=== PATIENT | female | born 1965 | race Caucasian/White ===

== ENCOUNTER 2016-02-09 15:39 | Inpatient (IN) | payer OTHER ==
[2016-02-09 16:48] VITALS: BMI 27.2
--- NOTE | 2016-02-09 17:36 | HP ---
CIWA Score - CIWA Score Nausea/Vomitin-Mild Nausea/No Vomiting Muscle Tremors: 5 Anxiety: 4-Mod. Anxious/Guarded Agitation: 4-Moderately Restless Paroxysmal Sweats: 2 Orientation: 0-Oriented Tacttile Disturbances: 0-None Auditory Disturbances: 0-None Visual Disturbances: 0-None Headache: 0-None Present CIWA-Ar Total Score: 16 Admission ROS BHS - HPI Chief Complaint: withdrawal sx Allergies/Adverse Reactions: Allergies Allergy/AdvReac Type Severity Reaction Status Date / Time cephalexin monohydrate Allergy Hives Verified 02/09/16 17:12 [From [facility]] History of Present Illness: 50 years old female with long history of alcohol nicotine dependence has hiv and hepatitis c treated, bipolar longest sobriety 7 years is admitted to detox Exam Limitations: No Limitations - Ebola screening Have you traveled outside of the country in the last 21 days: No Have you had contact with anyone from an Ebola affected area: No Have you been sick,other than usual withdrawal symptoms: No Do you have a fever: No - Review of Systems Constitutional: Chills, Loss of Appetite, Changes in sleep, Unexplained wgt Loss EENT: reports: Other (needed eye glasses) Respiratory: reports: No Symptoms reported Cardiac: reports: No Symptoms Reported GI: reports: Nausea, Poor Appetite, Poor Fluid Intake, Vomiting, Abdominal cramping : reports: No Symptoms Reported Musculoskeletal: reports: No Symptoms Reported Integumentary: reports: No Symptoms Reported Neuro: reports: Seizure (last episode 09/20), Tremors Endocrine: reports: No Symptoms Reported Hematology: reports: No Symptoms Reported Psychiatric: reports: Judgement Intact, Orientated x3 Other Systems: Reviewed and Negative Patient History - Patient Medical History Hx Anemia: No Hx Asthma: No Hx Chronic Obstructive Pulmonary Disease (COPD): No Hx Cancer: No Hx Cardiac Disorders: No Hx Congestive Heart Failure: No Hx Hypertension: No Hx Hypercholesterolemia: No Hx Pacemaker: No HX Cerebrovascular Accident: No Hx Seizures: Yes (2015) Hx Dementia: No Hx Diabetes: No Hx Gastrointestinal Disorders: No Hx Liver Disease: No Hx Genitourinary Disorders: No Hx Sexually Transmitted Disorders: No Hx Renal Disease (ESRD): No Hx Thyroid Disease: No Hx Human Immunodeficiency Virus (HIV): Yes (HIV 1992) Hx Hepatitis C: Yes (TREATED) Hx Depression: Yes Hx Suicide Attempt: Yes (Tried to overdose in 2013) Hx Bipolar Disorder: Yes Hx Schizophrenia: No - Patient Surgical History Past Surgical History: Yes Hx Neurologic Surgery: No Hx Cataract Extraction: No Hx Cardiac Surgery: No Hx Lung Surgery: No Hx Breast Surgery: No Hx Breast Biopsy: No Hx Abdominal Surgery: No Hx Appendectomy: No Hx Cholecystectomy: No Hx Genitourinary Surgery: No Hx Section: Yes (2004) Hx Orthopedic Surgery: No Hx Hysterectomy: No Anesthesia Reaction: No - PPD History Previous Implant?: Yes Documented Results: Negative w/proof Implanted On Prior [facility] Admission?: Yes Date: 11/10/15 Results: 0 MM PPD to be Administered?: No - Reproductive History Patient is a Female of Child Bearing Age (11 -55 yrs old): Yes Last Menstrual Period: 01/29/16 Patient : No - Smoking Cessation Smoking history: Current every day smoker Have you smoked in the past 12 months: Yes Aproximately how many cigarettes per day: 20 Cigars Per Day: 0 Hx Chewing Tobacco Use: No Initiated information on smoking cessation: Yes 'Breaking Loose' booklet given: 02/09/16 - Substance & Tx. History Hx Alcohol Use: Yes Hx Substance Use: Yes Substance Use Type: Alcohol, Cocaine, Marijuana, Opiates, Tranquilizers Hx Substance Use Treatment: Yes - Substances Abused Alcohol Route: Oral Frequency: Daily Amount used: 4 [place]TS [place]ODKA Age of first use: 13 Date of Last Use: 02/09/16 Crack Route: Smoking Frequency: Daily Amount used: 7 BAGS Age of first use: 17 Date of Last Use: 02/08/16 Family Disease History - Family Disease History Family Disease History: Diabetes: Mother (ALCOHOL), Other: Grandparent, Father ( , ALCOHOL), Mother Admission Physical Exam BHS - Vital Signs Vital Signs: Vital Signs - 24 hr 02/09/16 16:44 Temperature 98.1 F Pulse Rate 80 Respiratory 16 Rate Blood Pressure 105/74 - Physical General Appearance: Yes: Appropriately Dressed, Mild Distress, Thin, Tremorous, Irritable, Sweating, Anxious HEENTM: Yes: Hearing grossly Normal, Normal ENT Inspection, Normocephalic, Normal Voice Respiratory: Yes: Chest Non-Tender, Lungs Clear, Normal Breath Sounds, No Respiratory Distress, No Accessory Muscle Use Neck: Yes: Supple, Trachea in good position Breast: Yes: Breasts Symetrical Cardiology: Yes: Regular Rhythm, Regular Rate, S1, S2 Abdominal: Yes: Non Tender, Soft Genitourinary: Yes: Within Normal Limits Back: Yes: Normal Inspection Musculoskeletal: Yes: full range of Motion, Gait Steady Extremities: Yes: Normal Inspection, Normal Range of Motion, Non-Tender, Tremors 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: Yes: Fully Oriented, Alert, Motor Strength 5/5, Normal Response Integumentary: Yes: Warm Lymphatic: Yes: Within Normal Limits - Diagnostic (1) Alcohol dependence with uncomplicated withdrawal Current Visit: Yes Status: Acute (2) GERD (gastroesophageal reflux disease) Current Visit: Yes Status: Acute Qualifiers: Esophagitis presence: without esophagitis Qualified Code(s): K21.9 - Gastro-esophageal reflux disease without esophagitis Comment: ZANTAC 150 MG PO BID (3) HIV disease Current Visit: Yes Status: Chronic (4) Hep C w/o coma, chronic Current Visit: Yes Status: Resolved (5) Nicotine dependence Current Visit: Yes Status: Acute Qualifiers: Nicotine product type: cigarettes Substance use status: uncomplicated Qualified Code(s): F17.210 - Nicotine dependence, cigarettes, uncomplicated (6) Bipolar II disorder, mild, depressed, with anxious distress, in partial remission Current Visit: Yes Status: Suspected (7) Seizure disorder, secondary Current Visit: Yes Status: Chronic Comment: no treatment Cleared for Admission [facility] - Detox or Rehab [facility] Level of Care: Medically Managed Detox Regimen/Protocol: Librium [facility] Breath Alcohol Content Breath Alcohol Content: 0 Urine Pregancy Test - Result Urine Test Results: Negative- NO Line Present Urine Drug Screen - Results Drug Screen Negative: No Urine Drug Screen Results: THC-Marijuana, BARBARA-Cocaine, BZO-Benzodiazepines, MTD- Methadone, TCA-Tricyclic Antidepress, OXY-Oxycodone
[2016-02-09] MEDS ORDERED: MAGNESIUM HYDROX 2400MG/30ML ORAL SUSPENSION 30 ML CUP PO PRN (17:45)
[2016-02-09] MEDS ORDERED: P-EPHED 60MG/TRIPROLIDI 2.5MG TABLET PO PRN (17:45)
[2016-02-09] MEDS ORDERED: MENTHOL/PHENOL 1 EACH UD MM PRN (17:45)
[2016-02-09] MEDS ORDERED: IBUPROFEN 400 MG TABLET (FP) PO PRN (17:45)
[2016-02-09] MEDS ORDERED: ACETAMINOPHEN 325 MG TABLET (FP) PO PRN (17:45)
[2016-02-09] MEDS ORDERED: MAG HYDROX/AL HYDROX/SIMETH 30 ML UNIT-DOSE CUP PO PRN (17:45)
[2016-02-09] MEDS ORDERED: diphenhydrAMINE HCL 50 MG CAPSULE PO PRN (17:45)
[2016-02-09] MEDS ORDERED: NICOTINE POLACRILEX 2 MG GUM BC PRN (17:45)
[2016-02-09] MEDS ORDERED: LOPERAMIDE HCL 2 MG CAPSULE PO PRN (17:45)
[2016-02-09] MEDS ORDERED: chlordiazePOXIDE HCL 25 MG CAPSULE PO PRN (17:45)
[2016-02-09] MEDS ORDERED: MAGNESIUM CITRATE 300 ML BOTTLE PO PRN (17:45)
[2016-02-09] MEDS ORDERED: guaiFENesin/D-METHORPHAN HB 10 ML UNIT-DOSE CUPS PO PRN (17:45)
[2016-02-09] MEDS ORDERED: chlordiazePOXIDE HCL 25 MG CAPSULE PO ONE (18:45)
[2016-02-09] MEDS: EMTRICITABINE 200MG/TENOFOVIR 300MG PO SCH (19:26)
[2016-02-09] MEDS: RITONAVIR 100 MG TABLET PO SCH (19:26)
[2016-02-09] MEDS: ATAZANAVIR SO4 300 MG CAPSULE PO SCH (19:26)
[2016-02-09] MEDS: chlordiazePOXIDE HCL 25 MG CAPSULE PO SCH (22:26)
[2016-02-09] MEDS: THIAMINE HCL 100 MG TABLET (FP) PO SCH (22:26)
[2016-02-09] MEDS: RANITIDINE HCL 150 MG TABLET (FP) PO SCH (22:26)
[2016-02-09 23:11] LABS: URINE APPEARANCE CLEAR; URINE BILIRUBIN NEGATIVE (NEGATIVE); URINE BLOOD NEGATIVE (NEGATIVE); URINE COLOR YELLOW; URINE GLUCOSE (UA) NEGATIVE (NEGATIVE); URINE KETONE NEGATIVE (NEGATIVE); URINE LEUK ESTERASE NEGATIVE (NEGATIVE); URINE NITRITE NEGATIVE (NEGATIVE); URINE PROTEIN NEGATIVE (NEGATIVE); URINE UROBILINOGEN 2.0 E.U/dl E.U./dl (0.2-1.0)
[2016-02-10] MEDS: chlordiazePOXIDE HCL 25 MG CAPSULE PO SCH ×4 (06:04→22:24)
[2016-02-10] MEDS ORDERED: METHADONE HCL 10 MG TABLET PO ONE (08:43)
[2016-02-10] MEDS: EMTRICITABINE 200MG/TENOFOVIR 300MG PO SCH (08:45)
[2016-02-10] MEDS: ATAZANAVIR SO4 300 MG CAPSULE PO SCH (08:46)
[2016-02-10] MEDS: RITONAVIR 100 MG TABLET PO SCH (08:46)
[2016-02-10] MEDS ORDERED: METHADONE 80 MG, METHADONE 30 MG PO ONE (09:13)
[2016-02-10] MEDS ORDERED: METHADONE HCL 10 MG TABLET ONE (09:46)
[2016-02-10] MEDS ORDERED: METHADONE HCL 40 MG DISPERSABLE TABLET ONE (09:47)
[2016-02-10 10:20] LABS: MCH 29.7 pg (25.7-33.7); MCHC 33.3 g/dl (32.0-36.0); MEAN CELL VOLUME 89.2 fl (80-96); MEAN PLT VOLUME 8.5 fl (7.5-11.1); PLATELET COUNT 247 K/MM3 (134-434); RDW 13.8 % (11.6-15.6); WHITE BLOOD COUNT 3.5 K/mm3 (4.0-10.0)
[2016-02-10] MEDS: PRENATAL VITAMINS W/ FOLIC ACID TABLET (FP) PO SCH (10:38)
[2016-02-10] MEDS: RANITIDINE HCL 150 MG TABLET (FP) PO SCH ×2 (10:38→22:25)
[2016-02-10] MEDS: NICOTINE 21 MG/24 HOURS TOPICAL PATCH TD SCH (10:43)
[2016-02-10 10:58] LABS: ALBUMIN 3.3 g/dl (3.4-5.0); ALK PHOS 104 U/L (45-117); ANION GAP 11 (8-16); BILIRUBIN,TOTAL 1.1 mg/dL (0.2-1.0); CALCIUM 8.8 mg/dL (8.5-10.1); CO2 22 mmol/L (21-32); CREATININE 0.7 mg/dL (0.55-1.02); GLUCOSE,RANDOM 82 mg/dL (74-106); SGOT/AST 77 U/L (15-37); SGPT/ALT 82 U/L (12-78); TOT PROT 7.8 g/dl (6.4-8.2)
--- NOTE | 2016-02-10 11:25 | PN ---
S CIWA - CIWA Score Nausea/Vomitin-No Nausea/No Vomiting Muscle Tremors: 4-Moderate,w/Arms Extend Anxiety: 3 Agitation: 4-Moderately Restless Paroxysmal Sweats: 3 Orientation: 0-Oriented Tacttile Disturbances: 0-None Auditory Disturbances: 0-None Visual Disturbances: 0-None Headache: 0-None Present CIWA-Ar Total Score: 14 BHS Progress Note (SOAP) Subjective: sweats shakes interrupted sleep body aches Objective: 02/10/16 11:24 Vital Signs Temperature 97.9 F 02/10/16 10:13 Pulse Rate 82 02/10/16 10:13 Respiratory Rate 18 02/10/16 10:13 Blood Pressure 107/65 02/10/16 10:13 O2 Sat by Pulse Oximetry (%) Laboratory Tests 02/09/16 02/10/16 02/10/16 22:16 07:00 07:00 WBC 3.5 L RBC 4.09 Hgb 12.2 Hct 36.5 MCV 89.2 MCHC 33.3 RDW 13.8 Plt Count 247 MPV 8.5 Sodium 135 L Potassium 3.6 Chloride 102 Carbon Dioxide 22 D Anion Gap 11 BUN 16 D Creatinine 0.7 Creat Clearance w eGFR > 60 Random Glucose 82 Calcium 8.8 Total Bilirubin 1.1 H D AST 77 H D ALT 82 H Alkaline Phosphatase 104 D Total Protein 7.8 Albumin 3.3 L Urine Color Yellow Urine Appearance Clear Urine pH 5.0 Ur Specific [place] 1.023 Urine Protein Negative Urine Glucose (UA) Negative Urine Ketones Negative Urine Blood Negative Urine Nitrite Negative Urine Bilirubin Negative Urine Urobilinogen 2.0 e.u/dl H Ur Leukocyte Esterase Negative awake/alert ambulating no acute distress Assessment: 02/10/16 11:24 withdrawal sx Plan: continue detox increase fluids labs pending
--- NOTE | 2016-02-10 13:50 | CONSULT ---
[facility] Psychiatric Consult - Data Date of interview: 02/10/16 Admission source: [facility] Identifying data: This is 50 years old female with no psychiatric hospitalization history intodicated with Alcohol, Opioids, Copcaine and Nicotine Substance Abuse History: Trazodone 100mg po qhs Medical History: GERD, HIV, Seizure history, Chest pain history, Head injury history, MMTP Psychiatric History: Patient reports history of Bipolar disorder, PTSD, reports taking prior to admission: Seroquel 100mg po qhs. Trazodone 100mg po qhs Physical/Sexual Abuse/Trauma History: Denies Additional Comment: Seroquel 100mg po qhs. Trazodone 100mg po qhs Mental Status Exam - Mental Status Exam Alert and Oriented to: Person Cognitive Function: Fair Patient Appearance: Unkempt Mood: Sad Affect: Flat Patient Behavior: Sedated Speech Pattern: Delayed Voice Loudness: Mildly Soft/Quiet Thought Process: Circumstantial Thought Disorder: Being Controlled Hallucinations: Denies Suicidal Ideation: Denies Homicidal Ideation: Denies Insight/Judgement: Fair Sleep: Difficulty falling asleep Appetite: Weight gain Muscle strength/Tone: Mild Hypotonicity Gait/Station: Shuffling Additional Comments: Seroquel 100mg po qhs. Trazodone 100mg po qhs Psychiatric Findings - Problem List ([place] 1, 2,3) (1) Alcohol dependence with uncomplicated withdrawal Current Visit: Yes Status: Acute (2) Nicotine dependence Current Visit: Yes Status: Acute Qualifiers: Nicotine product type: cigarettes Substance use status: uncomplicated Qualified Code(s): F17.210 - Nicotine dependence, cigarettes, uncomplicated (3) Seizure disorder, secondary Current Visit: Yes Status: Chronic Comment: no treatment (4) Bipolar II disorder, mild, depressed, with anxious distress, in partial remission Current Visit: Yes Status: Suspected (5) Opioid dependence Current Visit: No Status: Acute (6) Alcohol dependence, continuous Current Visit: No Status: Chronic (7) Bipolar 1 disorder Current Visit: No Status: Chronic (8) Closed head injury Current Visit: No Status: Chronic (9) Cocaine dependence Current Visit: No Status: Chronic Qualifiers: Substance use status: uncomplicated Qualified Code(s): F14.20 - Cocaine dependence, uncomplicated (10) Methadone maintenance therapy patient Current Visit: No Status: Chronic Comment: last dose today with 100mg LAST DOSE 08/17/15 WAITING FOR VERIFICATION (11) Opioid dependence on agonist therapy Current Visit: No Status: Chronic (12) Opoid Depedence On Agonist Therapy Current Visit: No Status: Chronic (13) Post traumatic stress disorder (PTSD) Current Visit: No Status: Chronic (14) Alcohol dependence Current Visit: No Status: Suspected Qualifiers: Substance use status: alcohol-induced persisting dementia Qualified Code(s): F10.27 - Alcohol dependence with alcohol-induced persisting dementia (15) Bipolar disorder Current Visit: No Status: Suspected Qualifiers: Active/Remission status: currently active Current bipolar episode type : depressed Current episode severity: unspecified Qualified Code(s): F31.30 - Bipolar disorder, current episode depressed, mild or moderate severity , unspecified - Initial Treatment Plan Initial Treatment Plan: Seroquel 100mg po qhs. Trazodone 100mg po qhs
--- NOTE | 2016-02-10 16:41 | EKG ---
Test Reason : Blood Pressure : / mmHG Vent. Rate : 075 BPM Atrial Rate : 075 BPM P-R Int : 116 ms QRS Dur : 110 ms QT Int : 398 ms P-R-T Axes : 063 012 018 degrees QTc Int : 444 ms NORMAL SINUS RHYTHM NONSPECIFIC T WAVE ABNORMALITY ABNORMAL ECG WHEN COMPARED WITH ECG OF 20-MAR-2014 17:13, NO SIGNIFICANT CHANGE WAS FOUND Confirmed by MAGDY MAGANA MD (2013) on 02/10/2016 4:41:20 PM Referred By: Anthony Reed Confirmed By:MAGDY MAGANA MD
[2016-02-10] MEDS: traZODone HCL 100 MG TABLET (FP) PO SCH (22:24)
[2016-02-10] MEDS: QUEtiapine FUMARATE 100 MG TABLET (FP) PO SCH (22:25)
[2016-02-10] MEDS: THIAMINE HCL 100 MG TABLET (FP) PO SCH (22:25)
[2016-02-11] MEDS ORDERED: METHADONE HCL 40 MG DISPERSABLE TABLET ONE (05:03)
[2016-02-11] MEDS ORDERED: METHADONE HCL 10 MG TABLET ONE (05:03)
[2016-02-11] MEDS: chlordiazePOXIDE HCL 25 MG CAPSULE PO SCH ×3 (05:52→17:16)
[2016-02-11] MEDS: METHADONE 80 MG, METHADONE 30 MG PO SCH (05:52)
[2016-02-11] MEDS ORDERED: METHADONE HCL 40 MG DISPERSABLE TABLET PO SCH (06:00)
[2016-02-11] MEDS: RITONAVIR 100 MG TABLET PO SCH (10:06)
[2016-02-11] MEDS: EMTRICITABINE 200MG/TENOFOVIR 300MG PO SCH (10:06)
[2016-02-11] MEDS: ATAZANAVIR SO4 300 MG CAPSULE PO SCH (10:06)
[2016-02-11] MEDS: PRENATAL VITAMINS W/ FOLIC ACID TABLET (FP) PO SCH (10:06)
[2016-02-11] MEDS: RANITIDINE HCL 150 MG TABLET (FP) PO SCH ×2 (10:07→22:31)
[2016-02-11] MEDS: NICOTINE 21 MG/24 HOURS TOPICAL PATCH TD SCH (10:09)
--- NOTE | 2016-02-11 11:04 | PN ---
S CIWA - CIWA Score Nausea/Vomitin Muscle Tremors: 2 Anxiety: 3 Agitation: 2 Paroxysmal Sweats: 2 Orientation: 0-Oriented Tacttile Disturbances: 0-None Auditory Disturbances: 1-Very Mild Visual Disturbances: 0-None Headache: 2-Mild CIWA-Ar Total Score: 14 S Progress Note (SOAP) Objective: 02/11/16 11:03 Vital Signs - 24 hr 02/10/16 02/10/16 02/10/16 14:55 18:12 22:37 Temperature 98.2 F 97.0 F L 98.2 F Pulse Rate 81 76 84 Respiratory 18 18 18 Rate Blood Pressure 113/67 93/61 105/64 02/11/16 02/11/16 02/11/16 00:30 03:30 06:00 Temperature 98.1 F Pulse Rate 84 Respiratory 18 18 16 Rate Blood Pressure 103/60 02/11/16 10:27 Temperature 96.8 F L Pulse Rate 87 Respiratory 18 Rate Blood Pressure 91/57 Laboratory Tests 02/09/16 02/10/16 02/10/16 22:16 07:00 07:00 WBC 3.5 L RBC 4.09 Hgb 12.2 Hct 36.5 MCV 89.2 MCHC 33.3 RDW 13.8 Plt Count 247 MPV 8.5 Sodium 135 L Potassium 3.6 Chloride 102 Carbon Dioxide 22 D Anion Gap 11 BUN 16 D Creatinine 0.7 Creat Clearance w eGFR > 60 Random Glucose 82 Calcium 8.8 Total Bilirubin 1.1 H D AST 77 H D ALT 82 H Alkaline Phosphatase 104 D Total Protein 7.8 Albumin 3.3 L Urine Color Yellow Urine Appearance Clear Urine pH 5.0 Ur Specific [place] 1.023 Urine Protein Negative Urine Glucose (UA) Negative Urine Ketones Negative Urine Blood Negative Urine Nitrite Negative Urine Bilirubin Negative Urine Urobilinogen 2.0 e.u/dl H Ur Leukocyte Esterase Negative RPR Titer T.pallidum Ab ([facility]) 02/10/16 07:00 WBC RBC Hgb Hct MCV MCHC RDW Plt Count MPV Sodium Potassium Chloride Carbon Dioxide Anion Gap BUN Creatinine Creat Clearance w eGFR Random Glucose Calcium Total Bilirubin AST ALT Alkaline Phosphatase Total Protein Albumin Urine Color Urine Appearance Urine pH Ur Specific [place] Urine Protein Urine Glucose (UA) Urine Ketones Urine Blood Urine Nitrite Urine Bilirubin Urine Urobilinogen Ur Leukocyte Esterase RPR Titer Reactive 1:2 H T.pallidum Ab ([facility]) Previously reactive Assessment: 02/11/16 11:03 ongoing withdrawal Plan: continue detox protocol
[2016-02-11] MEDS: THIAMINE HCL 100 MG TABLET (FP) PO SCH (22:31)
[2016-02-11] MEDS: chlordiazePOXIDE 5 MG CAPSULE PO SCH (22:31)
[2016-02-11] MEDS: QUEtiapine FUMARATE 100 MG TABLET (FP) PO SCH (22:31)
[2016-02-11] MEDS: traZODone HCL 100 MG TABLET (FP) PO SCH (22:31)
[2016-02-12] MEDS ORDERED: METHADONE HCL 40 MG DISPERSABLE TABLET ONE (05:17)
[2016-02-12] MEDS ORDERED: METHADONE HCL 10 MG TABLET ONE (05:17)
[2016-02-12] MEDS: METHADONE 80 MG, METHADONE 30 MG PO SCH (05:55)
[2016-02-12] MEDS: chlordiazePOXIDE 5 MG CAPSULE PO SCH ×3 (06:12→17:38)
[2016-02-12] MEDS: EMTRICITABINE 200MG/TENOFOVIR 300MG PO SCH (07:48)
[2016-02-12] MEDS: RITONAVIR 100 MG TABLET PO SCH (07:48)
[2016-02-12] MEDS: ATAZANAVIR SO4 300 MG CAPSULE PO SCH (07:48)
[2016-02-12] MEDS: RANITIDINE HCL 150 MG TABLET (FP) PO SCH ×2 (10:57→22:40)
[2016-02-12] MEDS: NICOTINE 21 MG/24 HOURS TOPICAL PATCH TD SCH (10:57)
[2016-02-12] MEDS: PRENATAL VITAMINS W/ FOLIC ACID TABLET (FP) PO SCH (10:57)
[2016-02-12] MEDS: LIDOCAINE 5% TOPICAL PATCH TP SCH (12:38)
--- NOTE | 2016-02-12 13:08 | PN ---
S Progress Note (SOAP) Subjective: ALERT,IRRITABLE,ANXIOUS,INTERRUPTED SLEEP Objective: 02/12/16 13:07 Vital Signs Temperature 98.2 F 02/12/16 09:45 Pulse Rate 102 H 02/12/16 09:45 Respiratory Rate 16 02/12/16 09:45 Blood Pressure 103/50 02/12/16 09:45 O2 Sat by Pulse Oximetry (%) Assessment: 02/12/16 13:07 WITHDRAWAL SYMPTOM Plan: CONTINUE DETOX,DISCHARGE IN AM
[2016-02-12] MEDS: QUEtiapine FUMARATE 100 MG TABLET (FP) PO SCH (22:40)
[2016-02-12] MEDS: traZODone HCL 100 MG TABLET (FP) PO SCH (22:40)
[2016-02-12] MEDS: chlordiazePOXIDE HCL 10 MG CAPSULE PO SCH (22:40)
[2016-02-12] MEDS: THIAMINE HCL 100 MG TABLET (FP) PO SCH (22:40)
[2016-02-13] MEDS ORDERED: METHADONE HCL 10 MG TABLET ONE (03:34)
[2016-02-13] MEDS ORDERED: METHADONE HCL 40 MG DISPERSABLE TABLET ONE (03:35)
[2016-02-13] MEDS: chlordiazePOXIDE HCL 10 MG CAPSULE PO SCH ×2 (05:47→10:57)
[2016-02-13] MEDS: METHADONE 80 MG, METHADONE 30 MG PO SCH (05:47)
[2016-02-13] MEDS: ATAZANAVIR SO4 300 MG CAPSULE PO SCH (07:50)
[2016-02-13] MEDS: RITONAVIR 100 MG TABLET PO SCH (07:50)
[2016-02-13] MEDS: EMTRICITABINE 200MG/TENOFOVIR 300MG PO SCH (07:50)
--- NOTE | 2016-02-13 09:06 | PN ---
S Progress Note (SOAP) Subjective: ALERT,NO COMPLAINT Objective: 02/13/16 09:04 Vital Signs Temperature 97.4 F L 02/13/16 07:16 Pulse Rate 63 02/13/16 07:16 Respiratory Rate 18 02/13/16 07:16 Blood Pressure 99/60 02/13/16 07:16 O2 Sat by Pulse Oximetry (%) Assessment: 02/13/16 09:04 DETOX COMPLETED,NO WITHDRAWAL SYMPTOM Plan: DISCHARGE TODAY,FOLLOW UP WITH AFTER CARE PROGRAM ARRANGEMENT
--- NOTE | 2016-02-13 09:12 | DS ---
[facility] Discharge Summary Admission Date: 02/09/16 Discharge Date: 02/13/16 - History Present History: Alcohol Dependence Additional Comments: FOLLOW UP WITH AFTER [facility] PROGRAM ARRANGEMENT AND PMD FOR MEDICAL PROBLEM Pertinent Past History: GERD HIV HEPATITIS C NICOTINE DEPENDENCE BIPOLAR DISORDER SEIZURE - Physical Exam Results Vital Signs: Vital Signs Temperature 97.4 F L 02/13/16 07:16 Pulse Rate 63 02/13/16 07:16 Respiratory Rate 18 02/13/16 07:16 Blood Pressure 99/60 02/13/16 07:16 O2 Sat by Pulse Oximetry (%) - Treatment Hospital Course: Detox Protocol Followed, Detoxed Safely, Responded well, Discharged Condition Good Patient has Accepted a Rehab Referral to: [facility] - Medication Discharge Medications: Ambulatory Orders Quetiapine Fumarate [Seroquel -] 100 mg PO HS #30 tablet 08/18/15 Trazodone HCl [Desyrel -] 100 mg PO HS #30 tablet 08/18/15 Ritonavir [Norvir] 100 mg PO DAILY #30 capsule 08/21/15 Atazanavir [Reyataz -] 300 mg PO DAILY@0800 #30 capsule 12/27/15 Emtricitabine/Tenofovir [Truvada -] 1 tab PO DAILY #30 tablet 12/27/15 Ranitidine [Zantac -] 150 mg PO BID #60 tablet 12/27/15 Quetiapine Fumarate [Seroquel] 100 mg PO HS #30 tablet 02/10/16 Trazodone HCl 100 mg PO HS #30 tablet 02/10/16 - AMA Did Patient Leave Against Medical Advice: No
[2016-02-13 10:32] VITALS: BP 95/57; PULSE 92; TEMP 96.3
[2016-02-13] MEDS: PRENATAL VITAMINS W/ FOLIC ACID TABLET (FP) PO SCH (10:57)
[2016-02-13] MEDS: NICOTINE 21 MG/24 HOURS TOPICAL PATCH TD SCH (10:57)
[2016-02-13] MEDS: RANITIDINE HCL 150 MG TABLET (FP) PO SCH (10:57)
[2016-02-13] MEDS: LIDOCAINE 5% TOPICAL PATCH TP SCH (10:58)
== END 2016-02-13 11:25 | disposition home or self-care (01) | DRG 773 ==
LOC: YASAS 15:39 → Y6N 18:37
PROVIDERS: ADMIT Internal Medicine Addiction Medicine; ATTEND Internal Medicine Addiction Medicine
PROC: HZ2ZZZZ Detoxification Services for Substance Abuse Treatment (ICD-10-PCS; principal; 2016-02-09)
DX: F10.230 Alcohol dependence with withdrawal, uncomplicated (principal); F11.20 Opioid dependence, uncomplicated; F14.20 Cocaine dependence, uncomplicated; F17.210 Nicotine dependence, cigarettes, uncomplicated; F31.31 Bipolar disorder, current episode depressed, mild; Z21 Asymptomatic human immunodeficiency virus [HIV] infection status; K21.9 Gastro-esophageal reflux disease without esophagitis; B18.2 Chronic viral hepatitis C; Z86.69 Personal history of other diseases of the nervous system and sense organs; Z91.5 Personal history of self-harm
CPT/HCPCS: 36415; 80053; 81003; 85027; 86593; 86780; 93005; 93010

== ENCOUNTER 2016-04-04 11:04 | Inpatient (IN) | payer OTHER ==
[2016-04-04 11:57] VITALS: BMI 22.9
--- NOTE | 2016-04-04 14:52 | HP ---
Admission ROS [facility] Chief Complaint: I am looking to go to rehab for further tx. Allergies/Adverse Reactions: Allergies Allergy/AdvReac Type Severity Reaction Status Date / Time cephalexin monohydrate Allergy Hives Verified 04/04/16 14:39 [From [facility]] History of Present Illness: pt is a 50yr old female with a history of alcohol dependence seeking rehab for treatment. last time she drank alcohol was a few days ago. Exam Limitations: No Limitations - Ebola screening Have you traveled outside of the country in the last 21 days: No Have you had contact with anyone from an Ebola affected area: No Have you been sick,other than usual withdrawal symptoms: No Do you have a fever: No - Review of Systems Constitutional: Loss of Appetite EENT: reports: Nose Congestion Respiratory: reports: No Symptoms reported Cardiac: reports: No Symptoms Reported GI: reports: Poor Appetite, Poor Fluid Intake : reports: No Symptoms Reported Musculoskeletal: reports: No Symptoms Reported Integumentary: reports: Bruising ( seizure a week ago d/t drinking now pt has a bruise to left side of face.), Flushing Neuro: reports: Headache Endocrine: reports: Intolerance to Cold Hematology: reports: No Symptoms Reported Psychiatric: reports: Judgement Intact, Mood/Affect Appropiate, Orientated x3, Agitated, Anxious Other Systems: Reviewed and Negative Patient History - Patient Medical History Hx Anemia: No Hx Asthma: No Hx Chronic Obstructive Pulmonary Disease (COPD): No Hx Cancer: No Hx Cardiac Disorders: No Hx Congestive Heart Failure: No Hx Hypertension: No Hx Hypercholesterolemia: No Hx Pacemaker: No HX Cerebrovascular Accident: No Hx Seizures: Yes (03/2016) Hx Dementia: No Hx Diabetes: No Hx Gastrointestinal Disorders: No Hx Liver Disease: No Hx Genitourinary Disorders: No Hx Sexually Transmitted Disorders: No Hx Renal Disease (ESRD): No Hx Thyroid Disease: No Hx Human Immunodeficiency Virus (HIV): Yes (HIV 1992 compliant) Hx Hepatitis C: Yes (TREATED) Hx Depression: Yes Hx Suicide Attempt: Yes (Tried to overdose in 2013) Hx Bipolar Disorder: Yes Hx Schizophrenia: No - Patient Surgical History Past Surgical History: Yes Hx Neurologic Surgery: No Hx Cataract Extraction: No Hx Cardiac Surgery: No Hx Lung Surgery: No Hx Breast Surgery: No Hx Breast Biopsy: No Hx Abdominal Surgery: No Hx Appendectomy: No Hx Cholecystectomy: No Hx Genitourinary Surgery: No Hx Section: Yes (2004) Hx Orthopedic Surgery: No Hx Hysterectomy: No Anesthesia Reaction: No - PPD History Previous Implant?: Yes Documented Results: Negative w/proof Date: 11/10/15 Results: 0 MM PPD to be Administered?: No - Reproductive History Patient is a Female of Child Bearing Age (11 -55 yrs old): Yes Last Menstrual Period: 02/21/16 Patient : No - Smoking Cessation Smoking history: Current every day smoker Have you smoked in the past 12 months: Yes Aproximately how many cigarettes per day: 20 Cigars Per Day: 0 Hx Chewing Tobacco Use: No Initiated information on smoking cessation: Yes 'Breaking Loose' booklet given: 04/04/16 - Substance & Tx. History Hx Alcohol Use: Yes Hx Substance Use: Yes Substance Use Type: Alcohol Hx Substance Use Treatment: Yes Family Disease History - Family Disease History Family Disease History: Diabetes: Mother (ALCOHOL), Other: Grandparent, Father ( , ALCOHOL), Mother Admission Physical Exam S - Vital Signs Vital Signs: Vital Signs - 24 hr 04/04/16 11:35 Temperature 96.1 F L Pulse Rate 82 Respiratory 18 Rate Blood Pressure 118/63 - Physical General Appearance: Yes: Appropriately Dressed, Mild Distress, Thin, Irritable, Anxious HEENTM: Yes: Hearing grossly Normal Respiratory: Yes: Lungs Clear, Normal Breath Sounds, No Respiratory Distress Neck: Yes: No masses,lesions,Nodules Breast: Yes: Within Normal Limits Cardiology: Yes: Regular Rhythm, Regular Rate, S1, S2 Abdominal: Yes: Normal Bowel Sounds Genitourinary: Yes: Within Normal Limits Back: Yes: Normal Inspection Musculoskeletal: Yes: full range of Motion Extremities: Yes: Normal Capillary Refill 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: Yes: Fully Oriented, Alert, Normal Response Integumentary: Yes: Normal Color Lymphatic: Yes: Within Normal Limits - Diagnostic (1) GERD (gastroesophageal reflux disease) Current Visit: Yes Status: Chronic Qualifiers: Esophagitis presence: without esophagitis Qualified Code(s): K21.9 - Gastro-esophageal reflux disease without esophagitis Comment: ZANTAC 150 MG PO BID (2) HIV (human immunodeficiency virus infection) Current Visit: Yes Status: Chronic (3) Cocaine dependence Current Visit: No Status: Chronic Qualifiers: Substance use status: uncomplicated Qualified Code(s): F14.20 - Cocaine dependence, uncomplicated (4) HIV disease Current Visit: Yes Status: Chronic (5) Methadone maintenance therapy patient Current Visit: Yes Status: Chronic Comment: last dose received today 04/04/16; pending verification (6) Nicotine dependence Current Visit: Yes Status: Chronic Qualifiers: Nicotine product type: cigarettes Substance use status: uncomplicated Qualified Code(s): F17.210 - Nicotine dependence, cigarettes, uncomplicated (7) Seizure disorder, secondary Current Visit: No Status: Suspected Comment: no treatment (8) Bruise of face Current Visit: Yes Status: Acute Qualifiers: Encounter type: initial encounter Qualified Code(s): S00.83XA - Contusion of other part of head, initial encounter Comment: d/t seizure a week ago. Cleared for Admission [facility] - Detox or Rehab [facility] Level of Care: Medically Managed Claeared for Rehab Admission: Yes [facility] Breath Alcohol Content Breath Alcohol Content: 0 Urine Pregancy Test - Result Urine Test Results: Negative- NO Line Present Urine Drug Screen - Results Drug Screen Negative: No Urine Drug Screen Results: THC-Marijuana, BARBARA-Cocaine, OPI-Opiates, BZO- Benzodiazepines, MTD-Methadone
[2016-04-04] MEDS ORDERED: diphenhydrAMINE HCL 50 MG CAPSULE PO PRN (14:58)
[2016-04-04] MEDS ORDERED: MAGNESIUM CITRATE 300 ML BOTTLE PO PRN (14:58)
[2016-04-04] MEDS ORDERED: MENTHOL/PHENOL 1 EACH UD MM PRN (14:58)
[2016-04-04] MEDS ORDERED: ACETAMINOPHEN 325 MG TABLET (FP) PO PRN (14:58)
[2016-04-04] MEDS ORDERED: guaiFENesin/D-METHORPHAN HB 10 ML UNIT-DOSE CUPS PO PRN (14:58)
[2016-04-04] MEDS ORDERED: LOPERAMIDE HCL 2 MG CAPSULE PO PRN (14:58)
[2016-04-04] MEDS ORDERED: hydrOXYzine PAMOATE 50 MG CAPSULE (FP) PO PRN (14:58)
[2016-04-04] MEDS ORDERED: P-EPHED 60MG/TRIPROLIDI 2.5MG TABLET PO PRN (14:58)
[2016-04-04] MEDS ORDERED: MAGNESIUM HYDROX 2400MG/30ML ORAL SUSPENSION 30 ML CUP PO PRN (14:58)
[2016-04-04] MEDS ORDERED: MAG HYDROX/AL HYDROX/SIMETH 30 ML UNIT-DOSE CUP PO PRN (14:58)
[2016-04-04] MEDS ORDERED: COLLOIDAL OATMEAL 1 BAR EACH TP PRN (15:00)
[2016-04-04 20:00] LABS: MCH 29.9 pg (25.7-33.7); MEAN CELL VOLUME 90.7 fl (80-96); MEAN PLT VOLUME 8.9 fl (7.5-11.1); PLATELET COUNT 247 K/MM3 (134-434); RDW 14.2 % (11.6-15.6); WHITE BLOOD COUNT 6.4 K/mm3 (4.0-10.0)
[2016-04-04 20:26] LABS: ALBUMIN 3.2 g/dl (3.4-5.0); ALK PHOS 79 U/L (45-117); ANION GAP 8 (8-16); BILIRUBIN,TOTAL 0.8 mg/dL (0.2-1.0); CALCIUM 9.1 mg/dL (8.5-10.1); CO2 27 mmol/L (21-32); CREATININE 0.6 mg/dL (0.55-1.02); GLUCOSE,RANDOM 83 mg/dL (74-106); SGOT/AST 36 U/L (15-37); SGPT/ALT 33 U/L (12-78); TOT PROT 7.6 g/dl (6.4-8.2)
[2016-04-04] MEDS: QUEtiapine FUMARATE 100 MG TABLET (FP) PO SCH (21:34)
[2016-04-04] MEDS: THIAMINE HCL 100 MG TABLET (FP) PO SCH (21:34)
[2016-04-04] MEDS: RANITIDINE HCL 150 MG TABLET (FP) PO SCH (21:34)
[2016-04-04] MEDS: traZODone HCL 50 MG TABLET (FP) PO SCH (21:34)
[2016-04-05] MEDS ORDERED: METHADONE HCL 10 MG TABLET PO ONE (07:14)
[2016-04-05] MEDS ORDERED: METHADONE 80 MG, METHADONE 30 MG PO ONE (07:30)
[2016-04-05] MEDS ORDERED: METHADONE HCL 10 MG TABLET ONE (07:34)
[2016-04-05] MEDS ORDERED: METHADONE HCL 40 MG DISPERSABLE TABLET ONE (07:34)
[2016-04-05] MEDS ORDERED: PT OWN MED DRAWER 7, Y5N ONE (07:35)
[2016-04-05] MEDS: RITONAVIR 100 MG TABLET PO SCH (07:38)
[2016-04-05] MEDS: ATAZANAVIR SO4 300 MG CAPSULE PO SCH (07:38)
[2016-04-05] MEDS: EMTRICITABINE 200MG/TENOFOVIR 300MG PO SCH (07:38)
[2016-04-05] MEDS: RANITIDINE HCL 150 MG TABLET (FP) PO SCH ×2 (10:29→21:30)
[2016-04-05] MEDS: PRENATAL VITAMINS W/ FOLIC ACID TABLET (FP) PO SCH (10:29)
[2016-04-05] MEDS: NICOTINE 21 MG/24 HOURS TOPICAL PATCH TD SCH (10:30)
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
--- NOTE | 2016-04-05 13:53 | EKG ---
Test Reason : Blood Pressure : / mmHG Vent. Rate : 075 BPM Atrial Rate : 075 BPM P-R Int : 114 ms QRS Dur : 114 ms QT Int : 386 ms P-R-T Axes : 051 046 030 degrees QTc Int : 431 ms NORMAL SINUS RHYTHM NONSPECIFIC T WAVE ABNORMALITY ABNORMAL ECG WHEN COMPARED WITH ECG OF 09-FEB-2016 19:35, NO SIGNIFICANT CHANGE WAS FOUND Confirmed by JIMBO NICE MD ([id number]) on 04/05/2016 1:52:59 PM Referred By: Amie Menjivar Confirmed By:JIMBO NICE MD
[2016-04-05] MEDS: IBUPROFEN 400 MG TABLET (FP) PO PRN (16:39)
[2016-04-05] MEDS: QUEtiapine FUMARATE 100 MG TABLET (FP) PO SCH (21:30)
[2016-04-05] MEDS: THIAMINE HCL 100 MG TABLET (FP) PO SCH (21:30)
[2016-04-05] MEDS: traZODone HCL 50 MG TABLET (FP) PO SCH (21:30)
[2016-04-06] MEDS ORDERED: METHADONE HCL 10 MG TABLET PO SCH (06:00)
[2016-04-06] MEDS ORDERED: METHADONE HCL 40 MG DISPERSABLE TABLET ONE (06:01)
[2016-04-06] MEDS ORDERED: PT OWN MED DRAWER 7, Y5N ONE ×2 (06:01→10:32)
[2016-04-06] MEDS ORDERED: METHADONE HCL 10 MG TABLET ONE (06:01)
[2016-04-06] MEDS: METHADONE 80 MG, METHADONE 30 MG PO SCH (06:31)
[2016-04-06] MEDS: EMTRICITABINE 200MG/TENOFOVIR 300MG PO SCH (07:30)
[2016-04-06] MEDS: ATAZANAVIR SO4 300 MG CAPSULE PO SCH (07:30)
[2016-04-06] MEDS: RITONAVIR 100 MG TABLET PO SCH (07:30)
[2016-04-06] MEDS: PRENATAL VITAMINS W/ FOLIC ACID TABLET (FP) PO SCH (10:30)
[2016-04-06] MEDS: RANITIDINE HCL 150 MG TABLET (FP) PO SCH ×2 (10:30→21:20)
[2016-04-06] MEDS: NICOTINE 21 MG/24 HOURS TOPICAL PATCH TD SCH (10:30)
[2016-04-06] MEDS: IBUPROFEN 400 MG TABLET (FP) PO PRN (18:02)
[2016-04-06] MEDS: traZODone HCL 50 MG TABLET (FP) PO SCH (21:20)
[2016-04-06] MEDS: QUEtiapine FUMARATE 100 MG TABLET (FP) PO SCH (21:20)
[2016-04-06] MEDS: THIAMINE HCL 100 MG TABLET (FP) PO SCH (21:20)
[2016-04-07] MEDS ORDERED: METHADONE HCL 40 MG DISPERSABLE TABLET ONE (03:20)
[2016-04-07] MEDS ORDERED: METHADONE HCL 10 MG TABLET ONE (03:20)
[2016-04-07] MEDS: METHADONE 80 MG, METHADONE 30 MG PO SCH (06:21)
[2016-04-07] MEDS: RITONAVIR 100 MG TABLET PO SCH (07:37)
[2016-04-07] MEDS: EMTRICITABINE 200MG/TENOFOVIR 300MG PO SCH (07:37)
[2016-04-07] MEDS: ATAZANAVIR SO4 300 MG CAPSULE PO SCH (07:38)
[2016-04-07 10:08] LABS: URINE APPEARANCE CLEAR; URINE BILIRUBIN NEGATIVE (NEGATIVE); URINE BLOOD NEGATIVE (NEGATIVE); URINE COLOR YELLOW; URINE GLUCOSE (UA) NEGATIVE (NEGATIVE); URINE KETONE NEGATIVE (NEGATIVE); URINE LEUK ESTERASE NEGATIVE (NEGATIVE); URINE NITRITE NEGATIVE (NEGATIVE); URINE PROTEIN NEGATIVE (NEGATIVE); URINE UROBILINOGEN 4.0 E.U/dl E.U./dl (0.2-1.0)
[2016-04-07] MEDS: NICOTINE 21 MG/24 HOURS TOPICAL PATCH TD SCH (10:13)
[2016-04-07] MEDS: PRENATAL VITAMINS W/ FOLIC ACID TABLET (FP) PO SCH (10:14)
[2016-04-07] MEDS: RANITIDINE HCL 150 MG TABLET (FP) PO SCH ×2 (10:14→21:24)
[2016-04-07] MEDS: IBUPROFEN 400 MG TABLET (FP) PO PRN (10:15)
[2016-04-07] MEDS: THIAMINE HCL 100 MG TABLET (FP) PO SCH (21:24)
[2016-04-07] MEDS: traZODone HCL 50 MG TABLET (FP) PO SCH (21:24)
[2016-04-07] MEDS: QUEtiapine FUMARATE 100 MG TABLET (FP) PO SCH (21:24)
[2016-04-08] MEDS ORDERED: METHADONE HCL 10 MG TABLET ONE (05:49)
[2016-04-08] MEDS ORDERED: METHADONE HCL 40 MG DISPERSABLE TABLET ONE (05:50)
[2016-04-08] MEDS ORDERED: PT OWN MED DRAWER 7, Y5N ONE (05:50)
[2016-04-08] MEDS: METHADONE 80 MG, METHADONE 30 MG PO SCH (06:46)
[2016-04-08] MEDS: EMTRICITABINE 200MG/TENOFOVIR 300MG PO SCH (07:46)
[2016-04-08] MEDS: ATAZANAVIR SO4 300 MG CAPSULE PO SCH (07:46)
[2016-04-08] MEDS: IBUPROFEN 400 MG TABLET (FP) PO PRN (07:47)
[2016-04-08] MEDS: RITONAVIR 100 MG TABLET PO SCH (07:47)
[2016-04-08] MEDS: RANITIDINE HCL 150 MG TABLET (FP) PO SCH ×2 (10:13→21:39)
[2016-04-08] MEDS: PRENATAL VITAMINS W/ FOLIC ACID TABLET (FP) PO SCH (10:13)
[2016-04-08] MEDS: NICOTINE 21 MG/24 HOURS TOPICAL PATCH TD SCH (10:14)
[2016-04-08] MEDS: traZODone HCL 50 MG TABLET (FP) PO SCH (21:37)
[2016-04-08] MEDS: THIAMINE HCL 100 MG TABLET (FP) PO SCH (21:37)
[2016-04-08] MEDS: QUEtiapine FUMARATE 100 MG TABLET (FP) PO SCH (21:39)
[2016-04-09] MEDS ORDERED: METHADONE HCL 40 MG DISPERSABLE TABLET ONE (05:57)
[2016-04-09] MEDS ORDERED: METHADONE HCL 10 MG TABLET ONE (05:57)
[2016-04-09] MEDS ORDERED: PT OWN MED DRAWER 7, Y5N ONE (05:58)
[2016-04-09] MEDS: METHADONE 80 MG, METHADONE 30 MG PO SCH (06:31)
[2016-04-09] MEDS: ATAZANAVIR SO4 300 MG CAPSULE PO SCH (07:52)
[2016-04-09] MEDS: RITONAVIR 100 MG TABLET PO SCH (07:52)
[2016-04-09] MEDS: EMTRICITABINE 200MG/TENOFOVIR 300MG PO SCH (07:52)
[2016-04-09] MEDS: PRENATAL VITAMINS W/ FOLIC ACID TABLET (FP) PO SCH (10:15)
[2016-04-09] MEDS: NICOTINE 21 MG/24 HOURS TOPICAL PATCH TD SCH (10:15)
[2016-04-09] MEDS: RANITIDINE HCL 150 MG TABLET (FP) PO SCH ×2 (10:15→21:22)
[2016-04-09] MEDS: THIAMINE HCL 100 MG TABLET (FP) PO SCH (21:22)
[2016-04-09] MEDS: traZODone HCL 50 MG TABLET (FP) PO SCH (21:22)
[2016-04-09] MEDS: QUEtiapine FUMARATE 100 MG TABLET (FP) PO SCH (21:22)
[2016-04-10] MEDS ORDERED: METHADONE HCL 10 MG TABLET ONE (05:58)
[2016-04-10] MEDS ORDERED: PT OWN MED DRAWER 7, Y5N ONE (05:59)
[2016-04-10] MEDS ORDERED: METHADONE HCL 40 MG DISPERSABLE TABLET ONE (05:59)
[2016-04-10] MEDS: METHADONE 80 MG, METHADONE 30 MG PO SCH (06:33)
[2016-04-10] MEDS: EMTRICITABINE 200MG/TENOFOVIR 300MG PO SCH (07:56)
[2016-04-10] MEDS: ATAZANAVIR SO4 300 MG CAPSULE PO SCH (07:56)
[2016-04-10] MEDS: RITONAVIR 100 MG TABLET PO SCH (07:56)
[2016-04-10] MEDS: NICOTINE 21 MG/24 HOURS TOPICAL PATCH TD SCH (10:27)
[2016-04-10] MEDS: RANITIDINE HCL 150 MG TABLET (FP) PO SCH ×2 (10:28→21:16)
[2016-04-10] MEDS: PRENATAL VITAMINS W/ FOLIC ACID TABLET (FP) PO SCH (10:28)
[2016-04-10] MEDS: THIAMINE HCL 100 MG TABLET (FP) PO SCH (21:16)
[2016-04-10] MEDS: QUEtiapine FUMARATE 100 MG TABLET (FP) PO SCH (21:16)
[2016-04-10] MEDS: traZODone HCL 50 MG TABLET (FP) PO SCH (21:16)
[2016-04-11] MEDS ORDERED: METHADONE HCL 10 MG TABLET ONE (05:45)
[2016-04-11] MEDS ORDERED: METHADONE HCL 40 MG DISPERSABLE TABLET ONE (05:45)
[2016-04-11] MEDS ORDERED: PT OWN MED DRAWER 7, Y5N ONE (05:46)
[2016-04-11] MEDS: METHADONE 80 MG, METHADONE 30 MG PO SCH (06:19)
[2016-04-11] MEDS: ATAZANAVIR SO4 300 MG CAPSULE PO SCH (07:06)
[2016-04-11] MEDS: RITONAVIR 100 MG TABLET PO SCH (07:06)
[2016-04-11] MEDS: EMTRICITABINE 200MG/TENOFOVIR 300MG PO SCH (07:06)
[2016-04-11] MEDS: NICOTINE 21 MG/24 HOURS TOPICAL PATCH TD SCH (10:19)
[2016-04-11] MEDS: PRENATAL VITAMINS W/ FOLIC ACID TABLET (FP) PO SCH (10:19)
[2016-04-11] MEDS: RANITIDINE HCL 150 MG TABLET (FP) PO SCH ×2 (10:19→21:27)
[2016-04-11] MEDS: traZODone HCL 50 MG TABLET (FP) PO SCH (21:27)
[2016-04-11] MEDS: QUEtiapine FUMARATE 100 MG TABLET (FP) PO SCH (21:27)
[2016-04-11] MEDS: THIAMINE HCL 100 MG TABLET (FP) PO SCH (21:27)
[2016-04-12] MEDS ORDERED: METHADONE HCL 10 MG TABLET ONE (03:11)
[2016-04-12] MEDS ORDERED: PT OWN MED DRAWER 7, Y5N ONE (03:12)
[2016-04-12] MEDS ORDERED: METHADONE HCL 40 MG DISPERSABLE TABLET ONE (03:12)
[2016-04-12] MEDS: METHADONE 80 MG, METHADONE 30 MG PO SCH (06:17)
[2016-04-12] MEDS: RITONAVIR 100 MG TABLET PO SCH (07:26)
[2016-04-12] MEDS: EMTRICITABINE 200MG/TENOFOVIR 300MG PO SCH (07:26)
[2016-04-12] MEDS: ATAZANAVIR SO4 300 MG CAPSULE PO SCH (07:26)
[2016-04-12] MEDS: PRENATAL VITAMINS W/ FOLIC ACID TABLET (FP) PO SCH (10:58)
[2016-04-12] MEDS: NICOTINE 21 MG/24 HOURS TOPICAL PATCH TD SCH (10:58)
[2016-04-12] MEDS: RANITIDINE HCL 150 MG TABLET (FP) PO SCH ×2 (10:58→21:28)
[2016-04-12] MEDS: THIAMINE HCL 100 MG TABLET (FP) PO SCH (21:28)
[2016-04-12] MEDS: QUEtiapine FUMARATE 100 MG TABLET (FP) PO SCH (21:28)
[2016-04-12] MEDS: traZODone HCL 50 MG TABLET (FP) PO SCH (21:28)
[2016-04-13] MEDS ORDERED: METHADONE HCL 40 MG DISPERSABLE TABLET ONE (03:15)
[2016-04-13] MEDS ORDERED: METHADONE HCL 10 MG TABLET ONE (03:15)
[2016-04-13] MEDS ORDERED: PT OWN MED DRAWER 7, Y5N ONE (03:16)
[2016-04-13] MEDS: METHADONE 80 MG, METHADONE 30 MG PO SCH (06:26)
[2016-04-13] MEDS: RITONAVIR 100 MG TABLET PO SCH (07:47)
[2016-04-13] MEDS: ATAZANAVIR SO4 300 MG CAPSULE PO SCH (07:47)
[2016-04-13] MEDS: EMTRICITABINE 200MG/TENOFOVIR 300MG PO SCH (07:48)
[2016-04-13] MEDS: NICOTINE 21 MG/24 HOURS TOPICAL PATCH TD SCH (10:26)
[2016-04-13] MEDS: PRENATAL VITAMINS W/ FOLIC ACID TABLET (FP) PO SCH (10:26)
[2016-04-13] MEDS: RANITIDINE HCL 150 MG TABLET (FP) PO SCH ×2 (10:26→21:28)
[2016-04-13] MEDS: traZODone HCL 50 MG TABLET (FP) PO SCH (21:28)
[2016-04-13] MEDS: QUEtiapine FUMARATE 100 MG TABLET (FP) PO SCH (21:28)
[2016-04-13] MEDS: THIAMINE HCL 100 MG TABLET (FP) PO SCH (21:28)
[2016-04-14] MEDS ORDERED: METHADONE HCL 40 MG DISPERSABLE TABLET ONE (05:59)
[2016-04-14] MEDS ORDERED: METHADONE HCL 10 MG TABLET ONE (05:59)
[2016-04-14] MEDS ORDERED: PT OWN MED DRAWER 7, Y5N ONE (05:59)
[2016-04-14] MEDS ORDERED: METHADONE HCL 40 MG DISPERSABLE TABLET PO SCH (06:00)
[2016-04-14] MEDS: METHADONE 80 MG, METHADONE 30 MG PO SCH (06:47)
[2016-04-14] MEDS: EMTRICITABINE 200MG/TENOFOVIR 300MG PO SCH (08:17)
[2016-04-14] MEDS: ATAZANAVIR SO4 300 MG CAPSULE PO SCH (08:17)
[2016-04-14] MEDS: RITONAVIR 100 MG TABLET PO SCH (08:18)
[2016-04-14] MEDS: NICOTINE 21 MG/24 HOURS TOPICAL PATCH TD SCH (10:36)
[2016-04-14] MEDS: PRENATAL VITAMINS W/ FOLIC ACID TABLET (FP) PO SCH (10:36)
[2016-04-14] MEDS: RANITIDINE HCL 150 MG TABLET (FP) PO SCH ×2 (10:36→21:33)
[2016-04-14] MEDS: QUEtiapine FUMARATE 100 MG TABLET (FP) PO SCH (21:33)
[2016-04-14] MEDS: traZODone HCL 50 MG TABLET (FP) PO SCH (21:33)
[2016-04-14] MEDS: THIAMINE HCL 100 MG TABLET (FP) PO SCH (21:34)
[2016-04-15] MEDS ORDERED: METHADONE HCL 40 MG DISPERSABLE TABLET ONE (03:22)
[2016-04-15] MEDS ORDERED: METHADONE HCL 10 MG TABLET ONE (03:22)
[2016-04-15] MEDS ORDERED: PT OWN MED DRAWER 7, Y5N ONE (03:22)
[2016-04-15] MEDS: METHADONE 80 MG, METHADONE 30 MG PO SCH (06:21)
[2016-04-15] MEDS: ATAZANAVIR SO4 300 MG CAPSULE PO SCH (07:34)
[2016-04-15] MEDS: EMTRICITABINE 200MG/TENOFOVIR 300MG PO SCH (07:34)
[2016-04-15] MEDS: RITONAVIR 100 MG TABLET PO SCH (07:35)
[2016-04-15] MEDS: NICOTINE 21 MG/24 HOURS TOPICAL PATCH TD SCH (09:58)
[2016-04-15] MEDS: RANITIDINE HCL 150 MG TABLET (FP) PO SCH ×2 (09:58→21:17)
[2016-04-15] MEDS: PRENATAL VITAMINS W/ FOLIC ACID TABLET (FP) PO SCH (09:58)
[2016-04-15] MEDS: QUEtiapine FUMARATE 100 MG TABLET (FP) PO SCH (21:17)
[2016-04-15] MEDS: traZODone HCL 50 MG TABLET (FP) PO SCH (21:17)
[2016-04-15] MEDS: THIAMINE HCL 100 MG TABLET (FP) PO SCH (21:17)
[2016-04-16] MEDS ORDERED: METHADONE HCL 10 MG TABLET ONE (03:48)
[2016-04-16] MEDS ORDERED: METHADONE HCL 40 MG DISPERSABLE TABLET ONE (03:48)
[2016-04-16] MEDS: METHADONE 80 MG, METHADONE 30 MG PO SCH (06:36)
[2016-04-16] MEDS ORDERED: PT OWN MED DRAWER 7, Y5N ONE (07:50)
[2016-04-16] MEDS: ATAZANAVIR SO4 300 MG CAPSULE PO SCH (07:51)
[2016-04-16] MEDS: EMTRICITABINE 200MG/TENOFOVIR 300MG PO SCH (07:52)
[2016-04-16] MEDS: RITONAVIR 100 MG TABLET PO SCH (07:53)
[2016-04-16] MEDS: PRENATAL VITAMINS W/ FOLIC ACID TABLET (FP) PO SCH (10:04)
[2016-04-16] MEDS: NICOTINE 21 MG/24 HOURS TOPICAL PATCH TD SCH (10:04)
[2016-04-16] MEDS: RANITIDINE HCL 150 MG TABLET (FP) PO SCH ×2 (10:04→21:19)
[2016-04-16] MEDS: THIAMINE HCL 100 MG TABLET (FP) PO SCH (21:19)
[2016-04-16] MEDS: QUEtiapine FUMARATE 100 MG TABLET (FP) PO SCH (21:19)
[2016-04-16] MEDS: traZODone HCL 50 MG TABLET (FP) PO SCH (21:19)
[2016-04-17] MEDS ORDERED: METHADONE HCL 10 MG TABLET ONE (03:13)
[2016-04-17] MEDS ORDERED: METHADONE HCL 40 MG DISPERSABLE TABLET ONE (03:13)
[2016-04-17] MEDS: METHADONE 80 MG, METHADONE 30 MG PO SCH (06:30)
[2016-04-17] MEDS ORDERED: PT OWN MED DRAWER 7, Y5N ONE (07:31)
[2016-04-17] MEDS: RITONAVIR 100 MG TABLET PO SCH (07:31)
[2016-04-17] MEDS: ATAZANAVIR SO4 300 MG CAPSULE PO SCH (07:31)
[2016-04-17] MEDS: EMTRICITABINE 200MG/TENOFOVIR 300MG PO SCH (07:31)
[2016-04-17] MEDS: RANITIDINE HCL 150 MG TABLET (FP) PO SCH ×2 (10:00→21:26)
[2016-04-17] MEDS: PRENATAL VITAMINS W/ FOLIC ACID TABLET (FP) PO SCH (10:00)
[2016-04-17] MEDS: NICOTINE 21 MG/24 HOURS TOPICAL PATCH TD SCH (10:00)
[2016-04-17] MEDS: traZODone HCL 50 MG TABLET (FP) PO SCH (21:25)
[2016-04-17] MEDS: QUEtiapine FUMARATE 100 MG TABLET (FP) PO SCH (21:25)
[2016-04-17] MEDS: THIAMINE HCL 100 MG TABLET (FP) PO SCH (21:26)
[2016-04-18] MEDS ORDERED: METHADONE HCL 10 MG TABLET ONE (06:05)
[2016-04-18] MEDS ORDERED: METHADONE HCL 40 MG DISPERSABLE TABLET ONE (06:05)
[2016-04-18] MEDS ORDERED: PT OWN MED DRAWER 7, Y5N ONE (06:06)
[2016-04-18] MEDS: METHADONE 80 MG, METHADONE 30 MG PO SCH (06:53)
[2016-04-18] MEDS: ATAZANAVIR SO4 300 MG CAPSULE PO SCH (07:59)
[2016-04-18] MEDS: EMTRICITABINE 200MG/TENOFOVIR 300MG PO SCH (08:00)
[2016-04-18] MEDS: RITONAVIR 100 MG TABLET PO SCH (08:00)
[2016-04-18] MEDS: PRENATAL VITAMINS W/ FOLIC ACID TABLET (FP) PO SCH (10:16)
[2016-04-18] MEDS: RANITIDINE HCL 150 MG TABLET (FP) PO SCH ×2 (10:16→21:15)
[2016-04-18] MEDS: NICOTINE 21 MG/24 HOURS TOPICAL PATCH TD SCH (10:16)
[2016-04-18] MEDS: traZODone HCL 50 MG TABLET (FP) PO SCH (21:15)
[2016-04-18] MEDS: THIAMINE HCL 100 MG TABLET (FP) PO SCH (21:16)
[2016-04-18] MEDS: QUEtiapine FUMARATE 100 MG TABLET (FP) PO SCH (21:16)
[2016-04-19] MEDS ORDERED: METHADONE HCL 40 MG DISPERSABLE TABLET ONE (03:43)
[2016-04-19] MEDS ORDERED: METHADONE HCL 10 MG TABLET ONE (03:43)
[2016-04-19] MEDS: METHADONE 80 MG, METHADONE 30 MG PO SCH (06:33)
[2016-04-19] MEDS: EMTRICITABINE 200MG/TENOFOVIR 300MG PO SCH (07:45)
[2016-04-19] MEDS: RITONAVIR 100 MG TABLET PO SCH (07:45)
[2016-04-19] MEDS: ATAZANAVIR SO4 300 MG CAPSULE PO SCH (07:45)
[2016-04-19] MEDS: RANITIDINE HCL 150 MG TABLET (FP) PO SCH ×2 (10:20→21:59)
[2016-04-19] MEDS: NICOTINE 21 MG/24 HOURS TOPICAL PATCH TD SCH (10:20)
[2016-04-19] MEDS: PRENATAL VITAMINS W/ FOLIC ACID TABLET (FP) PO SCH (10:20)
[2016-04-19] MEDS: traZODone HCL 50 MG TABLET (FP) PO SCH (21:59)
[2016-04-19] MEDS: THIAMINE HCL 100 MG TABLET (FP) PO SCH (21:59)
[2016-04-19] MEDS: QUEtiapine FUMARATE 100 MG TABLET (FP) PO SCH (21:59)
[2016-04-20] MEDS ORDERED: METHADONE HCL 40 MG DISPERSABLE TABLET ONE (05:58)
[2016-04-20] MEDS ORDERED: METHADONE HCL 10 MG TABLET ONE (05:58)
[2016-04-20] MEDS: METHADONE 80 MG, METHADONE 30 MG PO SCH (06:28)
[2016-04-20] MEDS: ATAZANAVIR SO4 300 MG CAPSULE PO SCH (07:20)
[2016-04-20] MEDS: RITONAVIR 100 MG TABLET PO SCH (07:20)
[2016-04-20] MEDS: EMTRICITABINE 200MG/TENOFOVIR 300MG PO SCH (07:21)
[2016-04-20] MEDS: NICOTINE 21 MG/24 HOURS TOPICAL PATCH TD SCH (10:15)
[2016-04-20] MEDS: RANITIDINE HCL 150 MG TABLET (FP) PO SCH ×2 (10:15→21:24)
[2016-04-20] MEDS: PRENATAL VITAMINS W/ FOLIC ACID TABLET (FP) PO SCH (10:15)
[2016-04-20] MEDS: QUEtiapine FUMARATE 100 MG TABLET (FP) PO SCH (21:24)
[2016-04-20] MEDS: traZODone HCL 50 MG TABLET (FP) PO SCH (21:25)
[2016-04-20] MEDS: THIAMINE HCL 100 MG TABLET (FP) PO SCH (21:25)
[2016-04-21] MEDS ORDERED: METHADONE HCL 10 MG TABLET ONE (03:11)
[2016-04-21] MEDS ORDERED: PT OWN MED DRAWER 7, Y5N ONE (03:12)
[2016-04-21] MEDS ORDERED: METHADONE HCL 40 MG DISPERSABLE TABLET ONE (03:12)
[2016-04-21] MEDS: METHADONE 80 MG, METHADONE 30 MG PO SCH (06:13)
[2016-04-21] MEDS: EMTRICITABINE 200MG/TENOFOVIR 300MG PO SCH (07:36)
[2016-04-21] MEDS: RITONAVIR 100 MG TABLET PO SCH (07:36)
[2016-04-21] MEDS: ATAZANAVIR SO4 300 MG CAPSULE PO SCH (07:36)
[2016-04-21] MEDS: RANITIDINE HCL 150 MG TABLET (FP) PO SCH ×2 (10:34→21:26)
[2016-04-21] MEDS: PRENATAL VITAMINS W/ FOLIC ACID TABLET (FP) PO SCH (10:34)
[2016-04-21] MEDS: NICOTINE 21 MG/24 HOURS TOPICAL PATCH TD SCH (10:34)
[2016-04-21] MEDS: THIAMINE HCL 100 MG TABLET (FP) PO SCH (21:26)
[2016-04-21] MEDS: QUEtiapine FUMARATE 100 MG TABLET (FP) PO SCH (21:26)
[2016-04-21] MEDS: traZODone HCL 50 MG TABLET (FP) PO SCH (21:26)
[2016-04-22] MEDS ORDERED: METHADONE HCL 40 MG DISPERSABLE TABLET ONE (06:15)
[2016-04-22] MEDS ORDERED: METHADONE HCL 10 MG TABLET ONE (06:15)
[2016-04-22] MEDS ORDERED: PT OWN MED DRAWER 7, Y5N ONE ×2 (06:16→08:02)
[2016-04-22] MEDS: METHADONE 80 MG, METHADONE 30 MG PO SCH (06:18)
[2016-04-22] MEDS: RITONAVIR 100 MG TABLET PO SCH (08:01)
[2016-04-22] MEDS: ATAZANAVIR SO4 300 MG CAPSULE PO SCH (08:01)
[2016-04-22] MEDS: EMTRICITABINE 200MG/TENOFOVIR 300MG PO SCH (08:01)
[2016-04-22] MEDS: NICOTINE 21 MG/24 HOURS TOPICAL PATCH TD SCH (10:11)
[2016-04-22] MEDS: RANITIDINE HCL 150 MG TABLET (FP) PO SCH ×2 (10:11→21:18)
[2016-04-22] MEDS: PRENATAL VITAMINS W/ FOLIC ACID TABLET (FP) PO SCH (10:11)
[2016-04-22] MEDS: QUEtiapine FUMARATE 100 MG TABLET (FP) PO SCH (21:18)
[2016-04-22] MEDS: traZODone HCL 50 MG TABLET (FP) PO SCH (21:18)
[2016-04-22] MEDS: THIAMINE HCL 100 MG TABLET (FP) PO SCH (21:18)
[2016-04-23] MEDS ORDERED: METHADONE HCL 40 MG DISPERSABLE TABLET ONE (05:47)
[2016-04-23] MEDS ORDERED: METHADONE HCL 10 MG TABLET ONE (05:47)
[2016-04-23] MEDS ORDERED: PT OWN MED DRAWER 7, Y5N ONE (05:48)
[2016-04-23] MEDS: METHADONE 80 MG, METHADONE 30 MG PO SCH (06:35)
[2016-04-23] MEDS: EMTRICITABINE 200MG/TENOFOVIR 300MG PO SCH (07:48)
[2016-04-23] MEDS: ATAZANAVIR SO4 300 MG CAPSULE PO SCH (07:48)
[2016-04-23] MEDS: RITONAVIR 100 MG TABLET PO SCH (07:49)
[2016-04-23] MEDS: RANITIDINE HCL 150 MG TABLET (FP) PO SCH ×2 (09:55→21:15)
[2016-04-23] MEDS: NICOTINE 21 MG/24 HOURS TOPICAL PATCH TD SCH (09:55)
[2016-04-23] MEDS: PRENATAL VITAMINS W/ FOLIC ACID TABLET (FP) PO SCH (09:55)
[2016-04-23] MEDS: traZODone HCL 50 MG TABLET (FP) PO SCH (21:15)
[2016-04-23] MEDS: QUEtiapine FUMARATE 100 MG TABLET (FP) PO SCH (21:16)
[2016-04-23] MEDS: THIAMINE HCL 100 MG TABLET (FP) PO SCH (21:16)
[2016-04-24] MEDS ORDERED: PT OWN MED DRAWER 7, Y5N ONE ×2 (03:57→08:05)
[2016-04-24] MEDS ORDERED: METHADONE HCL 40 MG DISPERSABLE TABLET ONE (06:22)
[2016-04-24] MEDS: METHADONE 80 MG, METHADONE 30 MG PO SCH (06:22)
[2016-04-24] MEDS ORDERED: METHADONE HCL 10 MG TABLET ONE (06:22)
[2016-04-24] MEDS: RITONAVIR 100 MG TABLET PO SCH (08:04)
[2016-04-24] MEDS: EMTRICITABINE 200MG/TENOFOVIR 300MG PO SCH (08:04)
[2016-04-24] MEDS: ATAZANAVIR SO4 300 MG CAPSULE PO SCH (08:04)
[2016-04-24] MEDS: NICOTINE 21 MG/24 HOURS TOPICAL PATCH TD SCH (09:59)
[2016-04-24] MEDS: PRENATAL VITAMINS W/ FOLIC ACID TABLET (FP) PO SCH (09:59)
[2016-04-24] MEDS: RANITIDINE HCL 150 MG TABLET (FP) PO SCH ×2 (09:59→21:22)
[2016-04-24] MEDS: traZODone HCL 50 MG TABLET (FP) PO SCH (21:22)
[2016-04-24] MEDS: QUEtiapine FUMARATE 100 MG TABLET (FP) PO SCH (21:22)
[2016-04-24] MEDS: THIAMINE HCL 100 MG TABLET (FP) PO SCH (21:22)
[2016-04-25] MEDS ORDERED: METHADONE HCL 10 MG TABLET ONE (03:10)
[2016-04-25] MEDS ORDERED: METHADONE HCL 40 MG DISPERSABLE TABLET ONE (03:10)
[2016-04-25] MEDS: METHADONE 80 MG, METHADONE 30 MG PO SCH (06:30)
[2016-04-25] MEDS: ATAZANAVIR SO4 300 MG CAPSULE PO SCH (07:22)
[2016-04-25] MEDS: RITONAVIR 100 MG TABLET PO SCH (07:23)
[2016-04-25] MEDS: EMTRICITABINE 200MG/TENOFOVIR 300MG PO SCH (07:23)
[2016-04-25] MEDS: PRENATAL VITAMINS W/ FOLIC ACID TABLET (FP) PO SCH (09:48)
[2016-04-25] MEDS: RANITIDINE HCL 150 MG TABLET (FP) PO SCH ×2 (09:48→21:32)
[2016-04-25] MEDS: NICOTINE 21 MG/24 HOURS TOPICAL PATCH TD SCH (09:49)
[2016-04-25] MEDS: THIAMINE HCL 100 MG TABLET (FP) PO SCH (21:32)
[2016-04-25] MEDS: traZODone HCL 50 MG TABLET (FP) PO SCH (21:32)
[2016-04-25] MEDS: QUEtiapine FUMARATE 100 MG TABLET (FP) PO SCH (21:32)
[2016-04-26] MEDS ORDERED: METHADONE HCL 40 MG DISPERSABLE TABLET ONE (03:08)
[2016-04-26] MEDS ORDERED: METHADONE HCL 10 MG TABLET ONE (03:08)
[2016-04-26] MEDS: METHADONE 80 MG, METHADONE 30 MG PO SCH (06:32)
[2016-04-26] MEDS: ATAZANAVIR SO4 300 MG CAPSULE PO SCH (07:46)
[2016-04-26] MEDS: EMTRICITABINE 200MG/TENOFOVIR 300MG PO SCH (07:46)
[2016-04-26] MEDS: RITONAVIR 100 MG TABLET PO SCH (07:46)
[2016-04-26] MEDS: NICOTINE 21 MG/24 HOURS TOPICAL PATCH TD SCH (09:56)
[2016-04-26] MEDS: RANITIDINE HCL 150 MG TABLET (FP) PO SCH ×2 (09:56→21:29)
[2016-04-26] MEDS: PRENATAL VITAMINS W/ FOLIC ACID TABLET (FP) PO SCH (09:56)
[2016-04-26] MEDS: QUEtiapine FUMARATE 100 MG TABLET (FP) PO SCH (21:29)
[2016-04-26] MEDS: traZODone HCL 50 MG TABLET (FP) PO SCH (21:29)
[2016-04-26] MEDS: THIAMINE HCL 100 MG TABLET (FP) PO SCH (21:29)
[2016-04-26] MEDS ORDERED: PT OWN MED DRAWER 7, Y5N ONE (21:35)
[2016-04-27] MEDS ORDERED: METHADONE HCL 10 MG TABLET ONE (06:13)
[2016-04-27] MEDS ORDERED: METHADONE HCL 40 MG DISPERSABLE TABLET ONE (06:13)
[2016-04-27] MEDS: METHADONE 80 MG, METHADONE 30 MG PO SCH (06:26)
[2016-04-27] MEDS: ATAZANAVIR SO4 300 MG CAPSULE PO SCH (07:53)
[2016-04-27] MEDS: EMTRICITABINE 200MG/TENOFOVIR 300MG PO SCH (07:53)
[2016-04-27] MEDS: RITONAVIR 100 MG TABLET PO SCH (07:53)
[2016-04-27] MEDS: NICOTINE 21 MG/24 HOURS TOPICAL PATCH TD SCH (10:10)
[2016-04-27] MEDS: PRENATAL VITAMINS W/ FOLIC ACID TABLET (FP) PO SCH (10:10)
[2016-04-27] MEDS: RANITIDINE HCL 150 MG TABLET (FP) PO SCH ×2 (10:10→21:32)
[2016-04-27] MEDS: THIAMINE HCL 100 MG TABLET (FP) PO SCH (21:32)
[2016-04-27] MEDS: traZODone HCL 50 MG TABLET (FP) PO SCH (21:32)
[2016-04-27] MEDS: QUEtiapine FUMARATE 100 MG TABLET (FP) PO SCH (21:32)
[2016-04-28] MEDS ORDERED: METHADONE HCL 40 MG DISPERSABLE TABLET ONE (05:57)
[2016-04-28] MEDS ORDERED: METHADONE HCL 10 MG TABLET ONE (05:57)
[2016-04-28] MEDS ORDERED: PT OWN MED DRAWER 7, Y5N ONE (05:58)
[2016-04-28] MEDS: METHADONE 80 MG, METHADONE 30 MG PO SCH (06:41)
[2016-04-28] MEDS: ATAZANAVIR SO4 300 MG CAPSULE PO SCH (08:07)
[2016-04-28] MEDS: RITONAVIR 100 MG TABLET PO SCH (08:08)
[2016-04-28] MEDS: EMTRICITABINE 200MG/TENOFOVIR 300MG PO SCH (08:08)
[2016-04-28] MEDS: RANITIDINE HCL 150 MG TABLET (FP) PO SCH ×2 (10:07→21:29)
[2016-04-28] MEDS: PRENATAL VITAMINS W/ FOLIC ACID TABLET (FP) PO SCH (10:07)
[2016-04-28] MEDS: NICOTINE 21 MG/24 HOURS TOPICAL PATCH TD SCH (10:08)
[2016-04-28] MEDS: QUEtiapine FUMARATE 100 MG TABLET (FP) PO SCH (21:29)
[2016-04-28] MEDS: THIAMINE HCL 100 MG TABLET (FP) PO SCH (21:29)
[2016-04-28] MEDS: traZODone HCL 50 MG TABLET (FP) PO SCH (21:30)
[2016-04-29] MEDS ORDERED: METHADONE HCL 10 MG TABLET ONE (03:14)
[2016-04-29] MEDS ORDERED: METHADONE HCL 40 MG DISPERSABLE TABLET ONE (03:14)
[2016-04-29] MEDS ORDERED: PT OWN MED DRAWER 7, Y5N ONE (03:15)
[2016-04-29] MEDS: METHADONE 80 MG, METHADONE 30 MG PO SCH (06:38)
[2016-04-29] MEDS: RITONAVIR 100 MG TABLET PO SCH (07:55)
[2016-04-29] MEDS: EMTRICITABINE 200MG/TENOFOVIR 300MG PO SCH (07:55)
[2016-04-29] MEDS: ATAZANAVIR SO4 300 MG CAPSULE PO SCH (07:55)
[2016-04-29] MEDS: PRENATAL VITAMINS W/ FOLIC ACID TABLET (FP) PO SCH (10:04)
[2016-04-29] MEDS: RANITIDINE HCL 150 MG TABLET (FP) PO SCH ×2 (10:04→21:26)
[2016-04-29] MEDS: NICOTINE 21 MG/24 HOURS TOPICAL PATCH TD SCH (10:05)
[2016-04-29] MEDS: THIAMINE HCL 100 MG TABLET (FP) PO SCH (21:26)
[2016-04-29] MEDS: QUEtiapine FUMARATE 100 MG TABLET (FP) PO SCH (21:26)
[2016-04-29] MEDS: traZODone HCL 50 MG TABLET (FP) PO SCH (21:26)
[2016-04-30] MEDS ORDERED: METHADONE HCL 40 MG DISPERSABLE TABLET ONE (03:08)
[2016-04-30] MEDS ORDERED: METHADONE HCL 10 MG TABLET ONE (03:08)
[2016-04-30] MEDS: METHADONE 80 MG, METHADONE 30 MG PO SCH (06:25)
[2016-04-30] MEDS: RITONAVIR 100 MG TABLET PO SCH (07:24)
[2016-04-30] MEDS: ATAZANAVIR SO4 300 MG CAPSULE PO SCH (07:24)
[2016-04-30] MEDS: EMTRICITABINE 200MG/TENOFOVIR 300MG PO SCH (07:24)
[2016-04-30] MEDS: RANITIDINE HCL 150 MG TABLET (FP) PO SCH ×2 (10:12→21:20)
[2016-04-30] MEDS: PRENATAL VITAMINS W/ FOLIC ACID TABLET (FP) PO SCH (10:12)
[2016-04-30] MEDS: NICOTINE 21 MG/24 HOURS TOPICAL PATCH TD SCH (10:12)
[2016-04-30] MEDS: QUEtiapine FUMARATE 100 MG TABLET (FP) PO SCH (21:20)
[2016-04-30] MEDS: THIAMINE HCL 100 MG TABLET (FP) PO SCH (21:20)
[2016-04-30] MEDS: traZODone HCL 50 MG TABLET (FP) PO SCH (21:20)
[2016-05-01] MEDS ORDERED: METHADONE HCL 10 MG TABLET ONE (03:38)
[2016-05-01] MEDS ORDERED: METHADONE HCL 40 MG DISPERSABLE TABLET ONE (03:38)
[2016-05-01] MEDS: METHADONE 80 MG, METHADONE 30 MG PO SCH (06:28)
[2016-05-01 07:07] VITALS: BP 94/65; PULSE 73; TEMP 97.1
[2016-05-01] MEDS: RITONAVIR 100 MG TABLET PO SCH (07:44)
[2016-05-01] MEDS: ATAZANAVIR SO4 300 MG CAPSULE PO SCH (07:44)
[2016-05-01] MEDS: EMTRICITABINE 200MG/TENOFOVIR 300MG PO SCH (07:44)
[2016-05-01] MEDS: RANITIDINE HCL 150 MG TABLET (FP) PO SCH (09:13)
[2016-05-01] MEDS: PRENATAL VITAMINS W/ FOLIC ACID TABLET (FP) PO SCH (09:13)
[2016-05-01] MEDS: NICOTINE 21 MG/24 HOURS TOPICAL PATCH TD SCH (09:13)
--- NOTE | 2016-05-01 09:53 | PN ---
[id number] 73 16- 94/65 Date of Session: 05/01/16 Chief Complaint:: Discharge visit HPI: Patient addressed Cocaine and opioid dependence comorbid with Bipolar II Disorder. ROS: Significant for HIV+,GERD. Current Medications: Active Medications Generic Name Dose Route Start Last Admin Trade Name Freq PRN Reason Stop Dose Admin Acetaminophen 650 mg 04/04/16 14:58 Tylenol - PO Q4H PRN PAIN Al Hydroxide/Mg Hydroxide 30 ml 04/04/16 14:58 Mylanta Oral Suspension - PO Q6H PRN DYSPEPSIA Atazanavir 300 mg 04/05/16 08:00 05/01/16 07:44 Reyataz - PO 300 mg DAILY@0800 MAGGIE Administration Colloidal Oatmeal 1 applic 04/04/16 15:00 04/27/16 10:11 Aveeno Soap - TP 1 applic DAILY PRN Administration HYGEINE Diphenhydramine HCl 50 mg 04/04/16 14:58 Benadryl - PO HSMR1 PRN INSOMNIA Emtricitabine/Tenofovir 1 tab 04/05/16 08:00 05/01/16 07:44 Truvada PO 1 tab DAILY@0800 MAGGIE Administration Eucalyptus/Menthol/Phenol/Sorbitol 1 each 04/04/16 14:58 Cepastat Lozenge - MM Q4H PRN SORE THROAT Guaifenesin 10 ml 04/04/16 14:58 Robitussin Dm - PO Q6H PRN COUGH Hydroxyzine Pamoate 50 mg 04/04/16 14:58 Vistaril - PO Q4H PRN AGITATION Ibuprofen 400 mg 04/04/16 14:58 04/08/16 07:47 Motrin - PO 400 mg Q6H PRN Administration SEVERE PAIN Loperamide HCl 4 mg 04/04/16 14:58 Imodium - PO Q6H PRN DIARRHEA Magnesium Citrate 300 ml 04/04/16 14:58 Citroma - PO Q48H PRN CONSTIPATION Magnesium Hydroxide 30 ml 04/04/16 14:58 Milk Of Magnesia - PO DAILY PRN CONSTIPATION Methadone HCl 80 mg/ Methadone 110 mg 04/27/16 06:00 05/01/16 06:28 HCl 30 mg PO 110 mg DAILY@0600 MAGGIE Administration Nicotine 21 mg 04/05/16 10:00 05/01/16 09:13 Nicoderm Patch - TD Not Given DAILY MAGGIE Multivit/Folic Acid/Iron 1 tab 04/05/16 10:00 05/01/16 09:13 Vitamins (Sjr) - PO 1 tab DAILY MAGGIE Administration Pseudoephedrine/Triprolidine 1 combo 04/04/16 14:58 Actifed - PO TID PRN NASAL CONGESTION Quetiapine Fumarate 100 mg 04/04/16 22:00 04/30/16 21:20 Seroquel - PO 100 mg HS MAGGIE Administration Ranitidine HCl 150 mg 04/04/16 22:00 05/01/16 09:13 Zantac - PO 150 mg BID MAGGIE Administration Ritonavir 100 mg 04/05/16 08:00 05/01/16 07:44 Norvir - PO 100 mg DAILY@0800 MAGGIE Administration Thiamine HCl 100 mg 04/04/16 22:00 04/30/16 21:20 Vitamin B1 - PO 100 mg HS MAGGIE Administration Trazodone HCl 50 mg 04/04/16 22:00 04/30/16 21:20 Desyrel - PO 50 mg HS MAGGIE Administration Current Side Effect: No Lab tests ordered: No Lab tests reviewed: Yes Provider note:: PAtient completed this program today.She has met her treatment goals and will continue to address her issues on outpatient basis at [facility] in the [place]. Patient conienues to find that Seroquel 100 mg po hgs and Trazodone 50 mg po hgs help to reduce mood instability,anxiety,sleeping difficulties.Scripts for 30 days supply provided. Therapy provided focusing on relapse prevention.Coping skills,support utilization has been discussed with the patient as another resourses to maintain recovery. Patient is stable for discharge today. Total face to face time:: 35 Mental Status Exam - Mental Status Exam Alert and Oriented to: Time, Place, Person Cognitive Function: Grossly Intact Patient Appearance: Well Groomed Mood: Hopeful, Euthymic Affect: Appropriate, Mood Congruent Patient Behavior: Cooperative Speech Pattern: Clear Voice Loudness: Normal Thought Process: Goal Oriented Thought Disorder: Not Present Hallucinations: Denies Suicidal Ideation: Denies Homicidal Ideation: Denies Insight/Judgement: Fair Sleep: Fair Appetite: Fair Muscle strength/Tone: Normal Gait/Station: Normal Psychiatric Treatment Plan - Problem List (1) GERD (gastroesophageal reflux disease) Qualifiers: Esophagitis presence: without esophagitis Qualified Code(s): K21.9 - Gastro-esophageal reflux disease without esophagitis Comment: ZANTAC 150 MG PO BID (3) Methadone maintenance therapy patient Comment: last dose received today 04/04/16; pending verification (4) Nicotine dependence Qualifiers: Nicotine product type: cigarettes Substance use status: uncomplicated Qualified Code(s): F17.210 - Nicotine dependence, cigarettes, uncomplicated (5) Cocaine dependence Qualifiers: Substance use status: uncomplicated Qualified Code(s): F14.20 - Cocaine dependence, uncomplicated
== END 2016-05-01 09:25 | disposition home or self-care (01) | DRG 772 ==
LOC: YASAS 11:04 → Y3E 16:19
PROVIDERS: ADMIT Psychiatry & Neurology Psychiatry; ATTEND Psychiatry & Neurology Psychiatry
PROC: HZ42ZZZ Group Counseling for Substance Abuse Treatment, Cognitive-Behavioral (ICD-10-PCS; principal; 2016-04-04)
DX: F11.20 Opioid dependence, uncomplicated (principal); F14.20 Cocaine dependence, uncomplicated; F17.210 Nicotine dependence, cigarettes, uncomplicated; F31.81 Bipolar II disorder; Z21 Asymptomatic human immunodeficiency virus [HIV] infection status; K21.9 Gastro-esophageal reflux disease without esophagitis; B18.2 Chronic viral hepatitis C; Z86.69 Personal history of other diseases of the nervous system and sense organs; Z91.5 Personal history of self-harm; Z59.0 Homelessness
CPT/HCPCS: 36415; 80053; 81003; 85027; 86593; 86780; 93005; 93010

== ENCOUNTER 2016-06-05 20:53 | Inpatient (IN) | payer OTHER ==
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
[2016-06-05 21:03] VITALS: BMI 25.5
[2016-06-05] MEDS ORDERED: MAG HYDROX/AL HYDROX/SIMETH 30 ML UNIT-DOSE CUP PO PRN (21:03)
[2016-06-05] MEDS ORDERED: MAGNESIUM CITRATE 300 ML BOTTLE PO PRN (21:03)
[2016-06-05] MEDS ORDERED: diphenhydrAMINE HCL 50 MG CAPSULE PO PRN (21:03)
[2016-06-05] MEDS ORDERED: NICOTINE POLACRILEX 4 MG GUM BC PRN (21:03)
[2016-06-05] MEDS ORDERED: P-EPHED 60MG/TRIPROLIDI 2.5MG TABLET PO PRN (21:03)
[2016-06-05] MEDS ORDERED: guaiFENesin/D-METHORPHAN HB 10 ML UNIT-DOSE CUPS PO PRN (21:03)
[2016-06-05] MEDS ORDERED: MENTHOL/PHENOL 1 EACH UD MM PRN (21:03)
[2016-06-05] MEDS ORDERED: MAGNESIUM HYDROX 2400MG/30ML ORAL SUSPENSION 30 ML CUP PO PRN (21:03)
[2016-06-05] MEDS ORDERED: chlordiazePOXIDE HCL 25 MG CAPSULE PO PRN (21:03)
[2016-06-05] MEDS ORDERED: LOPERAMIDE HCL 2 MG CAPSULE PO PRN (21:03)
[2016-06-05] MEDS: THIAMINE HCL 100 MG TABLET (FP) PO SCH (22:54)
[2016-06-05] MEDS: chlordiazePOXIDE HCL 25 MG CAPSULE PO SCH (22:54)
[2016-06-05] MEDS: RANITIDINE HCL 150 MG TABLET (FP) PO SCH (22:54)
[2016-06-06] MEDS: chlordiazePOXIDE HCL 25 MG CAPSULE PO SCH ×4 (06:00→22:33)
[2016-06-06] MEDS ORDERED: METHADONE HCL 10 MG TABLET PO ONE (09:10)
[2016-06-06] MEDS ORDERED: METHADONE 80 MG, METHADONE 30 MG PO ONE (09:30)
[2016-06-06 10:01] LABS: URINE APPEARANCE CLEAR; URINE BILIRUBIN NEGATIVE (NEGATIVE); URINE BLOOD NEGATIVE (NEGATIVE); URINE COLOR YELLOW; URINE GLUCOSE (UA) NEGATIVE (NEGATIVE); URINE KETONE NEGATIVE (NEGATIVE); URINE NITRITE NEGATIVE (NEGATIVE); URINE PROTEIN NEGATIVE (NEGATIVE); URINE UROBILINOGEN NEGATIVE E.U./dl (0.2-1.0)
[2016-06-06 10:02] LABS: MCH 29.3 pg (25.7-33.7); MCHC 32.5 g/dl (32.0-36.0); MEAN CELL VOLUME 90.1 fl (80-96); MEAN PLT VOLUME 8.7 fl (7.5-11.1); PLATELET COUNT 205 K/MM3 (134-434); RDW 14.3 % (11.6-15.6); WHITE BLOOD COUNT 2.6 K/mm3 (4.0-10.0)
[2016-06-06 10:09] LABS: URINE LEUK ESTERASE 1+ (NEGATIVE)
[2016-06-06 10:16] LABS: ALBUMIN 2.9 g/dl (3.4-5.0); ALK PHOS 94 U/L (45-117); ANION GAP 9 (8-16); BILIRUBIN,TOTAL 0.4 mg/dL (0.2-1.0); CALCIUM 8.6 mg/dL (8.5-10.1); CO2 30 mmol/L (21-32); COCKROFT - GAULT 114.9965; CREATININE 0.5 mg/dL (0.55-1.02); GLUCOSE,RANDOM 81 mg/dL (74-106); SGOT/AST 97 U/L (15-37); SGPT/ALT 65 U/L (12-78); TOT PROT 7.1 g/dl (6.4-8.2)
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
[2016-06-06] MEDS ORDERED: METHADONE HCL 40 MG DISPERSABLE TABLET ONE (10:42)
[2016-06-06] MEDS ORDERED: METHADONE HCL 10 MG TABLET ONE (10:43)
[2016-06-06] MEDS: RANITIDINE HCL 150 MG TABLET (FP) PO SCH ×2 (10:45→22:32)
[2016-06-06] MEDS: PRENATAL VITAMINS W/ FOLIC ACID TABLET (FP) PO SCH (10:45)
[2016-06-06] MEDS: NICOTINE 21 MG/24 HOURS TOPICAL PATCH TD SCH (10:45)
[2016-06-06 11:11] LABS: URINE RBC 1 /hpf (0-3); URINE WBC 7 /hpf (3-5)
--- NOTE | 2016-06-06 11:56 | PN ---
S CIWA - CIWA Score Nausea/Vomitin Muscle Tremors: 2 Anxiety: 2 Agitation: 2 Paroxysmal Sweats: 3 Orientation: 0-Oriented Tacttile Disturbances: 2-Mild Itch/Numbness/Burn Auditory Disturbances: 0-None Visual Disturbances: 0-None Headache: 0-None Present CIWA-Ar Total Score: 13 BHS Progress Note (SOAP) Subjective: interrupted sleep, sweats, shakes, bodyaches Objective: 06/06/16 11:54 Vital Signs Temperature 99.7 F H 06/06/16 09:56 Pulse Rate 72 06/06/16 09:56 Respiratory Rate 20 06/06/16 09:56 Blood Pressure 123/62 06/06/16 09:56 O2 Sat by Pulse Oximetry (%) Vital Signs Temperature 99.7 F H 06/06/16 09:56 Pulse Rate 72 06/06/16 09:56 Respiratory Rate 20 06/06/16 09:56 Blood Pressure 123/62 06/06/16 09:56 O2 Sat by Pulse Oximetry (%) Laboratory Tests 06/06/16 06/06/16 06/06/16 07:00 07:00 07:00 WBC 2.6 L D RBC 4.45 Hgb 13.0 Hct 40.1 MCV 90.1 MCHC 32.5 RDW 14.3 Plt Count 205 MPV 8.7 Sodium 139 Potassium 3.8 Chloride 100 Carbon Dioxide 30 Anion Gap 9 BUN 11 Creatinine 0.5 L Creat Clearance w eGFR > 60 Random Glucose 81 Calcium 8.6 Total Bilirubin 0.4 D AST 97 H D ALT 65 D Alkaline Phosphatase 94 Total Protein 7.1 Albumin 2.9 L Urine Color Yellow Urine Appearance Clear Urine pH 6.0 Ur Specific [place] 1.017 Urine Protein Negative Urine Glucose (UA) Negative Urine Ketones Negative Urine Blood Negative Urine Nitrite Negative Urine Bilirubin Negative Urine Urobilinogen Negative Ur Leukocyte Esterase 1+ H Urine RBC 1 Urine WBC 7 Ur Epithelial Cells Rare interrupted sleep, sweats, shakes, bodyaches pt aox3 in nad lying in bed 06/06/16 11:56 06/06/16 12:56 Assessment: 06/06/16 11:54 withdrawal sx's hiv + 06/06/16 12:57 Plan: cont. detox increase fluids flexeril 10mg tid/prn
[2016-06-06] MEDS ORDERED: CYCLOBENZAPRINE HCL 10 MG TABLET (FP) PO PRN (11:57)
[2016-06-06] MEDS ORDERED: LIDOCAINE 5% TOPICAL PATCH TP ONE (12:58)
[2016-06-06] MEDS: QUEtiapine FUMARATE 50 MG TABLET PO SCH (22:32)
[2016-06-06] MEDS: THIAMINE HCL 100 MG TABLET (FP) PO SCH (22:33)
--- NOTE | 2016-06-06 23:07 | EKG ---
Test Reason : Blood Pressure : / mmHG Vent. Rate : 075 BPM Atrial Rate : 075 BPM P-R Int : 116 ms QRS Dur : 116 ms QT Int : 398 ms P-R-T Axes : 065 009 011 degrees QTc Int : 444 ms NORMAL SINUS RHYTHM NORMAL ECG WHEN COMPARED WITH ECG OF 04-APR-2016 17:56, T WAVE VARIATION Confirmed by ZURI POND MD ([id number]) on 06/06/2016 11:07:00 PM Referred By: Anthony Reed Confirmed By:ZURI POND MD
[2016-06-07] MEDS ORDERED: METHADONE HCL 40 MG DISPERSABLE TABLET ONE (04:41)
[2016-06-07] MEDS ORDERED: METHADONE HCL 10 MG TABLET ONE (04:42)
[2016-06-07] MEDS: chlordiazePOXIDE HCL 25 MG CAPSULE PO SCH ×3 (05:48→17:59)
[2016-06-07] MEDS: METHADONE 80 MG, METHADONE 30 MG PO SCH (05:50)
[2016-06-07] MEDS ORDERED: METHADONE 80 MG, METHADONE 30 MG PO SCH (06:00)
[2016-06-07] MEDS ORDERED: METHADONE HCL 40 MG DISPERSABLE TABLET PO SCH (06:00)
[2016-06-07] MEDS: ACETAMINOPHEN 325 MG TABLET (FP) PO PRN (07:11)
[2016-06-07 10:34] LABS: SGOT/AST 134 U/L (15-37); SGPT/ALT 82 U/L (12-78)
[2016-06-07 10:42] LABS: BASOPHIL 0.9 % (0-2.0); EOSINOPHIL 2.7 % (0-4.5); MCH 29.3 pg (25.7-33.7); MCHC 32.4 g/dl (32.0-36.0); MEAN CELL VOLUME 90.4 fl (80-96); NEUTROPHILS 37.8 % (42.8-82.8); PLATELET COUNT 201 K/MM3 (134-434); RDW 14.1 % (11.6-15.6)
[2016-06-07] MEDS: PRENATAL VITAMINS W/ FOLIC ACID TABLET (FP) PO SCH (11:03)
[2016-06-07] MEDS: RANITIDINE HCL 150 MG TABLET (FP) PO SCH ×2 (11:03→22:44)
[2016-06-07] MEDS: NICOTINE 21 MG/24 HOURS TOPICAL PATCH TD SCH (11:04)
--- NOTE | 2016-06-07 11:58 | PN ---
S CIWA - CIWA Score Nausea/Vomitin-No Nausea/No Vomiting Muscle Tremors: 4-Moderate,w/Arms Extend Anxiety: 3 Agitation: 2 Paroxysmal Sweats: 3 Orientation: 0-Oriented Tacttile Disturbances: 0-None Auditory Disturbances: 0-None Visual Disturbances: 0-None Headache: 0-None Present CIWA-Ar Total Score: 12 S Progress Note (SOAP) Subjective: agitation anxiety leg cramp interrupted sleep Objective: 06/07/16 11:57 Vital Signs Temperature 98.4 F 06/07/16 09:57 Pulse Rate 77 06/07/16 09:57 Respiratory Rate 18 06/07/16 09:57 Blood Pressure 102/69 06/07/16 09:57 O2 Sat by Pulse Oximetry (%) Laboratory Tests 06/06/16 06/06/16 06/06/16 07:00 07:00 07:00 WBC 2.6 L D RBC 4.45 Hgb 13.0 Hct 40.1 MCV 90.1 MCHC 32.5 RDW 14.3 Plt Count 205 MPV 8.7 Neutrophils % Lymphocytes % Monocytes % Eosinophils % Basophils % Sodium 139 Potassium 3.8 Chloride 100 Carbon Dioxide 30 Anion Gap 9 BUN 11 Creatinine 0.5 L Creat Clearance w eGFR > 60 Random Glucose 81 Calcium 8.6 Total Bilirubin 0.4 D AST 97 H D ALT 65 D Alkaline Phosphatase 94 Total Protein 7.1 Albumin 2.9 L Urine Color Urine Appearance Urine pH Ur Specific [place] Urine Protein Urine Glucose (UA) Urine Ketones Urine Blood Urine Nitrite Urine Bilirubin Urine Urobilinogen Ur Leukocyte Esterase Urine RBC Urine WBC Ur Epithelial Cells RPR Titer Reactive 1:2 H D T.pallidum Ab ([facility]) Previously reactive 06/06/16 06/07/16 06/07/16 07:00 07:00 07:00 WBC 3.0 L RBC 4.40 Hgb 12.9 Hct 39.8 MCV 90.4 MCHC 32.4 RDW 14.1 Plt Count 201 MPV 9.0 Neutrophils % 37.8 L Lymphocytes % 46.7 H Monocytes % 11.9 H Eosinophils % 2.7 Basophils % 0.9 Sodium Potassium Chloride Carbon Dioxide Anion Gap BUN Creatinine Creat Clearance w eGFR Random Glucose Calcium Total Bilirubin AST 134 H D ALT 82 H D Alkaline Phosphatase Total Protein Albumin Urine Color Yellow Urine Appearance Clear Urine pH 6.0 Ur Specific [place] 1.017 Urine Protein Negative Urine Glucose (UA) Negative Urine Ketones Negative Urine Blood Negative Urine Nitrite Negative Urine Bilirubin Negative Urine Urobilinogen Negative Ur Leukocyte Esterase 1+ H Urine RBC 1 Urine WBC 7 Ur Epithelial Cells Rare RPR Titer T.pallidum Ab ([facility]) awake/alert ambulating no acute distress Assessment: 06/07/16 11:58 withdrawal sx Plan: continue detox increase fluids lidocaine patch ordered
[2016-06-07] MEDS: THIAMINE HCL 100 MG TABLET (FP) PO SCH (22:44)
[2016-06-07] MEDS: chlordiazePOXIDE 5 MG CAPSULE PO SCH (22:44)
[2016-06-07] MEDS: QUEtiapine FUMARATE 50 MG TABLET PO SCH (22:44)
[2016-06-08] MEDS ORDERED: METHADONE HCL 40 MG DISPERSABLE TABLET ONE (05:07)
[2016-06-08] MEDS ORDERED: METHADONE HCL 10 MG TABLET ONE (05:08)
[2016-06-08] MEDS: METHADONE 80 MG, METHADONE 30 MG PO SCH (05:41)
[2016-06-08] MEDS: chlordiazePOXIDE 5 MG CAPSULE PO SCH ×3 (05:41→17:32)
[2016-06-08] MEDS: ACETAMINOPHEN 325 MG TABLET (FP) PO PRN (07:30)
[2016-06-08] MEDS: RANITIDINE HCL 150 MG TABLET (FP) PO SCH ×2 (10:52→22:26)
[2016-06-08] MEDS: PRENATAL VITAMINS W/ FOLIC ACID TABLET (FP) PO SCH (10:52)
[2016-06-08] MEDS: NICOTINE 21 MG/24 HOURS TOPICAL PATCH TD SCH (10:53)
[2016-06-08] MEDS: LIDOCAINE 5% TOPICAL PATCH TP SCH (10:53)
--- NOTE | 2016-06-08 11:47 | PN ---
[facility] Progress Note (SOAP) Subjective: sweats , rt knee pain Objective: 06/08/16 11:45 Vital Signs Temperature 97.3 F L 06/08/16 09:44 Pulse Rate 95 H 06/08/16 09:44 Respiratory Rate 20 06/08/16 09:44 Blood Pressure 131/85 06/08/16 09:44 O2 Sat by Pulse Oximetry (%) Laboratory Tests 06/06/16 06/06/16 06/06/16 07:00 07:00 07:00 WBC 2.6 L D RBC 4.45 Hgb 13.0 Hct 40.1 MCV 90.1 MCHC 32.5 RDW 14.3 Plt Count 205 MPV 8.7 Neutrophils % Lymphocytes % Monocytes % Eosinophils % Basophils % Sodium 139 Potassium 3.8 Chloride 100 Carbon Dioxide 30 Anion Gap 9 BUN 11 Creatinine 0.5 L Creat Clearance w eGFR > 60 Random Glucose 81 Calcium 8.6 Total Bilirubin 0.4 D AST 97 H D ALT 65 D Alkaline Phosphatase 94 Total Protein 7.1 Albumin 2.9 L Urine Color Urine Appearance Urine pH Ur Specific [place] Urine Protein Urine Glucose (UA) Urine Ketones Urine Blood Urine Nitrite Urine Bilirubin Urine Urobilinogen Ur Leukocyte Esterase Urine RBC Urine WBC Ur Epithelial Cells RPR Titer Reactive 1:2 H D T.pallidum Ab (MHA) Previously reactive 06/06/16 06/07/16 06/07/16 07:00 07:00 07:00 WBC 3.0 L RBC 4.40 Hgb 12.9 Hct 39.8 MCV 90.4 MCHC 32.4 RDW 14.1 Plt Count 201 MPV 9.0 Neutrophils % 37.8 L Lymphocytes % 46.7 H Monocytes % 11.9 H Eosinophils % 2.7 Basophils % 0.9 Sodium Potassium Chloride Carbon Dioxide Anion Gap BUN Creatinine Creat Clearance w eGFR Random Glucose Calcium Total Bilirubin AST 134 H D ALT 82 H D Alkaline Phosphatase Total Protein Albumin Urine Color Yellow Urine Appearance Clear Urine pH 6.0 Ur Specific [place] 1.017 Urine Protein Negative Urine Glucose (UA) Negative Urine Ketones Negative Urine Blood Negative Urine Nitrite Negative Urine Bilirubin Negative Urine Urobilinogen Negative Ur Leukocyte Esterase 1+ H Urine RBC 1 Urine WBC 7 Ur Epithelial Cells Rare RPR Titer T.pallidum Ab (MHA) pt aox3 , in nad rt knee decreased rom Assessment: 05/04/17 11:46 withdrawal sx;s rt knee pains Plan: cont. detox increase fluids analgesic balm d/c in am
[2016-06-08] MEDS: QUEtiapine FUMARATE 50 MG TABLET PO SCH (22:26)
[2016-06-08] MEDS: chlordiazePOXIDE HCL 10 MG CAPSULE PO SCH (22:26)
[2016-06-08] MEDS: THIAMINE HCL 100 MG TABLET (FP) PO SCH (22:26)
[2016-06-09] MEDS ORDERED: METHADONE HCL 10 MG TABLET ONE (05:36)
[2016-06-09] MEDS ORDERED: METHADONE HCL 40 MG DISPERSABLE TABLET ONE (05:36)
[2016-06-09] MEDS: chlordiazePOXIDE HCL 10 MG CAPSULE PO SCH ×2 (05:41→11:08)
[2016-06-09] MEDS: METHADONE 80 MG, METHADONE 30 MG PO SCH (05:41)
--- NOTE | 2016-06-09 08:49 | DS ---
[facility] Detox Discharge Summary Admission Date: 06/05/16 Discharge Date: 06/09/16 - History Present History: Alcohol Dependence, Cocaine Dependence, MMTP - Physical Exam Results Vital Signs: Vital Signs Temperature 97.9 F 06/09/16 06:49 Pulse Rate 97 H 06/09/16 06:49 Respiratory Rate 16 06/09/16 06:49 Blood Pressure 114/71 06/09/16 06:49 O2 Sat by Pulse Oximetry (%) - Treatment Hospital Course: Detox Protocol Followed, Detoxed Safely, Responded well, Discharged Condition Good, Rehab Referral Accepted - Medication Discharge Medications: Ambulatory Orders Ritonavir [Norvir] 100 mg PO DAILY #30 capsule 08/21/15 Ranitidine [Zantac -] 150 mg PO BID #60 tablet 02/13/16 Trazodone HCl [Desyrel -] 50 mg PO HS 04/04/16 Atazanavir [Reyataz -] 300 mg PO DAILY #30 mg 05/01/16 Emtricitabine/Tenofovir [Truvada -] 1 tab PO DAILY #30 tab 05/01/16 Quetiapine Fumarate [Seroquel] 100 mg PO HS #30 tablet 05/01/16 Ritonavir [Norvir -] 100 mg PO DAILY@0800 #30 mg 05/01/16 Trazodone HCl [Desyrel -] 50 mg PO HS #30 tablet 05/01/16 - Diagnosis (1) Alcohol dependence Current Visit: Yes Status: Chronic Qualifiers: Substance use status: uncomplicated Qualified Code(s): F10.20 - Alcohol dependence, uncomplicated (2) Cocaine dependence Current Visit: Yes Status: Chronic Qualifiers: Substance use status: uncomplicated Qualified Code(s): F14.20 - Cocaine dependence, uncomplicated (3) GERD (gastroesophageal reflux disease) Current Visit: Yes Status: Chronic Qualifiers: Esophagitis presence: without esophagitis Qualified Code(s): K21.9 - Gastro-esophageal reflux disease without esophagitis (4) HIV (human immunodeficiency virus infection) Current Visit: Yes Status: Chronic (5) Methadone maintenance therapy patient Current Visit: Yes Status: Chronic (6) Nicotine dependence Current Visit: Yes Status: Chronic Qualifiers: Nicotine product type: cigarettes Substance use status: in withdrawal Qualified Code(s): F17.213 - Nicotine dependence, cigarettes, with withdrawal (7) Bipolar II disorder Current Visit: Yes Status: Suspected (8) Seizure disorder, secondary Current Visit: Yes Status: Suspected (9) Hepatitis C antibody test positive Current Visit: Yes Status: Resolved (10) Bruise of face Current Visit: No Status: Acute Qualifiers: Encounter type: initial encounter Qualified Code(s): S00.83XA - Contusion of other part of head, initial encounter - AMA Did Patient Leave Against Medical Advice: No
[2016-06-09] MEDS: RANITIDINE HCL 150 MG TABLET (FP) PO SCH (11:08)
[2016-06-09] MEDS: PRENATAL VITAMINS W/ FOLIC ACID TABLET (FP) PO SCH (11:08)
[2016-06-09] MEDS: LIDOCAINE 5% TOPICAL PATCH TP SCH (11:09)
[2016-06-09] MEDS: NICOTINE 21 MG/24 HOURS TOPICAL PATCH TD SCH (11:09)
[2016-06-09 11:32] VITALS: BP 107/63; PULSE 91; TEMP 97.3
== END 2016-06-09 11:13 | disposition home or self-care (01) | DRG 773 ==
LOC: YASAS 20:53 → Y6N 20:55
PROVIDERS: ADMIT Internal Medicine Addiction Medicine; ATTEND Internal Medicine Addiction Medicine
PROC: HZ2ZZZZ Detoxification Services for Substance Abuse Treatment (ICD-10-PCS; principal; 2016-06-09)
DX: F11.20 Opioid dependence, uncomplicated (principal); F10.230 Alcohol dependence with withdrawal, uncomplicated; F14.20 Cocaine dependence, uncomplicated; F17.213 Nicotine dependence, cigarettes, with withdrawal; F31.81 Bipolar II disorder; G40.909 Epilepsy, unspecified, not intractable, without status epilepticus; B18.2 Chronic viral hepatitis C; Z21 Asymptomatic human immunodeficiency virus [HIV] infection status; S00.83XA Contusion of other part of head, initial encounter; X58.XXXA Exposure to other specified factors, initial encounter; Y93.9 Activity, unspecified; Z59.0 Homelessness
CPT/HCPCS: 36415; 80053; 81003; 81015; 84450; 84460; 85025; 85027; 86593; 86780; 93005; 93010

== ENCOUNTER 2016-09-04 12:05 | Inpatient (IN) | payer OTHER ==
[2016-09-04 12:45] VITALS: BMI 24.2
--- NOTE | 2016-09-04 15:48 | HP ---
CIWA Score - CIWA Score Nausea/Vomitin-No Nausea/No Vomiting Muscle Tremors: 4-Moderate,w/Arms Extend Anxiety: 4-Mod. Anxious/Guarded Agitation: 4-Moderately Restless Paroxysmal Sweats: 1-Minimal Palms Moist Orientation: 0-Oriented Tacttile Disturbances: 3-Moderate Itch/Numb/Burn Auditory Disturbances: 0-None Visual Disturbances: 0-None Headache: 0-None Present CIWA-Ar Total Score: 16 Admission [facility] Chief Complaint: DETOX TX FOR ALCOHOL DEPENDENCE Allergies/Adverse Reactions: Allergies Allergy/AdvReac Type Severity Reaction Status Date / Time cephalexin monohydrate Allergy Hives Verified 09/04/16 14:34 [From Keflex] History of Present Illness: 50 Y/O H/F WITH A HX OF ALCOHOL,COCAINE AND HEROIN DEPENDENCE AND ON [facility] SEEKING DETOX TX. ADDENDUM: PT IS NONCOMPLIANT WITH HER ANTIRETROVIRAL DRUGS STATING SHE IS NOT CURRENTLY TAKING ANY MED. PT GAVE HER PCP DR LUGO AT [facility] ON [address] [place] [address]. Exam Limitations: No Limitations - Ebola screening Have you traveled outside of the country in the last 21 days: No Have you had contact with anyone from an Ebola affected area: No Have you been sick,other than usual withdrawal symptoms: No Do you have a fever: No - Review of Systems Constitutional: Chills, Loss of Appetite, Night Sweats, Changes in sleep, Unintentional Wgt. Loss EENT: reports: Blurred Vision, Tearing, Nose Congestion, Dental Problems (NO TEEHT) Respiratory: reports: No Symptoms reported Cardiac: reports: Lightheadedness GI: reports: Diarrhea, Nausea, Poor Appetite, Poor Fluid Intake, Vomiting : reports: No Symptoms Reported Musculoskeletal: reports: Back Pain, Joint Pain, Muscle Pain Integumentary: reports: Bruising (IVD INJ SITES ON BOTH ELBOWS,LEFT HAND AND NECK) Neuro: reports: Headache, Seizure, Dizziness Endocrine: reports: No Symptoms Reported Hematology: reports: No Symptoms Reported Psychiatric: reports: Orientated x3, Anxious, Depressed Other Systems: Reviewed and Negative Patient History - Patient Medical History Hx Anemia: No Hx Asthma: No Hx Chronic Obstructive Pulmonary Disease (COPD): No Hx Cancer: No Hx Cardiac Disorders: No Hx Congestive Heart Failure: No Hx Hypertension: No Hx Hypercholesterolemia: No Hx Pacemaker: No HX Cerebrovascular Accident: No Hx Seizures: Yes (6 mos ago) Hx Dementia: No Hx Diabetes: No Hx Gastrointestinal Disorders: No Hx Liver Disease: No Hx Genitourinary Disorders: No Hx Sexually Transmitted Disorders: Yes (Syphyllis 1995 tx) Hx Renal Disease (ESRD): No Hx Thyroid Disease: No Hx Human Immunodeficiency Virus (HIV): Yes (HIV 1992. NO CURRENT MED) Hx Hepatitis C: Yes (TREATED) Hx Depression: Yes Hx Suicide Attempt: No (DENIES) Hx Bipolar Disorder: Yes Hx Schizophrenia: No - Patient Surgical History Past Surgical History: Yes Hx Neurologic Surgery: No Hx Cataract Extraction: No Hx Cardiac Surgery: No Hx Lung Surgery: No Hx Breast Surgery: No Hx Breast Biopsy: No Hx Abdominal Surgery: No Hx Appendectomy: No Hx Cholecystectomy: No Hx Genitourinary Surgery: No Hx Section: Yes (2004) Hx Orthopedic Surgery: No Hx Hysterectomy: No Anesthesia Reaction: No - PPD History Previous Implant?: Yes Documented Results: Negative w/proof Implanted On Prior [facility] Admission?: Yes Date: 11/10/15 Results: 0 MM PPD to be Administered?: No - Reproductive History Patient is a Female of Child Bearing Age (11 -55 yrs old): Yes Last Menstrual Period: 08/26/16 Patient : No - Smoking Cessation Smoking history: Current every day smoker Have you smoked in the past 12 months: Yes Aproximately how many cigarettes per day: 20 Cigars Per Day: 0 Hx Chewing Tobacco Use: No Initiated information on smoking cessation: Yes 'Breaking Loose' booklet given: 09/04/16 - Substance & Tx. History Hx Alcohol Use: Yes (VODKA/BEER) Hx Substance Use: Yes (CRACK/COCAINE/HEROIN) Substance Use Type: Alcohol, Cocaine, Heroin Hx Substance Use Treatment: Yes (LAST TX AT [facility]) - Substances Abused Alcohol Route: Oral Frequency: Daily Amount used: VODKA (3 Pints) Age of first use: 13 Date of Last Use: 09/04/16 Heroin Route: Injection Frequency: 3-6 times per week Amount used: 3 bags Age of first use: 13 Date of Last Use: 09/03/16 Crack Route: Smoking Frequency: Daily Amount used: 5 bags Age of first use: 17 Date of Last Use: 09/03/16 Cocaine Route: Injection Frequency: 3-6 times per week Amount used: 2 bags Age of first use: 17 Date of Last Use: 09/03/16 Family Disease History - Family Disease History Family Disease History: Diabetes: Mother (ALCOHOL), Other: Grandparent, Father ( , ALCOHOL), Mother Admission Physical Exam S - Vital Signs Vital Signs: Vital Signs - 24 hr 09/04/16 12:42 Temperature 97.3 F L Pulse Rate 90 Respiratory 16 Rate Blood Pressure 92/56 - Physical General Appearance: Yes: Moderate Distress, Cachetic, Thin, Anxious, Other ( FATIGUE AND DROWSY BUT EASILY AROUSABLE.) HEENTM: Yes: EOMI, Normocephalic, RENETTA, Pharynx Normal Respiratory: Yes: Chest Non-Tender, Lungs Clear, Normal Breath Sounds, No Respiratory Distress Neck: Yes: No masses,lesions,Nodules, Supple, Trachea in good position, Other ( IVD INJ TRACK LEFT NECK-NO REDNESS OR SWELLING.) Breast: Yes: Breast Exam Deferred Cardiology: Yes: Regular Rhythm, Regular Rate, S1, S2 Abdominal: Yes: Normal Bowel Sounds, Non Tender, Soft Genitourinary: Yes: Other (N/C) Back: Yes: Within Normal Limits Musculoskeletal: Yes: full range of Motion, Gait Steady Extremities: Yes: Normal Range of Motion, Non-Tender 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: Yes: belt builder helper II-XII NML intact, Fully Oriented, Alert Integumentary: Yes: Dry, Warm, Track [place] (BOTH ELBOWS AND LEFT HAND/NECK) - Diagnostic (1) GERD (gastroesophageal reflux disease) Current Visit: Yes Status: Chronic Qualifiers: Esophagitis presence: without esophagitis Qualified Code(s): K21.9 - Gastro-esophageal reflux disease without esophagitis Comment: ZANTAC 150 MG PO BID (2) HIV (human immunodeficiency virus infection) Current Visit: Yes Status: Chronic Comment: NO CURRENT MED PER PATIENT. (3) Methadone maintenance therapy patient Current Visit: Yes Status: Chronic Comment: LAST DOSE RECIEVED TODAY 09/04/16, VERIFICATION PENDING (4) Nicotine dependence Current Visit: Yes Status: Acute Qualifiers: Nicotine product type: cigarettes Substance use status: in withdrawal Qualified Code(s): F17.213 - Nicotine dependence, cigarettes, with withdrawal (5) Seizure disorder, secondary Current Visit: Yes Status: Suspected Comment: no treatment (6) Alcohol dependence with uncomplicated withdrawal Current Visit: Yes Status: Acute (7) Cocaine dependence, uncomplicated Current Visit: Yes Status: Acute Cleared for Admission [facility] - Detox or Rehab [facility] Level of Care: Medically Managed Detox Regimen/Protocol: Librium [facility] Breath Alcohol Content Breath Alcohol Content: 0.105 Urine Pregancy Test - Result Urine Test Results: Negative- NO Line Present Urine Drug Screen - Results Drug Screen Negative: No Urine Drug Screen Results: BARBARA-Cocaine, OPI-Opiates, MTD-Methadone
[2016-09-04] MEDS ORDERED: MENTHOL/PHENOL 1 EACH UD MM PRN (16:01)
[2016-09-04] MEDS ORDERED: LOPERAMIDE HCL 2 MG CAPSULE PO PRN (16:01)
[2016-09-04] MEDS ORDERED: ACETAMINOPHEN 325 MG TABLET (FP) PO PRN (16:01)
[2016-09-04] MEDS ORDERED: guaiFENesin/D-METHORPHAN HB 10 ML UNIT-DOSE CUPS PO PRN (16:01)
[2016-09-04] MEDS ORDERED: MAGNESIUM HYDROX 2400MG/30ML ORAL SUSPENSION 30 ML CUP PO PRN (16:01)
[2016-09-04] MEDS ORDERED: NICOTINE POLACRILEX 2 MG GUM BC PRN (16:01)
[2016-09-04] MEDS ORDERED: IBUPROFEN 400 MG TABLET (FP) PO PRN (16:01)
[2016-09-04] MEDS ORDERED: P-EPHED 60MG/TRIPROLIDI 2.5MG TABLET PO PRN (16:01)
[2016-09-04] MEDS ORDERED: diphenhydrAMINE HCL 50 MG CAPSULE PO PRN (16:01)
[2016-09-04] MEDS ORDERED: chlordiazePOXIDE HCL 25 MG CAPSULE PO PRN (16:01)
[2016-09-04] MEDS ORDERED: MAGNESIUM CITRATE 300 ML BOTTLE PO PRN (16:01)
[2016-09-04] MEDS: NICOTINE 14 MG/24 HOURS TOPICAL PATCH TD SCH (17:49)
[2016-09-04] MEDS: chlordiazePOXIDE HCL 25 MG CAPSULE PO SCH ×2 (17:50→22:35)
[2016-09-04] MEDS: THIAMINE HCL 100 MG TABLET (FP) PO SCH (22:34)
[2016-09-05] MEDS: chlordiazePOXIDE HCL 25 MG CAPSULE PO SCH ×4 (05:35→22:09)
[2016-09-05] MEDS ORDERED: METHADONE HCL 10 MG TABLET PO ONE (08:52)
[2016-09-05] MEDS ORDERED: METHADONE 80 MG, METHADONE 30 MG PO ONE (09:05)
[2016-09-05] MEDS ORDERED: METHADONE HCL 40 MG DISPERSABLE TABLET ONE (09:51)
[2016-09-05] MEDS ORDERED: METHADONE HCL 10 MG TABLET ONE (09:51)
--- NOTE | 2016-09-05 11:09 | PN ---
S CIWA - CIWA Score Nausea/Vomitin-No Nausea/No Vomiting Muscle Tremors: 4-Moderate,w/Arms Extend Anxiety: 3 Agitation: 4-Moderately Restless Paroxysmal Sweats: 3 Orientation: 0-Oriented Tacttile Disturbances: 0-None Auditory Disturbances: 0-None Visual Disturbances: 0-None Headache: 1-Very Mild CIWA-Ar Total Score: 15 [facility] Progress Note (SOAP) Subjective: irritable agitation anxiety sweats body aches Objective: 09/05/16 11:08 Vital Signs Temperature 98.1 F 09/05/16 10:00 Pulse Rate 77 09/05/16 10:00 Respiratory Rate 16 09/05/16 10:00 Blood Pressure 131/76 09/05/16 10:00 O2 Sat by Pulse Oximetry (%) labs pending awake/alert ambulating no acute distress Assessment: 09/05/16 11:09 withdrawal sx Plan: continue detox increase fluids labs pending
[2016-09-05] MEDS: PRENATAL VITAMINS W/ FOLIC ACID TABLET (FP) PO SCH (11:30)
[2016-09-05] MEDS: NICOTINE 14 MG/24 HOURS TOPICAL PATCH TD SCH (11:31)
[2016-09-05 12:20] LABS: ALBUMIN 2.9 g/dl (3.4-5.0); ALK PHOS 86 U/L (45-117); ANION GAP 9 (8-16); BILIRUBIN,TOTAL 0.4 mg/dL (0.2-1.0); CALCIUM 8.6 mg/dL (8.5-10.1); CO2 27 mmol/L (21-32); CREATININE 0.6 mg/dL (0.55-1.02); GLUCOSE,RANDOM 75 mg/dL (74-106); SGOT/AST 80 U/L (15-37); SGPT/ALT 55 U/L (12-78); TOT PROT 7.2 g/dl (6.4-8.2)
--- NOTE | 2016-09-05 14:20 | EKG ---
Test Reason : Blood Pressure : / mmHG Vent. Rate : 067 BPM Atrial Rate : 067 BPM P-R Int : 118 ms QRS Dur : 110 ms QT Int : 406 ms P-R-T Axes : 077 058 018 degrees QTc Int : 429 ms NORMAL SINUS RHYTHM INCOMPLETE RIGHT BUNDLE BRANCH BLOCK BORDERLINE ECG WHEN COMPARED WITH ECG OF 05-JUN-2016 22:04, NO SIGNIFICANT CHANGE WAS FOUND Confirmed by JULIANN BOATENG MD ([id number]) on 09/05/2016 2:20:34 PM Referred By: Confirmed By:JULIANN BOATENG MD
[2016-09-05 14:53] LABS: MCH 29.4 pg (25.7-33.7); MCHC 32.6 g/dl (32.0-36.0); MEAN CELL VOLUME 90.2 fl (80-96); MEAN PLT VOLUME 8.9 fl (7.5-11.1); PLATELET COUNT 178 K/MM3 (134-434); RDW 13.2 % (11.6-15.6); WHITE BLOOD COUNT 2.5 K/mm3 (4.0-10.0)
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
[2016-09-05] MEDS: THIAMINE HCL 100 MG TABLET (FP) PO SCH (22:08)
[2016-09-05] MEDS: ZOLPIDEM TARTRATE 5 MG TABLET PO PRN (22:09)
[2016-09-06] MEDS ORDERED: METHADONE HCL 40 MG DISPERSABLE TABLET ONE (04:39)
[2016-09-06] MEDS ORDERED: METHADONE HCL 10 MG TABLET ONE (04:39)
[2016-09-06] MEDS ORDERED: METHADONE HCL 40 MG DISPERSABLE TABLET PO SCH (06:00)
[2016-09-06] MEDS: chlordiazePOXIDE HCL 25 MG CAPSULE PO SCH ×2 (06:08→10:40)
[2016-09-06] MEDS: METHADONE 80 MG, METHADONE 30 MG PO SCH (06:09)
[2016-09-06] MEDS: PRENATAL VITAMINS W/ FOLIC ACID TABLET (FP) PO SCH (10:39)
[2016-09-06] MEDS: NICOTINE 14 MG/24 HOURS TOPICAL PATCH TD SCH (10:40)
[2016-09-06] MEDS ORDERED: TRIMETHOBENZAMIDE HCL 300 MG CAPSULE PO PRN (10:53)
--- NOTE | 2016-09-06 10:53 | PN ---
S CIWA - CIWA Score Nausea/Vomitin-Mild Nausea/No Vomiting Muscle Tremors: 3 Anxiety: 3 Agitation: 3 Paroxysmal Sweats: 3 Orientation: 0-Oriented Tacttile Disturbances: 0-None Auditory Disturbances: 0-None Visual Disturbances: 0-None Headache: 0-None Present CIWA-Ar Total Score: 13 S Progress Note (SOAP) Subjective: nausea sweats irritable agitation Objective: 09/06/16 10:51 Vital Signs Temperature 97.7 F 09/06/16 10:00 Pulse Rate 66 09/06/16 10:00 Respiratory Rate 16 09/06/16 10:00 Blood Pressure 103/60 09/06/16 10:00 O2 Sat by Pulse Oximetry (%) Laboratory Tests 09/05/16 09/05/16 09/05/16 06:30 06:30 06:30 WBC 2.5 L RBC 4.60 Hgb 13.5 Hct 41.5 MCV 90.2 MCH 29.4 MCHC 32.6 RDW 13.2 Plt Count 178 MPV 8.9 Sodium 138 Potassium 3.9 Chloride 102 Carbon Dioxide 27 Anion Gap 9 BUN 15 D Creatinine 0.6 Creat Clearance w eGFR > 60 Random Glucose 75 Calcium 8.6 Total Bilirubin 0.4 AST 80 H D ALT 55 D Alkaline Phosphatase 86 Total Protein 7.2 Albumin 2.9 L RPR Titer Reactive 1:1 H D T.pallidum Ab (A) Previously reactive awake/alert ambulating no acute distress Assessment: 09/06/16 10:52 withdrawal sx Plan: continue detox increase fluids tigan po prn
[2016-09-06] MEDS: chlordiazePOXIDE 5 MG CAPSULE PO SCH ×2 (17:15→22:10)
[2016-09-06 22:04] LABS: URINE APPEARANCE SLCLOUDY; URINE BILIRUBIN NEGATIVE (NEGATIVE); URINE BLOOD 3+ (NEGATIVE); URINE COLOR YELLOW; URINE GLUCOSE (UA) NEGATIVE (NEGATIVE); URINE KETONE NEGATIVE (NEGATIVE); URINE LEUK ESTERASE NEGATIVE (NEGATIVE); URINE NITRITE NEGATIVE (NEGATIVE); URINE PROTEIN NEGATIVE (NEGATIVE); URINE UROBILINOGEN NEGATIVE mg/dL (0.2-1.0)
[2016-09-06] MEDS: ZOLPIDEM TARTRATE 5 MG TABLET PO PRN (22:10)
[2016-09-06] MEDS: THIAMINE HCL 100 MG TABLET (FP) PO SCH (22:11)
[2016-09-06 22:34] LABS: URINE MUCUS RARE; URINE RBC 170 /hpf (0-3); URINE WBC 102 /hpf (3-5)
[2016-09-07] MEDS ORDERED: METHADONE HCL 10 MG TABLET ONE (04:37)
[2016-09-07] MEDS ORDERED: METHADONE HCL 40 MG DISPERSABLE TABLET ONE (04:37)
[2016-09-07] MEDS: METHADONE 80 MG, METHADONE 30 MG PO SCH (05:18)
[2016-09-07] MEDS: chlordiazePOXIDE 5 MG CAPSULE PO SCH ×2 (08:05→12:17)
--- NOTE | 2016-09-07 11:39 | PN ---
[facility] Progress Note (SOAP) Subjective: sweats irritable uti Objective: 09/07/16 11:38 Vital Signs Temperature 97.5 F L 09/07/16 09:35 Pulse Rate 68 09/07/16 09:35 Respiratory Rate 18 09/07/16 09:35 Blood Pressure 92/62 09/07/16 09:35 O2 Sat by Pulse Oximetry (%) Laboratory Tests 09/05/16 09/05/16 09/05/16 06:30 06:30 06:30 WBC 2.5 L RBC 4.60 Hgb 13.5 Hct 41.5 MCV 90.2 MCH 29.4 MCHC 32.6 RDW 13.2 Plt Count 178 MPV 8.9 Sodium 138 Potassium 3.9 Chloride 102 Carbon Dioxide 27 Anion Gap 9 BUN 15 D Creatinine 0.6 Creat Clearance w eGFR > 60 Random Glucose 75 Calcium 8.6 Total Bilirubin 0.4 AST 80 H D ALT 55 D Alkaline Phosphatase 86 Total Protein 7.2 Albumin 2.9 L Urine Color Urine Appearance Urine pH Urine Protein Urine Glucose (UA) Urine Ketones Urine Blood Urine Nitrite Urine Bilirubin Urine Urobilinogen Ur Leukocyte Esterase Urine RBC Urine WBC Ur Epithelial Cells Urine Mucus RPR Titer Reactive 1:1 H D T.pallidum Ab (MHA) Previously reactive 09/06/16 21:30 WBC RBC Hgb Hct MCV MCH MCHC RDW Plt Count MPV Sodium Potassium Chloride Carbon Dioxide Anion Gap BUN Creatinine Creat Clearance w eGFR Random Glucose Calcium Total Bilirubin AST ALT Alkaline Phosphatase Total Protein Albumin Urine Color Yellow Urine Appearance Slcloudy Urine pH 5.0 Urine Protein Negative Urine Glucose (UA) Negative Urine Ketones Negative Urine Blood 3+ H Urine Nitrite Negative Urine Bilirubin Negative Urine Urobilinogen Negative Ur Leukocyte Esterase Negative Urine RBC 170 Urine WBC 102 Ur Epithelial Cells Rare Urine Mucus Rare RPR Titer T.pallidum Ab (MHA) awake/alert ambulating no acute distress u/a wbc 102; bactrim ds ordered Assessment: 09/07/16 11:39 withdrawal sx Plan: continue detox increase fluids d/c in am
[2016-09-07] MEDS ORDERED: SULFAMETHOXAZOLE/TRIMETHOPRIM 800MG/160MG D.S. TABLET PO SCH (11:45)
[2016-09-07] MEDS: NICOTINE 14 MG/24 HOURS TOPICAL PATCH TD SCH (12:16)
[2016-09-07] MEDS: PRENATAL VITAMINS W/ FOLIC ACID TABLET (FP) PO SCH (12:16)
[2016-09-07] MEDS: chlordiazePOXIDE HCL 10 MG CAPSULE PO SCH ×2 (17:29→22:17)
[2016-09-07] MEDS: MAG HYDROX/AL HYDROX/SIMETH 30 ML UNIT-DOSE CUP PO PRN (20:57)
[2016-09-07] MEDS: THIAMINE HCL 100 MG TABLET (FP) PO SCH (22:17)
[2016-09-07] MEDS: ZOLPIDEM TARTRATE 5 MG TABLET PO PRN (22:17)
[2016-09-08] MEDS: MAG HYDROX/AL HYDROX/SIMETH 30 ML UNIT-DOSE CUP PO PRN (00:47)
[2016-09-08] MEDS ORDERED: METHADONE HCL 40 MG DISPERSABLE TABLET ONE (04:40)
[2016-09-08] MEDS ORDERED: METHADONE HCL 10 MG TABLET ONE (04:41)
[2016-09-08] MEDS: METHADONE 80 MG, METHADONE 30 MG PO SCH (05:50)
[2016-09-08] MEDS: chlordiazePOXIDE HCL 10 MG CAPSULE PO SCH ×2 (05:50→11:12)
--- NOTE | 2016-09-08 09:33 | DS ---
[facility] Detox Discharge Summary Admission Date: 09/04/16 Discharge Date: 09/08/16 - History Present History: Alcohol Dependence, Cocaine Dependence, MMTP Additional Comments: follow up with [facility] Pertinent Past History: gerd nicotine dependence - Physical Exam Results Vital Signs: Vital Signs Temperature 98.1 F 09/08/16 06:36 Pulse Rate 78 09/08/16 06:36 Respiratory Rate 18 09/08/16 06:36 Blood Pressure 126/61 09/08/16 06:36 O2 Sat by Pulse Oximetry (%) Pertinent Admission Physical Exam Findings: withdrawal symptom - Treatment Hospital Course: Detox Protocol Followed, Detoxed Safely, Responded well, Discharged Condition Good, Rehab Referral Accepted Patient has Accepted a Rehab Referral to: [facility] - Medication Discharge Medications: Ambulatory Orders Ritonavir [Norvir] 100 mg PO DAILY #30 capsule 08/21/15 Ranitidine [Zantac -] 150 mg PO BID #60 tablet 02/13/16 Emtricitabine/Tenofovir [Truvada -] 1 tab PO DAILY #30 tab 05/01/16 Quetiapine Fumarate [Seroquel] 100 mg PO HS #30 tablet 05/01/16 Trazodone HCl [Desyrel -] 50 mg PO HS #30 tablet 05/01/16 Methadone [Dolophine -] 110 mg PO DAILY 09/04/16 - Diagnosis (1) Alcohol dependence with uncomplicated withdrawal Current Visit: Yes Status: Acute (2) Cocaine dependence, uncomplicated Current Visit: Yes Status: Acute (3) Nicotine dependence Current Visit: Yes Status: Acute Qualifiers: Nicotine product type: cigarettes Substance use status: in withdrawal Qualified Code(s): F17.213 - Nicotine dependence, cigarettes, with withdrawal (4) Opioid dependence on agonist therapy Current Visit: Yes Status: Acute (5) GERD (gastroesophageal reflux disease) Current Visit: Yes Status: Chronic Qualifiers: Esophagitis presence: without esophagitis Qualified Code(s): K21.9 - Gastro-esophageal reflux disease without esophagitis (6) HIV (human immunodeficiency virus infection) Current Visit: Yes Status: Chronic (7) Seizure disorder, secondary Current Visit: Yes Status: Suspected (8) Bipolar II disorder Current Visit: No Status: Suspected - AMA Did Patient Leave Against Medical Advice: No
[2016-09-08] MEDS: PRENATAL VITAMINS W/ FOLIC ACID TABLET (FP) PO SCH (11:11)
[2016-09-08] MEDS: NICOTINE 14 MG/24 HOURS TOPICAL PATCH TD SCH (11:12)
[2016-09-08 11:58] VITALS: BP 95/67; PULSE 88; TEMP 97.7
== END 2016-09-08 11:14 | disposition other institution (70) | DRG 773 ==
LOC: YASAS 12:05 → Y6N 15:24
PROVIDERS: ADMIT Internal Medicine; ATTEND Internal Medicine
PROC: HZ2ZZZZ Detoxification Services for Substance Abuse Treatment (ICD-10-PCS; principal; 2016-09-04)
DX: F11.20 Opioid dependence, uncomplicated (principal); F14.20 Cocaine dependence, uncomplicated; F17.210 Nicotine dependence, cigarettes, uncomplicated; F31.81 Bipolar II disorder; F19.24 Other psychoactive substance dependence with psychoactive substance-induced mood disorder; K21.9 Gastro-esophageal reflux disease without esophagitis; Z21 Asymptomatic human immunodeficiency virus [HIV] infection status; F43.10 Post-traumatic stress disorder, unspecified; Z87.42 Personal history of other diseases of the female genital tract; Z91.14 Patient's other noncompliance with medication regimen; Z86.69 Personal history of other diseases of the nervous system and sense organs; Z59.0 Homelessness
CPT/HCPCS: 36415; 80053; 81003; 81015; 85027; 86593; 86780; 93005; 93010

== ENCOUNTER 2016-09-08 11:43 | Inpatient (IN) | payer OTHER ==
[2016-09-08 12:18] VITALS: BMI 24.8
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
[2016-09-08] MEDS ORDERED: P-EPHED 60MG/TRIPROLIDI 2.5MG TABLET PO PRN (15:06)
[2016-09-08] MEDS ORDERED: guaiFENesin/D-METHORPHAN HB 10 ML UNIT-DOSE CUPS PO PRN (15:06)
[2016-09-08] MEDS ORDERED: MAGNESIUM CITRATE 300 ML BOTTLE PO PRN (15:06)
[2016-09-08] MEDS ORDERED: IBUPROFEN 400 MG TABLET (FP) PO PRN (15:06)
[2016-09-08] MEDS ORDERED: ACETAMINOPHEN 325 MG TABLET (FP) PO PRN (15:06)
[2016-09-08] MEDS ORDERED: MAGNESIUM HYDROX 2400MG/30ML ORAL SUSPENSION 30 ML CUP PO PRN (15:06)
[2016-09-08] MEDS ORDERED: MENTHOL/PHENOL 1 EACH UD MM PRN (15:06)
[2016-09-08] MEDS ORDERED: NICOTINE POLACRILEX 2 MG GUM BUC PRN (15:06)
--- NOTE | 2016-09-08 15:10 | HP ---
[facility] Rehab Assess/Revision - Admission History Admitted to Rehab from: [facility] [address] [place] Date of Admission to Rehab: 09/08/16 - Vital signs Vital Signs: Vital Signs Period Temp Pulse Resp BP Sys/[place] Pulse Ox Last 24 Hr 97.1 F-97.1 F 73-73 16-16 94-94/57-57 - Findings Detox History & Physical reviewed: Yes Concur with findings: Yes
[2016-09-08] MEDS ORDERED: RANITIDINE HCL 150 MG TABLET (FP) PO ONE (15:28)
[2016-09-08] MEDS: LOPERAMIDE HCL 2 MG CAPSULE PO PRN (16:59)
[2016-09-08] MEDS: MAG HYDROX/AL HYDROX/SIMETH 30 ML UNIT-DOSE CUP PO PRN (16:59)
[2016-09-08] MEDS ORDERED: TRIMETHOBENZAMIDE HCL 200MG/2ML INJ IM PRN (18:28)
[2016-09-08] MEDS: THIAMINE HCL 100 MG TABLET (FP) PO SCH (21:43)
[2016-09-08] MEDS: RANITIDINE HCL 150 MG TABLET (FP) PO SCH (21:43)
[2016-09-09] MEDS: LOPERAMIDE HCL 2 MG CAPSULE PO PRN (04:54)
[2016-09-09] MEDS ORDERED: METHADONE HCL 10 MG TABLET PO SCH (06:00)
[2016-09-09] MEDS ORDERED: METHADONE HCL 10 MG TABLET ONE (06:17)
[2016-09-09] MEDS ORDERED: METHADONE HCL 40 MG DISPERSABLE TABLET ONE (06:18)
[2016-09-09] MEDS: METHADONE 80 MG, METHADONE 30 MG PO SCH (06:51)
[2016-09-09] MEDS: MAG HYDROX/AL HYDROX/SIMETH 30 ML UNIT-DOSE CUP PO PRN (08:51)
[2016-09-09] MEDS: PRENATAL VITAMINS W/ FOLIC ACID TABLET (FP) PO SCH (10:21)
[2016-09-09] MEDS: RANITIDINE HCL 150 MG TABLET (FP) PO SCH ×2 (10:21→21:35)
[2016-09-09] MEDS: THIAMINE HCL 100 MG TABLET (FP) PO SCH (21:34)
[2016-09-10] MEDS ORDERED: METHADONE HCL 40 MG DISPERSABLE TABLET ONE (06:03)
[2016-09-10] MEDS ORDERED: METHADONE HCL 10 MG TABLET ONE (06:03)
[2016-09-10] MEDS: METHADONE 80 MG, METHADONE 30 MG PO SCH (06:43)
[2016-09-10] MEDS: LOPERAMIDE HCL 2 MG CAPSULE PO PRN (06:44)
[2016-09-10] MEDS: PRENATAL VITAMINS W/ FOLIC ACID TABLET (FP) PO SCH (09:41)
[2016-09-10] MEDS: RANITIDINE HCL 150 MG TABLET (FP) PO SCH ×2 (09:41→21:32)
[2016-09-10] MEDS: THIAMINE HCL 100 MG TABLET (FP) PO SCH (21:32)
[2016-09-11] MEDS ORDERED: METHADONE HCL 40 MG DISPERSABLE TABLET ONE (05:44)
[2016-09-11] MEDS ORDERED: METHADONE HCL 10 MG TABLET ONE (05:44)
[2016-09-11] MEDS: METHADONE 80 MG, METHADONE 30 MG PO SCH (06:16)
[2016-09-11] MEDS: RANITIDINE HCL 150 MG TABLET (FP) PO SCH (09:04)
[2016-09-11] MEDS: PRENATAL VITAMINS W/ FOLIC ACID TABLET (FP) PO SCH (09:04)
[2016-09-11] MEDS ORDERED: PT OWN MED DRAWER 7, Y5N ONE (10:04)
[2016-09-11] MEDS: MAG HYDROX/AL HYDROX/SIMETH 30 ML UNIT-DOSE CUP PO PRN ×2 (10:04→19:52)
[2016-09-11] MEDS ORDERED: DIPHENOXYLATE 2.5/ATROPINE.025 1 COMBO TABLET PO PRN (15:12)
[2016-09-11] MEDS: PANTOPRAZOLE 40 MG TABLET (FP) PO SCH (15:32)
[2016-09-11] MEDS: THIAMINE HCL 100 MG TABLET (FP) PO SCH (21:26)
[2016-09-12] MEDS: MAG HYDROX/AL HYDROX/SIMETH 30 ML UNIT-DOSE CUP PO PRN (02:33)
[2016-09-12] MEDS: LOPERAMIDE HCL 2 MG CAPSULE PO PRN (02:35)
[2016-09-12] MEDS ORDERED: METHADONE HCL 10 MG TABLET ONE (03:06)
[2016-09-12] MEDS ORDERED: METHADONE HCL 40 MG DISPERSABLE TABLET ONE (03:06)
[2016-09-12] MEDS: METHADONE 80 MG, METHADONE 30 MG PO SCH (06:03)
[2016-09-12] MEDS: PANTOPRAZOLE 40 MG TABLET (FP) PO SCH (09:52)
[2016-09-12] MEDS: PRENATAL VITAMINS W/ FOLIC ACID TABLET (FP) PO SCH (09:52)
[2016-09-12] MEDS: diphenhydrAMINE HCL 50 MG CAPSULE PO PRN (21:37)
[2016-09-12] MEDS: THIAMINE HCL 100 MG TABLET (FP) PO SCH (21:38)
[2016-09-13] MEDS ORDERED: METHADONE HCL 40 MG DISPERSABLE TABLET ONE (03:27)
[2016-09-13] MEDS ORDERED: METHADONE HCL 10 MG TABLET ONE (03:27)
[2016-09-13] MEDS: METHADONE 80 MG, METHADONE 30 MG PO SCH (06:15)
[2016-09-13] MEDS: PRENATAL VITAMINS W/ FOLIC ACID TABLET (FP) PO SCH (10:22)
[2016-09-13] MEDS: PANTOPRAZOLE 40 MG TABLET (FP) PO SCH (10:22)
[2016-09-13] MEDS: THIAMINE HCL 100 MG TABLET (FP) PO SCH (21:36)
[2016-09-14] MEDS ORDERED: METHADONE HCL 10 MG TABLET ONE (03:28)
[2016-09-14] MEDS ORDERED: METHADONE HCL 40 MG DISPERSABLE TABLET ONE (03:28)
[2016-09-14] MEDS: METHADONE 80 MG, METHADONE 30 MG PO SCH (06:04)
[2016-09-14] MEDS: PRENATAL VITAMINS W/ FOLIC ACID TABLET (FP) PO SCH (10:28)
[2016-09-14] MEDS: PANTOPRAZOLE 40 MG TABLET (FP) PO SCH (10:28)
[2016-09-14] MEDS: THIAMINE HCL 100 MG TABLET (FP) PO SCH (21:31)
[2016-09-15] MEDS ORDERED: METHADONE HCL 10 MG TABLET ONE (05:53)
[2016-09-15] MEDS ORDERED: METHADONE HCL 40 MG DISPERSABLE TABLET ONE (05:53)
[2016-09-15] MEDS ORDERED: METHADONE HCL 10 MG TABLET PO SCH (06:00)
[2016-09-15] MEDS: METHADONE 80 MG, METHADONE 30 MG PO SCH (06:10)
[2016-09-15] MEDS: PANTOPRAZOLE 40 MG TABLET (FP) PO SCH (10:29)
[2016-09-15] MEDS: PRENATAL VITAMINS W/ FOLIC ACID TABLET (FP) PO SCH (10:29)
[2016-09-15] MEDS: THIAMINE HCL 100 MG TABLET (FP) PO SCH (21:42)
[2016-09-16] MEDS ORDERED: METHADONE HCL 40 MG DISPERSABLE TABLET ONE (03:17)
[2016-09-16] MEDS ORDERED: METHADONE HCL 10 MG TABLET ONE (03:17)
[2016-09-16] MEDS: METHADONE 80 MG, METHADONE 30 MG PO SCH (06:06)
[2016-09-16] MEDS: PRENATAL VITAMINS W/ FOLIC ACID TABLET (FP) PO SCH (10:07)
[2016-09-16] MEDS: PANTOPRAZOLE 40 MG TABLET (FP) PO SCH (10:07)
[2016-09-16] MEDS: THIAMINE HCL 100 MG TABLET (FP) PO SCH (21:30)
[2016-09-16] MEDS: diphenhydrAMINE HCL 50 MG CAPSULE PO PRN (21:30)
[2016-09-17] MEDS ORDERED: METHADONE HCL 10 MG TABLET ONE (03:13)
[2016-09-17] MEDS ORDERED: METHADONE HCL 40 MG DISPERSABLE TABLET ONE (03:13)
[2016-09-17] MEDS: METHADONE 80 MG, METHADONE 30 MG PO SCH (06:22)
[2016-09-17] MEDS: PRENATAL VITAMINS W/ FOLIC ACID TABLET (FP) PO SCH (09:45)
[2016-09-17] MEDS: PANTOPRAZOLE 40 MG TABLET (FP) PO SCH (09:45)
[2016-09-17] MEDS: THIAMINE HCL 100 MG TABLET (FP) PO SCH (21:43)
[2016-09-18] MEDS ORDERED: METHADONE HCL 40 MG DISPERSABLE TABLET ONE (03:19)
[2016-09-18] MEDS ORDERED: METHADONE HCL 10 MG TABLET ONE (03:19)
[2016-09-18] MEDS: METHADONE 80 MG, METHADONE 30 MG PO SCH (06:22)
[2016-09-18] MEDS: PRENATAL VITAMINS W/ FOLIC ACID TABLET (FP) PO SCH (10:27)
[2016-09-18] MEDS: PANTOPRAZOLE 40 MG TABLET (FP) PO SCH (10:27)
[2016-09-18] MEDS: THIAMINE HCL 100 MG TABLET (FP) PO SCH (21:43)
[2016-09-19] MEDS ORDERED: METHADONE HCL 40 MG DISPERSABLE TABLET ONE (05:57)
[2016-09-19] MEDS ORDERED: METHADONE HCL 10 MG TABLET ONE (05:57)
[2016-09-19] MEDS: METHADONE 80 MG, METHADONE 30 MG PO SCH (06:21)
[2016-09-19] MEDS: PRENATAL VITAMINS W/ FOLIC ACID TABLET (FP) PO SCH (10:18)
[2016-09-19] MEDS: PANTOPRAZOLE 40 MG TABLET (FP) PO SCH (10:18)
[2016-09-19] MEDS: THIAMINE HCL 100 MG TABLET (FP) PO SCH (21:46)
[2016-09-20] MEDS ORDERED: METHADONE HCL 10 MG TABLET ONE (03:18)
[2016-09-20] MEDS ORDERED: METHADONE HCL 40 MG DISPERSABLE TABLET ONE (03:18)
[2016-09-20] MEDS: METHADONE 80 MG, METHADONE 30 MG PO SCH (06:05)
[2016-09-20] MEDS: PRENATAL VITAMINS W/ FOLIC ACID TABLET (FP) PO SCH (10:05)
[2016-09-20] MEDS: PANTOPRAZOLE 40 MG TABLET (FP) PO SCH (10:05)
[2016-09-20] MEDS: THIAMINE HCL 100 MG TABLET (FP) PO SCH (21:45)
[2016-09-21] MEDS ORDERED: METHADONE HCL 10 MG TABLET ONE (03:18)
[2016-09-21] MEDS ORDERED: METHADONE HCL 40 MG DISPERSABLE TABLET ONE (03:19)
[2016-09-21] MEDS ORDERED: METHADONE HCL 10 MG TABLET PO SCH (06:45)
[2016-09-21] MEDS: METHADONE 80 MG, METHADONE 30 MG PO SCH (07:08)
[2016-09-21] MEDS: PRENATAL VITAMINS W/ FOLIC ACID TABLET (FP) PO SCH (09:53)
[2016-09-21] MEDS: PANTOPRAZOLE 40 MG TABLET (FP) PO SCH (09:53)
[2016-09-21] MEDS: THIAMINE HCL 100 MG TABLET (FP) PO SCH (21:41)
[2016-09-22] MEDS ORDERED: METHADONE HCL 40 MG DISPERSABLE TABLET ONE (03:33)
[2016-09-22] MEDS ORDERED: METHADONE HCL 10 MG TABLET ONE (03:33)
[2016-09-22] MEDS: METHADONE 80 MG, METHADONE 30 MG PO SCH (06:09)
[2016-09-22] MEDS: PANTOPRAZOLE 40 MG TABLET (FP) PO SCH (10:10)
[2016-09-22] MEDS: PRENATAL VITAMINS W/ FOLIC ACID TABLET (FP) PO SCH (10:10)
[2016-09-22] MEDS: THIAMINE HCL 100 MG TABLET (FP) PO SCH (21:57)
[2016-09-23] MEDS ORDERED: METHADONE HCL 10 MG TABLET ONE (05:48)
[2016-09-23] MEDS ORDERED: METHADONE HCL 40 MG DISPERSABLE TABLET ONE (05:48)
[2016-09-23] MEDS: METHADONE 80 MG, METHADONE 30 MG PO SCH (06:12)
[2016-09-23] MEDS: PANTOPRAZOLE 40 MG TABLET (FP) PO SCH (10:05)
[2016-09-23] MEDS: PRENATAL VITAMINS W/ FOLIC ACID TABLET (FP) PO SCH (10:06)
[2016-09-23] MEDS: THIAMINE HCL 100 MG TABLET (FP) PO SCH (21:47)
[2016-09-24] MEDS ORDERED: METHADONE HCL 10 MG TABLET ONE (05:49)
[2016-09-24] MEDS ORDERED: METHADONE HCL 40 MG DISPERSABLE TABLET ONE (05:50)
[2016-09-24] MEDS: METHADONE 80 MG, METHADONE 30 MG PO SCH (06:29)
[2016-09-24] MEDS: PANTOPRAZOLE 40 MG TABLET (FP) PO SCH (10:06)
[2016-09-24] MEDS: PRENATAL VITAMINS W/ FOLIC ACID TABLET (FP) PO SCH (10:06)
[2016-09-24] MEDS: THIAMINE HCL 100 MG TABLET (FP) PO SCH (22:04)
[2016-09-25] MEDS ORDERED: METHADONE HCL 40 MG DISPERSABLE TABLET ONE (03:30)
[2016-09-25] MEDS ORDERED: METHADONE HCL 10 MG TABLET ONE (03:30)
[2016-09-25] MEDS: METHADONE 80 MG, METHADONE 30 MG PO SCH (06:15)
[2016-09-25] MEDS: PRENATAL VITAMINS W/ FOLIC ACID TABLET (FP) PO SCH (10:22)
[2016-09-25] MEDS: PANTOPRAZOLE 40 MG TABLET (FP) PO SCH (10:22)
[2016-09-25] MEDS: THIAMINE HCL 100 MG TABLET (FP) PO SCH (21:41)
[2016-09-26] MEDS ORDERED: METHADONE HCL 10 MG TABLET ONE (03:17)
[2016-09-26] MEDS ORDERED: METHADONE HCL 40 MG DISPERSABLE TABLET ONE (03:17)
[2016-09-26] MEDS: METHADONE 80 MG, METHADONE 30 MG PO SCH (06:11)
[2016-09-26] MEDS: PANTOPRAZOLE 40 MG TABLET (FP) PO SCH (10:13)
[2016-09-26] MEDS: PRENATAL VITAMINS W/ FOLIC ACID TABLET (FP) PO SCH (10:13)
[2016-09-26] MEDS: THIAMINE HCL 100 MG TABLET (FP) PO SCH (21:39)
[2016-09-27] MEDS ORDERED: METHADONE HCL 10 MG TABLET ONE (03:32)
[2016-09-27] MEDS ORDERED: METHADONE HCL 40 MG DISPERSABLE TABLET ONE (03:32)
[2016-09-27] MEDS: METHADONE 80 MG, METHADONE 30 MG PO SCH (06:26)
[2016-09-27] MEDS: PANTOPRAZOLE 40 MG TABLET (FP) PO SCH (09:59)
[2016-09-27] MEDS: PRENATAL VITAMINS W/ FOLIC ACID TABLET (FP) PO SCH (09:59)
[2016-09-27] MEDS: THIAMINE HCL 100 MG TABLET (FP) PO SCH (21:45)
[2016-09-28] MEDS ORDERED: METHADONE HCL 40 MG DISPERSABLE TABLET ONE (06:22)
[2016-09-28] MEDS ORDERED: METHADONE HCL 10 MG TABLET ONE (06:22)
[2016-09-28] MEDS: METHADONE 80 MG, METHADONE 30 MG PO SCH (06:28)
[2016-09-28 07:04] VITALS: BP 119/82; PULSE 71; TEMP 98
[2016-09-28] MEDS: PRENATAL VITAMINS W/ FOLIC ACID TABLET (FP) PO SCH (10:13)
[2016-09-28] MEDS: PANTOPRAZOLE 40 MG TABLET (FP) PO SCH (10:14)
[2016-09-29] MEDS ORDERED: METHADONE HCL 40 MG DISPERSABLE TABLET PO SCH (06:00)
[2016-09-29] MEDS ORDERED: METHADONE 80 MG, METHADONE 30 MG PO SCH (06:00)
== END 2016-09-28 17:10 | disposition home or self-care (01) | DRG 772 ==
LOC: YASAS 11:43 → Y3E 11:44
PROVIDERS: ADMIT Psychiatry & Neurology Psychiatry; ATTEND Psychiatry & Neurology Psychiatry
PROC: HZ42ZZZ Group Counseling for Substance Abuse Treatment, Cognitive-Behavioral (ICD-10-PCS; principal; 2016-09-28)
DX: F11.20 Opioid dependence, uncomplicated (principal); F10.230 Alcohol dependence with withdrawal, uncomplicated; F14.20 Cocaine dependence, uncomplicated; F17.210 Nicotine dependence, cigarettes, uncomplicated; F19.24 Other psychoactive substance dependence with psychoactive substance-induced mood disorder; K21.9 Gastro-esophageal reflux disease without esophagitis; Z21 Asymptomatic human immunodeficiency virus [HIV] infection status
CPT/HCPCS: 87324; 87449

== ENCOUNTER 2017-02-20 13:06 | Inpatient (IN) | payer OTHER ==
[2017-02-20 14:49] VITALS: BMI 25.1
--- NOTE | 2017-02-20 14:53 | HP ---
CIWA Score - CIWA Score Nausea/Vomitin-Mild Nausea/No Vomiting Muscle Tremors: 4-Moderate,w/Arms Extend Anxiety: 4-Mod. Anxious/Guarded Agitation: 4-Moderately Restless Paroxysmal Sweats: 3 Orientation: 0-Oriented Tacttile Disturbances: 0-None Auditory Disturbances: 0-None Visual Disturbances: 0-None Headache: 1-Very Mild CIWA-Ar Total Score: 17 Admission ROS [facility] - HPI Chief Complaint: I need help. Allergies/Adverse Reactions: Allergies Allergy/AdvReac Type Severity Reaction Status Date / Time cephalexin monohydrate Allergy Hives Verified 02/20/17 14:50 [From [employer]] History of Present Illness: pt is a 51yr old female with a long history of alcohol dependence seeking detox for treatment. Pt is on a mmtp program receives 110mg last dose today. pending verification. Exam Limitations: Intoxication - Ebola screening Have you traveled outside of the country in the last 21 days: No Have you had contact with anyone from an Ebola affected area: No Have you been sick,other than usual withdrawal symptoms: No Do you have a fever: No - Review of Systems Constitutional: No Symptoms Reported EENT: reports: Tearing, Nose Congestion, Dental Problems (missing teeth) Respiratory: reports: No Symptoms reported Cardiac: reports: Lightheadedness GI: reports: Poor Appetite, Poor Fluid Intake, Indigestion : reports: No Symptoms Reported Musculoskeletal: reports: No Symptoms Reported Integumentary: reports: Erythema, Flushing, Sweating Neuro: reports: Tingling, Tremors Endocrine: reports: Excessive Sweating, Flushing, Intolerance to Cold, Intolerance to Heat Hematology: reports: No Symptoms Reported Psychiatric: reports: Agitated, Anxious, other (intoxicated) Other Systems: Reviewed and Negative Patient History - Patient Medical History Hx Anemia: No Hx Asthma: No Hx Chronic Obstructive Pulmonary Disease (COPD): No Hx Cancer: No Hx Cardiac Disorders: No Hx Congestive Heart Failure: No Hx Hypertension: No Hx Hypercholesterolemia: No Hx Pacemaker: No HX Cerebrovascular Accident: No Hx Seizures: Yes (Alcohol related) Hx Dementia: No Hx Diabetes: No Hx Gastrointestinal Disorders: No Hx Liver Disease: No Hx Genitourinary Disorders: No Hx Sexually Transmitted Disorders: Yes (HIV since 1992 and Syphlis) Hx Renal Disease (ESRD): No Hx Thyroid Disease: No Hx Human Immunodeficiency Virus (HIV): Yes (HIV 1992. NO CURRENT MED) Hx Hepatitis C: Yes (TREATED) Hx Depression: Yes Hx Suicide Attempt: Yes (cutting throat 3yrs ago) Hx Bipolar Disorder: Yes Hx Schizophrenia: No - Patient Surgical History Past Surgical History: Yes Hx Neurologic Surgery: No Hx Cataract Extraction: No Hx Cardiac Surgery: No Hx Lung Surgery: No Hx Breast Surgery: No Hx Breast Biopsy: No Hx Abdominal Surgery: No Hx Appendectomy: No Hx Cholecystectomy: No Hx Genitourinary Surgery: No Hx Section: Yes (2004) Hx Orthopedic Surgery: No Hx Hysterectomy: No Anesthesia Reaction: No - PPD History Previous Implant?: Yes Documented Results: Negative w/o proof PPD to be Administered?: Yes - Reproductive History Patient is a Female of Child Bearing Age (11 -55 yrs old): Yes Last Menstrual Period: 09/07/16 - Smoking Cessation Smoking history: Current every day smoker Have you smoked in the past 12 months: Yes Aproximately how many cigarettes per day: 20 Cigars Per Day: 0 Hx Chewing Tobacco Use: No Initiated information on smoking cessation: Yes 'Breaking Loose' booklet given: 02/20/17 - Substance & Tx. History Hx Alcohol Use: Yes Substance Use Type: Alcohol Hx Substance Use Treatment: Yes - Substances Abused Alcohol Route: Oral Frequency: Daily Amount used: a fifth vodka Age of first use: 13 Date of Last Use: 02/20/17 Family Disease History - Family Disease History Family Disease History: Diabetes: Mother (ALCOHOL), Other: Grandparent, Father ( , ALCOHOL), Mother Admission Physical Exam [facility] - Physical General Appearance: Yes: Within Normal Limits, Disheveled, Tremorous, Irritable , Sweating, Anxious HEENTM: Yes: Normal Voice, Hearing Decreased, Nasal Congestion, Rhinorrhea Respiratory: Yes: Lungs Clear, Normal Breath Sounds, No Respiratory Distress Neck: Yes: No masses,lesions,Nodules Breast: Yes: Within Normal Limits Cardiology: Yes: Regular Rhythm, Regular Rate, S1, S2 Abdominal: Yes: Normal Bowel Sounds, Non Tender, Soft Genitourinary: Yes: Within Normal Limits Back: Yes: Normal Inspection Musculoskeletal: Yes: full range of Motion Extremities: Yes: Normal Capillary Refill, Non-Tender, Tremors 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: Yes: Fully Oriented, Alert, Normal Response Integumentary: Yes: Normal Color, Diaphoresis Lymphatic: Yes: Within Normal Limits - Diagnostic (1) Alcohol dependence with uncomplicated withdrawal Current Visit: Yes Status: Chronic (2) HIV (human immunodeficiency virus infection) Current Visit: Yes Status: Chronic Comment: NO CURRENT MED PER PATIENT. (3) Methadone maintenance therapy patient Current Visit: Yes Status: Chronic Comment: LAST DOSE RECIEVED TODAY 2017, pending verification (4) Nicotine dependence Current Visit: No Status: Chronic Qualifiers: Nicotine product type: cigarettes Substance use status: uncomplicated Qualified Code(s): F17.210 - Nicotine dependence, cigarettes, uncomplicated Cleared for Admission S - Detox or Rehab [facility] Level of Care: Medically Managed Detox Regimen/Protocol: Librium S Breath Alcohol Content Breath Alcohol Content: 0.105
[2017-02-20] MEDS ORDERED: P-EPHED 60MG/TRIPROLIDI 2.5MG TABLET PO PRN (14:55)
[2017-02-20] MEDS ORDERED: guaiFENesin/D-METHORPHAN HB 10 ML UNIT-DOSE CUPS PO PRN (14:55)
[2017-02-20] MEDS ORDERED: hydrOXYzine PAMOATE 50 MG CAPSULE (FP) PO PRN (14:55)
[2017-02-20] MEDS ORDERED: chlordiazePOXIDE HCL 25 MG CAPSULE PO PRN (14:55)
[2017-02-20] MEDS ORDERED: LOPERAMIDE HCL 2 MG CAPSULE PO PRN (14:55)
[2017-02-20] MEDS ORDERED: MAGNESIUM CITRATE 300 ML BOTTLE PO PRN (14:55)
[2017-02-20] MEDS ORDERED: MAG HYDROX/AL HYDROX/SIMETH 30 ML UNIT-DOSE CUP PO PRN (14:55)
[2017-02-20] MEDS ORDERED: MENTHOL/PHENOL 1 EACH UD MM PRN (14:55)
[2017-02-20] MEDS ORDERED: chlordiazePOXIDE HCL 25 MG CAPSULE PO ONE (14:55)
[2017-02-20] MEDS ORDERED: MAGNESIUM HYDROX 2400MG/30ML ORAL SUSPENSION 30 ML CUP PO PRN (14:55)
[2017-02-20] MEDS: chlordiazePOXIDE HCL 25 MG CAPSULE PO SCH ×2 (19:37→22:30)
[2017-02-20] MEDS: THIAMINE HCL 100 MG TABLET (FP) PO SCH (22:30)
[2017-02-20 23:36] LABS: URINE APPEARANCE CLEAR; URINE BILIRUBIN NEGATIVE (NEGATIVE); URINE BLOOD NEGATIVE (NEGATIVE); URINE COLOR STRAW; URINE GLUCOSE (UA) NEGATIVE (NEGATIVE); URINE KETONE NEGATIVE (NEGATIVE); URINE NITRITE NEGATIVE (NEGATIVE); URINE PROTEIN NEGATIVE (NEGATIVE); URINE UROBILINOGEN NEGATIVE mg/dL (0.2-1.0)
[2017-02-20 23:38] LABS: URINE LEUK ESTERASE 3+ (NEGATIVE)
[2017-02-20 23:45] LABS: EPI CELLS RARE /HPF (FEW)
[2017-02-21] MEDS: chlordiazePOXIDE HCL 25 MG CAPSULE PO SCH ×4 (05:36→22:40)
[2017-02-21] MEDS ORDERED: METHADONE HCL 10 MG TABLET PO ONE (10:01)
[2017-02-21 10:14] LABS: HEMATOCRIT 43.3 % (32.4-45.2); HEMOGLOBIN 13.9 GM/dL (10.7-15.3); MCH 28.8 pg (25.7-33.7); PLATELET COUNT 234 K/MM3 (134-434); RDW 14.1 % (11.6-15.6); WHITE BLOOD COUNT 6.3 K/mm3 (4.0-10.0)
--- NOTE | 2017-02-21 10:25 | PN ---
S CIWA - CIWA Score Nausea/Vomitin Muscle Tremors: 2 Anxiety: 2 Agitation: 2 Paroxysmal Sweats: 2 Orientation: 0-Oriented Tacttile Disturbances: 1-Very Mild Itch/Numbness Auditory Disturbances: 0-None Visual Disturbances: 0-None Headache: 0-None Present CIWA-Ar Total Score: 11 S Progress Note (SOAP) Subjective: feeling better , interrupted sleep Objective: 02/21/17 10:22 Vital Signs Temperature 98.1 F 02/20/17 22:46 Pulse Rate 67 02/21/17 07:17 Respiratory Rate 20 02/21/17 07:17 Blood Pressure 99/63 02/21/17 07:17 O2 Sat by Pulse Oximetry (%) Laboratory Tests 02/20/17 02/21/17 19:41 05:45 WBC 6.3 D RBC 4.80 Hgb 13.9 Hct 43.3 MCV 90.0 MCH 28.8 MCHC 32.0 RDW 14.1 Plt Count 234 D MPV 9.0 Urine Color Straw Urine Appearance Clear Urine pH 6.0 Ur Specific [place] 1.003 Urine Protein Negative Urine Glucose (UA) Negative Urine Ketones Negative Urine Blood Negative Urine Nitrite Negative Urine Bilirubin Negative Urine Urobilinogen Negative Ur Leukocyte Esterase 3+ H Urine WBC (Auto) 16 Urine RBC (Auto) <1 Ur Epithelial Cells Rare pt aox3 in nad lying in bed Assessment: 02/21/17 10:23 withdrawal sx's 02/21/17 10:24 abn u/a - no urinary complaints Plan: cont. detox increase fluids f/up pending labs repeat u/a -c/s
[2017-02-21 10:37] LABS: CHLORIDE 104 mmol/L (98-107); POTASSIUM 4.1 mmol/L (3.5-5.1); SODIUM 139 mmol/L (136-145)
--- NOTE | 2017-02-21 10:41 | EKG ---
Test Reason : Blood Pressure : / mmHG Vent. Rate : 081 BPM Atrial Rate : 081 BPM P-R Int : 122 ms QRS Dur : 104 ms QT Int : 364 ms P-R-T Axes : 059 016 026 degrees QTc Int : 422 ms NORMAL SINUS RHYTHM NONSPECIFIC T WAVE ABNORMALITY ABNORMAL ECG WHEN COMPARED WITH ECG OF 04-SEP-2016 16:58, NO SIGNIFICANT CHANGE WAS FOUND Confirmed by JIMBO NICE MD ([id number]) on 02/21/2017 10:40:27 AM Referred By: Confirmed By:JIMBO NICE MD
[2017-02-21] MEDS ORDERED: METHADONE 40 MG, METHADONE 30 MG PO ONE (10:45)
[2017-02-21 10:46] LABS: ALBUMIN 4.1 g/dl (3.4-5.0); ALK PHOS 99 U/L (45-117); ANION GAP 13 (8-16); BILIRUBIN,TOTAL 0.4 mg/dL (0.2-1.0); BLOOD UREA NITROGEN 7 mg/dL (7-18); CALCIUM 9.1 mg/dL (8.5-10.1); CO2 22 mmol/L (21-32); CREATININE 0.6 mg/dL (0.55-1.02); GLUCOSE,RANDOM 95 mg/dL (74-106); SGOT/AST 73 U/L (15-37); SGPT/ALT 45 U/L (12-78); TOT PROT 9.9 g/dl (6.4-8.2)
[2017-02-21] MEDS ORDERED: METHADONE 80 MG, METHADONE 30 MG PO ONE (10:49)
[2017-02-21] MEDS: PRENATAL VITAMINS W/ FOLIC ACID TABLET (FP) PO SCH (11:04)
[2017-02-21] MEDS: PANTOPRAZOLE 40 MG TABLET (FP) PO SCH (11:04)
[2017-02-21] MEDS: NICOTINE 21 MG/24 HOURS TOPICAL PATCH TD SCH (11:05)
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
[2017-02-21] MEDS ORDERED: METHADONE HCL 10 MG TABLET ONE (11:09)
[2017-02-21] MEDS ORDERED: METHADONE HCL 40 MG DISPERSABLE TABLET ONE (11:09)
[2017-02-21 14:32] LABS: RPR REACTIVE 1:1 (NONREACTIVE)
[2017-02-21 14:33] LABS: TREPONEMA ANTIBODY PREVIOUSLY REACTIVE (NONREACTIVE)
[2017-02-21 16:06] LABS: URINE APPEARANCE CLEAR; URINE BILIRUBIN NEGATIVE (NEGATIVE); URINE BLOOD NEGATIVE (NEGATIVE); URINE COLOR YELLOW; URINE GLUCOSE (UA) NEGATIVE (NEGATIVE); URINE KETONE NEGATIVE (NEGATIVE); URINE LEUK ESTERASE TRACE (NEGATIVE); URINE NITRITE NEGATIVE (NEGATIVE); URINE PROTEIN NEGATIVE (NEGATIVE); URINE UROBILINOGEN NEGATIVE mg/dL (0.2-1.0)
[2017-02-21 16:40] LABS: EPI CELLS RARE /HPF (FEW); URINE MUCUS RARE
[2017-02-21] MEDS: QUEtiapine FUMARATE 25 MG TABLET (FP) PO SCH (22:40)
[2017-02-21] MEDS: THIAMINE HCL 100 MG TABLET (FP) PO SCH (22:50)
[2017-02-22] MEDS ORDERED: METHADONE HCL 10 MG TABLET ONE (05:29)
[2017-02-22] MEDS: chlordiazePOXIDE HCL 25 MG CAPSULE PO SCH ×2 (05:29→10:35)
[2017-02-22] MEDS ORDERED: METHADONE HCL 40 MG DISPERSABLE TABLET ONE (05:29)
[2017-02-22] MEDS: METHADONE 80 MG, METHADONE 30 MG PO SCH (05:29)
[2017-02-22] MEDS ORDERED: METHADONE HCL 40 MG DISPERSABLE TABLET PO SCH (06:00)
[2017-02-22] MEDS: PANTOPRAZOLE 40 MG TABLET (FP) PO SCH (10:35)
[2017-02-22] MEDS: PRENATAL VITAMINS W/ FOLIC ACID TABLET (FP) PO SCH (10:35)
[2017-02-22] MEDS: NICOTINE 21 MG/24 HOURS TOPICAL PATCH TD SCH (10:35)
--- NOTE | 2017-02-22 11:05 | PN ---
[facility] CIWA - CIWA Score Nausea/Vomitin-No Nausea/No Vomiting Muscle Tremors: 3 Anxiety: 3 Agitation: 3 Paroxysmal Sweats: 2 Orientation: 0-Oriented Tacttile Disturbances: 0-None Auditory Disturbances: 0-None Visual Disturbances: 0-None Headache: 0-None Present CIWA-Ar Total Score: 11 S Progress Note (SOAP) Subjective: knee pain sweats shakes interrupted sleep Objective: 02/22/17 11:04 Vital Signs Temperature 98.1 F 02/22/17 09:18 Pulse Rate 78 02/22/17 09:18 Respiratory Rate 18 02/22/17 09:18 Blood Pressure 110/64 02/22/17 09:18 O2 Sat by Pulse Oximetry (%) Laboratory Tests 02/20/17 02/21/17 02/21/17 19:41 05:45 05:45 WBC 6.3 D RBC 4.80 Hgb 13.9 Hct 43.3 MCV 90.0 MCH 28.8 MCHC 32.0 RDW 14.1 Plt Count 234 D MPV 9.0 Sodium 139 Potassium 4.1 Chloride 104 Carbon Dioxide 22 Anion Gap 13 BUN 7 Creatinine 0.6 Creat Clearance w eGFR > 60 Random Glucose 95 Calcium 9.1 Total Bilirubin 0.4 AST 73 H ALT 45 Alkaline Phosphatase 99 Total Protein 9.9 H D Albumin 4.1 Urine Color Straw Urine Appearance Clear Urine pH 6.0 Ur Specific [place] 1.003 Urine Protein Negative Urine Glucose (UA) Negative Urine Ketones Negative Urine Blood Negative Urine Nitrite Negative Urine Bilirubin Negative Urine Urobilinogen Negative Ur Leukocyte Esterase 3+ H Urine WBC (Auto) 16 Urine RBC (Auto) <1 Ur Epithelial Cells Rare Urine Mucus RPR Titer T.pallidum Ab (A) 02/21/17 02/21/17 05:45 13:40 WBC RBC Hgb Hct MCV MCH MCHC RDW Plt Count MPV Sodium Potassium Chloride Carbon Dioxide Anion Gap BUN Creatinine Creat Clearance w eGFR Random Glucose Calcium Total Bilirubin AST ALT Alkaline Phosphatase Total Protein Albumin Urine Color Yellow Urine Appearance Clear Urine pH 5.0 Ur Specific [facility] 1.018 Urine Protein Negative Urine Glucose (UA) Negative Urine Ketones Negative Urine Blood Negative Urine Nitrite Negative Urine Bilirubin Negative Urine Urobilinogen Negative Ur Leukocyte Esterase Trace Urine WBC (Auto) 6 Urine RBC (Auto) 1 Ur Epithelial Cells Rare Urine Mucus Rare RPR Titer Reactive 1:1 H T.pallidum Ab (A) Previously reactive aaox3 ambulating no acute distress Assessment: 02/22/17 11:05 withdrawal sx Plan: continue detox increase fluids lorna bandage motrin prn
[2017-02-22] MEDS: IBUPROFEN 400 MG TABLET (FP) PO PRN ×2 (14:49→22:29)
[2017-02-22] MEDS: chlordiazePOXIDE 5 MG CAPSULE PO SCH ×2 (17:55→22:33)
[2017-02-22] MEDS: THIAMINE HCL 100 MG TABLET (FP) PO SCH (22:28)
[2017-02-22] MEDS: QUEtiapine FUMARATE 25 MG TABLET (FP) PO SCH (22:55)
[2017-02-23] MEDS ORDERED: METHADONE HCL 10 MG TABLET ONE (04:23)
[2017-02-23] MEDS ORDERED: METHADONE HCL 40 MG DISPERSABLE TABLET ONE (04:23)
[2017-02-23] MEDS: chlordiazePOXIDE 5 MG CAPSULE PO SCH ×2 (05:17→10:26)
[2017-02-23] MEDS: METHADONE 80 MG, METHADONE 30 MG PO SCH (05:18)
[2017-02-23] MEDS: IBUPROFEN 400 MG TABLET (FP) PO PRN (07:34)
[2017-02-23] MEDS ORDERED: LIDOCAINE 5% TOPICAL PATCH TP ONE (10:02)
[2017-02-23] MEDS: PRENATAL VITAMINS W/ FOLIC ACID TABLET (FP) PO SCH (10:26)
[2017-02-23] MEDS: PANTOPRAZOLE 40 MG TABLET (FP) PO SCH (10:27)
[2017-02-23] MEDS: NICOTINE 21 MG/24 HOURS TOPICAL PATCH TD SCH (10:28)
--- NOTE | 2017-02-23 10:59 | PN ---
[facility] Progress Note (SOAP) Subjective: interrupted sleep, sweats, left knee pain Objective: 02/23/17 10:56 Vital Signs Temperature 99.1 F 02/23/17 10:47 Pulse Rate 90 02/23/17 10:47 Respiratory Rate 18 02/23/17 10:47 Blood Pressure 117/74 02/23/17 10:47 O2 Sat by Pulse Oximetry (%) Laboratory Tests 02/20/17 02/21/17 02/21/17 19:41 05:45 05:45 WBC 6.3 D RBC 4.80 Hgb 13.9 Hct 43.3 MCV 90.0 MCH 28.8 MCHC 32.0 RDW 14.1 Plt Count 234 D MPV 9.0 Sodium 139 Potassium 4.1 Chloride 104 Carbon Dioxide 22 Anion Gap 13 BUN 7 Creatinine 0.6 Creat Clearance w eGFR > 60 Random Glucose 95 Calcium 9.1 Total Bilirubin 0.4 AST 73 H ALT 45 Alkaline Phosphatase 99 Total Protein 9.9 H D Albumin 4.1 Urine Color Straw Urine Appearance Clear Urine pH 6.0 Ur Specific [place] 1.003 Urine Protein Negative Urine Glucose (UA) Negative Urine Ketones Negative Urine Blood Negative Urine Nitrite Negative Urine Bilirubin Negative Urine Urobilinogen Negative Ur Leukocyte Esterase 3+ H Urine WBC (Auto) 16 Urine RBC (Auto) <1 Ur Epithelial Cells Rare Urine Mucus RPR Titer T.pallidum Ab (A) 02/21/17 02/21/17 05:45 13:40 WBC RBC Hgb Hct MCV MCH MCHC RDW Plt Count MPV Sodium Potassium Chloride Carbon Dioxide Anion Gap BUN Creatinine Creat Clearance w eGFR Random Glucose Calcium Total Bilirubin AST ALT Alkaline Phosphatase Total Protein Albumin Urine Color Yellow Urine Appearance Clear Urine pH 5.0 Ur Specific [place] 1.018 Urine Protein Negative Urine Glucose (UA) Negative Urine Ketones Negative Urine Blood Negative Urine Nitrite Negative Urine Bilirubin Negative Urine Urobilinogen Negative Ur Leukocyte Esterase Trace Urine WBC (Auto) 6 Urine RBC (Auto) 1 Ur Epithelial Cells Rare Urine Mucus Rare RPR Titer Reactive 1:1 H T.pallidum Ab ([facility]) Previously reactive pt aox3 , ambulating with a limp on left Assessment: 02/23/17 10:57 withdrawal sx;s left knee pain s/p fall Plan: cont. detox ' increase fluids lidocaine patch /d xray left knee d/c am motrin prn
[2017-02-23] MEDS: chlordiazePOXIDE HCL 10 MG CAPSULE PO SCH ×2 (18:10→22:35)
[2017-02-23] MEDS ORDERED: LIDOCAINE PATCH REMOVAL MC SCH (22:00)
[2017-02-23] MEDS: LIDOCAINE PATCH REMOVAL MC SCH (22:30)
[2017-02-23] MEDS: THIAMINE HCL 100 MG TABLET (FP) PO SCH (22:31)
[2017-02-23] MEDS: QUEtiapine FUMARATE 25 MG TABLET (FP) PO SCH (22:35)
[2017-02-24] MEDS: ACETAMINOPHEN 325 MG TABLET (FP) PO PRN (00:03)
[2017-02-24] MEDS ORDERED: METHADONE HCL 40 MG DISPERSABLE TABLET ONE (04:48)
[2017-02-24] MEDS ORDERED: METHADONE HCL 10 MG TABLET ONE (04:48)
[2017-02-24] MEDS: chlordiazePOXIDE HCL 10 MG CAPSULE PO SCH ×2 (05:26→10:18)
[2017-02-24] MEDS: METHADONE 80 MG, METHADONE 30 MG PO SCH (05:26)
[2017-02-24] MEDS: IBUPROFEN 400 MG TABLET (FP) PO PRN ×3 (05:30→20:31)
[2017-02-24] MEDS ORDERED: LIDOCAINE 5% TOPICAL PATCH TP SCH (10:00)
[2017-02-24] MEDS: NICOTINE 21 MG/24 HOURS TOPICAL PATCH TD SCH (10:18)
[2017-02-24] MEDS: PRENATAL VITAMINS W/ FOLIC ACID TABLET (FP) PO SCH (10:18)
[2017-02-24] MEDS: PANTOPRAZOLE 40 MG TABLET (FP) PO SCH (10:18)
--- NOTE | 2017-02-24 11:59 | PN ---
BHS Progress Note (SOAP) Subjective: Sweating,interrupted sleep,restless Objective: 02/24/17 11:57 Vital Signs - 8 hr 02/24/17 02/24/17 06:11 10:18 Temperature 98.1 F 98.2 F Pulse Rate 89 75 Respiratory 18 20 Rate Blood Pressure 118/69 103/64 Laboratory Tests 02/20/17 02/21/17 02/21/17 19:41 05:45 05:45 WBC 6.3 D RBC 4.80 Hgb 13.9 Hct 43.3 MCV 90.0 MCH 28.8 MCHC 32.0 RDW 14.1 Plt Count 234 D MPV 9.0 Sodium 139 Potassium 4.1 Chloride 104 Carbon Dioxide 22 Anion Gap 13 BUN 7 Creatinine 0.6 Creat Clearance w eGFR > 60 Random Glucose 95 Calcium 9.1 Total Bilirubin 0.4 AST 73 H ALT 45 Alkaline Phosphatase 99 Total Protein 9.9 H D Albumin 4.1 Urine Color Straw Urine Appearance Clear Urine pH 6.0 Ur Specific [place] 1.003 Urine Protein Negative Urine Glucose (UA) Negative Urine Ketones Negative Urine Blood Negative Urine Nitrite Negative Urine Bilirubin Negative Urine Urobilinogen Negative Ur Leukocyte Esterase 3+ H Urine WBC (Auto) 16 Urine RBC (Auto) <1 Ur Epithelial Cells Rare Urine Mucus RPR Titer T.pallidum Ab ([facility]) 02/21/17 02/21/17 05:45 13:40 WBC RBC Hgb Hct MCV MCH MCHC RDW Plt Count MPV Sodium Potassium Chloride Carbon Dioxide Anion Gap BUN Creatinine Creat Clearance w eGFR Random Glucose Calcium Total Bilirubin AST ALT Alkaline Phosphatase Total Protein Albumin Urine Color Yellow Urine Appearance Clear Urine pH 5.0 Ur Specific [place] 1.018 Urine Protein Negative Urine Glucose (UA) Negative Urine Ketones Negative Urine Blood Negative Urine Nitrite Negative Urine Bilirubin Negative Urine Urobilinogen Negative Ur Leukocyte Esterase Trace Urine WBC (Auto) 6 Urine RBC (Auto) 1 Ur Epithelial Cells Rare Urine Mucus Rare RPR Titer Reactive 1:1 H T.pallidum Ab ([facility]) Previously reactive labs noted Assessment: 02/24/17 11:58 Withdrawal sx. Plan: Withdrawal sx.
[2017-02-24] MEDS: QUEtiapine FUMARATE 25 MG TABLET (FP) PO SCH (22:20)
[2017-02-24] MEDS: THIAMINE HCL 100 MG TABLET (FP) PO SCH (22:20)
[2017-02-24] MEDS: LIDOCAINE PATCH REMOVAL MC SCH (22:48)
[2017-02-25] MEDS: IBUPROFEN 400 MG TABLET (FP) PO PRN (02:52)
[2017-02-25] MEDS ORDERED: METHADONE HCL 40 MG DISPERSABLE TABLET ONE (04:33)
[2017-02-25] MEDS ORDERED: METHADONE HCL 10 MG TABLET ONE (04:33)
[2017-02-25] MEDS: ACETAMINOPHEN 325 MG TABLET (FP) PO PRN (05:28)
[2017-02-25] MEDS: METHADONE 80 MG, METHADONE 30 MG PO SCH (08:58)
[2017-02-25] MEDS: PRENATAL VITAMINS W/ FOLIC ACID TABLET (FP) PO SCH (09:03)
--- NOTE | 2017-02-25 10:14 | DS ---
[facility] Detox Discharge Summary Admission Date: 02/20/17 Discharge Date: 02/25/17 - History Present History: Alcohol Dependence, Cocaine Dependence - Physical Exam Results Vital Signs: Vital Signs Temperature 97.3 F L 02/25/17 07:08 Pulse Rate 81 02/25/17 07:08 Respiratory Rate 18 02/25/17 07:08 Blood Pressure 120/68 02/25/17 07:08 O2 Sat by Pulse Oximetry (%) Pertinent Admission Physical Exam Findings: withdrawal sx Vital Signs Temperature 97.3 F L 02/25/17 07:08 Pulse Rate 81 02/25/17 07:08 Respiratory Rate 18 02/25/17 07:08 Blood Pressure 120/68 02/25/17 07:08 O2 Sat by Pulse Oximetry (%) Laboratory Last Values WBC 6.3 K/mm3 (4.0-10.0) D 02/21/17 05:45 RBC 4.80 M/mm3 (3.60-5.2) 02/21/17 05:45 Hgb 13.9 GM/dL (10.7-15.3) 02/21/17 05:45 Hct 43.3 % (32.4-45.2) 02/21/17 05:45 MCV 90.0 fl (80-96) 02/21/17 05:45 MCH 28.8 pg (25.7-33.7) 02/21/17 05:45 MCHC 32.0 g/dl (32.0-36.0) 02/21/17 05:45 RDW 14.1 % (11.6-15.6) 02/21/17 05:45 Plt Count 234 K/MM3 (134-434) D 02/21/17 05:45 MPV 9.0 fl (7.5-11.1) 02/21/17 05:45 Sodium 139 mmol/L (136-145) 02/21/17 05:45 Potassium 4.1 mmol/L (3.5-5.1) 02/21/17 05:45 Chloride 104 mmol/L (98-107) 02/21/17 05:45 Carbon Dioxide 22 mmol/L (21-32) 02/21/17 05:45 Anion Gap 13 (8-16) 02/21/17 05:45 BUN 7 mg/dL (7-18) 02/21/17 05:45 Creatinine 0.6 mg/dL (0.55-1.02) 02/21/17 05:45 Creat Clearance w eGFR > 60 (>60) 02/21/17 05:45 Random Glucose 95 mg/dL (74-106) 02/21/17 05:45 Calcium 9.1 mg/dL (8.5-10.1) 02/21/17 05:45 Total Bilirubin 0.4 mg/dL (0.2-1.0) 02/21/17 05:45 AST 73 U/L (15-37) H 02/21/17 05:45 ALT 45 U/L (12-78) 02/21/17 05:45 Alkaline Phosphatase 99 U/L (45-117) 02/21/17 05:45 Total Protein 9.9 g/dl (6.4-8.2) H D 02/21/17 05:45 Albumin 4.1 g/dl (3.4-5.0) 02/21/17 05:45 Urine Color Yellow 02/21/17 13:40 Urine Appearance Clear 02/21/17 13:40 Urine pH 5.0 (5.0-8.0) 02/21/17 13:40 Ur Specific [place] 1.018 (1.001-1.035) 02/21/17 13:40 Urine Protein Negative (NEGATIVE) 02/21/17 13:40 Urine Glucose (UA) Negative (NEGATIVE) 02/21/17 13:40 Urine Ketones Negative (NEGATIVE) 02/21/17 13:40 Urine Blood Negative (NEGATIVE) 02/21/17 13:40 Urine Nitrite Negative (NEGATIVE) 02/21/17 13:40 Urine Bilirubin Negative (NEGATIVE) 02/21/17 13:40 Urine Urobilinogen Negative mg/dL (0.2-1.0) 02/21/17 13:40 Ur Leukocyte Esterase Trace (NEGATIVE) 02/21/17 13:40 Urine WBC (Auto) 6 /hpf (3-5) 02/21/17 13:40 Urine RBC (Auto) 1 /hpf (0-3) 02/21/17 13:40 Ur Epithelial Cells Rare /HPF ([facility]) 02/21/17 13:40 Urine Mucus Rare 02/21/17 13:40 RPR Titer Reactive 1:1 (NONREACTIVE) H 02/21/17 05:45 T.pallidum Ab ([facility]) Previously reactive (NONREACTIVE) 02/21/17 05:45 lab noted - Treatment Hospital Course: Detox Protocol Followed, Detoxed Safely, Responded well, Discharged Condition Good, Rehab Referral Accepted - Medication Discharge Medications: Ambulatory Orders Quetiapine Fumarate [Seroquel] 100 mg PO HS #30 tablet 05/01/16 Trazodone HCl [Desyrel -] 50 mg PO HS #30 tablet 05/01/16 - AMA Did Patient Leave Against Medical Advice: No
[2017-02-25 10:20] VITALS: BP 110/72; PULSE 82; TEMP 97.7
== END 2017-02-25 09:29 | disposition home or self-care (01) | DRG 773 ==
LOC: YASAS 13:06 → Y6N 14:55
PROVIDERS: ADMIT Internal Medicine; ATTEND Internal Medicine
PROC: HZ2ZZZZ Detoxification Services for Substance Abuse Treatment (ICD-10-PCS; principal; 2017-02-20)
DX: F10.230 Alcohol dependence with withdrawal, uncomplicated (principal); F11.20 Opioid dependence, uncomplicated; F14.20 Cocaine dependence, uncomplicated; F17.210 Nicotine dependence, cigarettes, uncomplicated; F31.9 Bipolar disorder, unspecified; F33.9 Major depressive disorder, recurrent, unspecified; F43.10 Post-traumatic stress disorder, unspecified; Z21 Asymptomatic human immunodeficiency virus [HIV] infection status; M25.562 Pain in left knee; R82.90 Unspecified abnormal findings in urine; Z87.42 Personal history of other diseases of the female genital tract; Z88.1 Allergy status to other antibiotic agents; Z86.69 Personal history of other diseases of the nervous system and sense organs; Z91.5 Personal history of self-harm; Z59.0 Homelessness
CPT/HCPCS: 36415; 73560-TC-LT; 80053; 81003; 81015; 85027; 86593; 86780; 87086; 93005; 93010

== ENCOUNTER 2017-07-11 12:31 | Inpatient (IN) | payer OTHER ==
[2017-07-11 14:24] VITALS: BMI 29.6
--- NOTE | 2017-07-11 18:12 | HP ---
CIWA Score - CIWA Score Nausea/Vomitin-No Nausea/No Vomiting Muscle Tremors: 2 Anxiety: 3 Agitation: 3 Paroxysmal Sweats: 2 Orientation: 1-Uncertain about Date Tacttile Disturbances: 1-Very Mild Itch/Numbness Auditory Disturbances: 0-None Visual Disturbances: 0-None Headache: 0-None Present CIWA-Ar Total Score: 12 Admission ROS BHS - HPI Chief Complaint: alcohol withdrawal sx Allergies/Adverse Reactions: Allergies Allergy/AdvReac Type Severity Reaction Status Date / Time cephalexin monohydrate Allergy Hives Verified 07/11/17 17:47 [From Keflex] History of Present Illness: 51 yo female with hx of alcohol, crack / cocaine and nicotine dependence is here seeking detox. MMTP at [facility] on methadone 120 mg, last medicated today. Patient reports she admitted reported was at [facility] end of March until 06/20/17 for abscess on the right foot. PMHX: HIV+, Hep C , bipolar. Denies suicidal / homicidal ideation. Reports suicide attempt 2 years ago by taking pills. Longest period of time 5 years. Reports hx of alcohol related seizures last episode 6 months ago. Exam Limitations: No Limitations - Ebola screening Have you traveled outside of the country in the last 21 days: No Have you had contact with anyone from an Ebola affected area: No Have you been sick,other than usual withdrawal symptoms: No Do you have a fever: No - Review of Systems Constitutional: Diaphoresis, Loss of Appetite, Changes in sleep, Unintentional Wgt. Loss (15 lbs past month) EENT: reports: Dental Problems (missing teeth) Respiratory: reports: SOB with Exertion Cardiac: reports: No Symptoms Reported GI: reports: No Symptoms Reported : reports: No Symptoms Reported Musculoskeletal: reports: Back Pain Integumentary: reports: See HPI (hands), Pruritus Neuro: reports: See HPI Endocrine: reports: Increased Thirst Hematology: reports: See HPI Psychiatric: reports: Orientated x3, Anxious Other Systems: Reviewed and Negative Patient History - Patient Medical History Hx Anemia: No Hx Asthma: No Hx Chronic Obstructive Pulmonary Disease (COPD): No Hx Cancer: No Hx Cardiac Disorders: No Hx Congestive Heart Failure: No Hx Hypertension: No Hx Hypercholesterolemia: No Hx Pacemaker: No HX Cerebrovascular Accident: No Hx Seizures: Yes (last seizure was 6 months.) Hx Dementia: No Hx Diabetes: No Hx Gastrointestinal Disorders: No Hx Liver Disease: No Hx Genitourinary Disorders: No Hx Sexually Transmitted Disorders: No Hx Renal Disease (ESRD): No Hx Thyroid Disease: No Hx Human Immunodeficiency Virus (HIV): Yes (HIV 1993. Trimeq) Hx Hepatitis C: Yes (TREATED) Hx Depression: Yes Hx Suicide Attempt: Yes (Pt tried to overodse in 2016) Hx Bipolar Disorder: Yes Hx Schizophrenia: No - Patient Surgical History Past Surgical History: Yes Hx Neurologic Surgery: No Hx Cataract Extraction: No Hx Cardiac Surgery: No Hx Lung Surgery: No Hx Breast Surgery: No Hx Breast Biopsy: No Hx Abdominal Surgery: No Hx Appendectomy: No Hx Cholecystectomy: No Hx Genitourinary Surgery: No Hx Section: Yes (2004) Hx Orthopedic Surgery: No Hx Hysterectomy: No Anesthesia Reaction: No - PPD History Previous Implant?: Yes Documented Results: Negative w/proof Implanted On Prior [facility] Admission?: Yes Date: 02/22/17 Results: 0 mm PPD to be Administered?: No - Reproductive History Patient is a Female of Child Bearing Age (11 -55 yrs old): Yes Last Menstrual Period: 07/03/17 Patient : No - Smoking Cessation Smoking history: Current every day smoker Have you smoked in the past 12 months: Yes Aproximately how many cigarettes per day: 5 Cigars Per Day: 0 Hx Chewing Tobacco Use: No Initiated information on smoking cessation: Yes 'Breaking Loose' booklet given: 07/11/17 - Substance & Tx. History Hx Alcohol Use: Yes Hx Substance Use: Yes Substance Use Type: Alcohol, Cocaine Hx Substance Use Treatment: Yes ([facility] 02/20/17 -02/25/17) - Substances Abused Alcohol Route: Oral Frequency: Daily Amount used: 3 pints vodka Age of first use: 13 Date of Last Use: 07/11/17 Crack Route: Smoking Frequency: Daily Amount used: 4-5 bags Age of first use: 17 Date of Last Use: 07/10/17 Family Disease History - Family Disease History Family Disease History: Diabetes: Mother (ALCOHOL), Other: Grandparent, Father ( , ALCOHOL), Mother Admission Physical Exam BHS - Vital Signs Vital Signs: Vital Signs - 24 hr 07/11/17 14:21 Temperature 97.5 F L Pulse Rate 90 Respiratory 18 Rate Blood Pressure 131/75 - Physical General Appearance: Yes: Disheveled, Anxious HEENTM: Yes: EOMI, Hearing grossly Normal, Normal ENT Inspection, Normocephalic , Normal Voice, RENETTA, Pharynx Normal, Tm's normal, Other (missing teeth) Respiratory: Yes: Within Normal Limits Neck: Yes: Within Normal Limits Breast: Yes: Breast Exam Deferred Cardiology: Yes: Regular Rhythm, Regular Rate Abdominal: Yes: Normal Bowel Sounds, Non Tender, Flat, Soft Genitourinary: Yes: Within Normal Limits Back: Yes: Normal Inspection Musculoskeletal: Yes: full range of Motion, Pelvis Stable, Back pain, Other ( ambulates with limp) Extremities: Yes: Normal Capillary Refill, Normal Inspection, Normal Range of Motion, Non-Tender 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: 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 NML intact, Fully Oriented, Alert, Motor Strength 5/5, Depressed Affect Integumentary: Yes: Normal Color, Warm, Diaphoresis Lymphatic: Yes: Within Normal Limits - Diagnostic (1) Alcohol dependence with uncomplicated withdrawal Current Visit: Yes Status: Chronic (2) Cocaine dependence, uncomplicated Current Visit: Yes Status: Chronic (3) GERD (gastroesophageal reflux disease) Current Visit: Yes Status: Chronic Qualifiers: Esophagitis presence: without esophagitis Qualified Code(s): K21.9 - Gastro -esophageal reflux disease without esophagitis (4) HIV (human immunodeficiency virus infection) Current Visit: Yes Status: Chronic (5) Nicotine dependence Current Visit: Yes Status: Chronic Qualifiers: Nicotine product type: cigarettes Substance use status: uncomplicated Qualified Code(s): F17.210 - Nicotine dependence, cigarettes, uncomplicated (6) Opioid dependence on agonist therapy Current Visit: Yes Status: Chronic Comment: MTP at [facility] on methadone 120 mg, last medicated today, dose pending verification. Cleared for Admission [facility] - Detox or Rehab [facility] Level of Care: Medically Managed Detox Regimen/Protocol: Librium [facility] Breath Alcohol Content Breath Alcohol Content: 0.089 Urine Pregancy Test - Result Urine Test Results: Negative- NO Line Present Urine Drug Screen - Results Drug Screen Negative: No Urine Drug Screen Results: BARBARA-Cocaine, OPI-Opiates, MTD-Methadone
[2017-07-11] MEDS ORDERED: guaiFENesin/D-METHORPHAN HB 10 ML UNIT-DOSE CUPS PO PRN (18:29)
[2017-07-11] MEDS ORDERED: chlordiazePOXIDE HCL 25 MG CAPSULE PO PRN (18:29)
[2017-07-11] MEDS ORDERED: MAGNESIUM CITRATE 300 ML BOTTLE PO PRN (18:29)
[2017-07-11] MEDS ORDERED: P-EPHED 60MG/TRIPROLIDI 2.5MG TABLET PO PRN (18:29)
[2017-07-11] MEDS ORDERED: MENTHOL/PHENOL 1 EACH UD MM PRN (18:29)
[2017-07-11] MEDS ORDERED: MAG HYDROX/AL HYDROX/SIMETH 30 ML UNIT-DOSE CUP PO PRN (18:29)
[2017-07-11] MEDS ORDERED: LOPERAMIDE HCL 2 MG CAPSULE PO PRN (18:29)
[2017-07-11] MEDS ORDERED: MAGNESIUM HYDROX 2400MG/30ML ORAL SUSPENSION 30 ML CUP PO PRN (18:29)
[2017-07-11] MEDS ORDERED: ACETAMINOPHEN 325 MG TABLET (FP) PO PRN (18:29)
[2017-07-11] MEDS ORDERED: MELATONIN 5 MG TABLETS PO PRN (22:00)
[2017-07-11] MEDS: chlordiazePOXIDE HCL 25 MG CAPSULE PO SCH (22:48)
[2017-07-11] MEDS: THIAMINE HCL 100 MG TABLET (FP) PO SCH (22:48)
[2017-07-12] MEDS: chlordiazePOXIDE HCL 25 MG CAPSULE PO SCH ×4 (05:43→22:25)
[2017-07-12 06:28] LABS: URINE APPEARANCE CLEAR; URINE BILIRUBIN NEGATIVE (<2.0 mg/dL); URINE BLOOD 1+ (NEGATIVE); URINE COLOR STRAW; URINE GLUCOSE (UA) NEGATIVE (NEGATIVE); URINE KETONE NEGATIVE (NEGATIVE); URINE LEUK ESTERASE TRACE (NEGATIVE); URINE NITRITE NEGATIVE (NEGATIVE); URINE PROTEIN NEGATIVE (NEGATIVE); URINE UROBILINOGEN NEGATIVE mg/dL (0.2-1.0)
[2017-07-12 07:49] LABS: EPI CELLS RARE /HPF (FEW); URINE BACTERIA RARE /hpf (NONE SEEN); URINE MUCUS RARE
--- NOTE | 2017-07-12 09:25 | CONSULT ---
[facility] Psychiatric Consult - Data Date of interview: 07/12/17 Admission source: [facility] Identifying data: This is 51 years old female, single mother of four, homeless, on [employer] support, with psychiatric hospitalizations history, history of Bipolar disorder, intoxicated with Alcohol, Crack, Nicotine, reports withdrawal symptoms and seeking for detox. MMTP at [facility] on methadone 120 mg, confirmed. last medicated today. Patient reports she admitted reported was at [facility] end of March until 06/20/17 for abscess on the right foot. PMHX: HIV+, Hep C, bipolar. Denies suicidal / homicidal ideation. Reports suicide attempt 2 years ago by taking pills. Longest period of time 5 years. Reports hx of alcohol related seizures last episode 6 months ago. Substance Abuse History: Smoking history: Current every day smoker. Have you smoked in the past 12 months: Yes. Aproximately how many cigarettes per day: 5. Cigars Per Day: 0. Hx Chewing Tobacco Use: No. Initiated information on smoking cessation: Yes. 'Breaking Loose' booklet given: 07/11/17. - Substance & Tx. History. Hx Alcohol Use: Yes. Hx Substance Use: Yes. Substance Use Type : Alcohol, Cocaine. Hx Substance Use Treatment: Yes ([facility] 02/20/17 -02/25/17). - Substances Abused. Alcohol. Route: Oral. Frequency: Daily. Amount used : 3 pints vodka. Age of first use: 13. Date of Last Use: 07/11/17. Crack. Route: Smoking. Frequency: Daily. Amount used: 4-5 bags. Age of first use: 17. Date of Last Use: 07/10/17 Medical History: GERD, HIV+, MMTP 120MG POQD Psychiatric History: Patient reports history of Bipolar disorder, PTSD, history of OD with suicidal ideation on 2016, no suicidal history sinth then, reportsa most recent posychiatric admission on 6 months ago(unclear) , reports taking prior to admission: Trazodone 50mg po qhs. Seroquel 100mg po qhs Physical/Sexual Abuse/Trauma History: Denies Additional Comment: Trazodone 50mg po qhs. Seroquel 100mg po qhs Mental Status Exam - Mental Status Exam Alert and Oriented to: Person Cognitive Function: Fair Patient Appearance: Unkempt Mood: Sad Affect: Flat Patient Behavior: Sedated Speech Pattern: Delayed Voice Loudness: Mildly Soft/Quiet Thought Process: Circumstantial Thought Disorder: Being Controlled Hallucinations: Denies Suicidal Ideation: Denies Homicidal Ideation: Denies Sleep: Difficulty falling asleep Appetite: Fair Muscle strength/Tone: Mild Hypotonicity Gait/Station: Shuffling Additional Comments: Trazodone 50mg po qhs. Seroquel 100mg po qhs Psychiatric Findings - Problem List ([place] 1, 2,3) (1) Alcohol dependence with uncomplicated withdrawal Current Visit: Yes Status: Chronic (2) Cocaine dependence, uncomplicated Current Visit: Yes Status: Chronic (3) Nicotine dependence Current Visit: Yes Status: Chronic Qualifiers: Nicotine product type: cigarettes Substance use status: uncomplicated Qualified Code(s): F17.210 - Nicotine dependence, cigarettes, uncomplicated (4) Opioid dependence on agonist therapy Current Visit: Yes Status: Chronic Comment: MTP at [facility] on methadone 120 mg, last medicated today, dose pending verification. (5) Bipolar disorder Current Visit: No Status: Chronic Qualifiers: Active/Remission status: currently active Comment: Self reports. (6) MDD (major depressive disorder) Current Visit: No Status: Chronic Comment: Self reports. (7) Methadone maintenance therapy patient Current Visit: No Status: Chronic Comment: LAST DOSE RECIEVED TODAY 2017, pending verification (8) Post traumatic stress disorder (PTSD) Current Visit: No Status: Chronic Comment: Self reports. (9) Substance induced mood disorder Current Visit: No Status: Chronic - Initial Treatment Plan Initial Treatment Plan: Trazodone 50mg po qhs. Seroquel 100mg po qhs
--- NOTE | 2017-07-12 09:52 | PN ---
[facility] CIWA - CIWA Score Nausea/Vomitin-Mild Nausea/No Vomiting Muscle Tremors: 3 Anxiety: 2 Agitation: 2 Paroxysmal Sweats: 1-Minimal Palms Moist Orientation: 0-Oriented Tacttile Disturbances: 1-Very Mild Itch/Numbness Auditory Disturbances: 0-None Visual Disturbances: 0-None Headache: 1-Very Mild CIWA-Ar Total Score: 11 S Progress Note (SOAP) Subjective: sweat tremor anxiety restlessness right dorsal foot abscess 03/2017 I&D 04/2017 Objective: 07/12/17 09:39 Vital Signs Temperature 97.7 F 07/12/17 09:16 Pulse Rate 81 07/12/17 09:16 Respiratory Rate 16 07/12/17 09:16 Blood Pressure 131/98 07/12/17 09:16 O2 Sat by Pulse Oximetry (%) Laboratory Last Values Urine Color Straw 07/11/17 22:00 Urine Appearance Clear 07/11/17 22:00 Urine pH 5.0 (5.0-8.0) 07/11/17 22:00 Ur Specific [place] 1.004 (1.001-1.035) 07/11/17 22:00 Urine Protein Negative (NEGATIVE) 07/11/17 22:00 Urine Glucose (UA) Negative (NEGATIVE) 07/11/17 22:00 Urine Ketones Negative (NEGATIVE) 07/11/17 22:00 Urine Blood 1+ (NEGATIVE) H 07/11/17 22:00 Urine Nitrite Negative (NEGATIVE) 07/11/17 22:00 Urine Bilirubin Negative (<2.0 mg/dL) 07/11/17 22:00 Urine Urobilinogen Negative mg/dL (0.2-1.0) 07/11/17 22:00 Ur Leukocyte Esterase Trace (NEGATIVE) 07/11/17 22:00 Urine WBC (Auto) 4 /hpf (3-5) 07/11/17 22:00 Urine RBC (Auto) 1 /hpf (0-3) 07/11/17 22:00 Ur Epithelial Cells Rare /HPF (FEW) 07/11/17 22:00 Urine Bacteria Rare /hpf (NONE SEEN) 07/11/17 22:00 Urine Mucus Rare 07/11/17 22:00 lab noted Assessment: 07/12/17 09:52 withdrawal sx chronic abscess right foot Plan: continue detox dressing change daily levaquen elevation of the right foot cane
[2017-07-12] MEDS ORDERED: METHADONE HCL 40 MG DISPERSABLE TABLET PO ONE (10:00)
[2017-07-12 10:18] LABS: HEMATOCRIT 39.2 % (32.4-45.2); HEMOGLOBIN 13.1 GM/dL (10.7-15.3); MCH 30.4 pg (25.7-33.7); MCHC 33.3 g/dl (32.0-36.0); MEAN CELL VOLUME 91.5 fl (80-96); MEAN PLT VOLUME 8.9 fl (7.5-11.1); PLATELET COUNT 131 K/MM3 (134-434); RBC 4.29 M/mm3 (3.60-5.2); RDW 15.3 % (11.6-15.6); WHITE BLOOD COUNT 2.5 K/mm3 (4.0-10.0)
[2017-07-12 10:41] LABS: CHLORIDE 101 mmol/L (98-107); POTASSIUM 3.5 mmol/L (3.5-5.1); SODIUM 136 mmol/L (136-145)
[2017-07-12] MEDS: PRENATAL VITAMINS W/ FOLIC ACID TABLET (FP) PO SCH (10:57)
[2017-07-12 11:42] LABS: ALBUMIN 3.1 g/dl (3.4-5.0); ALK PHOS 100 U/L (45-117); ANION GAP 11 (8-16); BILIRUBIN,TOTAL 0.4 mg/dL (0.2-1.0); BLOOD UREA NITROGEN 7 mg/dL (7-18); CALCIUM 8.9 mg/dL (8.5-10.1); CO2 24 mmol/L (21-32); CREATININE 0.5 mg/dL (0.55-1.02); GLUCOSE,RANDOM 82 mg/dL (74-106); SGOT/AST 122 U/L (15-37); SGPT/ALT 76 U/L (12-78); TOT PROT 7.7 g/dl (6.4-8.2)
--- NOTE | 2017-07-12 11:43 | EKG ---
Test Reason : Blood Pressure : / mmHG Vent. Rate : 082 BPM Atrial Rate : 082 BPM P-R Int : 110 ms QRS Dur : 106 ms QT Int : 364 ms P-R-T Axes : 069 034 008 degrees QTc Int : 425 ms SINUS RHYTHM WITH SHORT CT POSSIBLE LEFT ATRIAL ENLARGEMENT INCOMPLETE RIGHT BUNDLE BRANCH BLOCK BORDERLINE ECG WHEN COMPARED WITH ECG OF 20-FEB-2017 15:50, INCOMPLETE RIGHT BUNDLE BRANCH BLOCK IS NOW PRESENT Confirmed by CHINO CONKLIN, MAGDY ([id number]) on 07/12/2017 11:42:40 AM Referred By: Confirmed By:MAGDY MAGANA MD
[2017-07-12] MEDS: traZODone HCL 50 MG TABLET (FP) PO SCH (22:25)
[2017-07-12] MEDS: QUEtiapine FUMARATE 100 MG TABLET (FP) PO SCH (22:25)
[2017-07-12] MEDS: IBUPROFEN 400 MG TABLET (FP) PO PRN (22:25)
[2017-07-12] MEDS: THIAMINE HCL 100 MG TABLET (FP) PO SCH (22:26)
[2017-07-13] MEDS: chlordiazePOXIDE HCL 25 MG CAPSULE PO SCH ×3 (08:13→17:23)
[2017-07-13] MEDS: METHADONE HCL 40 MG DISPERSABLE TABLET PO SCH (10:26)
[2017-07-13] MEDS: PRENATAL VITAMINS W/ FOLIC ACID TABLET (FP) PO SCH (10:26)
[2017-07-13 11:03] LABS: RPR REACTIVE 1:1 (NONREACTIVE)
[2017-07-13 11:04] LABS: TREPONEMA ANTIBODY PREVIOUSLY REACTIVE (NONREACTIVE)
--- NOTE | 2017-07-13 14:26 | PN ---
S CIWA - CIWA Score Nausea/Vomitin Muscle Tremors: 3 Anxiety: 3 Agitation: 2 Paroxysmal Sweats: 1-Minimal Palms Moist Orientation: 0-Oriented Tacttile Disturbances: 1-Very Mild Itch/Numbness Auditory Disturbances: 1-Very Mild Visual Disturbances: 0-None Headache: 2-Mild CIWA-Ar Total Score: 16 S Progress Note (SOAP) Subjective: alert,irritable,anxious,interrupted sleep,tremor Objective: 07/13/17 14:24 Vital Signs Temperature 97.7 F 07/13/17 14:13 Pulse Rate 89 07/13/17 14:13 Respiratory Rate 16 07/13/17 14:13 Blood Pressure 114/55 07/13/17 14:13 O2 Sat by Pulse Oximetry (%) Laboratory Last Values WBC 2.5 K/mm3 (4.0-10.0) L D 07/12/17 08:00 RBC 4.29 M/mm3 (3.60-5.2) 07/12/17 08:00 Hgb 13.1 GM/dL (10.7-15.3) 07/12/17 08:00 Hct 39.2 % (32.4-45.2) 07/12/17 08:00 MCV 91.5 fl (80-96) 07/12/17 08:00 MCH 30.4 pg (25.7-33.7) 07/12/17 08:00 MCHC 33.3 g/dl (32.0-36.0) 07/12/17 08:00 RDW 15.3 % (11.6-15.6) 07/12/17 08:00 Plt Count 131 K/MM3 (134-434) L D 07/12/17 08:00 MPV 8.9 fl (7.5-11.1) 07/12/17 08:00 Sodium 136 mmol/L (136-145) 07/12/17 08:00 Potassium 3.5 mmol/L (3.5-5.1) 07/12/17 08:00 Chloride 101 mmol/L (98-107) 07/12/17 08:00 Carbon Dioxide 24 mmol/L (21-32) 07/12/17 08:00 Anion Gap 11 (8-16) 07/12/17 08:00 BUN 7 mg/dL (7-18) 07/12/17 08:00 Creatinine 0.5 mg/dL (0.55-1.02) L 07/12/17 08:00 Creat Clearance w eGFR > 60 (>60) 07/12/17 08:00 Random Glucose 82 mg/dL (74-106) 07/12/17 08:00 Calcium 8.9 mg/dL (8.5-10.1) 07/12/17 08:00 Total Bilirubin 0.4 mg/dL (0.2-1.0) 07/12/17 08:00 AST 122 U/L (15-37) H 07/12/17 08:00 ALT 76 U/L (12-78) 07/12/17 08:00 Alkaline Phosphatase 100 U/L (45-117) 07/12/17 08:00 Total Protein 7.7 g/dl (6.4-8.2) 07/12/17 08:00 Albumin 3.1 g/dl (3.4-5.0) L 07/12/17 08:00 Urine Color Straw 07/11/17 22:00 Urine Appearance Clear 07/11/17 22:00 Urine pH 5.0 (5.0-8.0) 07/11/17 22:00 Ur Specific [place] 1.004 (1.001-1.035) 07/11/17 22:00 Urine Protein Negative (NEGATIVE) 07/11/17 22:00 Urine Glucose (UA) Negative (NEGATIVE) 07/11/17 22:00 Urine Ketones Negative (NEGATIVE) 07/11/17 22:00 Urine Blood 1+ (NEGATIVE) H 07/11/17 22:00 Urine Nitrite Negative (NEGATIVE) 07/11/17 22:00 Urine Bilirubin Negative (<2.0 mg/dL) 07/11/17 22:00 Urine Urobilinogen Negative mg/dL (0.2-1.0) 07/11/17 22:00 Ur Leukocyte Esterase Trace (NEGATIVE) 07/11/17 22:00 Urine WBC (Auto) 4 /hpf (3-5) 07/11/17 22:00 Urine RBC (Auto) 1 /hpf (0-3) 07/11/17 22:00 Ur Epithelial Cells Rare /HPF (FEW) 07/11/17 22:00 Urine Bacteria Rare /hpf (NONE SEEN) 07/11/17 22:00 Urine Mucus Rare 07/11/17 22:00 RPR Titer Reactive 1:1 (NONREACTIVE) H 07/12/17 08:00 T.pallidum Ab (MHA) Previously reactive (NONREACTIVE) 07/12/17 08:00 previously treated for syphillis Assessment: 07/13/17 14:25 withdrawal symptom Plan: continue detox
[2017-07-13] MEDS: IBUPROFEN 400 MG TABLET (FP) PO PRN (17:21)
[2017-07-13] MEDS: THIAMINE HCL 100 MG TABLET (FP) PO SCH (22:16)
[2017-07-13] MEDS: chlordiazePOXIDE 5 MG CAPSULE PO SCH (22:16)
[2017-07-13] MEDS: QUEtiapine FUMARATE 100 MG TABLET (FP) PO SCH (22:17)
[2017-07-13] MEDS: traZODone HCL 50 MG TABLET (FP) PO SCH (22:17)
[2017-07-14] MEDS: METHADONE HCL 40 MG DISPERSABLE TABLET PO SCH (05:53)
[2017-07-14] MEDS: chlordiazePOXIDE 5 MG CAPSULE PO SCH ×2 (05:53→10:26)
[2017-07-14] MEDS: PRENATAL VITAMINS W/ FOLIC ACID TABLET (FP) PO SCH (10:26)
--- NOTE | 2017-07-14 10:38 | PN ---
BHS Progress Note (SOAP) Subjective: alert,irritable,anxious,pain in the body and back,interrupted sleep Objective: 07/14/17 10:37 Vital Signs Temperature 97.7 F 07/14/17 07:12 Pulse Rate 72 07/14/17 07:12 Respiratory Rate 18 07/14/17 07:12 Blood Pressure 117/66 07/14/17 07:12 O2 Sat by Pulse Oximetry (%) Assessment: 07/14/17 10:38 withdrawal symptom Plan: continue detox
--- NOTE | 2017-07-14 10:45 | PN ---
S Progress Note Note: patient did not want to complete treatment,all attempts to convince patient to stay with no avail, seen by counselor,signed release amrebecca
--- NOTE | 2017-07-14 10:49 | DS ---
[facility] Detox Discharge Summary Admission Date: 07/11/17 Discharge Date: 07/14/17 - History Present History: Alcohol Dependence, MMTP Additional Comments: patient did not want to complete treatment,seen by counselor,all attempt to convince patient to stay with no avail, signed release ama Pertinent Past History: hiv gerd - Physical Exam Results Vital Signs: Vital Signs Temperature 97.7 F 07/14/17 07:12 Pulse Rate 72 07/14/17 07:12 Respiratory Rate 18 07/14/17 07:12 Blood Pressure 117/66 07/14/17 07:12 O2 Sat by Pulse Oximetry (%) Pertinent Admission Physical Exam Findings: withdrawal signs and symptom Laboratory Last Values WBC 2.5 K/mm3 (4.0-10.0) L D 07/12/17 08:00 RBC 4.29 M/mm3 (3.60-5.2) 07/12/17 08:00 Hgb 13.1 GM/dL (10.7-15.3) 07/12/17 08:00 Hct 39.2 % (32.4-45.2) 07/12/17 08:00 MCV 91.5 fl (80-96) 07/12/17 08:00 MCH 30.4 pg (25.7-33.7) 07/12/17 08:00 MCHC 33.3 g/dl (32.0-36.0) 07/12/17 08:00 RDW 15.3 % (11.6-15.6) 07/12/17 08:00 Plt Count 131 K/MM3 (134-434) L D 07/12/17 08:00 MPV 8.9 fl (7.5-11.1) 07/12/17 08:00 Sodium 136 mmol/L (136-145) 07/12/17 08:00 Potassium 3.5 mmol/L (3.5-5.1) 07/12/17 08:00 Chloride 101 mmol/L (98-107) 07/12/17 08:00 Carbon Dioxide 24 mmol/L (21-32) 07/12/17 08:00 Anion Gap 11 (8-16) 07/12/17 08:00 BUN 7 mg/dL (7-18) 07/12/17 08:00 Creatinine 0.5 mg/dL (0.55-1.02) L 07/12/17 08:00 Creat Clearance w eGFR > 60 (>60) 07/12/17 08:00 Random Glucose 82 mg/dL (74-106) 07/12/17 08:00 Calcium 8.9 mg/dL (8.5-10.1) 07/12/17 08:00 Total Bilirubin 0.4 mg/dL (0.2-1.0) 07/12/17 08:00 AST 122 U/L (15-37) H 07/12/17 08:00 ALT 76 U/L (12-78) 07/12/17 08:00 Alkaline Phosphatase 100 U/L (45-117) 07/12/17 08:00 Total Protein 7.7 g/dl (6.4-8.2) 07/12/17 08:00 Albumin 3.1 g/dl (3.4-5.0) L 07/12/17 08:00 Urine Color Straw 07/11/17 22:00 Urine Appearance Clear 07/11/17 22:00 Urine pH 5.0 (5.0-8.0) 07/11/17 22:00 Ur Specific [place] 1.004 (1.001-1.035) 07/11/17 22:00 Urine Protein Negative (NEGATIVE) 07/11/17 22:00 Urine Glucose (UA) Negative (NEGATIVE) 07/11/17 22:00 Urine Ketones Negative (NEGATIVE) 07/11/17 22:00 Urine Blood 1+ (NEGATIVE) H 07/11/17 22:00 Urine Nitrite Negative (NEGATIVE) 07/11/17 22:00 Urine Bilirubin Negative (<2.0 mg/dL) 07/11/17 22:00 Urine Urobilinogen Negative mg/dL (0.2-1.0) 07/11/17 22:00 Ur Leukocyte Esterase Trace (NEGATIVE) 07/11/17 22:00 Urine WBC (Auto) 4 /hpf (3-5) 07/11/17 22:00 Urine RBC (Auto) 1 /hpf (0-3) 07/11/17 22:00 Ur Epithelial Cells Rare /HPF (FEW) 07/11/17 22:00 Urine Bacteria Rare /hpf (NONE SEEN) 07/11/17 22:00 Urine Mucus Rare 07/11/17 22:00 RPR Titer Reactive 1:1 (NONREACTIVE) H 07/12/17 08:00 T.pallidum Ab (MHA) Previously reactive (NONREACTIVE) 07/12/17 08:00 treated for syphilis in the past Vital Signs Temperature 97.7 F 07/14/17 07:12 Pulse Rate 72 07/14/17 07:12 Respiratory Rate 18 07/14/17 07:12 Blood Pressure 117/66 07/14/17 07:12 O2 Sat by Pulse Oximetry (%) - Medication Discharge Medications: Ambulatory Orders traZODone HCL [Desyrel -] 50 mg PO HS #30 tablet 05/01/16 Abacavir/Dolutegravir/Lamivudi [Triumeq Tablet] 1 each PO DAILY 07/11/17 Methadone [Dolophine -] 120 mg PO DAILY@0600 07/12/17 Quetiapine Fumarate [Seroquel] 100 mg PO HS #30 tablet 07/12/17 traZODone HCL [Desyrel -] 50 mg PO HS #30 tablet 07/12/17 - Diagnosis (1) Alcohol dependence with uncomplicated withdrawal Current Visit: Yes Status: Chronic (2) GERD (gastroesophageal reflux disease) Current Visit: Yes Status: Chronic Qualifiers: Esophagitis presence: without esophagitis Qualified Code(s): K21.9 - Gastro -esophageal reflux disease without esophagitis (3) HIV (human immunodeficiency virus infection) Current Visit: Yes Status: Chronic (4) Opioid dependence on agonist therapy Current Visit: Yes Status: Chronic - AMA Did Patient Leave Against Medical Advice: Yes
[2017-07-14 10:52] VITALS: BP 132/73; PULSE 81; TEMP 98.2
[2017-07-14] MEDS ORDERED: chlordiazePOXIDE HCL 10 MG CAPSULE PO SCH (23:00)
== END 2017-07-14 11:30 | disposition left against medical advice (07) | DRG 770 ==
LOC: YASAS 12:31 → Y6N 18:07
PROVIDERS: ADMIT Surgery; ATTEND Surgery
PROC: HZ2ZZZZ Detoxification Services for Substance Abuse Treatment (ICD-10-PCS; principal; 2017-07-11)
DX: F10.230 Alcohol dependence with withdrawal, uncomplicated (principal); F11.20 Opioid dependence, uncomplicated; F14.20 Cocaine dependence, uncomplicated; F17.210 Nicotine dependence, cigarettes, uncomplicated; F33.9 Major depressive disorder, recurrent, unspecified; F31.9 Bipolar disorder, unspecified; F43.10 Post-traumatic stress disorder, unspecified; F19.24 Other psychoactive substance dependence with psychoactive substance-induced mood disorder; Z21 Asymptomatic human immunodeficiency virus [HIV] infection status; K21.9 Gastro-esophageal reflux disease without esophagitis; L02.611 Cutaneous abscess of right foot; Z87.42 Personal history of other diseases of the female genital tract; Z88.1 Allergy status to other antibiotic agents; Z86.69 Personal history of other diseases of the nervous system and sense organs; Z91.5 Personal history of self-harm
CPT/HCPCS: 36415; 80053; 81003; 81015; 85027; 86593; 86780; 93005; 93010

== ENCOUNTER 2017-10-03 14:41 | Inpatient (IN) | payer OTHER ==
[2017-10-03 15:02] VITALS: BMI 29.0
--- NOTE | 2017-10-03 17:39 | HP ---
CIWA Score - CIWA Score Nausea/Vomitin-No Nausea/No Vomiting Muscle Tremors: 2 Anxiety: 3 Agitation: 3 Paroxysmal Sweats: 3 Orientation: 0-Oriented Tacttile Disturbances: 2-Mild Itch/Numbness/Burn Auditory Disturbances: 0-None Visual Disturbances: 1-Very Mild Sensitivity Headache: 0-None Present CIWA-Ar Total Score: 14 Admission ROS BHS - HPI Chief Complaint: " I need to get clean or I'll loose my foot." alcohol withdrawal symptoms Allergies/Adverse Reactions: Allergies Allergy/AdvReac Type Severity Reaction Status Date / Time cephalexin monohydrate Allergy Hives Verified 10/03/17 16:34 [From [facility]] History of Present Illness: 52 yo female with hx of alcohol, crack / cocaine and nicotine dependence is here seeking detox. MMTP at [facility] on methadone 120 mg, last medicated today. Patient reports she admitted reported was at [facility] two weeks ago for cellulitis on the right foot. PMHX: HIV+, Hep C, bipolar. Denies suicidal / homicidal ideation. Last [facility] 07/11/17 -07/14/17. Longest period of time 5 years. Reports hx of remotes alcohol related seizures. Exam Limitations: No Limitations - Ebola screening Have you traveled outside of the country in the last 21 days: No Have you had contact with anyone from an Ebola affected area: No Have you been sick,other than usual withdrawal symptoms: No Do you have a fever: No - Review of Systems Constitutional: Changes in sleep EENT: reports: No Symptoms Reported Respiratory: reports: No Symptoms reported Cardiac: reports: No Symptoms Reported GI: reports: Poor Appetite, Poor Fluid Intake : reports: No Symptoms Reported Musculoskeletal: reports: Joint Pain Integumentary: reports: Pruritus Neuro: reports: No Symptoms reported Endocrine: reports: Increased Thirst Hematology: reports: See HPI Psychiatric: reports: Orientated x3, Anxious Other Systems: Reviewed and Negative Patient History - Patient Medical History Hx Anemia: No Hx Asthma: No Hx Chronic Obstructive Pulmonary Disease (COPD): No Hx Cancer: No Hx Cardiac Disorders: No Hx Congestive Heart Failure: No Hx Hypertension: No Hx Hypercholesterolemia: No Hx Pacemaker: No HX Cerebrovascular Accident: No Hx Seizures: No Hx Dementia: No Hx Diabetes: No Hx Gastrointestinal Disorders: No Hx Liver Disease: No Hx Genitourinary Disorders: No Hx Sexually Transmitted Disorders: No Hx Renal Disease (ESRD): No Hx Thyroid Disease: No Hx Human Immunodeficiency Virus (HIV): Yes (HIV 1993. Trimeq) Hx Hepatitis C: Yes (TREATED) Hx Depression: Yes Hx Suicide Attempt: Yes (Tried to overdose 1 yr ago.) Hx Bipolar Disorder: Yes Hx Schizophrenia: No - Patient Surgical History Past Surgical History: Yes Hx Neurologic Surgery: No Hx Cataract Extraction: No Hx Cardiac Surgery: No Hx Lung Surgery: No Hx Breast Surgery: No Hx Breast Biopsy: No Hx Abdominal Surgery: No Hx Appendectomy: No Hx Cholecystectomy: No Hx Genitourinary Surgery: No Hx Section: Yes (2004) Hx Orthopedic Surgery: Yes (Sx for cellulitis R foot 2 weesk ago) Hx Hysterectomy: No Anesthesia Reaction: No - PPD History Previous Implant?: Yes Documented Results: Negative w/proof Implanted On Prior R Admission?: Yes Date: 02/22/17 Results: 0 mm PPD to be Administered?: No - Reproductive History Patient is a Female of Child Bearing Age (11 -55 yrs old): Yes Last Menstrual Period: 09/28/17 Patient : No - Smoking Cessation Smoking history: Current every day smoker Have you smoked in the past 12 months: Yes Aproximately how many cigarettes per day: 5 Cigars Per Day: 0 Hx Chewing Tobacco Use: No Initiated information on smoking cessation: Yes 'Breaking Loose' booklet given: 10/03/17 - Substance & Tx. History Hx Alcohol Use: Yes Hx Substance Use: Yes Substance Use Type: Alcohol Hx Substance Use Treatment: Yes - Substances Abused Alcohol Route: Oral Frequency: Daily Amount used: 2 pints vodka Age of first use: 13 Date of Last Use: 10/03/17 Crack Route: Smoking Frequency: Daily Amount used: 5-6 bags Age of first use: 17 Date of Last Use: 10/01/17 Family Disease History - Family Disease History Family Disease History: Diabetes: Mother (ALCOHOL), Other: Grandparent, Father ( , ALCOHOL), Mother Admission Physical Exam BHS - Vital Signs Vital Signs: Vital Signs - 24 hr 10/03/17 14:58 Temperature 97.4 F L Pulse Rate 71 Respiratory 16 Rate Blood Pressure 105/68 - Physical General Appearance: Yes: Disheveled, Mild Distress, Thin, Sweating, Anxious HEENTM: Yes: EOMI, Hearing grossly Normal, Normal ENT Inspection, Normocephalic , Normal Voice, RENETTA, Pharynx Normal, Tm's normal, Other (Edentulous) Respiratory: Yes: Chest Non-Tender, Lungs Clear, Normal Breath Sounds, No Respiratory Distress, No Accessory Muscle Use Neck: Yes: Within Normal Limits Breast: Yes: Breast Exam Deferred Cardiology: Yes: Regular Rhythm, Regular Rate Abdominal: Yes: Normal Bowel Sounds, Non Tender, Flat, Soft Genitourinary: Yes: Within Normal Limits Back: Yes: Normal Inspection Musculoskeletal: Yes: full range of Motion, Gait Steady, Pelvis Stable, Back pain, Other (using rolling walker to ambulate) Extremities: Yes: Normal Capillary Refill, Normal Inspection, Normal Range of Motion, Non-Tender 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: Yes: 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
[2017-10-03] MEDS ORDERED: MAGNESIUM CITRATE 300 ML BOTTLE PO PRN (18:11)
[2017-10-03] MEDS ORDERED: MAG HYDROX/AL HYDROX/SIMETH 30 ML UNIT-DOSE CUP PO PRN (18:11)
[2017-10-03] MEDS ORDERED: IBUPROFEN 400 MG TABLET (FP) PO PRN (18:11)
[2017-10-03] MEDS ORDERED: MENTHOL/PHENOL 1 EACH UD MM PRN (18:11)
[2017-10-03] MEDS ORDERED: P-EPHED 60MG/TRIPROLIDI 2.5MG TABLET PO PRN (18:11)
[2017-10-03] MEDS ORDERED: MAGNESIUM HYDROX 2400MG/30ML ORAL SUSPENSION 30 ML CUP PO PRN (18:11)
[2017-10-03] MEDS ORDERED: guaiFENesin/D-METHORPHAN HB 10 ML UNIT-DOSE CUPS PO PRN (18:11)
[2017-10-03] MEDS ORDERED: LOPERAMIDE HCL 2 MG CAPSULE PO PRN (18:11)
[2017-10-03] MEDS ORDERED: chlordiazePOXIDE HCL 25 MG CAPSULE PO PRN (18:11)
[2017-10-03] MEDS ORDERED: chlordiazePOXIDE HCL 25 MG CAPSULE PO ONE (18:30)
[2017-10-03] MEDS: THIAMINE HCL 100 MG TABLET (FP) PO SCH (22:10)
[2017-10-03] MEDS: chlordiazePOXIDE HCL 25 MG CAPSULE PO SCH (22:10)
[2017-10-04 00:10] LABS: URINE APPEARANCE CLEAR; URINE BILIRUBIN NEGATIVE (<2.0 mg/dL); URINE COLOR STRAW; URINE GLUCOSE (UA) NEGATIVE (NEGATIVE); URINE KETONE NEGATIVE (NEGATIVE); URINE NITRITE NEGATIVE (NEGATIVE); URINE PROTEIN NEGATIVE (NEGATIVE); URINE UROBILINOGEN NEGATIVE mg/dL (0.2-1.0)
[2017-10-04 00:22] LABS: URINE LEUK ESTERASE 2+ (NEGATIVE)
[2017-10-04 00:26] LABS: EPI CELLS RARE /HPF (FEW); URINE BACTERIA RARE /hpf (NONE SEEN)
[2017-10-04] MEDS: chlordiazePOXIDE HCL 25 MG CAPSULE PO SCH ×4 (05:33→22:08)
--- NOTE | 2017-10-04 09:28 | CONSULT ---
[facility] Psychiatric Consult - Data Date of interview: 10/04/17 Admission source: [facility] Identifying data: Patient is a 52 year old female, mother of four and unemployed. Housing and financial support is provided by [employer]. This is one of multiple admissions for patient. Pt. admitted to for alcohol and cocaine dependence. Substance Abuse History: Smoking Cessation. Smoking history: Current every day smoker. Have you smoked in the past 12 months: Yes. Aproximately how many cigarettes per day: 5. Cigars Per Day: 0. Hx Chewing Tobacco Use: No. Initiated information on smoking cessation: Yes. 'Breaking Loose' booklet given : 10/03/17. - Substance & Tx. History. Hx Alcohol Use: Yes. Hx Substance Use : Yes. Substance Use Type: Alcohol. Hx Substance Use Treatment: Yes. - Substances Abused. Alcohol. Route: Oral. Frequency: Daily. Amount used: 2 pints vodka. Age of first use: 13. Date of Last Use: 10/03/17. Crack. Route: Smoking. Frequency: Daily. Amount used: 5-6 bags. Age of first use: 17. Date of Last Use: 10/01/17 Medical History: Sx for cellulitis R foot 2 weesk ago, HIV Psychiatric History: Pt. unable to provide a cohesive psychiatric history as she did during her previous interaction with communications writer 02/21/17. Pt. reports multiple psychiatric hospitalization, most recently in 1999 at [facility]. Pt. denies current outpatient psychiatric services. States she last saw an outpatient psychiatrist last year and was prescribed seroquel. Pt. is nonadherent to outpatient care. Pt. currently is on methadone maintenance of 160mg at [facility]. Pt. denies h/o suicide attempt. Physical/Sexual Abuse/Trauma History: denies. Mental Status Exam - Mental Status Exam Alert and Oriented to: Time, Place, Person Cognitive Function: Good Patient Appearance: Well Groomed Mood: Withdrawn Affect: Mood Congruent Patient Behavior: Fatigued, Asleep (Pt had to be awaken several times to complete interview. ) Speech Pattern: Appropriate Voice Loudness: Moderately Soft/Quiet Thought Process: Goal Oriented Thought Disorder: Not Present Hallucinations: Denies Suicidal Ideation: Denies Homicidal Ideation: Denies Insight/Judgement: Poor Sleep: Well Appetite: Fair Muscle strength/Tone: Normal Gait/Station: Other (Unable to observe gait but did note patient had a walker on the side of her bed.) Psychiatric Findings - Problem List ([place] 1, 2,3) (1) Substance induced mood disorder Current Visit: Yes Status: Acute (2) Alcohol dependence with uncomplicated withdrawal Current Visit: Yes Status: Acute (3) Cocaine dependence, uncomplicated Current Visit: Yes Status: Chronic (4) Opioid dependence on agonist therapy Current Visit: Yes Status: Chronic Comment: MTP at [facility] on methadone 120 mg, last medicated today, dose pending verification. - Initial Treatment Plan Initial Treatment Plan: Psychoeducation provided. Detoxification in progress. Observation.
--- NOTE | 2017-10-04 09:58 | PN ---
[facility] CIWA - CIWA Score Nausea/Vomitin-Mild Nausea/No Vomiting Muscle Tremors: 4-Moderate,w/Arms Extend Anxiety: 3 Agitation: 4-Moderately Restless Paroxysmal Sweats: 1-Minimal Palms Moist Orientation: 0-Oriented Tacttile Disturbances: 0-None Auditory Disturbances: 0-None Visual Disturbances: 0-None Headache: 0-None Present CIWA-Ar Total Score: 13 BHS Progress Note (SOAP) Subjective: Gi distress, tremor sweat, mild headache ambulating with walker on [address] Objective: 10/04/17 10:00 Vital Signs Temperature 96.9 F L 10/04/17 09:32 Pulse Rate 75 10/04/17 09:32 Respiratory Rate 18 10/04/17 09:32 Blood Pressure 101/71 10/04/17 09:32 O2 Sat by Pulse Oximetry (%) Laboratory Last Values Urine Color Straw 10/03/17 Unknown Urine Appearance Clear 10/03/17 Unknown Urine pH 5.0 (5.0-8.0) 10/03/17 Unknown Ur Specific [place] 1.010 (1.001-1.035) 10/03/17 Unknown Urine Protein Negative (NEGATIVE) 10/03/17 Unknown Urine Glucose (UA) Negative (NEGATIVE) 10/03/17 Unknown Urine Ketones Negative (NEGATIVE) 10/03/17 Unknown Urine Blood Negative (NEGATIVE) 10/03/17 Unknown Urine Nitrite Negative (NEGATIVE) 10/03/17 Unknown Urine Bilirubin Negative (<2.0 mg/dL) 10/03/17 Unknown Urine Urobilinogen Negative mg/dL (0.2-1.0) 10/03/17 Unknown Ur Leukocyte Esterase 2+ (NEGATIVE) H 10/03/17 Unknown Urine WBC (Auto) 9 /hpf (3-5) 10/03/17 Unknown Urine RBC (Auto) 1 /hpf (0-3) 10/03/17 Unknown Ur Epithelial Cells Rare /HPF (FEW) 10/03/17 Unknown Urine Bacteria Rare /hpf (NONE SEEN) 10/03/17 Unknown lab noted Assessment: 10/04/17 10:00 withdrawal sx Plan: continue detox
[2017-10-04] MEDS ORDERED: METHADONE HCL 40 MG DISPERSABLE TABLET PO ONE (10:00)
[2017-10-04 10:11] LABS: HEMATOCRIT 41.3 % (32.4-45.2); HEMOGLOBIN 13.2 GM/dL (10.7-15.3); MCH 29.4 pg (25.7-33.7); MCHC 31.8 g/dl (32.0-36.0); MEAN CELL VOLUME 92.3 fl (80-96); MEAN PLT VOLUME 8.2 fl (7.5-11.1); PLATELET COUNT 316 K/MM3 (134-434); RBC 4.48 M/mm3 (3.60-5.2); RDW 13.8 % (11.6-15.6); WHITE BLOOD COUNT 2.8 K/mm3 (4.0-10.0)
[2017-10-04] MEDS: PRENATAL VITAMINS W/ FOLIC ACID TABLET (FP) PO SCH (10:40)
[2017-10-04] MEDS: LEVOFLOXACIN PO SCH (10:41)
--- NOTE | 2017-10-04 12:17 | EKG ---
Test Reason : Blood Pressure : / mmHG Vent. Rate : 063 BPM Atrial Rate : 063 BPM P-R Int : 128 ms QRS Dur : 114 ms QT Int : 412 ms P-R-T Axes : 050 027 024 degrees QTc Int : 421 ms NORMAL SINUS RHYTHM NORMAL ECG WHEN COMPARED WITH ECG OF 11-JUL-2017 20:25, NO SIGNIFICANT CHANGE WAS FOUND Confirmed by MAGDY MAGANA MD ([id number]) on 10/04/2017 12:17:30 PM Referred By: Confirmed By:MAGDY MAGANA MD
[2017-10-04 12:28] LABS: CHLORIDE 104 mmol/L (98-107); POTASSIUM 4.1 mmol/L (3.5-5.1); SODIUM 143 mmol/L (136-145)
[2017-10-04 12:51] LABS: RPR REACTIVE 1:1 (NONREACTIVE)
[2017-10-04 12:52] LABS: ALBUMIN 2.8 g/dl (3.4-5.0); ALK PHOS 84 U/L (45-117); ANION GAP 9 MMOL/L (8-16); BILIRUBIN,TOTAL 0.5 mg/dL (0.2-1.0); BLOOD UREA NITROGEN 17 mg/dL (7-18); CALCIUM 8.9 mg/dL (8.5-10.1); CO2 30 mmol/L (21-32); CREATININE 0.8 mg/dL (0.55-1.02); GLUCOSE,RANDOM 69 mg/dL (74-106); SGOT/AST 63 U/L (15-37); SGPT/ALT 38 U/L (12-78); TOT PROT 7.2 g/dl (6.4-8.2)
[2017-10-04 12:53] LABS: TREPONEMA ANTIBODY PREVIOUSLY REACTIVE (NONREACTIVE)
[2017-10-04] MEDS: THIAMINE HCL 100 MG TABLET (FP) PO SCH (22:08)
[2017-10-05] MEDS: METHADONE HCL 40 MG DISPERSABLE TABLET PO SCH (05:33)
[2017-10-05] MEDS: chlordiazePOXIDE HCL 25 MG CAPSULE PO SCH ×3 (05:34→17:12)
[2017-10-05] MEDS: PRENATAL VITAMINS W/ FOLIC ACID TABLET (FP) PO SCH (10:43)
[2017-10-05] MEDS: LEVOFLOXACIN PO SCH (10:44)
--- NOTE | 2017-10-05 11:58 | PN ---
[facility] CIWA - CIWA Score Nausea/Vomitin Muscle Tremors: 2 Anxiety: 2 Agitation: 2 Paroxysmal Sweats: 3 Orientation: 0-Oriented Tacttile Disturbances: 1-Very Mild Itch/Numbness Auditory Disturbances: 0-None Visual Disturbances: 0-None Headache: 0-None Present CIWA-Ar Total Score: 12 S Progress Note (SOAP) Subjective: interrupted sleep, sweats, Objective: 10/05/17 11:54 Vital Signs Temperature 97.2 F L 10/05/17 06:00 Pulse Rate 70 10/05/17 06:00 Respiratory Rate 18 10/05/17 06:00 Blood Pressure 113/74 10/05/17 06:00 O2 Sat by Pulse Oximetry (%) Laboratory Tests 10/03/17 10/04/17 10/04/17 Unknown 07:30 07:30 WBC 2.8 L RBC 4.48 Hgb 13.2 Hct 41.3 MCV 92.3 MCH 29.4 MCHC 31.8 L RDW 13.8 Plt Count 316 D MPV 8.2 Sodium 143 Potassium 4.1 Chloride 104 Carbon Dioxide 30 Anion Gap 9 BUN 17 Creatinine 0.8 Creat Clearance w eGFR > 60 Random Glucose 69 L Calcium 8.9 Total Bilirubin 0.5 AST 63 H ALT 38 Alkaline Phosphatase 84 Total Protein 7.2 Albumin 2.8 L Urine Color Straw Urine Appearance Clear Urine pH 5.0 Ur Specific [place] 1.010 Urine Protein Negative Urine Glucose (UA) Negative Urine Ketones Negative Urine Blood Negative Urine Nitrite Negative Urine Bilirubin Negative Urine Urobilinogen Negative Ur Leukocyte Esterase 2+ H Urine WBC (Auto) 9 Urine RBC (Auto) 1 Ur Epithelial Cells Rare Urine Bacteria Rare RPR Titer T.pallidum Ab (MHA) 10/04/17 07:30 WBC RBC Hgb Hct MCV MCH MCHC RDW Plt Count MPV Sodium Potassium Chloride Carbon Dioxide Anion Gap BUN Creatinine Creat Clearance w eGFR Random Glucose Calcium Total Bilirubin AST ALT Alkaline Phosphatase Total Protein Albumin Urine Color Urine Appearance Urine pH Ur Specific [place] Urine Protein Urine Glucose (UA) Urine Ketones Urine Blood Urine Nitrite Urine Bilirubin Urine Urobilinogen Ur Leukocyte Esterase Urine WBC (Auto) Urine RBC (Auto) Ur Epithelial Cells Urine Bacteria RPR Titer Reactive 1:1 H T.pallidum Ab (MHA) Previously reactive pt aox3 in nad ambulating Assessment: 08/31/18 11:55 withdrawal sx's Plan: cont detox increase fluids
[2017-10-05] MEDS: THIAMINE HCL 100 MG TABLET (FP) PO SCH (22:18)
[2017-10-05] MEDS: chlordiazePOXIDE 5 MG CAPSULE PO SCH (22:19)
[2017-10-05] MEDS: ACETAMINOPHEN 325 MG TABLET (FP) PO PRN (22:19)
[2017-10-05] MEDS: MELATONIN 5 MG TABLETS PO PRN (22:19)
[2017-10-06] MEDS: chlordiazePOXIDE 5 MG CAPSULE PO SCH ×3 (05:26→17:41)
[2017-10-06] MEDS: PRENATAL VITAMINS W/ FOLIC ACID TABLET (FP) PO SCH (10:30)
[2017-10-06] MEDS: METHADONE HCL 40 MG DISPERSABLE TABLET PO SCH (10:30)
[2017-10-06] MEDS: LEVOFLOXACIN PO SCH (10:30)
--- NOTE | 2017-10-06 12:25 | PN ---
BHS Progress Note (SOAP) Subjective: feeling better no tremor less sweat sleep better at night Objective: 10/06/17 12:23 Vital Signs Temperature 98.1 F 10/06/17 09:27 Pulse Rate 65 10/06/17 09:27 Respiratory Rate 18 10/06/17 09:27 Blood Pressure 105/67 10/06/17 09:27 O2 Sat by Pulse Oximetry (%) Laboratory Last Values WBC 2.8 K/mm3 (4.0-10.0) L 10/04/17 07:30 RBC 4.48 M/mm3 (3.60-5.2) 10/04/17 07:30 Hgb 13.2 GM/dL (10.7-15.3) 10/04/17 07:30 Hct 41.3 % (32.4-45.2) 10/04/17 07:30 MCV 92.3 fl (80-96) 10/04/17 07:30 MCH 29.4 pg (25.7-33.7) 10/04/17 07:30 MCHC 31.8 g/dl (32.0-36.0) L 10/04/17 07:30 RDW 13.8 % (11.6-15.6) 10/04/17 07:30 Plt Count 316 K/MM3 (134-434) D 10/04/17 07:30 MPV 8.2 fl (7.5-11.1) 10/04/17 07:30 Sodium 143 mmol/L (136-145) 10/04/17 07:30 Potassium 4.1 mmol/L (3.5-5.1) 10/04/17 07:30 Chloride 104 mmol/L (98-107) 10/04/17 07:30 Carbon Dioxide 30 mmol/L (21-32) 10/04/17 07:30 Anion Gap 9 MMOL/L (8-16) 10/04/17 07:30 BUN 17 mg/dL (7-18) 10/04/17 07:30 Creatinine 0.8 mg/dL (0.55-1.02) 10/04/17 07:30 Creat Clearance w eGFR > 60 (>60) 10/04/17 07:30 Random Glucose 69 mg/dL (74-106) L 10/04/17 07:30 Calcium 8.9 mg/dL (8.5-10.1) 10/04/17 07:30 Total Bilirubin 0.5 mg/dL (0.2-1.0) 10/04/17 07:30 AST 63 U/L (15-37) H 10/04/17 07:30 ALT 38 U/L (12-78) 10/04/17 07:30 Alkaline Phosphatase 84 U/L (45-117) 10/04/17 07:30 Total Protein 7.2 g/dl (6.4-8.2) 10/04/17 07:30 Albumin 2.8 g/dl (3.4-5.0) L 10/04/17 07:30 Urine Color Straw 10/03/17 Unknown Urine Appearance Clear 10/03/17 Unknown Urine pH 5.0 (5.0-8.0) 10/03/17 Unknown Ur Specific [place] 1.010 (1.001-1.035) 10/03/17 Unknown Urine Protein Negative (NEGATIVE) 10/03/17 Unknown Urine Glucose (UA) Negative (NEGATIVE) 10/03/17 Unknown Urine Ketones Negative (NEGATIVE) 10/03/17 Unknown Urine Blood Negative (NEGATIVE) 10/03/17 Unknown Urine Nitrite Negative (NEGATIVE) 10/03/17 Unknown Urine Bilirubin Negative (<2.0 mg/dL) 10/03/17 Unknown Urine Urobilinogen Negative mg/dL (0.2-1.0) 10/03/17 Unknown Ur Leukocyte Esterase 2+ (NEGATIVE) H 10/03/17 Unknown Urine WBC (Auto) 9 /hpf (3-5) 10/03/17 Unknown Urine RBC (Auto) 1 /hpf (0-3) 10/03/17 Unknown Ur Epithelial Cells Rare /HPF (FEW) 10/03/17 Unknown Urine Bacteria Rare /hpf (NONE SEEN) 10/03/17 Unknown RPR Titer Reactive 1:1 (NONREACTIVE) H 10/04/17 07:30 T.pallidum Ab (MHA) Previously reactive (NONREACTIVE) 10/04/17 07:30 lab noted health teaching on ART compliance Assessment: 10/06/17 12:24 mild alcohol withdrawal sx Plan: medically supervised detox
[2017-10-06] MEDS: ACETAMINOPHEN 325 MG TABLET (FP) PO PRN (17:42)
[2017-10-06] MEDS: chlordiazePOXIDE HCL 10 MG CAPSULE PO SCH (22:11)
[2017-10-06] MEDS: MELATONIN 5 MG TABLETS PO PRN (22:11)
[2017-10-06] MEDS: THIAMINE HCL 100 MG TABLET (FP) PO SCH (22:11)
[2017-10-07] MEDS: chlordiazePOXIDE HCL 10 MG CAPSULE PO SCH ×2 (05:25→10:22)
[2017-10-07] MEDS: METHADONE HCL 40 MG DISPERSABLE TABLET PO SCH (05:25)
[2017-10-07 07:10] VITALS: BP 102/67; PULSE 66; TEMP 97.7
--- NOTE | 2017-10-07 09:53 | DS ---
[facility] Detox Discharge Summary Admission Date: 10/03/17 Discharge Date: 10/07/17 - History Present History: Alcohol Dependence Additional Comments: 52 years old female admitted on 10/03/17 for alcohol withdrawal sx completed alcohol detox regimen tolerated well denies alcohol withdrawal sx alert oriented x 3 no acute distress ambulating with walker on hallway social with peers in day room aftercare [facility]'s case discussed with counselor and nurse that 3E bed available today for patient to be transferred - Physical Exam Results Vital Signs: Vital Signs Temperature 97.7 F 10/07/17 07:09 Pulse Rate 66 10/07/17 07:09 Respiratory Rate 18 10/07/17 07:09 Blood Pressure 102/67 10/07/17 07:09 O2 Sat by Pulse Oximetry (%) Pertinent Admission Physical Exam Findings: alcohol withdrawal sx Vital Signs Temperature 97.7 F 10/07/17 07:09 Pulse Rate 66 10/07/17 07:09 Respiratory Rate 18 10/07/17 07:09 Blood Pressure 102/67 10/07/17 07:09 O2 Sat by Pulse Oximetry (%) Laboratory Last Values WBC 2.8 K/mm3 (4.0-10.0) L 10/04/17 07:30 RBC 4.48 M/mm3 (3.60-5.2) 10/04/17 07:30 Hgb 13.2 GM/dL (10.7-15.3) 10/04/17 07:30 Hct 41.3 % (32.4-45.2) 10/04/17 07:30 MCV 92.3 fl (80-96) 10/04/17 07:30 MCH 29.4 pg (25.7-33.7) 10/04/17 07:30 MCHC 31.8 g/dl (32.0-36.0) L 10/04/17 07:30 RDW 13.8 % (11.6-15.6) 10/04/17 07:30 Plt Count 316 K/MM3 (134-434) D 10/04/17 07:30 MPV 8.2 fl (7.5-11.1) 10/04/17 07:30 Sodium 143 mmol/L (136-145) 10/04/17 07:30 Potassium 4.1 mmol/L (3.5-5.1) 10/04/17 07:30 Chloride 104 mmol/L (98-107) 10/04/17 07:30 Carbon Dioxide 30 mmol/L (21-32) 10/04/17 07:30 Anion Gap 9 MMOL/L (8-16) 10/04/17 07:30 BUN 17 mg/dL (7-18) 10/04/17 07:30 Creatinine 0.8 mg/dL (0.55-1.02) 10/04/17 07:30 Creat Clearance w eGFR > 60 (>60) 10/04/17 07:30 Random Glucose 69 mg/dL (74-106) L 10/04/17 07:30 Calcium 8.9 mg/dL (8.5-10.1) 10/04/17 07:30 Total Bilirubin 0.5 mg/dL (0.2-1.0) 10/04/17 07:30 AST 63 U/L (15-37) H 10/04/17 07:30 ALT 38 U/L (12-78) 10/04/17 07:30 Alkaline Phosphatase 84 U/L (45-117) 10/04/17 07:30 Total Protein 7.2 g/dl (6.4-8.2) 10/04/17 07:30 Albumin 2.8 g/dl (3.4-5.0) L 10/04/17 07:30 Urine Color Straw 10/03/17 Unknown Urine Appearance Clear 10/03/17 Unknown Urine pH 5.0 (5.0-8.0) 10/03/17 Unknown Ur Specific [place] 1.010 (1.001-1.035) 10/03/17 Unknown Urine Protein Negative (NEGATIVE) 10/03/17 Unknown Urine Glucose (UA) Negative (NEGATIVE) 10/03/17 Unknown Urine Ketones Negative (NEGATIVE) 10/03/17 Unknown Urine Blood Negative (NEGATIVE) 10/03/17 Unknown Urine Nitrite Negative (NEGATIVE) 10/03/17 Unknown Urine Bilirubin Negative (<2.0 mg/dL) 10/03/17 Unknown Urine Urobilinogen Negative mg/dL (0.2-1.0) 10/03/17 Unknown Ur Leukocyte Esterase 2+ (NEGATIVE) H 10/03/17 Unknown Urine WBC (Auto) 9 /hpf (3-5) 10/03/17 Unknown Urine RBC (Auto) 1 /hpf (0-3) 10/03/17 Unknown Ur Epithelial Cells Rare /HPF (FEW) 10/03/17 Unknown Urine Bacteria Rare /hpf (NONE SEEN) 10/03/17 Unknown RPR Titer Reactive 1:1 (NONREACTIVE) H 10/04/17 07:30 T.pallidum Ab (MHA) Previously reactive (NONREACTIVE) 10/04/17 07:30 lab noted patient acknowledged the important of ART and adherence to ART - Treatment Hospital Course: Detox Protocol Followed, Detoxed Safely, Responded well, Discharged Condition Good, Rehab Referral Accepted Patient has Accepted a Rehab Referral to: [facility] - Medication Discharge Medications: Ambulatory Orders Abacavir/Dolutegravir/Lamivudi [Triumeq Tablet] 1 each PO DAILY 07/11/17 Quetiapine Fumarate [Seroquel] 100 mg PO HS #30 tablet 07/12/17 traZODone HCL [Desyrel -] 50 mg PO HS #30 tablet 07/12/17 levoFLOXacin [Levaquin -] 750 mg PO DAILY 10/03/17 - Diagnosis (1) Walker as ambulation aid Current Visit: Yes Status: Chronic (2) Alcohol dependence with uncomplicated withdrawal Current Visit: Yes Status: Acute (3) HIV (human immunodeficiency virus infection) Current Visit: Yes Status: Chronic (4) Methadone maintenance therapy patient Current Visit: Yes Status: Chronic (5) Nicotine dependence Current Visit: Yes Status: Acute Qualifiers: Nicotine product type: cigarettes Substance use status: in withdrawal Qualified Code(s): F17.213 - Nicotine dependence, cigarettes, with withdrawal (6) Bipolar II disorder Current Visit: Yes Status: Suspected - AMA Did Patient Leave Against Medical Advice: No
[2017-10-07] MEDS: PRENATAL VITAMINS W/ FOLIC ACID TABLET (FP) PO SCH (10:22)
[2017-10-07] MEDS: LEVOFLOXACIN PO SCH (10:22)
== END 2017-10-07 11:10 | disposition other institution (70) | DRG 773 ==
LOC: YASAS 14:41 → Y6N 17:16
PROC: HZ2ZZZZ Detoxification Services for Substance Abuse Treatment (ICD-10-PCS; principal; 2017-10-03)
DX: F10.230 Alcohol dependence with withdrawal, uncomplicated (principal); F11.20 Opioid dependence, uncomplicated; F14.10 Cocaine abuse, uncomplicated; F17.213 Nicotine dependence, cigarettes, with withdrawal; F31.81 Bipolar II disorder; F19.24 Other psychoactive substance dependence with psychoactive substance-induced mood disorder; Z21 Asymptomatic human immunodeficiency virus [HIV] infection status; K21.9 Gastro-esophageal reflux disease without esophagitis; B18.2 Chronic viral hepatitis C; R63.4 Abnormal weight loss; Z68.22 Body mass index [BMI] 22.0-22.9, adult; Z86.69 Personal history of other diseases of the nervous system and sense organs; Z91.5 Personal history of self-harm; Z98.890 Other specified postprocedural states
CPT/HCPCS: 36415; 80053; 81003; 81015; 85027; 86593; 86780; 93005; 93010

== ENCOUNTER 2017-10-07 11:51 | Inpatient (IN) | payer OTHER ==
[2017-10-07] MEDS ORDERED: ACETAMINOPHEN 325 MG TABLET (FP) PO PRN (13:49)
[2017-10-07] MEDS ORDERED: NICOTINE POLACRILEX 2 MG GUM BUC PRN (13:49)
[2017-10-07] MEDS ORDERED: LOPERAMIDE HCL 2 MG CAPSULE PO PRN (13:49)
[2017-10-07] MEDS ORDERED: MENTHOL/PHENOL 1 EACH UD MM PRN (13:49)
[2017-10-07] MEDS ORDERED: MAG HYDROX/AL HYDROX/SIMETH 30 ML UNIT-DOSE CUP PO PRN (13:49)
[2017-10-07] MEDS ORDERED: MAGNESIUM CITRATE 300 ML BOTTLE PO PRN (13:49)
[2017-10-07] MEDS ORDERED: NICOTINE 14 MG/24 HOURS TOPICAL PATCH TD PRN (13:49)
[2017-10-07] MEDS ORDERED: P-EPHED 60MG/TRIPROLIDI 2.5MG TABLET PO PRN (13:49)
[2017-10-07] MEDS ORDERED: guaiFENesin/D-METHORPHAN HB 10 ML UNIT-DOSE CUPS PO PRN (13:49)
[2017-10-07] MEDS ORDERED: MAGNESIUM HYDROX 2400MG/30ML ORAL SUSPENSION 30 ML CUP PO PRN (13:49)
--- NOTE | 2017-10-07 13:49 | HP ---
[facility] Rehab Assess/Revision - Admission History Admitted to Rehab from: [facility] Date of Admission to Rehab: 10/07/17 - Vital signs Vital Signs: Vital Signs Period Temp Pulse Resp BP Sys/Harden Pulse Ox Last 24 Hr 97.1 F 65 16 107/71 - Findings Detox History & Physical reviewed: Yes Concur with findings: Yes Comments/Additional Findings: transferred from detox to rehab admission as per [facility] Inpatient Rehab Admission - Initial Determination Are CD services needed?: Yes Free of communicable disease: Yes Not in need of hospitalization: Yes - Rehab Admission Criteria Previous failed treatment: Yes Poor recovery environment: Yes Comorbidities: Yes Lacks judgement: No Patient is meeting Inpatient Rehab admission criteria:: Yes
--- NOTE | 2017-10-07 14:23 | PN ---
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
--- NOTE | 2017-10-07 19:54 | PN ---
S Progress Note Note: Pt states she stubbed L 4th toe on chair. Pt denies pain. On PE no bruises, swelling or redness noted. Pt given ice. Incident report done and signed
[2017-10-07] MEDS: THIAMINE HCL 100 MG TABLET (FP) PO SCH (21:29)
[2017-10-07] MEDS: QUEtiapine FUMARATE 100 MG TABLET (FP) PO SCH (21:29)
[2017-10-07] MEDS: traZODone HCL 50 MG TABLET (FP) PO SCH (21:29)
[2017-10-07] MEDS ORDERED: MELATONIN 5 MG TABLETS PO PRN (22:00)
[2017-10-08] MEDS: METHADONE HCL 40 MG DISPERSABLE TABLET PO SCH (06:21)
[2017-10-08] MEDS: IBUPROFEN 400 MG TABLET (FP) PO PRN (09:37)
[2017-10-08] MEDS: PRENATAL VITAMINS W/ FOLIC ACID TABLET (FP) PO SCH (09:38)
[2017-10-08] MEDS: traZODone HCL 50 MG TABLET (FP) PO SCH (21:39)
[2017-10-08] MEDS: QUEtiapine FUMARATE 100 MG TABLET (FP) PO SCH (21:39)
[2017-10-08] MEDS: THIAMINE HCL 100 MG TABLET (FP) PO SCH (21:39)
[2017-10-09] MEDS: METHADONE HCL 40 MG DISPERSABLE TABLET PO SCH (06:31)
[2017-10-09] MEDS: IBUPROFEN 400 MG TABLET (FP) PO PRN (09:57)
[2017-10-09] MEDS: PRENATAL VITAMINS W/ FOLIC ACID TABLET (FP) PO SCH (09:57)
--- NOTE | 2017-10-09 13:43 | PN ---
BHS Progress Note Note: Vital Signs Temperature 98.4 F 10/09/17 06:50 Pulse Rate 82 10/09/17 06:50 Respiratory Rate 18 10/09/17 06:50 Blood Pressure 94/64 10/09/17 06:50 O2 Sat by Pulse Oximetry (%) C/O OF BACK PAIN PATIENT AOX3 AMBULATING IN THE UNIT TP LIDOCAINE PATCH CONTINUE TO MONITOR
[2017-10-09] MEDS: LIDOCAINE 5% TOPICAL PATCH TP SCH (14:34)
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
[2017-10-09] MEDS: THIAMINE HCL 100 MG TABLET (FP) PO SCH (21:12)
[2017-10-09] MEDS: LIDOCAINE PATCH REMOVAL MC SCH (21:12)
[2017-10-09] MEDS: QUEtiapine FUMARATE 100 MG TABLET (FP) PO SCH (21:12)
[2017-10-09] MEDS: traZODone HCL 50 MG TABLET (FP) PO SCH (21:12)
[2017-10-10] MEDS ORDERED: PT OWN MED DRAWER 7, Y5N ONE (03:15)
[2017-10-10] MEDS: METHADONE HCL 40 MG DISPERSABLE TABLET PO SCH (06:38)
[2017-10-10] MEDS: LEVOFLOXACIN 750 MG PO SCH (06:39)
[2017-10-10] MEDS: LIDOCAINE 5% TOPICAL PATCH TP SCH (09:00)
[2017-10-10] MEDS: PRENATAL VITAMINS W/ FOLIC ACID TABLET (FP) PO SCH (09:00)
[2017-10-10] MEDS: THIAMINE HCL 100 MG TABLET (FP) PO SCH (21:44)
[2017-10-10] MEDS: LIDOCAINE PATCH REMOVAL MC SCH (21:45)
[2017-10-10] MEDS: traZODone HCL 50 MG TABLET (FP) PO SCH (21:46)
[2017-10-10] MEDS: QUEtiapine FUMARATE 100 MG TABLET (FP) PO SCH (21:46)
[2017-10-11] MEDS ORDERED: PT OWN MED DRAWER 7, Y5N ONE (03:17)
[2017-10-11] MEDS: METHADONE HCL 40 MG DISPERSABLE TABLET PO SCH (06:35)
[2017-10-11] MEDS: LEVOFLOXACIN 750 MG PO SCH (06:36)
[2017-10-11] MEDS: PRENATAL VITAMINS W/ FOLIC ACID TABLET (FP) PO SCH (09:59)
[2017-10-11] MEDS: LIDOCAINE 5% TOPICAL PATCH TP SCH (09:59)
[2017-10-11] MEDS: LIDOCAINE PATCH REMOVAL MC SCH (21:31)
[2017-10-11] MEDS: QUEtiapine FUMARATE 100 MG TABLET (FP) PO SCH (21:31)
[2017-10-11] MEDS: THIAMINE HCL 100 MG TABLET (FP) PO SCH (21:31)
[2017-10-11] MEDS: traZODone HCL 50 MG TABLET (FP) PO SCH (21:31)
[2017-10-12] MEDS ORDERED: PT OWN MED DRAWER 7, Y5N ONE ×2 (06:00→07:28)
[2017-10-12] MEDS: METHADONE HCL 40 MG DISPERSABLE TABLET PO SCH (06:41)
[2017-10-12] MEDS: LEVOFLOXACIN 750 MG PO SCH (06:42)
[2017-10-12] MEDS: PRENATAL VITAMINS W/ FOLIC ACID TABLET (FP) PO SCH (10:14)
[2017-10-12] MEDS: LIDOCAINE 5% TOPICAL PATCH TP SCH (10:14)
[2017-10-12] MEDS: QUEtiapine FUMARATE 100 MG TABLET (FP) PO SCH (21:39)
[2017-10-12] MEDS: traZODone HCL 50 MG TABLET (FP) PO SCH (21:39)
[2017-10-12] MEDS: THIAMINE HCL 100 MG TABLET (FP) PO SCH (21:39)
[2017-10-12] MEDS: LIDOCAINE PATCH REMOVAL MC SCH (21:40)
[2017-10-13] MEDS: METHADONE HCL 40 MG DISPERSABLE TABLET PO SCH (06:46)
[2017-10-13] MEDS: LEVOFLOXACIN 750 MG PO SCH (06:47)
[2017-10-13] MEDS ORDERED: PT OWN MED DRAWER 7, Y5N ONE (07:13)
[2017-10-13] MEDS: PRENATAL VITAMINS W/ FOLIC ACID TABLET (FP) PO SCH (10:05)
[2017-10-13] MEDS: LIDOCAINE 5% TOPICAL PATCH TP SCH (10:05)
[2017-10-13] MEDS: LIDOCAINE PATCH REMOVAL MC SCH (21:34)
[2017-10-13] MEDS: traZODone HCL 50 MG TABLET (FP) PO SCH (21:34)
[2017-10-13] MEDS: THIAMINE HCL 100 MG TABLET (FP) PO SCH (21:34)
[2017-10-13] MEDS: QUEtiapine FUMARATE 100 MG TABLET (FP) PO SCH (21:34)
[2017-10-14] MEDS ORDERED: PT OWN MED DRAWER 7, Y5N ONE (03:17)
[2017-10-14] MEDS: METHADONE HCL 40 MG DISPERSABLE TABLET PO SCH (06:56)
[2017-10-14] MEDS: LEVOFLOXACIN 750 MG PO SCH (06:56)
[2017-10-14] MEDS: LIDOCAINE 5% TOPICAL PATCH TP SCH (09:29)
[2017-10-14] MEDS: PRENATAL VITAMINS W/ FOLIC ACID TABLET (FP) PO SCH (09:29)
[2017-10-14] MEDS: THIAMINE HCL 100 MG TABLET (FP) PO SCH (21:21)
[2017-10-14] MEDS: traZODone HCL 50 MG TABLET (FP) PO SCH (21:21)
[2017-10-14] MEDS: QUEtiapine FUMARATE 100 MG TABLET (FP) PO SCH (21:21)
[2017-10-14] MEDS: LIDOCAINE PATCH REMOVAL MC SCH (21:44)
[2017-10-15] MEDS ORDERED: PT OWN MED DRAWER 7, Y5N ONE (02:58)
[2017-10-15] MEDS: LEVOFLOXACIN 750 MG PO SCH (06:40)
[2017-10-15] MEDS: METHADONE HCL 40 MG DISPERSABLE TABLET PO SCH (06:40)
[2017-10-15] MEDS: PRENATAL VITAMINS W/ FOLIC ACID TABLET (FP) PO SCH (09:43)
[2017-10-15] MEDS: LIDOCAINE 5% TOPICAL PATCH TP SCH (09:43)
[2017-10-15] MEDS: traZODone HCL 50 MG TABLET (FP) PO SCH (21:26)
[2017-10-15] MEDS: THIAMINE HCL 100 MG TABLET (FP) PO SCH (21:26)
[2017-10-15] MEDS: QUEtiapine FUMARATE 100 MG TABLET (FP) PO SCH (21:26)
[2017-10-15] MEDS: LIDOCAINE PATCH REMOVAL MC SCH (21:27)
[2017-10-16] MEDS: LEVOFLOXACIN 750 MG PO SCH (06:29)
[2017-10-16] MEDS: METHADONE HCL 40 MG DISPERSABLE TABLET PO SCH (06:29)
[2017-10-16] MEDS ORDERED: PT OWN MED DRAWER 7, Y5N ONE (07:00)
[2017-10-16] MEDS: PRENATAL VITAMINS W/ FOLIC ACID TABLET (FP) PO SCH (10:25)
[2017-10-16] MEDS: LIDOCAINE 5% TOPICAL PATCH TP SCH (10:25)
[2017-10-16] MEDS: QUEtiapine FUMARATE 100 MG TABLET (FP) PO SCH (21:27)
[2017-10-16] MEDS: THIAMINE HCL 100 MG TABLET (FP) PO SCH (21:27)
[2017-10-16] MEDS: traZODone HCL 50 MG TABLET (FP) PO SCH (21:27)
[2017-10-16] MEDS: LIDOCAINE PATCH REMOVAL MC SCH (21:28)
[2017-10-17] MEDS ORDERED: PT OWN MED DRAWER 7, Y5N ONE ×2 (03:22→08:37)
[2017-10-17] MEDS: METHADONE HCL 40 MG DISPERSABLE TABLET PO SCH (06:25)
[2017-10-17] MEDS: LEVOFLOXACIN 750 MG PO SCH (06:26)
[2017-10-17] MEDS: PRENATAL VITAMINS W/ FOLIC ACID TABLET (FP) PO SCH (10:03)
[2017-10-17] MEDS: LIDOCAINE 5% TOPICAL PATCH TP SCH (10:03)
[2017-10-17] MEDS: THIAMINE HCL 100 MG TABLET (FP) PO SCH (21:31)
[2017-10-17] MEDS: traZODone HCL 50 MG TABLET (FP) PO SCH (21:31)
[2017-10-17] MEDS: QUEtiapine FUMARATE 100 MG TABLET (FP) PO SCH (21:31)
[2017-10-17] MEDS: LIDOCAINE PATCH REMOVAL MC SCH (21:32)
[2017-10-18] MEDS ORDERED: PT OWN MED DRAWER 7, Y5N ONE ×2 (03:20→06:48)
[2017-10-18] MEDS: LEVOFLOXACIN 750 MG PO SCH (06:46)
[2017-10-18] MEDS: METHADONE HCL 40 MG DISPERSABLE TABLET PO SCH (06:46)
[2017-10-18] MEDS: PRENATAL VITAMINS W/ FOLIC ACID TABLET (FP) PO SCH (10:10)
[2017-10-18] MEDS: LIDOCAINE 5% TOPICAL PATCH TP SCH (10:10)
[2017-10-18] MEDS: LIDOCAINE PATCH REMOVAL MC SCH (21:36)
[2017-10-18] MEDS: QUEtiapine FUMARATE 100 MG TABLET (FP) PO SCH (21:36)
[2017-10-18] MEDS: THIAMINE HCL 100 MG TABLET (FP) PO SCH (21:36)
[2017-10-18] MEDS: traZODone HCL 50 MG TABLET (FP) PO SCH (21:36)
[2017-10-19] MEDS ORDERED: PT OWN MED DRAWER 7, Y5N ONE (05:58)
[2017-10-19] MEDS: METHADONE HCL 40 MG DISPERSABLE TABLET PO SCH (06:17)
[2017-10-19] MEDS: LEVOFLOXACIN 750 MG PO SCH (06:18)
[2017-10-19] MEDS: PRENATAL VITAMINS W/ FOLIC ACID TABLET (FP) PO SCH (10:17)
[2017-10-19] MEDS: LIDOCAINE 5% TOPICAL PATCH TP SCH (10:17)
[2017-10-19] MEDS: THIAMINE HCL 100 MG TABLET (FP) PO SCH (21:42)
[2017-10-19] MEDS: QUEtiapine FUMARATE 100 MG TABLET (FP) PO SCH (21:42)
[2017-10-19] MEDS: LIDOCAINE PATCH REMOVAL MC SCH (21:42)
[2017-10-19] MEDS: traZODone HCL 50 MG TABLET (FP) PO SCH (21:42)
[2017-10-20] MEDS ORDERED: PT OWN MED DRAWER 7, Y5N ONE (03:36)
[2017-10-20] MEDS: LEVOFLOXACIN 750 MG PO SCH (06:31)
[2017-10-20] MEDS: METHADONE HCL 40 MG DISPERSABLE TABLET PO SCH (06:31)
[2017-10-20] MEDS: PRENATAL VITAMINS W/ FOLIC ACID TABLET (FP) PO SCH (09:47)
[2017-10-20] MEDS: LIDOCAINE 5% TOPICAL PATCH TP SCH (09:47)
[2017-10-20] MEDS: QUEtiapine FUMARATE 100 MG TABLET (FP) PO SCH (21:47)
[2017-10-20] MEDS: traZODone HCL 50 MG TABLET (FP) PO SCH (21:47)
[2017-10-20] MEDS: THIAMINE HCL 100 MG TABLET (FP) PO SCH (21:47)
[2017-10-20] MEDS: LIDOCAINE PATCH REMOVAL MC SCH (21:48)
[2017-10-21] MEDS: METHADONE HCL 40 MG DISPERSABLE TABLET PO SCH (06:45)
[2017-10-21] MEDS: LEVOFLOXACIN 750 MG PO SCH (06:45)
[2017-10-21] MEDS: IBUPROFEN 400 MG TABLET (FP) PO PRN (08:56)
[2017-10-21] MEDS: PRENATAL VITAMINS W/ FOLIC ACID TABLET (FP) PO SCH (10:21)
[2017-10-21] MEDS: LIDOCAINE 5% TOPICAL PATCH TP SCH (10:21)
--- NOTE | 2017-10-21 13:32 | PN ---
[facility] Progress Note (SOAP) Subjective: Pain in (L) knee. Sharp, constant x 5 days. Pain is a "9" at this time. Denies falling or injury. Has chronic (L) knee pain, but pain is getting worse. pain increases w/ walking. [place]quis has not helped. Walks w/ own walker. Objective: A&O x3. Decreased flexion and extension of (L) knee. No increased warmth or edema. Pedal pulses (+). Vital Signs - 24 hr 10/21/17 10/21/17 10/21/17 00:30 03:30 07:06 Temperature 97.8 F Pulse Rate 89 Respiratory 18 16 18 Rate Blood Pressure 92/64 Assessment: (L) knee pain. Plan: Motrin for pain Lidocaine patch to (L) knee. Continue rehab.
[2017-10-21] MEDS ORDERED: IBUPROFEN 600 MG TABLET (FP) PO PRN (13:34)
[2017-10-21] MEDS: THIAMINE HCL 100 MG TABLET (FP) PO SCH (21:59)
[2017-10-21] MEDS: QUEtiapine FUMARATE 100 MG TABLET (FP) PO SCH (22:00)
[2017-10-21] MEDS: traZODone HCL 50 MG TABLET (FP) PO SCH (22:00)
[2017-10-21] MEDS ORDERED: LIDOCAINE PATCH REMOVAL MC SCH (22:00)
[2017-10-21] MEDS: LIDOCAINE PATCH REMOVAL MC SCH (22:01)
[2017-10-22] MEDS ORDERED: METHADONE HCL 40 MG DISPERSABLE TABLET PO SCH (06:00)
[2017-10-22] MEDS ORDERED: PT OWN MED DRAWER 7, Y5N ONE (06:19)
[2017-10-22] MEDS: LEVOFLOXACIN 750 MG PO SCH (06:19)
[2017-10-22 06:51] VITALS: BP 96/66; PULSE 84; TEMP 98.1
[2017-10-22] MEDS: PRENATAL VITAMINS W/ FOLIC ACID TABLET (FP) PO SCH (09:53)
[2017-10-22] MEDS: LIDOCAINE 5% TOPICAL PATCH TP SCH (09:53)
[2017-10-22] MEDS ORDERED: LIDOCAINE 5% TOPICAL PATCH TP SCH (10:00)
--- NOTE | 2017-10-22 10:21 | PN ---
Psychiatric Progress Note Vital Signs: Vital Signs Period Temp Pulse Resp BP Sys/Harden Pulse Ox Last 24 Hr 98.1 F 84 18-18 96/66 Date of Session: 10/22/17 Chief Complaint:: Discharge visit HPI: Alcohol,Cocaine,Opioid dependence comorbid with PTSD. Current Medications: Active Medications Generic Name Dose Route Start Last Admin Trade Name Freq PRN Reason Stop Dose Admin Acetaminophen 650 mg 10/07/17 13:49 Tylenol - PO Q4H PRN FEVER Al Hydroxide/Mg Hydroxide 30 ml 10/07/17 13:49 Mylanta Oral Suspension - PO Q6H PRN DYSPEPSIA Eucalyptus/Menthol/Phenol/Sorbitol 1 each 10/07/17 13:49 Cepastat Lozenge - MM Q4H PRN SORE THROAT Guaifenesin 10 ml 10/07/17 13:49 Robitussin Dm - PO Q6H PRN COUGH Ibuprofen 600 mg 10/21/17 13:34 Motrin - PO Q6H PRN PAIN LEVEL 7 - 10 Lidocaine 1 patch 10/09/17 13:45 10/22/17 09:53 Lidoderm Patch - TP 1 patch DAILY MAGGIE Administration Lidocaine 1 patch 10/22/17 10:00 10/22/17 09:53 Lidoderm Patch - TP 1 patch DAILY MAGGIE Administration Loperamide HCl 4 mg 10/07/17 13:49 Imodium - PO Q6H PRN DIARRHEA Magnesium Citrate 300 ml 10/07/17 13:49 Citroma - PO Q48H PRN CONSTIPATION Magnesium Hydroxide 30 ml 10/07/17 13:49 Milk Of Magnesia - PO DAILY PRN CONSTIPATION Melatonin 5 mg 10/07/17 22:00 10/10/17 21:44 Melatonin PO 5 mg HS PRN Administration INSOMNIA Methadone HCl 120 mg 10/22/17 06:00 10/22/17 06:19 Dolophine - PO 10/29/17 05:59 120 mg DAILY@0600 MAGGIE Administration Miscellaneous 1 each 10/09/17 22:00 10/21/17 22:01 Lidoderm Patch Removal MC 1 each DAILY@2200 MAGGIE Administration Miscellaneous 1 each 10/21/17 22:00 10/21/17 22:01 Lidoderm Patch Removal MC 1 each DAILY@2200 MAGGIE Administration Nicotine 14 mg 10/07/17 13:49 Nicoderm Patch - TD DAILY PRN WITHDRAWAL(CONT SUBST) Nicotine Polacrilex 2 mg 10/07/17 13:49 Nicorette Gum - BUC Q2H PRN NICOTINE REPLACEMENT RX Pom:Levofloxacin 750 750 each 10/10/17 06:00 10/22/17 06:19 Mg Tablet (Fp) PO 750 each DAILY@0600 MAGGIE Administration Multivit/Folic Acid/Iron 1 tab 10/08/17 10:00 10/22/17 09:53 Vitamins (Sjr) - PO 1 tab DAILY MAGGIE Administration Pseudoephedrine/Triprolidine 1 combo 10/07/17 13:49 Actifed - PO TID PRN NASAL CONGESTION Quetiapine Fumarate 100 mg 10/07/17 22:00 10/21/17 22:00 Seroquel - PO 100 mg HS MAGGIE Administration Thiamine HCl 100 mg 10/07/17 22:00 10/21/17 21:59 Vitamin B1 - PO 100 mg HS MAGGIE Administration Trazodone HCl 50 mg 10/07/17 22:00 10/21/17 22:00 Desyrel - PO 50 mg HS MAGGIE Administration Current Side Effect: No Lab tests ordered: No Lab tests reviewed: Yes Provider note:: Patient completed this program today.She has met her treatment goals and will continue to address her issues on outpatient basis.Patient continue to find that current mediccations help to cope with mood instability, anxiety,depression and insomnia.Scripts for 3 days provided. Supportive therapy provided focusing on relapse prevention. Patient is stable for discharge today.Scripts for Seroquel 50 mg po hs and Trazodone 100 mg po hs provided. Mental Status Exam - Mental Status Exam Alert and Oriented to: Time, Place, Person Cognitive Function: Grossly Intact Patient Appearance: Well Groomed Mood: Hopeful, Euthymic Affect: Appropriate, Mood Congruent Patient Behavior: Cooperative Speech Pattern: Clear Voice Loudness: Normal Thought Process: Goal Oriented Thought Disorder: Not Present Hallucinations: Denies Suicidal Ideation: Denies Homicidal Ideation: Denies Insight/Judgement: Fair Sleep: Fair Appetite: Fair Muscle strength/Tone: Normal Gait/Station: Normal Psychiatric Treatment Plan - Problem List (1) Alcohol dependence Current Visit: Yes (2) Cocaine dependence, uncomplicated Current Visit: Yes (3) Nicotine dependence Current Visit: Yes Qualifiers: Nicotine product type: cigarettes Substance use status: in withdrawal Qualified Code(s): F17.213 - Nicotine dependence, cigarettes, with withdrawal (4) Opioid dependence on agonist therapy Current Visit: Yes (5) Substance induced mood disorder Current Visit: Yes (6) Post traumatic stress disorder (PTSD) Current Visit: Yes
== END 2017-10-22 10:15 | disposition home or self-care (01) | DRG 772 ==
LOC: YASAS 11:51 → Y3E 11:58
PROVIDERS: ADMIT Psychiatry & Neurology Psychiatry
PROC: HZ41ZZZ Group Counseling for Substance Abuse Treatment, Behavioral (ICD-10-PCS; principal; 2017-10-07)
DX: F10.20 Alcohol dependence, uncomplicated (principal); F11.20 Opioid dependence, uncomplicated; F14.20 Cocaine dependence, uncomplicated; F17.213 Nicotine dependence, cigarettes, with withdrawal; F19.24 Other psychoactive substance dependence with psychoactive substance-induced mood disorder; F43.10 Post-traumatic stress disorder, unspecified; Z21 Asymptomatic human immunodeficiency virus [HIV] infection status; G47.00 Insomnia, unspecified; B18.2 Chronic viral hepatitis C; M25.562 Pain in left knee; G89.29 Other chronic pain; K21.9 Gastro-esophageal reflux disease without esophagitis; S99.822A Other specified injuries of left foot, initial encounter; W22.03XA Walked into furniture, initial encounter; Y93.89 Activity, other specified; Y92.238 Other place in hospital as the place of occurrence of the external cause; Y99.8 Other external cause status; Z86.19 Personal history of other infectious and parasitic diseases; Z59.0 Homelessness

== ENCOUNTER 2018-06-11 13:17 | Inpatient (IN) | payer OTHER ==
[2018-06-11 17:03] VITALS: BMI 28.5
--- NOTE | 2018-06-11 17:35 | HP ---
CIWA Score Nausea/Vomitin-No Nausea/No Vomiting Muscle Tremors: None Anxiety: 0-No Anxiety, at Ease Agitation: 2 Paroxysmal Sweats: No Perspiration Orientation: 0-Oriented Tacttile Disturbances: 0-None Auditory Disturbances: 0-None Visual Disturbances: 0-None Headache: 0-None Present CIWA-Ar Total Score: 2 - Admission Criteria OASAS Guidelines: Admission for Medically Managed Detox: Requires at least one of the followin. CIWA greater than 12 2. Seizures within the past 24 hours 3. Delirium tremens within the past 24 hours 4. Hallucinations within the past 24 hours 5. Acute intervention needed for co occurring medical disorder 6. Acute intervention needed for co occurring psychiatric disorder 7. Severe withdrawal that cannot be handled at a lower level of care (continued vomiting, continued diarrhea, abnormal vital signs) requiring intravenous medication and/or fluids 8. Patient presents the following: Acute intervention needed for co-occurring med or psych disorder Admission Criteria Met: Admission criteria met Admission ROS [facility] Allergies/Adverse Reactions: Allergies Allergy/AdvReac Type Severity Reaction Status Date / Time cephalexin monohydrate Allergy Hives Verified 10/03/17 16:34 [From [email or web address]] History of Present Illness: pt here requesting detox from etoh use , claims 4 pints vodka/ day and 5-6 beers/day since 2 years ago , first age of use 13 , prior detox " i lost count " , most recently @ [facility] 8-9 months ago . Latest use noon today , current ROCK 0.000 , current symptoms as above, reports tremors if not drinking , + w/d seizures, most recently 6 months ago did not seek medical care. heroin : since age 17, IVDU , [facility] from [facility] , denies sharing , denies re- using , denies abscess , denies OD , latest use yesterday , in [facility] x 18 mo [facility] 120 mg . cocaine : not daily , 3 bags crack cocaine via inhalation tobacco : 02/08 ppd denies other illicits PMHX : hiv dx 1995 , dx 1998 Hep C no tx , in clinic @ [facility] , claims compliance w. meds , latest taken yesterday PSHX : c-sx x 1 Psych : bipolar d/o , suicide attempt 2 years ago took all her psych meds , taken to [facility], denies current SI / HI Exam Limitations: No Limitations - Ebola screening Have you traveled outside of the country in the last 21 days: No Have you had contact with anyone from an Ebola affected area: No - Review of Systems Constitutional: See HPI EENT: reports: Other (edentulous) Respiratory: reports: No Symptoms reported Cardiac: reports: No Symptoms Reported GI: reports: No Symptoms Reported : reports: No Symptoms Reported Musculoskeletal: reports: Joint Pain (left knee x 3 weeks , reports has had intermittent knee swelling in the past) Integumentary: reports: No Symptoms Reported Neuro: reports: Seizure Endocrine: reports: No Symptoms Reported Psychiatric: reports: Orientated x3, Anxious Patient History - Patient Medical History Hx Anemia: No Hx Asthma: No Hx Chronic Obstructive Pulmonary Disease (COPD): No Hx Cancer: No Hx Cardiac Disorders: No Hx Congestive Heart Failure: No Hx Hypertension: No Hx Hypercholesterolemia: No Hx Pacemaker: No HX Cerebrovascular Accident: No Hx Seizures: Yes (Alcohol related) Hx Dementia: No Hx Diabetes: No Hx Gastrointestinal Disorders: No Hx Liver Disease: No Hx Genitourinary Disorders: No Hx Sexually Transmitted Disorders: No Hx Renal Disease (ESRD): No Hx Thyroid Disease: No Hx Human Immunodeficiency Virus (HIV): Yes (HIV 1993. Trimeq) Hx Hepatitis C: Yes (TREATED) Hx Depression: Yes Hx Suicide Attempt: Yes (2016) Hx Bipolar Disorder: Yes Hx Schizophrenia: No - Patient Surgical History Past Surgical History: Yes Hx Neurologic Surgery: No Hx Cataract Extraction: No Hx Cardiac Surgery: No Hx Lung Surgery: No Hx Breast Surgery: No Hx Breast Biopsy: No Hx Abdominal Surgery: No Hx Appendectomy: No Hx Cholecystectomy: No Hx Genitourinary Surgery: No Hx Section: Yes (2004) Hx Orthopedic Surgery: Yes (Sx for cellulitis R foot 2 weesk ago) Hx Hysterectomy: No Anesthesia Reaction: No - PPD History Date: 02/22/17 Results: 0mm - Reproductive History Last Menstrual Period: 09/28/17 - Smoking Cessation Smoking history: Current every day smoker Have you smoked in the past 12 months: Yes Aproximately how many cigarettes per day: 5 Cigars Per Day: 0 Hx Chewing Tobacco Use: No Initiated information on smoking cessation: No - Substances abused Alcohol Substance route: Oral Frequency: 3-6 times per week Amount used: 4pints of vodka/day 4 160z beers Age of first use: 13 Date of last use: 06/11/18 Family Disease History - Family Disease History Family Disease History: Diabetes: Mother (ALCOHOL), Other: Grandparent, Father ( , ALCOHOL), Mother Admission Physical Exam [facility] - Vital Signs Vital Signs: Vital Signs - 24 hr 06/11/18 16:58 Temperature 97.4 F L Pulse Rate 71 Respiratory 16 Rate Blood Pressure 128/83 - Physical General Appearance: Yes: Mild Distress, Anxious HEENTM: Yes: EOMI, Hearing grossly Normal, Normocephalic, Normal Voice, Other ( edentulous) Respiratory: Yes: Chest Non-Tender, Lungs Clear, Normal Breath Sounds Neck: Yes: No masses,lesions,Nodules, Trachea in good position Cardiology: Yes: Regular Rhythm, Regular Rate, S1, S2 Abdominal: Yes: Non Tender, Soft Back: Yes: Normal Inspection Musculoskeletal: Yes: Gait Steady Extremities: Yes: Normal Range of Motion, Swelling (left knee , good ROM , no erythema / nl temp) 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: Yes: Fully Oriented, Alert, Motor Strength 5/5, Normal Mood/Affect Integumentary: Yes: Track Merritt (artie UE antecubital and dorsum of hands) - Diagnostic (1) Alcohol dependence with uncomplicated withdrawal Current Visit: Yes Status: Acute (2) Cocaine dependence, uncomplicated Current Visit: Yes Status: Chronic (3) Nicotine dependence Current Visit: Yes Status: Chronic Qualifiers: Nicotine product type: cigarettes Substance use status: in withdrawal Qualified Code(s): F17.213 - Nicotine dependence, cigarettes, with withdrawal (4) Opioid dependence on agonist therapy Current Visit: Yes Status: Chronic Inpatient Rehab Admission - Rehab Decision to Admit Inpatient rehab admission?: No
[2018-06-11] MEDS ORDERED: chlordiazePOXIDE HCL 10 MG CAPSULE PO PRN (17:42)
[2018-06-11] MEDS ORDERED: NICOTINE POLACRILEX 2 MG GUM BUC PRN (17:42)
[2018-06-11] MEDS ORDERED: hydrOXYzine PAMOATE 25 MG CAPSULE (FP) PO PRN (17:42)
[2018-06-11] MEDS ORDERED: MAGNESIUM HYDROX 2400MG/30ML ORAL SUSPENSION 30 ML CUP PO PRN (17:42)
[2018-06-11] MEDS ORDERED: MENTHOL/PHENOL 1 EACH UD MM PRN (17:42)
[2018-06-11] MEDS ORDERED: DICYCLOMINE HCL 10 MG CAPSULE PO PRN (17:42)
[2018-06-11] MEDS ORDERED: MAGNESIUM CITRATE 300 ML BOTTLE PO PRN (17:42)
[2018-06-11] MEDS ORDERED: MELATONIN 5 MG TABLETS PO PRN (17:42)
[2018-06-11] MEDS ORDERED: IBUPROFEN 400 MG TABLET (FP) PO PRN (17:42)
[2018-06-11] MEDS ORDERED: ACETAMINOPHEN 325 MG TABLET (FP) PO PRN ×2 (17:42)
[2018-06-11] MEDS ORDERED: MAG HYDROX/AL HYDROX/SIMETH 30 ML UNIT-DOSE CUP PO PRN (17:42)
[2018-06-11] MEDS: chlordiazePOXIDE HCL 25 MG CAPSULE PO SCH (22:32)
[2018-06-11] MEDS: THIAMINE HCL 100 MG TABLET (FP) PO SCH (22:33)
[2018-06-12] MEDS: chlordiazePOXIDE HCL 25 MG CAPSULE PO SCH ×2 (05:45→12:56)
[2018-06-12] MEDS: ABACAVIR/DOLUTEGRAVIR/LAMIVUDI (TRIUMEQ) TABLET -NF PO SCH (07:57)
[2018-06-12] MEDS ORDERED: METHADONE HCL 40 MG DISPERSABLE TABLET PO ONE (08:24)
[2018-06-12] MEDS: PRENATAL VITAMINS W/ FOLIC ACID TABLET (FP) PO SCH (10:37)
--- NOTE | 2018-06-12 10:41 | PN ---
S CIWA - CIWA Score Nausea/Vomitin-No Nausea/No Vomiting Muscle Tremors: 2 Anxiety: 1-Mildly Anxious Agitation: 2 Paroxysmal Sweats: 1-Minimal Palms Moist Orientation: 0-Oriented Tacttile Disturbances: 0-None Auditory Disturbances: 0-None Visual Disturbances: 0-None Headache: 0-None Present CIWA-Ar Total Score: 6 [facility] Progress Note (SOAP) Subjective: mild shakes some sweats interrupted sleep Objective: 06/12/18 10:41 Vital Signs Temperature 99 F 06/12/18 10:20 Pulse Rate 78 06/12/18 10:20 Respiratory Rate 16 06/12/18 10:20 Blood Pressure 126/86 06/12/18 10:20 O2 Sat by Pulse Oximetry (%) labs pending aaox3 ambulating no acute distress Assessment: 06/12/18 10:41 withdrawal sx Plan: continue detox increase fluids
[2018-06-12 12:34] LABS: BILIRUBIN,TOTAL 0.6 mg/dL (0.2-1); CALCIUM 8.9 mg/dL (8.5-10.1); POTASSIUM 3.5 mmol/L (3.5-5.1); TOT PROT 7.6 g/dl (6.4-8.2)
[2018-06-12 12:50] LABS: HEMATOCRIT 42.5 % (32.4-45.2); HEMOGLOBIN 13.9 GM/dL (10.7-15.3); MCH 29.9 pg (25.7-33.7); MCHC 32.8 g/dl (32.0-36.0); MEAN PLT VOLUME 9.9 fl (7.5-11.1); PLATELET COUNT 143 K/MM3 (134-434); RBC 4.67 M/mm3 (3.60-5.2); RDW 14.4 % (11.6-15.6); WHITE BLOOD COUNT 2.5 K/mm3 (4.0-10.0)
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
[2018-06-12] MEDS: chlordiazePOXIDE 5 MG CAPSULE PO SCH (22:15)
[2018-06-12] MEDS: THIAMINE HCL 100 MG TABLET (FP) PO SCH (22:15)
[2018-06-12] MEDS: QUEtiapine FUMARATE 50 MG TABLET PO SCH (22:16)
[2018-06-12] MEDS: traZODone HCL 50 MG TABLET (FP) PO SCH (22:17)
[2018-06-13] MEDS: METHADONE HCL 40 MG DISPERSABLE TABLET PO SCH (06:21)
[2018-06-13] MEDS: chlordiazePOXIDE 5 MG CAPSULE PO SCH ×2 (06:22→12:45)
[2018-06-13] MEDS: ABACAVIR/DOLUTEGRAVIR/LAMIVUDI (TRIUMEQ) TABLET -NF PO SCH (07:16)
[2018-06-13 09:39] LABS: RPR REACTIVE 1:1 (NONREACTIVE)
--- NOTE | 2018-06-13 09:40 | PN ---
S CIWA - CIWA Score Nausea/Vomitin-No Nausea/No Vomiting Muscle Tremors: 2 Anxiety: 1-Mildly Anxious Agitation: 2 Paroxysmal Sweats: No Perspiration Orientation: 0-Oriented Tacttile Disturbances: 0-None Auditory Disturbances: 0-None Visual Disturbances: 0-None Headache: 0-None Present CIWA-Ar Total Score: 5 [facility] Progress Note (SOAP) Subjective: little anxiety Objective: 06/13/18 09:40 Vital Signs Temperature 98.1 F 06/13/18 09:26 Pulse Rate 92 H 06/13/18 09:26 Respiratory Rate 18 06/13/18 09:26 Blood Pressure 113/72 06/13/18 09:26 O2 Sat by Pulse Oximetry (%) Laboratory Tests 06/11/18 06/12/18 06/12/18 17:41 07:30 07:30 WBC 2.5 L RBC 4.67 Hgb 13.9 Hct 42.5 MCV 91.0 MCH 29.9 MCHC 32.8 RDW 14.4 Plt Count 143 D MPV 9.9 D Sodium 135 L Potassium 3.5 Chloride 103 Carbon Dioxide 26 Anion Gap 6 L BUN 7 Creatinine 0.6 Creat Clearance w eGFR 105.40 Random Glucose 106 Calcium 8.9 Total Bilirubin 0.6 AST 80 H ALT 51 Alkaline Phosphatase 80 Total Protein 7.6 Albumin 3.0 L POC Urine HCG, Qual Negative RPR Titer 06/12/18 07:30 WBC RBC Hgb Hct MCV MCH MCHC RDW Plt Count MPV Sodium Potassium Chloride Carbon Dioxide Anion Gap BUN Creatinine Creat Clearance w eGFR Random Glucose Calcium Total Bilirubin AST ALT Alkaline Phosphatase Total Protein Albumin POC Urine HCG, Qual RPR Titer Reactive 1:1 H labs noted aaox3 ambulating no acute distress Assessment: 06/13/18 09:40 withdrawal sx Plan: continue detox increase fluids d/c in am
[2018-06-13 09:43] LABS: TREPONEMA ANTIBODY PREVIOUSLY REACTIVE (NONREACTIVE)
[2018-06-13] MEDS: PRENATAL VITAMINS W/ FOLIC ACID TABLET (FP) PO SCH (10:27)
[2018-06-13 11:44] LABS: CREATININE 0.6 mg/dL (0.55-1.3)
[2018-06-13] MEDS ORDERED: chlordiazePOXIDE HCL 10 MG CAPSULE PO PRN (21:00)
[2018-06-13] MEDS: QUEtiapine FUMARATE 50 MG TABLET PO SCH (21:56)
[2018-06-13] MEDS: chlordiazePOXIDE HCL 10 MG CAPSULE PO SCH (21:56)
[2018-06-13] MEDS: traZODone HCL 50 MG TABLET (FP) PO SCH (21:57)
[2018-06-13] MEDS: THIAMINE HCL 100 MG TABLET (FP) PO SCH (21:57)
[2018-06-14] MEDS: METHADONE HCL 40 MG DISPERSABLE TABLET PO SCH (05:21)
[2018-06-14] MEDS: chlordiazePOXIDE HCL 10 MG CAPSULE PO SCH (05:21)
[2018-06-14 06:26] VITALS: BP 105/60; PULSE 90; TEMP 97.2
--- NOTE | 2018-06-14 08:55 | DS ---
[facility] Detox Discharge Summary Admission Date: 06/11/18 Discharge Date: 06/14/18 - History Present History: Alcohol Dependence, Cocaine Dependence - Physical Exam Results Vital Signs: Vital Signs Temperature 97.2 F L 06/14/18 06:25 Pulse Rate 90 06/14/18 06:25 Respiratory Rate 17 06/14/18 06:25 Blood Pressure 105/60 06/14/18 06:25 O2 Sat by Pulse Oximetry (%) - Treatment Hospital Course: Detox Protocol Followed, Detoxed Safely, Responded well, Discharged Condition Good, Rehab Referral Accepted - Medication Discharge Medications: Ambulatory Orders Abacavir/Dolutegravir/Lamivudi [Triumeq 600-50-300 mg Tablet] 1 each PO DAILY Methadone [Dolophine -] 120 mg PO DAILY 10/07/17 Quetiapine Fumarate [Seroquel] 100 mg PO HS #30 tablet 10/22/17 traZODone HCL [Desyrel -] 50 mg PO HS #30 tablet 10/22/17 - Diagnosis (1) Alcohol dependence with uncomplicated withdrawal Current Visit: Yes Status: Chronic (2) Cocaine dependence, uncomplicated Current Visit: Yes Status: Chronic (3) Insomnia Current Visit: Yes Status: Chronic (4) Nicotine dependence Current Visit: Yes Status: Chronic Qualifiers: Nicotine product type: cigarettes Substance use status: uncomplicated Qualified Code(s): F17.210 - Nicotine dependence, cigarettes, uncomplicated (5) Post traumatic stress disorder (PTSD) Current Visit: Yes Status: Chronic (6) Substance induced mood disorder Current Visit: Yes Status: Chronic (7) Substance induced mood disorder Current Visit: No Status: Acute (8) Bipolar disorder Current Visit: No Status: Chronic Qualifiers: Active/Remission status: remission status unspecified Qualified Code(s): F31.9 - Bipolar disorder, unspecified (9) GERD (gastroesophageal reflux disease) Current Visit: Yes Status: Chronic Qualifiers: Esophagitis presence: without esophagitis Qualified Code(s): K21.9 - Gastro -esophageal reflux disease without esophagitis (10) HIV (human immunodeficiency virus infection) Current Visit: Yes Status: Chronic Qualifiers: HIV symptom status: unspecified Qualified Code(s): B20 - Human immunodeficiency virus [HIV] disease (11) MDD (major depressive disorder) Current Visit: No Status: Chronic (12) Methadone maintenance therapy patient Current Visit: Yes Status: Chronic (13) Bipolar II disorder Current Visit: No Status: Suspected (14) Seizure disorder, secondary Current Visit: No Status: Suspected - AMA Did Patient Leave Against Medical Advice: No (pt declined; going to her mmtp for reinstatement)
[2018-06-14] MEDS: ABACAVIR/DOLUTEGRAVIR/LAMIVUDI (TRIUMEQ) TABLET -NF PO SCH (10:43)
== END 2018-06-14 08:55 | disposition home or self-care (01) | DRG 773 ==
LOC: YASAS 13:17 → Y6N 17:55
PROVIDERS: ADMIT Surgery; ATTEND Surgery
PROC: HZ2ZZZZ Detoxification Services for Substance Abuse Treatment (ICD-10-PCS; principal; 2018-06-11)
DX: F10.230 Alcohol dependence with withdrawal, uncomplicated (principal); F11.20 Opioid dependence, uncomplicated; F14.20 Cocaine dependence, uncomplicated; F17.210 Nicotine dependence, cigarettes, uncomplicated; F43.10 Post-traumatic stress disorder, unspecified; F19.24 Other psychoactive substance dependence with psychoactive substance-induced mood disorder; F31.81 Bipolar II disorder; G47.00 Insomnia, unspecified; K21.9 Gastro-esophageal reflux disease without esophagitis; Z21 Asymptomatic human immunodeficiency virus [HIV] infection status; B18.2 Chronic viral hepatitis C; Z87.42 Personal history of other diseases of the female genital tract; Z86.69 Personal history of other diseases of the nervous system and sense organs; Z91.14 Patient's other noncompliance with medication regimen; Z88.1 Allergy status to other antibiotic agents
CPT/HCPCS: 36415; 80053; 81025; 85027; 86593; 86780

== ENCOUNTER 2019-01-16 15:11 | Inpatient (IN) | payer OTHER ==
--- NOTE | 2019-01-16 19:07 | HP ---
CIWA Score Nausea/Vomitin-No Nausea/No Vomiting Muscle Tremors: 1-None Visible, but [place] Anxiety: 3 Agitation: 0-Normal Activity Paroxysmal Sweats: 1-Minimal Palms Moist Orientation: 0-Oriented Tacttile Disturbances: 1-Very Mild Itch/Numbness Auditory Disturbances: 0-None Visual Disturbances: 0-None Headache: 0-None Present CIWA-Ar Total Score: 6 - Admission Criteria OASAS Guidelines: Admission for Medically Managed Detox: Requires at least one of the followin. CIWA greater than 12 2. Seizures within the past 24 hours 3. Delirium tremens within the past 24 hours 4. Hallucinations within the past 24 hours 5. Acute intervention needed for co occurring medical disorder 6. Acute intervention needed for co occurring psychiatric disorder 7. Severe withdrawal that cannot be handled at a lower level of care (continued vomiting, continued diarrhea, abnormal vital signs) requiring intravenous medication and/or fluids 8. Patient presents the following: Seizures, delirium tremens or hallucinations in the past 12 hours Admission Criteria Met: Admission criteria met Admitting History and Physical - Admission History Source: Patient Limitations to Obtaining History: No Limitations - Past Medical History Gastrointestinal: Yes: GERD Hepatobiliary: Yes: Hepatitis C ...LMP: 09/28/17 Infectious Disease: Yes: HIV Psych: Yes: Depression - Smoking History Smoking history: Current every day smoker Have you smoked in the past 12 months: Yes Aproximately how many cigarettes per day: 5 - Alcohol/Substance Use Hx Alcohol Use: Yes History of Substance Use: reports: Cocaine, Heroin Admission ROS [facility] - [facility] Chief Complaint: alcohol withdrawal sx Allergies/Adverse Reactions: Allergies Allergy/AdvReac Type Severity Reaction Status Date / Time cephalexin monohydrate Allergy Hives Verified 10/03/17 16:34 [From Keflex] History of Present Illness: Patient is a 53 yo female resides in [facility], with hx of alcohol, heroin and cocaine use disorder is here seeking inpatient alcohol detox d/t withdrawal sx when she does not drink. Reports six months sobriety but relapsed one month ago after she stopped attending AA meetings. Patient is linked to [facility] at [facility] on 120mg, last medicated today, dose pending verification. Reports hx of alcohol withdrawal seizures with last seizure one year ago. PMHX: HIV on meds, active HCV (pending tx), GERD. Psych hx: bipolar, PTSD. Denies SI/ HI. Reports hx of suicide attempt with last attempt two years ago. Exam Limitations: No Limitations - Ebola screening Have you traveled outside of the country in the last 21 days: No Have you had contact with anyone from an Ebola affected area: No Do you have a fever: No - Review of Systems Constitutional: Chills, Unintentional Wgt. Loss (weight loss x 15 lbs in past two months), Other (poor appetite) EENT: reports: No Symptoms Reported Respiratory: reports: No Symptoms reported Cardiac: reports: No Symptoms Reported GI: reports: Poor Appetite, Poor Fluid Intake : reports: No Symptoms Reported Musculoskeletal: reports: No Symptoms Reported Integumentary: reports: No Symptoms Reported Neuro: reports: No Symptoms reported Endocrine: reports: Increased Thirst Hematology: reports: See HPI Psychiatric: reports: Judgement Intact, Mood/Affect Appropiate, Orientated x3 Other Systems: Reviewed and Negative Patient History - Patient Medical History Hx Anemia: No Hx Asthma: No Hx Chronic Obstructive Pulmonary Disease (COPD): No Hx Cancer: No Hx Cardiac Disorders: No Hx Congestive Heart Failure: No Hx Hypertension: No Hx Hypercholesterolemia: No Hx Pacemaker: No HX Cerebrovascular Accident: No Hx Seizures: Yes (Alcohol related) Hx Dementia: No Hx Diabetes: No Hx Gastrointestinal Disorders: No Hx Liver Disease: No Hx Genitourinary Disorders: No Hx Sexually Transmitted Disorders: No Hx Renal Disease (ESRD): No Hx Thyroid Disease: No Hx Human Immunodeficiency Virus (HIV): Yes (HIV 1993. Trimeq) Hx Hepatitis C: Yes (TREATED) Hx Depression: Yes Hx Suicide Attempt: Yes (2016) Hx Bipolar Disorder: Yes Hx Schizophrenia: No - Patient Surgical History Past Surgical History: Yes Hx Neurologic Surgery: No Hx Cataract Extraction: No Hx Cardiac Surgery: No Hx Lung Surgery: No Hx Breast Surgery: No Hx Breast Biopsy: No Hx Abdominal Surgery: No Hx Appendectomy: No Hx Cholecystectomy: No Hx Genitourinary Surgery: No Hx Section: Yes (2004) Hx Orthopedic Surgery: Yes (Sx for cellulitis R foot 2 weesk ago) Hx Hysterectomy: No Anesthesia Reaction: No - PPD History Previous Implant?: Yes Documented Results: Negative w/proof Date: 02/22/17 Results: 0mm PPD to be Administered?: Yes - Reproductive History Patient is a Female of Child Bearing Age (11 -55 yrs old): Yes (Menopause) Last Menstrual Period: 09/28/17 - Smoking Cessation Smoking history: Current every day smoker Have you smoked in the past 12 months: Yes Aproximately how many cigarettes per day: 4 Cigars Per Day: 0 Hx Chewing Tobacco Use: No Initiated information on smoking cessation: Yes 'Breaking Loose' booklet given: 01/16/19 - Substance & Tx. History Hx Alcohol Use: Yes Hx Substance Use: Yes Substance Use Type: Alcohol, Cocaine, Heroin Hx Substance Use Treatment: Yes ([facility] June 2017) - Substances abused Alcohol Substance route: Oral Frequency: 3-6 times per week Amount used: 1 pint of liquor Age of first use: 13 Date of last use: 01/16/19 Admission Physical Exam S - Vital Signs Vital Signs: Vital Signs - 24 hr 01/16/19 01/16/19 16:41 18:42 Temperature 97.2 F L 97.2 F L Pulse Rate 83 83 Respiratory 18 18 Rate Blood Pressure 145/88 145/88 - Physical General Appearance: Yes: Appropriately Dressed, Anxious HEENTM: Yes: EOMI, Hearing grossly Normal, Normal ENT Inspection, Normocephalic , Normal Voice, RENET[place], Pharynx Normal, Tm's normal, Rhinorrhea, Other (edentulous ) Respiratory: Yes: Chest Non-Tender, Lungs Clear, Normal Breath Sounds, No Respiratory Distress, No Accessory Muscle Use Neck: Yes: Within Normal Limits Breast: Yes: Breast Exam Deferred Cardiology: Yes: Regular Rhythm, Regular Rate Abdominal: Yes: Within Normal Limits Genitourinary: Yes: Within Normal Limits Back: Yes: Normal Inspection Musculoskeletal: Yes: full range of Motion, Gait Steady, Pelvis Stable Extremities: Yes: Normal Capillary Refill, Normal Inspection, Normal Range of Motion, Non-Tender 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, Fully Oriented, Alert, Motor Strength 5/5, Depressed Affect Integumentary: Yes: Normal Color, Dry, Warm Lymphatic: Yes: Within Normal Limits - Diagnostic (1) Alcohol dependence with uncomplicated withdrawal Current Visit: Yes Status: Chronic (2) Cocaine dependence, uncomplicated Current Visit: Yes Status: Chronic (3) GERD (gastroesophageal reflux disease) Current Visit: Yes Status: Chronic Qualifiers: Esophagitis presence: without esophagitis Qualified Code(s): K21.9 - Gastro -esophageal reflux disease without esophagitis (4) HIV (human immunodeficiency virus infection) Current Visit: Yes Status: Chronic Qualifiers: HIV symptom status: unspecified Qualified Code(s): B20 - Human immunodeficiency virus [HIV] disease (5) Methadone maintenance therapy patient Current Visit: Yes Status: Chronic (6) Nicotine dependence Current Visit: Yes Status: Chronic Qualifiers: Nicotine product type: cigarettes Substance use status: uncomplicated Qualified Code(s): F17.210 - Nicotine dependence, cigarettes, uncomplicated (7) Chronic viral hepatitis C Current Visit: Yes Status: Chronic Qualifiers: Hepatic coma status: without hepatic coma Qualified Code(s): B18.2 - Chronic viral hepatitis C Cleared for Admission [facility] - Detox or Rehab S Level of Care: Medically Managed Detox Regimen/Protocol: Ativan Breathalyzer - Breathalyzer Breathalyzer: 0 Urine Drug Screen - Test Device Lot number: [id number] Expiration date: 09/04/20 - Control Is test valid?: Yes - Results Drug screen NEGATIVE: No Urine drug screen results: BARBARA-Cocaine, FEN-Fentanyl, MOP-Opiates, MTD-Methadone Inpatient Rehab Admission - Rehab Decision to Admit Inpatient rehab admission?: No - Initial Determination Are CD services needed?: No Free of communicable disease: No Not in need of hospitalization: No - Rehab Admission Criteria Previous failed treatment: No Poor recovery environment: No Comorbidities: No Lacks judgement: No Patient is meeting Inpatient Rehab admission criteria:: No
[2019-01-16] MEDS ORDERED: MENTHOL/PHENOL 1 EACH UD MM PRN (19:19)
[2019-01-16] MEDS ORDERED: NICOTINE POLACRILEX 2 MG GUM BUC PRN (19:19)
[2019-01-16] MEDS ORDERED: MAGNESIUM CITRATE 300 ML BOTTLE PO PRN (19:19)
[2019-01-16] MEDS ORDERED: MELATONIN 5 MG TABLETS PO PRN (19:19)
[2019-01-16] MEDS ORDERED: BISMUTH SUBSALICYLATE 524 MG/30 ML UD PO PRN (19:19)
[2019-01-16] MEDS ORDERED: MAGNESIUM HYDROX 2400MG/30ML ORAL SUSPENSION 30 ML CUP PO PRN (19:19)
[2019-01-16] MEDS ORDERED: LORazepam 1 MG TABLET PO PRN (19:19)
[2019-01-16] MEDS ORDERED: MAG HYDROX/AL HYDROX/SIMETH 30 ML UNIT-DOSE CUP PO PRN (19:19)
[2019-01-16] MEDS: THIAMINE HCL 100 MG TABLET (FP) PO SCH (22:07)
[2019-01-16] MEDS: LORazepam 2 MG TABLET PO SCH (22:07)
[2019-01-17] MEDS: LORazepam 2 MG TABLET PO SCH ×4 (05:24→22:50)
[2019-01-17] MEDS ORDERED: METHADONE HCL 40 MG DISPERSABLE TABLET PO ONE (09:30)
[2019-01-17 10:07] LABS: HEMATOCRIT 39.8 % (32.4-45.2); HEMOGLOBIN 13.2 GM/dL (10.7-15.3); MCH 29.9 pg (25.7-33.7); MCHC 33.2 g/dl (32.0-36.0); MEAN CELL VOLUME 90.1 fl (80-96); MEAN PLT VOLUME 9.3 fl (7.5-11.1); PLATELET COUNT 132 K/MM3 (134-434); RBC 4.41 M/mm3 (3.60-5.2); RDW 13.5 % (11.6-15.6)
[2019-01-17 10:19] LABS: BILIRUBIN,TOTAL 0.6 mg/dL (0.2-1); BLOOD UREA NITROGEN 10.6 mg/dL (7-18); CALCIUM 8.9 mg/dL (8.5-10.1); CREATININE 0.6 mg/dL (0.55-1.3); POTASSIUM 3.4 mmol/L (3.5-5.1); TOT PROT 7.8 g/dl (6.4-8.2)
[2019-01-17 10:23] LABS: WHITE BLOOD COUNT 1.8 K/mm3 (4.0-10.0)
[2019-01-17] MEDS: PRENATAL VITAMINS W/ FOLIC ACID TABLET (FP) PO SCH (10:27)
[2019-01-17] MEDS: NICOTINE 14 MG/24 HOURS TOPICAL PATCH TD SCH (10:29)
[2019-01-17 10:52] LABS: RPR REACTIVE 1:1 (NONREACTIVE)
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
--- NOTE | 2019-01-17 13:02 | EKG ---
Test Reason : Blood Pressure : / mmHG Vent. Rate : 075 BPM Atrial Rate : 075 BPM P-R Int : 118 ms QRS Dur : 106 ms QT Int : 378 ms P-R-T Axes : 053 041 021 degrees QTc Int : 422 ms NORMAL SINUS RHYTHM INCOMPLETE RIGHT BUNDLE BRANCH BLOCK NONSPECIFIC T WAVE ABNORMALITY ABNORMAL ECG Confirmed by RIDGE GUILLEN MD ([id number]) on 01/17/2019 1:02:20 PM Referred By: MIKE Confirmed By:RIDGE GUILLEN MD
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
[2019-01-17] MEDS: METHOCARBAMOL 500 MG TABLET PO PRN (20:23)
[2019-01-17] MEDS: THIAMINE HCL 100 MG TABLET (FP) PO SCH (22:36)
[2019-01-17] MEDS: QUEtiapine FUMARATE 50 MG TABLET PO SCH (22:36)
[2019-01-18] MEDS: LORazepam 1 MG TABLET PO SCH ×4 (05:54→22:24)
[2019-01-18] MEDS: METHADONE HCL 40 MG DISPERSABLE TABLET PO SCH (05:54)
[2019-01-18] MEDS: NICOTINE 14 MG/24 HOURS TOPICAL PATCH TD SCH (10:36)
[2019-01-18] MEDS: PRENATAL VITAMINS W/ FOLIC ACID TABLET (FP) PO SCH (10:37)
[2019-01-18 10:39] LABS: BASO % 0.9 % (0-2.0); EOS % 3.3 % (0-4.5); HEMATOCRIT 37.9 % (32.4-45.2); HEMOGLOBIN 12.6 GM/dL (10.7-15.3); LYMPH % 54.5 % (8-40); MCH 30.2 pg (25.7-33.7); MCHC 33.1 g/dl (32.0-36.0); MEAN CELL VOLUME 91.3 fl (80-96); MEAN PLT VOLUME 9.9 fl (7.5-11.1); MONO % 9.9 % (3.8-10.2); NEUT % 31.4 % (42.8-82.8); PLATELET COUNT 135 K/MM3 (134-434); RBC 4.15 M/mm3 (3.60-5.2); RDW 13.6 % (11.6-15.6); WHITE BLOOD COUNT 2.3 K/mm3 (4.0-10.0)
[2019-01-18] MEDS: IBUPROFEN 400 MG TABLET (FP) PO PRN (11:56)
[2019-01-18] MEDS: METHOCARBAMOL 500 MG TABLET PO PRN (11:56)
--- NOTE | 2019-01-18 13:12 | PN ---
S CIWA - CIWA Score Nausea/Vomitin-No Nausea/No Vomiting Muscle Tremors: None Anxiety: 2 Agitation: 0-Normal Activity Paroxysmal Sweats: 3 Orientation: 0-Oriented Tacttile Disturbances: 0-None Auditory Disturbances: 0-None Visual Disturbances: 0-None Headache: 2-Mild CIWA-Ar Total Score: 7 BHS Progress Note (SOAP) Subjective: c/o sweats, anxiety, and headache. Objective: 01/18/19 13:10 Vital Signs 01/18/19 01/18/19 06:20 09:23 Temperature 98.7 F 97.3 F L Pulse Rate 86 99 H Respiratory 16 16 Rate Blood Pressure 112/79 125/76 Laboratory Last Values WBC 2.3 K/mm3 (4.0-10.0) L 01/18/19 08:10 RBC 4.15 M/mm3 (3.60-5.2) 01/18/19 08:10 Hgb 12.6 GM/dL (10.7-15.3) 01/18/19 08:10 Hct 37.9 % (32.4-45.2) 01/18/19 08:10 MCV 91.3 fl (80-96) 01/18/19 08:10 MCH 30.2 pg (25.7-33.7) 01/18/19 08:10 MCHC 33.1 g/dl (32.0-36.0) 01/18/19 08:10 RDW 13.6 % (11.6-15.6) 01/18/19 08:10 Plt Count 135 K/MM3 (134-434) 01/18/19 08:10 MPV 9.9 fl (7.5-11.1) 01/18/19 08:10 Absolute Neuts (auto) 0.7 K/mm3 (1.5-8.0) L 01/18/19 08:10 Neutrophils % 31.4 % (42.8-82.8) L 01/18/19 08:10 Lymphocytes % 54.5 % (8-40) H 01/18/19 08:10 Monocytes % 9.9 % (3.8-10.2) 01/18/19 08:10 Eosinophils % 3.3 % (0-4.5) 01/18/19 08:10 Basophils % 0.9 % (0-2.0) 01/18/19 08:10 Nucleated RBC % 0 % (0-0) 01/18/19 08:10 Total Absolute Neuts 0.70 K/mm3 01/18/19 08:10 Sodium 138 mmol/L (136-145) 01/17/19 08:00 Potassium 3.4 mmol/L (3.5-5.1) L 01/17/19 08:00 Chloride 103 mmol/L (98-107) 01/17/19 08:00 Carbon Dioxide 28 mmol/L (21-32) 01/17/19 08:00 Anion Gap 7 MMOL/L (8-16) L 01/17/19 08:00 BUN 10.6 mg/dL (7-18) 01/17/19 08:00 Creatinine 0.6 mg/dL (0.55-1.3) 01/17/19 08:00 Est GFR (CKD-EPI)AfAm 121.46 01/17/19 08:00 Est GFR (CKD-EPI)NonAf 104.80 01/17/19 08:00 Random Glucose 86 mg/dL (74-106) 01/17/19 08:00 Calcium 8.9 mg/dL (8.5-10.1) 01/17/19 08:00 Total Bilirubin 0.6 mg/dL (0.2-1) 01/17/19 08:00 AST 138 U/L (15-37) H 01/17/19 08:00 ALT 122 U/L (13-61) H 01/17/19 08:00 Alkaline Phosphatase 112 U/L (45-117) 01/17/19 08:00 Total Protein 7.8 g/dl (6.4-8.2) 01/17/19 08:00 Albumin 3.0 g/dl (3.4-5.0) L 01/17/19 08:00 RPR Titer Reactive 1:1 (NONREACTIVE) H 01/17/19 08:00 T.pallidum Ab (MHA) (NONREACTIVE) 01/17/19 08:00 Labs noted with low wbc count. Assessment: 01/18/19 13:10 AOX3, in no acute respiratory distress. Full ROM, ambulating in the unit. Withdrawal symptoms. Leucopenia Plan: continue detox. Increase fluids. Repeat cbc in AM.
[2019-01-18] MEDS: THIAMINE HCL 100 MG TABLET (FP) PO SCH (22:24)
[2019-01-18] MEDS: QUEtiapine FUMARATE 50 MG TABLET PO SCH (22:24)
[2019-01-19] MEDS ORDERED: LORazepam 0.5 MG TABLET PO PRN
[2019-01-19] MEDS: LORazepam 0.5 MG TABLET PO SCH ×4 (06:04→22:06)
[2019-01-19] MEDS: METHADONE HCL 40 MG DISPERSABLE TABLET PO SCH (06:05)
[2019-01-19] MEDS: METHOCARBAMOL 500 MG TABLET PO PRN (09:48)
[2019-01-19] MEDS: PRENATAL VITAMINS W/ FOLIC ACID TABLET (FP) PO SCH (09:48)
[2019-01-19] MEDS: NICOTINE 14 MG/24 HOURS TOPICAL PATCH TD SCH (09:49)
[2019-01-19 11:07] LABS: BASO % 0.9 % (0-2.0); EOS % 3.5 % (0-4.5); HEMOGLOBIN 12.6 GM/dL (10.7-15.3); LYMPH % 51.3 % (8-40); MCH 30.5 pg (25.7-33.7); MCHC 33.2 g/dl (32.0-36.0); MEAN CELL VOLUME 91.9 fl (80-96); MEAN PLT VOLUME 10.5 fl (7.5-11.1); MONO % 11.3 % (3.8-10.2); PLATELET COUNT 125 K/MM3 (134-434); RBC 4.14 M/mm3 (3.60-5.2); RDW 13.7 % (11.6-15.6); WHITE BLOOD COUNT 2.4 K/mm3 (4.0-10.0)
--- NOTE | 2019-01-19 12:21 | PN ---
S CIWA - CIWA Score Nausea/Vomitin-No Nausea/No Vomiting Muscle Tremors: 1-None Visible, but [place] Anxiety: 1-Mildly Anxious Agitation: 1-Slight > Activity Paroxysmal Sweats: 1-Minimal Palms Moist Orientation: 0-Oriented Tacttile Disturbances: 0-None Auditory Disturbances: 0-None Visual Disturbances: 0-None Headache: 0-None Present CIWA-Ar Total Score: 4 BHS Progress Note (SOAP) Subjective: 53 years old female admitted on 01/16/19 for alcohol withdrawal sx management treating with ativan detox regimen ambulating with cane steady gait c/o chronic back pain lidocaine patch received methadone 120 mg po today patient tolerated well with ativan regimen slept through the night less tremor Objective: 01/19/19 12:20 Vital Signs Temperature 97.7 F 01/19/19 09:23 Pulse Rate 110 H 01/19/19 09:23 Respiratory Rate 18 01/19/19 09:23 Blood Pressure 115/78 01/19/19 09:23 O2 Sat by Pulse Oximetry (%) Laboratory Last Values WBC 2.4 K/mm3 (4.0-10.0) L 01/19/19 08:00 RBC 4.14 M/mm3 (3.60-5.2) 01/19/19 08:00 Hgb 12.6 GM/dL (10.7-15.3) 01/19/19 08:00 Hct 38.0 % (32.4-45.2) 01/19/19 08:00 MCV 91.9 fl (80-96) 01/19/19 08:00 MCH 30.5 pg (25.7-33.7) 01/19/19 08:00 MCHC 33.2 g/dl (32.0-36.0) 01/19/19 08:00 RDW 13.7 % (11.6-15.6) 01/19/19 08:00 Plt Count 125 K/MM3 (134-434) L 01/19/19 08:00 MPV 10.5 fl (7.5-11.1) 01/19/19 08:00 Absolute Neuts (auto) 0.8 K/mm3 (1.5-8.0) L 01/19/19 08:00 Neutrophils % 33.0 % (42.8-82.8) L 01/19/19 08:00 Lymphocytes % 51.3 % (8-40) H 01/19/19 08:00 Monocytes % 11.3 % (3.8-10.2) H 01/19/19 08:00 Eosinophils % 3.5 % (0-4.5) 01/19/19 08:00 Basophils % 0.9 % (0-2.0) 01/19/19 08:00 Nucleated RBC % 0 % (0-0) 01/19/19 08:00 Total Absolute Neuts 0.70 K/mm3 01/18/19 08:10 Sodium 138 mmol/L (136-145) 01/17/19 08:00 Potassium 3.4 mmol/L (3.5-5.1) L 01/17/19 08:00 Chloride 103 mmol/L (98-107) 01/17/19 08:00 Carbon Dioxide 28 mmol/L (21-32) 01/17/19 08:00 Anion Gap 7 MMOL/L (8-16) L 01/17/19 08:00 BUN 10.6 mg/dL (7-18) 01/17/19 08:00 Creatinine 0.6 mg/dL (0.55-1.3) 01/17/19 08:00 Est GFR (CKD-EPI)AfAm 121.46 01/17/19 08:00 Est GFR (CKD-EPI)NonAf 104.80 01/17/19 08:00 Random Glucose 86 mg/dL (74-106) 01/17/19 08:00 Calcium 8.9 mg/dL (8.5-10.1) 01/17/19 08:00 Total Bilirubin 0.6 mg/dL (0.2-1) 01/17/19 08:00 AST 138 U/L (15-37) H 01/17/19 08:00 ALT 122 U/L (13-61) H 01/17/19 08:00 Alkaline Phosphatase 112 U/L (45-117) 01/17/19 08:00 Total Protein 7.8 g/dl (6.4-8.2) 01/17/19 08:00 Albumin 3.0 g/dl (3.4-5.0) L 01/17/19 08:00 RPR Titer Reactive 1:1 (NONREACTIVE) H 01/17/19 08:00 T.pallidum Ab (MHA) (NONREACTIVE) 01/17/19 08:00 lab noted low K+ low wbc long history of hiv treated with ARC with low wbc 01/19/19 12:22 two doses of K+ supplment 20 meq 01/19/19 12:23 Assessment: 01/19/19 12:24 alcohol withdrawal Plan: ativan regimen
[2019-01-19] MEDS ORDERED: LIDOCAINE 5% TOPICAL PATCH TP ONE (13:30)
[2019-01-19] MEDS: POTASSIUM CHLORIDE ORAL LIQUID 20 MEQ/15 ML PO SCH ×2 (13:54→22:08)
[2019-01-19] MEDS: IBUPROFEN 400 MG TABLET (FP) PO PRN (20:10)
[2019-01-19] MEDS ORDERED: LIDOCAINE PATCH REMOVAL MC SCH (22:00)
[2019-01-19] MEDS: THIAMINE HCL 100 MG TABLET (FP) PO SCH (22:06)
[2019-01-19] MEDS: QUEtiapine FUMARATE 50 MG TABLET PO SCH (22:06)
[2019-01-20] MEDS ORDERED: LORazepam 0.5 MG TABLET PO ONE (05:00)
[2019-01-20] MEDS: METHADONE HCL 40 MG DISPERSABLE TABLET PO SCH (06:12)
[2019-01-20] MEDS: PRENATAL VITAMINS W/ FOLIC ACID TABLET (FP) PO SCH (11:06)
[2019-01-20] MEDS: NICOTINE 14 MG/24 HOURS TOPICAL PATCH TD SCH (11:06)
[2019-01-20 12:55] VITALS: BP 115/77; PULSE 102; TEMP 99.1
--- NOTE | 2019-01-20 13:47 | DS ---
[facility] Detox Discharge Summary Admission Date: 01/16/19 Discharge Date: 01/20/19 - History Present History: Alcohol Dependence Additional Comments: 53 years old female admitted on 01/16/19 for alcohol withdrawal sx management [facility] regimen patient toleratedc well alert ambulating on hallway anxious about transferred to rehab today cardiac s1s2 regular rate rhythm respiratory clear lung bilaterally on auscultation extremities full range of motion - Physical Exam Results Vital Signs: Vital Signs Temperature 99.1 F 01/20/19 12:55 Pulse Rate 102 H 01/20/19 12:55 Respiratory Rate 18 01/20/19 12:55 Blood Pressure 115/77 01/20/19 12:55 O2 Sat by Pulse Oximetry (%) Pertinent Admission Physical Exam Findings: alcohol withdrawal Laboratory Last Values WBC 2.4 K/mm3 (4.0-10.0) L 01/19/19 08:00 RBC 4.14 M/mm3 (3.60-5.2) 01/19/19 08:00 Hgb 12.6 GM/dL (10.7-15.3) 01/19/19 08:00 Hct 38.0 % (32.4-45.2) 01/19/19 08:00 MCV 91.9 fl (80-96) 01/19/19 08:00 MCH 30.5 pg (25.7-33.7) 01/19/19 08:00 MCHC 33.2 g/dl (32.0-36.0) 01/19/19 08:00 RDW 13.7 % (11.6-15.6) 01/19/19 08:00 Plt Count 125 K/MM3 (134-434) L 01/19/19 08:00 MPV 10.5 fl (7.5-11.1) 01/19/19 08:00 Absolute Neuts (auto) 0.8 K/mm3 (1.5-8.0) L 01/19/19 08:00 Neutrophils % 33.0 % (42.8-82.8) L 01/19/19 08:00 Lymphocytes % 51.3 % (8-40) H 01/19/19 08:00 Monocytes % 11.3 % (3.8-10.2) H 01/19/19 08:00 Eosinophils % 3.5 % (0-4.5) 01/19/19 08:00 Basophils % 0.9 % (0-2.0) 01/19/19 08:00 Nucleated RBC % 0 % (0-0) 01/19/19 08:00 Total Absolute Neuts 0.70 K/mm3 01/18/19 08:10 Sodium 138 mmol/L (136-145) 01/17/19 08:00 Potassium 3.4 mmol/L (3.5-5.1) L 01/17/19 08:00 Chloride 103 mmol/L (98-107) 01/17/19 08:00 Carbon Dioxide 28 mmol/L (21-32) 01/17/19 08:00 Anion Gap 7 MMOL/L (8-16) L 01/17/19 08:00 BUN 10.6 mg/dL (7-18) 01/17/19 08:00 Creatinine 0.6 mg/dL (0.55-1.3) 01/17/19 08:00 Est GFR (CKD-EPI)AfAm 121.46 01/17/19 08:00 Est GFR (CKD-EPI)NonAf 104.80 01/17/19 08:00 Random Glucose 86 mg/dL (74-106) 01/17/19 08:00 Calcium 8.9 mg/dL (8.5-10.1) 01/17/19 08:00 Total Bilirubin 0.6 mg/dL (0.2-1) 01/17/19 08:00 AST 138 U/L (15-37) H 01/17/19 08:00 ALT 122 U/L (13-61) H 01/17/19 08:00 Alkaline Phosphatase 112 U/L (45-117) 01/17/19 08:00 Total Protein 7.8 g/dl (6.4-8.2) 01/17/19 08:00 Albumin 3.0 g/dl (3.4-5.0) L 01/17/19 08:00 POC Urine HCG, Qual Negative 01/16/19 19:15 RPR Titer Reactive 1:1 (NONREACTIVE) H 01/17/19 08:00 T.pallidum Ab (MHA) (NONREACTIVE) 01/17/19 08:00 lab noted long history of hiv treated with ARV K+ low ast elevation - Treatment Hospital Course: Detox Protocol Followed, Detoxed Safely, Responded well, Discharged Condition Good, Rehab Referral Accepted Patient has Accepted a Rehab Referral to: [email or web address] - Medication Discharge Medications: Ambulatory Orders Abacavir/Dolutegravir/Lamivudi [Triumeq 600-50-300 mg Tablet] 1 each PO DAILY Methadone [Dolophine -] 120 mg PO DAILY 10/07/17 Quetiapine Fumarate [Seroquel -] 100 mg PO HS #30 tablet 10/22/17 traZODone HCL [Desyrel -] 50 mg PO HS #30 tablet 10/22/17 - Diagnosis (1) Methadone maintenance therapy patient Status: Chronic (2) Nicotine dependence Status: Acute Qualifiers: Nicotine product type: cigarettes Substance use status: in withdrawal Qualified Code(s): F17.213 - Nicotine dependence, cigarettes, with withdrawal (3) HIV (human immunodeficiency virus infection) Status: Chronic Qualifiers: HIV symptom status: asymptomatic Qualified Code(s): Z21 - Asymptomatic human immunodeficiency virus [HIV] infection status (4) GERD (gastroesophageal reflux disease) Status: Chronic Qualifiers: Esophagitis presence: without esophagitis Qualified Code(s): K21.9 - Gastro -esophageal reflux disease without esophagitis (5) Alcohol dependence with uncomplicated withdrawal Status: Acute (6) Substance induced mood disorder Status: Suspected (7) Chronic viral hepatitis C Status: Chronic Qualifiers: Hepatic coma status: without hepatic coma Qualified Code(s): B18.2 - Chronic viral hepatitis C (8) Opioid dependence on agonist therapy Status: Chronic - AMA Did Patient Leave Against Medical Advice: No CIWA Score - CIWA Score Nausea/Vomitin-No Nausea/No Vomiting Muscle Tremors: 1-None Visible, but [place] Anxiety: 0-No Anxiety, at Ease Agitation: 0-Normal Activity Paroxysmal Sweats: 1-Minimal Palms Moist Orientation: 0-Oriented Tacttile Disturbances: 0-None Auditory Disturbances: 0-None Visual Disturbances: 0-None Headache: 0-None Present CIWA-Ar Total Score: 2
== END 2019-01-20 13:06 | disposition other institution (70) | DRG 773 ==
LOC: YASAS 15:11 → Y3N 19:29
PROVIDERS: ADMIT Allergy & Immunology; ATTEND Allergy & Immunology
PROC: HZ2ZZZZ Detoxification Services for Substance Abuse Treatment (ICD-10-PCS; principal; 2019-01-16)
DX: F10.230 Alcohol dependence with withdrawal, uncomplicated (principal); F11.20 Opioid dependence, uncomplicated; F14.20 Cocaine dependence, uncomplicated; F17.213 Nicotine dependence, cigarettes, with withdrawal; F19.24 Other psychoactive substance dependence with psychoactive substance-induced mood disorder; F31.9 Bipolar disorder, unspecified; F43.10 Post-traumatic stress disorder, unspecified; Z21 Asymptomatic human immunodeficiency virus [HIV] infection status; K21.9 Gastro-esophageal reflux disease without esophagitis; B18.2 Chronic viral hepatitis C; D72.819 Decreased white blood cell count, unspecified; G47.00 Insomnia, unspecified; Z88.1 Allergy status to other antibiotic agents; Z62.810 Personal history of physical and sexual abuse in childhood; Z87.42 Personal history of other diseases of the female genital tract; Z91.14 Patient's other noncompliance with medication regimen; Z86.69 Personal history of other diseases of the nervous system and sense organs; Z91.5 Personal history of self-harm
CPT/HCPCS: 36415; 80053; 81003; 81025; 85025; 85027; 86593; 86780; 93005; 93010

== ENCOUNTER 2019-01-20 13:07 | Inpatient (IN) | payer OTHER ==
[2019-01-20] MEDS ORDERED: MAGNESIUM HYDROX 2400MG/30ML ORAL SUSPENSION 30 ML CUP PO PRN (13:54)
[2019-01-20] MEDS ORDERED: guaiFENesin 200 MG/10 ML 10 ML UNIT-DOSE CUPS PO PRN (13:54)
[2019-01-20] MEDS ORDERED: MENTHOL/PHENOL 1 EACH UD MM PRN (13:54)
[2019-01-20] MEDS ORDERED: MAG HYDROX/AL HYDROX/SIMETH 30 ML UNIT-DOSE CUP PO PRN (13:54)
[2019-01-20] MEDS ORDERED: P-EPHED 60MG/TRIPROLIDI 2.5MG TABLET PO PRN (13:54)
[2019-01-20] MEDS ORDERED: LOPERAMIDE HCL 2 MG CAPSULE PO PRN (13:54)
[2019-01-20] MEDS ORDERED: MAGNESIUM CITRATE 300 ML BOTTLE PO PRN (13:54)
[2019-01-20] MEDS ORDERED: ACETAMINOPHEN 325 MG TABLET (FP) PO PRN (13:54)
--- NOTE | 2019-01-20 13:54 | HP ---
[facility] Rehab Assess/Revision - Admission History Admitted to Rehab from: [facility] Date of Admission to Rehab: 01/20/19 - Vital signs Vital Signs: Vital Signs Period Temp Pulse Resp BP Sys/Harden Pulse Ox Last 24 Hr 98.5 F 94 16 109/73 - Findings Detox History & Physical reviewed: Yes Concur with findings: Yes Comments/Additional Findings: transferred from detox to rehab admission as per protocol Inpatient Rehab Admission - Rehab Decision to Admit Inpatient rehab admission?: Yes - Initial Determination Are CD services needed?: Yes Free of communicable disease: Yes Not in need of hospitalization: Yes - Rehab Admission Criteria Previous failed treatment: Yes Poor recovery environment: Yes Comorbidities: Yes Lacks judgement: Yes Patient is meeting Inpatient Rehab admission criteria:: Yes
--- NOTE | 2019-01-20 14:12 | PN ---
[facility] Progress Note Note: Pt is a 53 y/o female with a hx of TD-Alcohol, admitted to rehab from [address] [place] [address] detox today. Patient is on MMTP at [facility] on 120mg last medicated on [address] [place] [address] today. Reports hx of alcohol withdrawal seizures with last seizure one year ago. PMHX: HIV on meds, active HCV (pending tx), GERD. Psych hx: bipolar, PTSD. Denies SI/HI. Reports hx of suicide attempt with last attempt two years ago. Pt reports she [place] [facility] [place] [address] [place] Vital Signs - 24 hr 01/20/19 13:44 Temperature 98.5 F Pulse Rate 94 H Respiratory 16 Rate Blood Pressure 109/73 Alert/oriented to self and place. Disoriented to day/date by >1 week. nad oob ambulating with steady gait A/P s/p detox new rehab pt Fatigue Maintain safety reminded pt to increase po fluids Continue rehab tx Repeat K+ lab ordered from [address] [place] [address], results pending.
[2019-01-20] MEDS: QUEtiapine FUMARATE 50 MG TABLET PO SCH (21:49)
[2019-01-20] MEDS: THIAMINE HCL 100 MG TABLET (FP) PO SCH (21:49)
[2019-01-20] MEDS: LIDOCAINE PATCH REMOVAL MC SCH (21:50)
[2019-01-20] MEDS ORDERED: MELATONIN 5 MG TABLETS PO PRN (22:00)
[2019-01-21] MEDS: METHADONE HCL 40 MG DISPERSABLE TABLET PO SCH (06:39)
[2019-01-21] MEDS: PRENATAL VITAMINS W/ FOLIC ACID TABLET (FP) PO SCH (10:20)
[2019-01-21] MEDS: LIDOCAINE 5% TOPICAL PATCH TP SCH (10:20)
[2019-01-21 12:22] LABS: POTASSIUM 4.1 mmol/L (3.5-5.1)
[2019-01-21] MEDS: IBUPROFEN 400 MG TABLET (FP) PO PRN (19:51)
[2019-01-21] MEDS: QUEtiapine FUMARATE 50 MG TABLET PO SCH (21:19)
[2019-01-21] MEDS: THIAMINE HCL 100 MG TABLET (FP) PO SCH (21:19)
[2019-01-21] MEDS: LIDOCAINE PATCH REMOVAL MC SCH (21:20)
[2019-01-22] MEDS: IBUPROFEN 400 MG TABLET (FP) PO PRN ×2 (01:24→15:24)
[2019-01-22] MEDS: METHADONE HCL 40 MG DISPERSABLE TABLET PO SCH (06:46)
[2019-01-22] MEDS: LIDOCAINE 5% TOPICAL PATCH TP SCH (10:08)
[2019-01-22] MEDS: PRENATAL VITAMINS W/ FOLIC ACID TABLET (FP) PO SCH (10:08)
[2019-01-22] MEDS: QUEtiapine FUMARATE 50 MG TABLET PO SCH (21:21)
[2019-01-22] MEDS: THIAMINE HCL 100 MG TABLET (FP) PO SCH (21:21)
[2019-01-22] MEDS: LIDOCAINE PATCH REMOVAL MC SCH (21:22)
[2019-01-23] MEDS: METHADONE HCL 40 MG DISPERSABLE TABLET PO SCH (06:29)
[2019-01-23] MEDS: LIDOCAINE 5% TOPICAL PATCH TP SCH (09:07)
[2019-01-23] MEDS: IBUPROFEN 400 MG TABLET (FP) PO PRN (09:08)
[2019-01-23] MEDS: PRENATAL VITAMINS W/ FOLIC ACID TABLET (FP) PO SCH (09:08)
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
[2019-01-23] MEDS ORDERED: IBUPROFEN 600 MG TABLET (FP) PO PRN ×2 (12:07→12:08)
--- NOTE | 2019-01-23 12:23 | PN ---
[facility] Progress Note Note: Patient requesting Bictarvy, her HIV medication. Pharmacy called and phone number was disconnected. Discussed with patient and requested that she speak with her counselor to contact her physician and consent to have her medication list sent to this facility to confirm her medication. Patient agreed.
[2019-01-23] MEDS: QUEtiapine FUMARATE 50 MG TABLET PO SCH (21:46)
[2019-01-23] MEDS: METHYL SALICYLATE/MENTHOL OINT 30 GM TUBE TP SCH (21:46)
[2019-01-23] MEDS: LIDOCAINE PATCH REMOVAL MC SCH (21:46)
[2019-01-23] MEDS: THIAMINE HCL 100 MG TABLET (FP) PO SCH (21:46)
[2019-01-24] MEDS: METHADONE HCL 40 MG DISPERSABLE TABLET PO SCH (06:09)
[2019-01-24] MEDS ORDERED: PT OWN MED DRAWER 7, Y5N ONE (09:05)
[2019-01-24] MEDS: LIDOCAINE 5% TOPICAL PATCH TP SCH (09:45)
[2019-01-24] MEDS: PRENATAL VITAMINS W/ FOLIC ACID TABLET (FP) PO SCH (09:45)
[2019-01-24] MEDS: METHYL SALICYLATE/MENTHOL OINT 30 GM TUBE TP SCH (09:45)
[2019-01-24] MEDS: QUEtiapine FUMARATE 50 MG TABLET PO SCH (21:32)
[2019-01-24] MEDS: THIAMINE HCL 100 MG TABLET (FP) PO SCH (21:32)
[2019-01-24] MEDS: LIDOCAINE PATCH REMOVAL MC SCH (21:33)
[2019-01-25] MEDS: METHADONE HCL 40 MG DISPERSABLE TABLET PO SCH (06:34)
[2019-01-25] MEDS: LIDOCAINE 5% TOPICAL PATCH TP SCH (10:08)
[2019-01-25] MEDS: METHYL SALICYLATE/MENTHOL OINT 30 GM TUBE TP SCH (10:08)
[2019-01-25] MEDS: PRENATAL VITAMINS W/ FOLIC ACID TABLET (FP) PO SCH (10:08)
[2019-01-25] MEDS ORDERED: PT OWN MED DRAWER 7, Y5N ONE (10:27)
[2019-01-25] MEDS: QUEtiapine FUMARATE 50 MG TABLET PO SCH (22:05)
[2019-01-25] MEDS: LIDOCAINE PATCH REMOVAL MC SCH (22:06)
[2019-01-25] MEDS: THIAMINE HCL 100 MG TABLET (FP) PO SCH (22:06)
[2019-01-26] MEDS: METHADONE HCL 40 MG DISPERSABLE TABLET PO SCH (06:57)
[2019-01-26] MEDS: METHYL SALICYLATE/MENTHOL OINT 30 GM TUBE TP SCH (09:53)
[2019-01-26] MEDS: PRENATAL VITAMINS W/ FOLIC ACID TABLET (FP) PO SCH (09:53)
[2019-01-26] MEDS: LIDOCAINE 5% TOPICAL PATCH TP SCH (09:53)
[2019-01-26] MEDS: LIDOCAINE PATCH REMOVAL MC SCH (21:35)
[2019-01-26] MEDS: THIAMINE HCL 100 MG TABLET (FP) PO SCH (21:35)
[2019-01-26] MEDS: QUEtiapine FUMARATE 50 MG TABLET PO SCH (21:35)
[2019-01-27] MEDS: METHADONE HCL 40 MG DISPERSABLE TABLET PO SCH (06:34)
[2019-01-27] MEDS ORDERED: ONDANSETRON *ODT* 4 MG TABLET SL ONE (08:27)
[2019-01-27] MEDS: LIDOCAINE 5% TOPICAL PATCH TP SCH (09:06)
[2019-01-27] MEDS: PRENATAL VITAMINS W/ FOLIC ACID TABLET (FP) PO SCH (09:07)
[2019-01-27] MEDS: METHYL SALICYLATE/MENTHOL OINT 30 GM TUBE TP SCH (09:07)
[2019-01-27] MEDS: THIAMINE HCL 100 MG TABLET (FP) PO SCH (21:34)
[2019-01-27] MEDS: LIDOCAINE PATCH REMOVAL MC SCH (21:34)
[2019-01-27] MEDS: QUEtiapine FUMARATE 50 MG TABLET PO SCH (21:34)
[2019-01-28] MEDS: METHADONE HCL 40 MG DISPERSABLE TABLET PO SCH (06:09)
[2019-01-28] MEDS: METHYL SALICYLATE/MENTHOL OINT 30 GM TUBE TP SCH (10:05)
[2019-01-28] MEDS: PRENATAL VITAMINS W/ FOLIC ACID TABLET (FP) PO SCH (10:05)
[2019-01-28] MEDS: LIDOCAINE 5% TOPICAL PATCH TP SCH (10:05)
[2019-01-28 11:41] LABS: ALBUMIN 3.3 g/dl (3.4-5.0); BILIRUBIN,TOTAL 0.3 mg/dL (0.2-1); BLOOD UREA NITROGEN 13.7 mg/dL (7-18); CALCIUM 9.2 mg/dL (8.5-10.1); CREATININE 0.6 mg/dL (0.55-1.3); TOT PROT 8.6 g/dl (6.4-8.2)
[2019-01-28] MEDS: LIDOCAINE PATCH REMOVAL MC SCH (21:23)
[2019-01-28] MEDS: QUEtiapine FUMARATE 50 MG TABLET PO SCH (21:23)
[2019-01-28] MEDS: THIAMINE HCL 100 MG TABLET (FP) PO SCH (21:23)
[2019-01-29] MEDS: METHADONE HCL 40 MG DISPERSABLE TABLET PO SCH (06:31)
[2019-01-29] MEDS: PRENATAL VITAMINS W/ FOLIC ACID TABLET (FP) PO SCH (10:05)
[2019-01-29] MEDS: LIDOCAINE 5% TOPICAL PATCH TP SCH (10:05)
[2019-01-29] MEDS: METHYL SALICYLATE/MENTHOL OINT 30 GM TUBE TP SCH (10:05)
[2019-01-29] MEDS ORDERED: PT OWN MED DRAWER 7, Y5N ONE (10:13)
[2019-01-29] MEDS: THIAMINE HCL 100 MG TABLET (FP) PO SCH (21:35)
[2019-01-29] MEDS: LIDOCAINE PATCH REMOVAL MC SCH (21:35)
[2019-01-29] MEDS: QUEtiapine FUMARATE 50 MG TABLET PO SCH (21:35)
[2019-01-30] MEDS: METHADONE HCL 40 MG DISPERSABLE TABLET PO SCH (06:18)
[2019-01-30] MEDS ORDERED: PT OWN MED DRAWER 7, Y5N ONE (09:09)
[2019-01-30] MEDS: METHYL SALICYLATE/MENTHOL OINT 30 GM TUBE TP SCH (10:20)
[2019-01-30] MEDS: LIDOCAINE 5% TOPICAL PATCH TP SCH (10:20)
[2019-01-30] MEDS: PRENATAL VITAMINS W/ FOLIC ACID TABLET (FP) PO SCH (10:20)
[2019-01-30] MEDS: THIAMINE HCL 100 MG TABLET (FP) PO SCH (21:40)
[2019-01-30] MEDS: QUEtiapine FUMARATE 50 MG TABLET PO SCH (21:41)
[2019-01-30] MEDS: LIDOCAINE PATCH REMOVAL MC SCH (21:41)
[2019-01-31] MEDS: METHADONE HCL 40 MG DISPERSABLE TABLET PO SCH (06:42)
[2019-01-31] MEDS ORDERED: PT OWN MED DRAWER 7, Y5N ONE (08:43)
[2019-01-31] MEDS: PRENATAL VITAMINS W/ FOLIC ACID TABLET (FP) PO SCH (10:11)
[2019-01-31] MEDS: METHYL SALICYLATE/MENTHOL OINT 30 GM TUBE TP SCH (10:11)
[2019-01-31] MEDS: LIDOCAINE 5% TOPICAL PATCH TP SCH (10:11)
[2019-01-31] MEDS: LIDOCAINE PATCH REMOVAL MC SCH (21:19)
[2019-01-31] MEDS: THIAMINE HCL 100 MG TABLET (FP) PO SCH (21:19)
[2019-01-31] MEDS: QUEtiapine FUMARATE 50 MG TABLET PO SCH (21:19)
[2019-02-01] MEDS: METHADONE HCL 40 MG DISPERSABLE TABLET PO SCH (06:19)
[2019-02-01] MEDS: LIDOCAINE 5% TOPICAL PATCH TP SCH (09:47)
[2019-02-01] MEDS: METHYL SALICYLATE/MENTHOL OINT 30 GM TUBE TP SCH (09:47)
[2019-02-01] MEDS: PRENATAL VITAMINS W/ FOLIC ACID TABLET (FP) PO SCH (09:47)
[2019-02-01] MEDS: LIDOCAINE PATCH REMOVAL MC SCH (21:57)
[2019-02-01] MEDS: THIAMINE HCL 100 MG TABLET (FP) PO SCH (21:58)
[2019-02-01] MEDS: QUEtiapine FUMARATE 50 MG TABLET PO SCH (21:58)
[2019-02-02] MEDS: METHADONE HCL 40 MG DISPERSABLE TABLET PO SCH (06:13)
[2019-02-02] MEDS ORDERED: PT OWN MED DRAWER 7, Y5N ONE (08:42)
[2019-02-02] MEDS: METHYL SALICYLATE/MENTHOL OINT 30 GM TUBE TP SCH (10:09)
[2019-02-02] MEDS: PRENATAL VITAMINS W/ FOLIC ACID TABLET (FP) PO SCH (10:09)
[2019-02-02] MEDS: LIDOCAINE 5% TOPICAL PATCH TP SCH (10:09)
--- NOTE | 2019-02-02 12:14 | PN ---
S Progress Note Note: Psychiatric nurse practitioner note: Patient scheduled for discharge tomorrow morning (02/02/19). A 30 day prescription of Seroquel 50mg HS was electronically sent to [address] [place] [address] Pharmacy, [address] [place] [address]
[2019-02-02] MEDS: THIAMINE HCL 100 MG TABLET (FP) PO SCH (21:49)
[2019-02-02] MEDS: QUEtiapine FUMARATE 50 MG TABLET PO SCH (21:49)
[2019-02-02] MEDS: LIDOCAINE PATCH REMOVAL MC SCH (21:49)
[2019-02-03] MEDS ORDERED: METHADONE HCL 40 MG DISPERSABLE TABLET PO SCH (06:00)
[2019-02-03 07:11] VITALS: BP 108/72; PULSE 86; TEMP 98.7
[2019-02-03] MEDS ORDERED: PT OWN MED DRAWER 7, Y5N ONE (08:53)
[2019-02-03] MEDS: LIDOCAINE 5% TOPICAL PATCH TP SCH (10:02)
[2019-02-03] MEDS: PRENATAL VITAMINS W/ FOLIC ACID TABLET (FP) PO SCH (10:02)
[2019-02-03] MEDS: METHYL SALICYLATE/MENTHOL OINT 30 GM TUBE TP SCH (10:03)
--- NOTE | 2019-02-03 11:59 | DS ---
[facility] Rehab Discharge Summary - [facility] Rehab Discharge Summary Admission Date: 01/20/19 Discharge Date: 02/03/19 - History Present History: Alcohol dependence, Cocaine dependence, MMTP Additional Comments: Pt is a 53 y/o female with a hx of TD-Alcohol, admitted to rehab from [address] [place] [address] and discharged today. Patient is on MMTP at [facility] on 120mg po daily and received last dose today. Reports primary care with [facility] at [address] [place] [address] for medical/psych management. Pertinent Past History: HIV+ Alcohol withdrawal Seizure hx GERD Hep C - Discharge Physical Exam Vital Signs: Vital Signs Temperature 98.7 F 02/03/19 07:11 Pulse Rate 86 02/03/19 07:11 Respiratory Rate 18 02/03/19 07:11 Blood Pressure 108/72 02/03/19 07:11 O2 Sat by Pulse Oximetry (%) Alert o x 3 nad oob ambulating with steady gait cardiac:s1 s2,rrr lungs:cta,artie. abdomen:soft,+bs nt, +fatty Pertinent Admission Physical Exam Findings: Laboratory Tests 01/21/19 01/28/19 08:20 07:00 Sodium 138 Potassium 4.1 4.0 Chloride 106 Carbon Dioxide 25 Anion Gap 8 BUN 13.7 Creatinine 0.6 Est GFR (CKD-EPI)AfAm 121.46 Est GFR (CKD-EPI)NonAf 104.80 Random Glucose 104 Calcium 9.2 Total Bilirubin 0.3 AST 151 H 196 H ALT 158 H Alkaline Phosphatase 104 Total Protein 8.6 H Albumin 3.3 L - Treatment Discharge Condition: Discharge condition good Hospital Course: CD aftercare referral accepted to [facility] - Medication Discharge Medications: Ambulatory Orders Methadone [Dolophine -] 120 mg PO DAILY 10/07/17 Quetiapine Fumarate [Seroquel -] 100 mg PO HS #30 tablet 10/22/17 traZODone HCL [Desyrel -] 50 mg PO HS #30 tablet 10/22/17 Biktarvy 50-200-25 mg Tablet 50 - 200 bottle PO DAILY MDD 1 tab 01/22/19 Quetiapine Fumarate 50 mg PO HS 01/22/19 Quetiapine Fumarate [Seroquel -] 50 mg PO HS #30 tablet 02/02/19 - Medication-Assisted Treatment (MAT) Medication-Assisted Treatment (MAT): No - Discharge Instructions Diet, activity, other medical instructions: Diet:Regular Activity: oob ad mansi Other medical instructions:Follow up with primary care at [facility] for medical management within 1 week after discharge. follow up with CD aftercare as scheduled at [facility]. - Diagnosis (1) Alcohol dependence Current Visit: Yes Status: Chronic Qualifiers: Substance use status: uncomplicated Qualified Code(s): F10.20 - Alcohol dependence, uncomplicated (2) Cocaine dependence, uncomplicated Current Visit: Yes Status: Chronic (3) GERD (gastroesophageal reflux disease) Current Visit: Yes Status: Chronic Qualifiers: Esophagitis presence: without esophagitis Qualified Code(s): K21.9 - Gastro -esophageal reflux disease without esophagitis (4) HIV (human immunodeficiency virus infection) Current Visit: Yes Status: Chronic Qualifiers: HIV symptom status: asymptomatic Qualified Code(s): Z21 - Asymptomatic human immunodeficiency virus [HIV] infection status (5) Methadone maintenance therapy patient Current Visit: Yes Status: Chronic (6) Seizure disorder, secondary Current Visit: Yes Status: Suspected - Follow-up Referral Minutes to complete discharge: 20 - AMA Did Patient Leave Against Medical Advice: No
== END 2019-02-03 12:02 | disposition home or self-care (01) | DRG 772 ==
LOC: YASAS 13:07 → Y3E 13:08
PROVIDERS: ADMIT Neuromusculoskeletal Medicine & OMM; ATTEND Neuromusculoskeletal Medicine & OMM
PROC: HZ42ZZZ Group Counseling for Substance Abuse Treatment, Cognitive-Behavioral (ICD-10-PCS; principal; 2019-01-20)
DX: F10.20 Alcohol dependence, uncomplicated (principal); F11.20 Opioid dependence, uncomplicated; F14.20 Cocaine dependence, uncomplicated; F17.210 Nicotine dependence, cigarettes, uncomplicated; Z21 Asymptomatic human immunodeficiency virus [HIV] infection status; K21.9 Gastro-esophageal reflux disease without esophagitis; M25.562 Pain in left knee; R53.83 Other fatigue; Z86.69 Personal history of other diseases of the nervous system and sense organs; Z88.8 Allergy status to other drugs, medicaments and biological substances
CPT/HCPCS: 36415; 80053; 84132; 84450; Q0162

== ENCOUNTER 2019-07-28 10:12 | Inpatient (IN) | payer OTHER ==
[2019-07-28 11:41] VITALS: BMI 23.8
[2019-07-28] MEDS ORDERED: ONDANSETRON *ODT* 4 MG TABLET SL ONE (12:00)
[2019-07-28] MEDS ORDERED: ACETAMINOPHEN 325 MG TABLET (FP) PO PRN ×2 (12:00)
[2019-07-28] MEDS ORDERED: MAG HYDROX/AL HYDROX/SIMETH 30 ML UNIT-DOSE CUP PO PRN (12:00)
[2019-07-28] MEDS ORDERED: MENTHOL/PHENOL 1 EACH UD MM PRN (12:00)
[2019-07-28] MEDS ORDERED: METHOCARBAMOL 500 MG TABLET PO PRN (12:00)
[2019-07-28] MEDS ORDERED: BISMUTH SUBSALICYLATE 262 MG/15 ML BTL PO PRN (12:00)
[2019-07-28] MEDS ORDERED: chlordiazePOXIDE HCL 25 MG CAPSULE PO PRN (12:00)
[2019-07-28] MEDS ORDERED: MAGNESIUM HYDROX 2400MG/30ML ORAL SUSPENSION 30 ML CUP PO PRN (12:00)
[2019-07-28] MEDS ORDERED: MAGNESIUM CITRATE 300 ML BOTTLE PO PRN (12:00)
[2019-07-28] MEDS ORDERED: NICOTINE POLACRILEX 2 MG GUM BUC PRN (12:00)
[2019-07-28] MEDS ORDERED: hydrOXYzine PAMOATE 25 MG CAPSULE (FP) PO PRN (12:34)
[2019-07-28] MEDS: chlordiazePOXIDE HCL 25 MG CAPSULE PO SCH ×3 (13:03→22:26)
[2019-07-28] MEDS: NICOTINE 7 MG/24 HOURS TOPICAL PATCH TD SCH (13:03)
[2019-07-28] MEDS: PRENATAL VITAMINS W/ FOLIC ACID TABLET (FP) PO SCH (13:03)
[2019-07-28] MEDS ORDERED: hydrOXYzine PAMOATE 25 MG CAPSULE (FP) PO SCH (14:00)
[2019-07-28 14:08] LABS: HEMATOCRIT 39.5 % (32.4-45.2); HEMOGLOBIN 12.8 GM/dL (10.7-15.3); MCH 29.5 pg (25.7-33.7); MCHC 32.5 g/dl (32.0-36.0); MEAN CELL VOLUME 90.9 fl (80-96); MEAN PLT VOLUME 9.5 fl (7.5-11.1); PLATELET COUNT 139 K/MM3 (134-434); RBC 4.35 M/mm3 (3.60-5.2); RDW 15.2 % (11.6-15.6); WHITE BLOOD COUNT 2.4 K/mm3 (4.0-10.0)
[2019-07-28 14:19] LABS: ALBUMIN 3.2 g/dl (3.4-5.0); BILIRUBIN,TOTAL 0.4 mg/dL (0.2-1); BLOOD UREA NITROGEN 8.2 mg/dL (7-18); CALCIUM 8.3 mg/dL (8.5-10.1); CREATININE 0.5 mg/dL (0.55-1.3); POTASSIUM 3.7 mmol/L (3.5-5.1); TOT PROT 8.7 g/dl (6.4-8.2)
[2019-07-28] MEDS: THIAMINE HCL 100 MG TABLET (FP) PO SCH (22:26)
[2019-07-28] MEDS: QUEtiapine FUMARATE 50 MG TABLET PO SCH (22:27)
[2019-07-28] MEDS: MELATONIN 5 MG TABLETS PO SCH (22:27)
[2019-07-29] MEDS ORDERED: METHADONE HCL 40 MG DISPERSABLE TABLET ONE (04:15)
[2019-07-29] MEDS ORDERED: METHADONE HCL 10 MG TABLET ONE (04:15)
[2019-07-29] MEDS: chlordiazePOXIDE HCL 25 MG CAPSULE PO SCH ×4 (05:44→22:07)
[2019-07-29] MEDS: METHADONE 80 MG, METHADONE 30 MG PO SCH (05:46)
[2019-07-29] MEDS ORDERED: METHADONE HCL 40 MG DISPERSABLE TABLET PO SCH (10:00)
[2019-07-29] MEDS ORDERED: METHADONE 80 MG, METHADONE 30 MG PO SCH (10:00)
[2019-07-29] MEDS: PRENATAL VITAMINS W/ FOLIC ACID TABLET (FP) PO SCH (10:43)
[2019-07-29] MEDS: NICOTINE 7 MG/24 HOURS TOPICAL PATCH TD SCH (10:43)
[2019-07-29] MEDS: BICTEGRAV/EMTRICIT/TENOFOV (BIKTARVY) 50-200-25 MG TABLET PO SCH (10:45)
[2019-07-29] MEDS: BACITRACIN 0.9 GM PACKET TP SCH (14:25)
[2019-07-29] MEDS: IBUPROFEN 400 MG TABLET (FP) PO PRN (18:49)
[2019-07-29] MEDS: QUEtiapine FUMARATE 50 MG TABLET PO SCH (22:06)
[2019-07-29] MEDS: MELATONIN 5 MG TABLETS PO SCH (22:07)
[2019-07-29] MEDS: THIAMINE HCL 100 MG TABLET (FP) PO SCH (22:07)
[2019-07-30] MEDS ORDERED: METHADONE HCL 10 MG TABLET ONE (04:24)
[2019-07-30] MEDS ORDERED: METHADONE HCL 40 MG DISPERSABLE TABLET ONE (04:25)
[2019-07-30] MEDS: METHADONE 80 MG, METHADONE 30 MG PO SCH (05:22)
[2019-07-30] MEDS: chlordiazePOXIDE HCL 25 MG CAPSULE PO SCH ×2 (05:22→10:03)
[2019-07-30] MEDS: PRENATAL VITAMINS W/ FOLIC ACID TABLET (FP) PO SCH (10:03)
[2019-07-30] MEDS: BACITRACIN 0.9 GM PACKET TP SCH (10:04)
[2019-07-30] MEDS ORDERED: LORazepam 1 MG TABLET PO PRN (10:04)
[2019-07-30] MEDS: BICTEGRAV/EMTRICIT/TENOFOV (BIKTARVY) 50-200-25 MG TABLET PO SCH (10:04)
[2019-07-30] MEDS: NICOTINE 7 MG/24 HOURS TOPICAL PATCH TD SCH (10:07)
[2019-07-30] MEDS ORDERED: LORazepam 2 MG TABLET PO SCH (11:00)
[2019-07-30] MEDS: LORazepam 2 MG TABLET PO SCH ×2 (17:38→22:23)
[2019-07-30] MEDS: IBUPROFEN 400 MG TABLET (FP) PO PRN (17:38)
[2019-07-30] MEDS: MELATONIN 5 MG TABLETS PO SCH (22:23)
[2019-07-30] MEDS: QUEtiapine FUMARATE 50 MG TABLET PO SCH (22:23)
[2019-07-30] MEDS: THIAMINE HCL 100 MG TABLET (FP) PO SCH (22:23)
[2019-07-31] MEDS ORDERED: chlordiazePOXIDE HCL 10 MG CAPSULE PO PRN
[2019-07-31] MEDS ORDERED: METHADONE HCL 10 MG TABLET ONE (04:38)
[2019-07-31] MEDS ORDERED: METHADONE HCL 40 MG DISPERSABLE TABLET ONE (04:38)
[2019-07-31] MEDS ORDERED: chlordiazePOXIDE HCL 10 MG CAPSULE PO SCH (05:00)
[2019-07-31] MEDS: METHADONE 80 MG, METHADONE 30 MG PO SCH (05:15)
[2019-07-31] MEDS: LORazepam 1 MG TABLET PO SCH ×4 (05:16→22:44)
[2019-07-31] MEDS: PRENATAL VITAMINS W/ FOLIC ACID TABLET (FP) PO SCH (10:18)
[2019-07-31] MEDS: NICOTINE 7 MG/24 HOURS TOPICAL PATCH TD SCH (10:18)
[2019-07-31] MEDS: BICTEGRAV/EMTRICIT/TENOFOV (BIKTARVY) 50-200-25 MG TABLET PO SCH (10:18)
[2019-07-31] MEDS: BACITRACIN 0.9 GM PACKET TP SCH (10:18)
[2019-07-31] MEDS ORDERED: MASKS NR ONE (16:29)
[2019-07-31] MEDS: IBUPROFEN 400 MG TABLET (FP) PO PRN (17:20)
[2019-07-31] MEDS: MELATONIN 5 MG TABLETS PO SCH (22:44)
[2019-07-31] MEDS: THIAMINE HCL 100 MG TABLET (FP) PO SCH (22:44)
[2019-07-31] MEDS: QUEtiapine FUMARATE 50 MG TABLET PO SCH (22:44)
[2019-08-01] MEDS ORDERED: LORazepam 0.5 MG TABLET PO PRN
[2019-08-01] MEDS ORDERED: METHADONE HCL 10 MG TABLET ONE (03:49)
[2019-08-01] MEDS ORDERED: METHADONE HCL 40 MG DISPERSABLE TABLET ONE (03:49)
[2019-08-01] MEDS ORDERED: chlordiazePOXIDE HCL 10 MG CAPSULE PO SCH (05:00)
[2019-08-01] MEDS: LORazepam 0.5 MG TABLET PO SCH ×2 (05:21→11:11)
[2019-08-01] MEDS: METHADONE 80 MG, METHADONE 30 MG PO SCH (05:22)
[2019-08-01 08:49] VITALS: BP 102/71; PULSE 79; TEMP 96.9
[2019-08-01] MEDS: BACITRACIN 0.9 GM PACKET TP SCH (11:10)
[2019-08-01] MEDS: PRENATAL VITAMINS W/ FOLIC ACID TABLET (FP) PO SCH (11:11)
[2019-08-01] MEDS: BICTEGRAV/EMTRICIT/TENOFOV (BIKTARVY) 50-200-25 MG TABLET PO SCH (11:11)
[2019-08-01] MEDS: NICOTINE 7 MG/24 HOURS TOPICAL PATCH TD SCH (11:11)
[2019-08-02] MEDS ORDERED: chlordiazePOXIDE HCL 10 MG CAPSULE PO ONE (05:00)
[2019-08-02] MEDS ORDERED: LORazepam 0.5 MG TABLET PO ONE (05:00)
== END 2019-08-01 11:16 | disposition other institution (70) | DRG 773 ==
LOC: YASAS 10:12 → Y6N 12:14 → Y3N 07-29 10:59
PROVIDERS: ADMIT Allergy & Immunology; ATTEND Allergy & Immunology
PROC: HZ2ZZZZ Detoxification Services for Substance Abuse Treatment (ICD-10-PCS; principal; 2019-07-28)
PROC: 0HCMXZZ Extirpation of Matter from Right Foot Skin, External Approach (ICD-10-PCS; 2019-07-28)
DX: F10.230 Alcohol dependence with withdrawal, uncomplicated (principal); F11.20 Opioid dependence, uncomplicated; F14.20 Cocaine dependence, uncomplicated; F17.210 Nicotine dependence, cigarettes, uncomplicated; F31.9 Bipolar disorder, unspecified; F19.24 Other psychoactive substance dependence with psychoactive substance-induced mood disorder; G47.00 Insomnia, unspecified; Z21 Asymptomatic human immunodeficiency virus [HIV] infection status; K21.9 Gastro-esophageal reflux disease without esophagitis; M25.512 Pain in left shoulder; M25.552 Pain in left hip; R74.0 Nonspecific elevation of levels of transaminase and lactic acid dehydrogenase [LDH]; R26.9 Unspecified abnormalities of gait and mobility; Z99.89 Dependence on other enabling machines and devices; Z86.19 Personal history of other infectious and parasitic diseases; Z86.79 Personal history of other diseases of the circulatory system; Z62.810 Personal history of physical and sexual abuse in childhood; S90.859A Superficial foreign body, unspecified foot, initial encounter; X58.XXXA Exposure to other specified factors, initial encounter; Y93.9 Activity, unspecified; Y92.9 Unspecified place or not applicable; W18.39XA Other fall on same level, initial encounter; Y93.89 Activity, other specified; Y92.230 Patient room in hospital as the place of occurrence of the external cause
CPT/HCPCS: 36415; 80053; 81025; 84450; 85027; 86593; 86780; U0003

== ENCOUNTER 2019-07-31 17:57 | Emergency (ER) | payer OTHER ==
[2019-07-31 18:53] VITALS: BP 118/80; PULSE 82; TEMP 98.2; BMI 25.9
[2019-07-31] MEDS ORDERED: IBUPROFEN 600 MG TABLET (FP) PO ONE ×2 (19:40→19:53)
== END 2019-07-31 21:48 | disposition home or self-care (01) ==
LOC: JER 17:57
DX: M25.552 Pain in left hip (principal); M25.562 Pain in left knee; W19.XXXA Unspecified fall, initial encounter
CPT/HCPCS: 73523-TC-FY; 73562-TC-LT-FY; 99284-25

== ENCOUNTER 2019-08-01 11:23 | Inpatient (IN) | payer OTHER ==
--- NOTE | 2019-08-01 11:52 | HP ---
[facility] Rehab Assess/Revision - Admission History Admitted to Rehab from: [facility] Date of Admission to Rehab: 08/01/2019 - Findings Detox History & Physical reviewed: Yes Concur with findings: Yes Comments/Additional Findings: for rehab as protocol Inpatient Rehab Admission - Rehab Decision to Admit Inpatient rehab admission?: Yes - Initial Determination Are CD services needed?: Yes Free of communicable disease: Yes Not in need of hospitalization: Yes - Rehab Admission Criteria Previous failed treatment: Yes Poor recovery environment: Yes Comorbidities: Yes Lacks judgement: No Patient is meeting Inpatient Rehab admission criteria:: Yes
[2019-08-01] MEDS ORDERED: MENTHOL/PHENOL 1 EACH UD MM PRN (11:54)
[2019-08-01] MEDS ORDERED: ACETAMINOPHEN 325 MG TABLET (FP) PO PRN (11:54)
[2019-08-01] MEDS ORDERED: guaiFENesin 200 MG/10 ML 10 ML UNIT-DOSE CUPS PO PRN (11:54)
[2019-08-01] MEDS ORDERED: P-EPHED 60MG/TRIPROLIDI 2.5MG TABLET PO PRN (11:54)
[2019-08-01] MEDS ORDERED: MAGNESIUM CITRATE 300 ML BOTTLE PO PRN (11:54)
[2019-08-01] MEDS ORDERED: NICOTINE POLACRILEX 2 MG GUM BUC PRN (11:54)
[2019-08-01] MEDS ORDERED: MAGNESIUM HYDROX 2400MG/30ML ORAL SUSPENSION 30 ML CUP PO PRN (11:54)
[2019-08-01] MEDS ORDERED: LOPERAMIDE HCL 2 MG CAPSULE PO PRN (11:54)
[2019-08-01] MEDS ORDERED: MAG HYDROX/AL HYDROX/SIMETH 30 ML UNIT-DOSE CUP PO PRN (11:54)
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
[2019-08-01] MEDS: hydrOXYzine PAMOATE 25 MG CAPSULE (FP) PO SCH ×3 (14:15→21:55)
[2019-08-01] MEDS: THIAMINE HCL 100 MG TABLET (FP) PO SCH (21:55)
[2019-08-01] MEDS: MELATONIN 5 MG TABLETS PO SCH (21:55)
[2019-08-01] MEDS: QUEtiapine FUMARATE 50 MG TABLET PO SCH (21:56)
[2019-08-02] MEDS ORDERED: METHADONE HCL 10 MG TABLET ONE (05:44)
[2019-08-02] MEDS ORDERED: METHADONE HCL 40 MG DISPERSABLE TABLET ONE (05:44)
[2019-08-02] MEDS ORDERED: METHADONE HCL 40 MG DISPERSABLE TABLET PO SCH (06:00)
[2019-08-02] MEDS: hydrOXYzine PAMOATE 25 MG CAPSULE (FP) PO SCH ×5 (06:35→21:48)
[2019-08-02] MEDS: METHADONE 80 MG, METHADONE 30 MG PO SCH (06:35)
[2019-08-02] MEDS: BICTEGRAV/EMTRICIT/TENOFOV (BIKTARVY) 50-200-25 MG TABLET PO SCH (11:46)
[2019-08-02] MEDS: NICOTINE 7 MG/24 HOURS TOPICAL PATCH TD SCH (11:47)
[2019-08-02] MEDS: PRENATAL VITAMINS W/ FOLIC ACID TABLET (FP) PO SCH (11:47)
[2019-08-02] MEDS: MELATONIN 5 MG TABLETS PO SCH (21:47)
[2019-08-02] MEDS: THIAMINE HCL 100 MG TABLET (FP) PO SCH (21:47)
[2019-08-02] MEDS: QUEtiapine FUMARATE 50 MG TABLET PO SCH (21:48)
[2019-08-03] MEDS ORDERED: METHADONE HCL 10 MG TABLET ONE (03:52)
[2019-08-03] MEDS ORDERED: METHADONE HCL 40 MG DISPERSABLE TABLET ONE (03:52)
[2019-08-03] MEDS: hydrOXYzine PAMOATE 25 MG CAPSULE (FP) PO SCH ×5 (06:21→21:39)
[2019-08-03] MEDS: METHADONE 80 MG, METHADONE 30 MG PO SCH (06:21)
[2019-08-03] MEDS: BICTEGRAV/EMTRICIT/TENOFOV (BIKTARVY) 50-200-25 MG TABLET PO SCH (09:52)
[2019-08-03] MEDS: PRENATAL VITAMINS W/ FOLIC ACID TABLET (FP) PO SCH (09:52)
[2019-08-03] MEDS: NICOTINE 7 MG/24 HOURS TOPICAL PATCH TD SCH (09:52)
[2019-08-03] MEDS: IBUPROFEN 400 MG TABLET (FP) PO PRN (11:26)
[2019-08-03] MEDS: MELATONIN 5 MG TABLETS PO SCH (21:39)
[2019-08-03] MEDS: QUEtiapine FUMARATE 50 MG TABLET PO SCH (21:39)
[2019-08-03] MEDS: THIAMINE HCL 100 MG TABLET (FP) PO SCH (21:39)
[2019-08-04] MEDS ORDERED: METHADONE HCL 40 MG DISPERSABLE TABLET ONE (05:01)
[2019-08-04] MEDS ORDERED: METHADONE HCL 10 MG TABLET ONE (05:01)
[2019-08-04] MEDS: METHADONE 80 MG, METHADONE 30 MG PO SCH (05:59)
[2019-08-04] MEDS: hydrOXYzine PAMOATE 25 MG CAPSULE (FP) PO SCH ×5 (05:59→22:22)
[2019-08-04] MEDS ORDERED: PT OWN MED DRAWER 7, Y5N ONE (09:13)
[2019-08-04] MEDS: NICOTINE 7 MG/24 HOURS TOPICAL PATCH TD SCH (10:45)
[2019-08-04] MEDS: PRENATAL VITAMINS W/ FOLIC ACID TABLET (FP) PO SCH (10:45)
[2019-08-04] MEDS: BICTEGRAV/EMTRICIT/TENOFOV (BIKTARVY) 50-200-25 MG TABLET PO SCH (10:45)
[2019-08-04] MEDS: IBUPROFEN 400 MG TABLET (FP) PO PRN (10:56)
--- NOTE | 2019-08-04 12:07 | PN ---
[facility] Progress Note Note: PATIENT MEDICATED WITH IBUPROFEN NEEDED FOR LEFT KNEE DISCOMFORT. INFORMED BY SENIOR LINUX UNIX ENGINEER PATIENT REQUESTED LIDOCAINE PATCH TO AREA FOR PAIN RELIEF. LIDOCAINE PATCH 5% ORDERED DAILY. CONTINUE MONITORING. Vital Signs Temperature 97.3 F L 08/04/19 07:10 Pulse Rate 80 08/04/19 07:10 Respiratory Rate 18 08/04/19 07:10 Blood Pressure 112/72 08/04/19 07:10 O2 Sat by Pulse Oximetry (%) 99 08/04/19 07:10
[2019-08-04 14:20] LABS: BILIRUBIN,TOTAL 0.4 mg/dL (0.2-1); BLOOD UREA NITROGEN 15.5 mg/dL (7-18); CALCIUM 8.9 mg/dL (8.5-10.1); CREATININE 0.7 mg/dL (0.55-1.3); POTASSIUM 4.3 mmol/L (3.5-5.1); TOT PROT 8.4 g/dl (6.4-8.2)
[2019-08-04] MEDS: LIDOCAINE 5% TOPICAL PATCH TP SCH (14:35)
[2019-08-04] MEDS: THIAMINE HCL 100 MG TABLET (FP) PO SCH (22:22)
[2019-08-04] MEDS: LIDOCAINE PATCH REMOVAL MC SCH (22:22)
[2019-08-04] MEDS: MELATONIN 5 MG TABLETS PO SCH (22:22)
[2019-08-04] MEDS: QUEtiapine FUMARATE 50 MG TABLET PO SCH (22:22)
[2019-08-05] MEDS ORDERED: METHADONE HCL 10 MG TABLET ONE (05:03)
[2019-08-05] MEDS ORDERED: METHADONE HCL 40 MG DISPERSABLE TABLET ONE (05:03)
[2019-08-05] MEDS: METHADONE 80 MG, METHADONE 30 MG PO SCH (06:28)
[2019-08-05] MEDS: hydrOXYzine PAMOATE 25 MG CAPSULE (FP) PO SCH (06:28)
[2019-08-05] MEDS ORDERED: hydrOXYzine PAMOATE 25 MG CAPSULE (FP) PO PRN (08:49)
[2019-08-05] MEDS: PRENATAL VITAMINS W/ FOLIC ACID TABLET (FP) PO SCH (10:42)
[2019-08-05] MEDS: LIDOCAINE 5% TOPICAL PATCH TP SCH (10:42)
[2019-08-05] MEDS: BICTEGRAV/EMTRICIT/TENOFOV (BIKTARVY) 50-200-25 MG TABLET PO SCH (10:42)
[2019-08-05] MEDS: NICOTINE 7 MG/24 HOURS TOPICAL PATCH TD SCH (10:43)
[2019-08-05] MEDS: IBUPROFEN 400 MG TABLET (FP) PO PRN (10:43)
[2019-08-05] MEDS: LIDOCAINE PATCH REMOVAL MC SCH (21:28)
[2019-08-05] MEDS: QUEtiapine FUMARATE 50 MG TABLET PO SCH (21:28)
[2019-08-05] MEDS: MELATONIN 5 MG TABLETS PO SCH (21:28)
[2019-08-05] MEDS: THIAMINE HCL 100 MG TABLET (FP) PO SCH (21:28)
[2019-08-06] MEDS ORDERED: METHADONE HCL 40 MG DISPERSABLE TABLET ONE (05:34)
[2019-08-06] MEDS ORDERED: METHADONE HCL 10 MG TABLET ONE (05:34)
[2019-08-06] MEDS: METHADONE 80 MG, METHADONE 30 MG PO SCH (06:00)
[2019-08-06] MEDS ORDERED: MASKS NR ONE (08:47)
[2019-08-06] MEDS: LIDOCAINE 5% TOPICAL PATCH TP SCH (10:54)
[2019-08-06] MEDS: NICOTINE 7 MG/24 HOURS TOPICAL PATCH TD SCH (10:55)
[2019-08-06] MEDS: PRENATAL VITAMINS W/ FOLIC ACID TABLET (FP) PO SCH (10:55)
[2019-08-06] MEDS: BICTEGRAV/EMTRICIT/TENOFOV (BIKTARVY) 50-200-25 MG TABLET PO SCH (10:55)
--- NOTE | 2019-08-06 11:10 | PN ---
S Progress Note Note: Patient c/o sore tongue. PmHx of HIV. States it feels sore when she swallows Vital Signs Period Temp Pulse Resp BP Sys/Harden Pulse Ox Last 24 Hr 97.3 F-97.5 F 80 18-18 101/70 96-98 General: No apparent distress HEENTM: white patches on tongue Lymph: non-palpable. A/P Oral Candidiasis, suspect esophageal candidiaisis Diflucan started.
[2019-08-06] MEDS ORDERED: FLUCONAZOLE 100 MG TABLET (UD) PO ONE (11:30)
[2019-08-06] MEDS: IBUPROFEN 400 MG TABLET (FP) PO PRN (11:54)
[2019-08-06] MEDS: QUEtiapine FUMARATE 50 MG TABLET PO SCH (21:43)
[2019-08-06] MEDS: THIAMINE HCL 100 MG TABLET (FP) PO SCH (21:43)
[2019-08-06] MEDS: MELATONIN 5 MG TABLETS PO SCH (21:43)
[2019-08-06] MEDS: LIDOCAINE PATCH REMOVAL MC SCH (21:43)
[2019-08-07] MEDS ORDERED: METHADONE HCL 40 MG DISPERSABLE TABLET ONE (03:32)
[2019-08-07] MEDS ORDERED: METHADONE HCL 10 MG TABLET ONE (03:32)
[2019-08-07] MEDS: METHADONE 80 MG, METHADONE 30 MG PO SCH (06:17)
[2019-08-07] MEDS ORDERED: PT OWN MED DRAWER 7, Y5N ONE (08:54)
[2019-08-07] MEDS: PRENATAL VITAMINS W/ FOLIC ACID TABLET (FP) PO SCH (10:21)
[2019-08-07] MEDS: BICTEGRAV/EMTRICIT/TENOFOV (BIKTARVY) 50-200-25 MG TABLET PO SCH (10:21)
[2019-08-07] MEDS: FLUCONAZOLE 100 MG TABLET (UD) PO SCH (10:21)
[2019-08-07] MEDS: LIDOCAINE 5% TOPICAL PATCH TP SCH (10:21)
[2019-08-07] MEDS: IBUPROFEN 400 MG TABLET (FP) PO PRN (10:22)
[2019-08-07] MEDS: NICOTINE 7 MG/24 HOURS TOPICAL PATCH TD SCH (10:22)
[2019-08-07] MEDS: QUEtiapine FUMARATE 50 MG TABLET PO SCH (21:19)
[2019-08-07] MEDS: MELATONIN 5 MG TABLETS PO SCH (21:19)
[2019-08-07] MEDS: THIAMINE HCL 100 MG TABLET (FP) PO SCH (21:19)
[2019-08-07] MEDS: LIDOCAINE PATCH REMOVAL MC SCH (21:20)
[2019-08-08] MEDS ORDERED: METHADONE HCL 40 MG DISPERSABLE TABLET ONE (05:35)
[2019-08-08] MEDS ORDERED: METHADONE HCL 10 MG TABLET ONE (05:35)
[2019-08-08] MEDS: METHADONE 80 MG, METHADONE 30 MG PO SCH (08:19)
[2019-08-08] MEDS: LIDOCAINE 5% TOPICAL PATCH TP SCH (09:52)
[2019-08-08] MEDS: FLUCONAZOLE 100 MG TABLET (UD) PO SCH (09:53)
[2019-08-08] MEDS: NICOTINE 7 MG/24 HOURS TOPICAL PATCH TD SCH (09:53)
[2019-08-08] MEDS: PRENATAL VITAMINS W/ FOLIC ACID TABLET (FP) PO SCH (09:53)
[2019-08-08] MEDS ORDERED: PT OWN MED DRAWER 7, Y5N ONE (09:54)
[2019-08-08] MEDS: BICTEGRAV/EMTRICIT/TENOFOV (BIKTARVY) 50-200-25 MG TABLET PO SCH (09:54)
[2019-08-08] MEDS: LIDOCAINE PATCH REMOVAL MC SCH (21:30)
[2019-08-08] MEDS: QUEtiapine FUMARATE 50 MG TABLET PO SCH (21:30)
[2019-08-08] MEDS: THIAMINE HCL 100 MG TABLET (FP) PO SCH (21:30)
[2019-08-08] MEDS: MELATONIN 5 MG TABLETS PO SCH (21:30)
[2019-08-09] MEDS ORDERED: METHADONE HCL 40 MG DISPERSABLE TABLET ONE ×2 (05:01→13:53)
[2019-08-09] MEDS ORDERED: METHADONE HCL 10 MG TABLET ONE ×2 (05:01→13:53)
[2019-08-09] MEDS: METHADONE 80 MG, METHADONE 30 MG PO SCH (08:19)
[2019-08-09] MEDS ORDERED: ONDANSETRON *ODT* 4 MG TABLET SL PRN (08:45)
--- NOTE | 2019-08-09 08:45 | PN ---
[facility] Progress Note Note: Vital Signs Temperature 98 F 08/09/19 07:01 Pulse Rate 87 08/09/19 07:01 Respiratory Rate 18 08/09/19 07:01 Blood Pressure 92/61 08/09/19 07:01 O2 Sat by Pulse Oximetry (%) 97 08/09/19 07:01 called by MOLLY Petit to evaluated patient with nausea,vomiting alert,oriented x 3 lying in bed no constipation abdomen soft,no pain or tenderness will give zofran sl 4 mgs q 6 hrs prn for nausea and or vomiting close monitoring hold methadone maintenance 110 mgs
[2019-08-09] MEDS ORDERED: PT OWN MED DRAWER 7, Y5N ONE (08:54)
[2019-08-09] MEDS: PRENATAL VITAMINS W/ FOLIC ACID TABLET (FP) PO SCH (10:43)
[2019-08-09] MEDS: FLUCONAZOLE 100 MG TABLET (UD) PO SCH (10:43)
[2019-08-09] MEDS: LIDOCAINE 5% TOPICAL PATCH TP SCH (10:43)
[2019-08-09] MEDS: BICTEGRAV/EMTRICIT/TENOFOV (BIKTARVY) 50-200-25 MG TABLET PO SCH (10:43)
[2019-08-09] MEDS: NICOTINE 7 MG/24 HOURS TOPICAL PATCH TD SCH (10:44)
[2019-08-09] MEDS ORDERED: METHADONE HCL 10 MG TABLET PO ONE (13:46)
--- NOTE | 2019-08-09 13:46 | PN ---
[facility] Progress Note Note: Vital Signs Temperature 98 F 08/09/19 07:01 Pulse Rate 87 08/09/19 07:01 Respiratory Rate 18 08/09/19 07:01 Blood Pressure 92/61 08/09/19 07:01 O2 Sat by Pulse Oximetry (%) 97 08/09/19 07:01 bp 100/70 no vomiting will give methadone maintenance 110 mg now close monitoring
[2019-08-09] MEDS ORDERED: METHADONE 80 MG, METHADONE 30 MG PO ONE (14:00)
[2019-08-09] MEDS: MELATONIN 5 MG TABLETS PO SCH (21:58)
[2019-08-09] MEDS: THIAMINE HCL 100 MG TABLET (FP) PO SCH (21:58)
[2019-08-09] MEDS: QUEtiapine FUMARATE 50 MG TABLET PO SCH (21:59)
[2019-08-09] MEDS: LIDOCAINE PATCH REMOVAL MC SCH (23:05)
[2019-08-10] MEDS ORDERED: METHADONE HCL 40 MG DISPERSABLE TABLET ONE (06:34)
[2019-08-10] MEDS: METHADONE 80 MG, METHADONE 30 MG PO SCH (06:34)
[2019-08-10] MEDS ORDERED: METHADONE HCL 10 MG TABLET ONE (06:34)
[2019-08-10] MEDS: LIDOCAINE 5% TOPICAL PATCH TP SCH (09:47)
[2019-08-10] MEDS: BICTEGRAV/EMTRICIT/TENOFOV (BIKTARVY) 50-200-25 MG TABLET PO SCH (09:47)
[2019-08-10] MEDS: NICOTINE 7 MG/24 HOURS TOPICAL PATCH TD SCH (09:47)
[2019-08-10] MEDS: FLUCONAZOLE 100 MG TABLET (UD) PO SCH (09:47)
[2019-08-10] MEDS: PRENATAL VITAMINS W/ FOLIC ACID TABLET (FP) PO SCH (09:47)
[2019-08-10] MEDS: LIDOCAINE PATCH REMOVAL MC SCH (22:05)
[2019-08-10] MEDS: QUEtiapine FUMARATE 50 MG TABLET PO SCH (22:05)
[2019-08-10] MEDS: THIAMINE HCL 100 MG TABLET (FP) PO SCH (22:05)
[2019-08-10] MEDS: MELATONIN 5 MG TABLETS PO SCH (22:05)
[2019-08-11] MEDS ORDERED: METHADONE HCL 40 MG DISPERSABLE TABLET ONE (03:33)
[2019-08-11] MEDS ORDERED: METHADONE HCL 10 MG TABLET ONE (03:33)
[2019-08-11] MEDS: METHADONE 80 MG, METHADONE 30 MG PO SCH (05:55)
[2019-08-11] MEDS: LIDOCAINE 5% TOPICAL PATCH TP SCH (10:10)
[2019-08-11] MEDS: FLUCONAZOLE 100 MG TABLET (UD) PO SCH (10:10)
[2019-08-11] MEDS: BICTEGRAV/EMTRICIT/TENOFOV (BIKTARVY) 50-200-25 MG TABLET PO SCH (10:10)
[2019-08-11] MEDS: NICOTINE 7 MG/24 HOURS TOPICAL PATCH TD SCH (10:10)
[2019-08-11] MEDS: PRENATAL VITAMINS W/ FOLIC ACID TABLET (FP) PO SCH (10:10)
--- NOTE | 2019-08-11 13:19 | PN ---
[facility] Progress Note Note: Laboratory Tests 08/04/19 08:25 Sodium 136 Potassium 4.3 Chloride 102 Carbon Dioxide 29 Anion Gap 5 L BUN 15.5 Creatinine 0.7 Est GFR (CKD-EPI)AfAm 115.45 Est GFR (CKD-EPI)NonAf 99.62 Random Glucose 76 Calcium 8.9 Total Bilirubin 0.4 AST 186 H ALT 95 H Alkaline Phosphatase 147 H Total Protein 8.4 H Albumin 3.0 L Vital Signs Period Temp Pulse Resp BP Sys/Harden Pulse Ox Last 24 Hr 97.8 F-98.2 F 86 16 96/58 95-98 LABS APPRECIATED. ELEVATED AST/ALT. ORAL FLUIDS ENCOURAGED. WILL REPEAT CMP IN AM.
[2019-08-11] MEDS: QUEtiapine FUMARATE 50 MG TABLET PO SCH (21:20)
[2019-08-11] MEDS: LIDOCAINE PATCH REMOVAL MC SCH (21:20)
[2019-08-11] MEDS: MELATONIN 5 MG TABLETS PO SCH (21:20)
[2019-08-11] MEDS: THIAMINE HCL 100 MG TABLET (FP) PO SCH (21:20)
[2019-08-12] MEDS ORDERED: METHADONE HCL 10 MG TABLET ONE (03:50)
[2019-08-12] MEDS ORDERED: METHADONE HCL 40 MG DISPERSABLE TABLET ONE (03:50)
[2019-08-12] MEDS: METHADONE 80 MG, METHADONE 30 MG PO SCH (06:29)
[2019-08-12] MEDS: BICTEGRAV/EMTRICIT/TENOFOV (BIKTARVY) 50-200-25 MG TABLET PO SCH (10:30)
[2019-08-12] MEDS: FLUCONAZOLE 100 MG TABLET (UD) PO SCH (10:30)
[2019-08-12] MEDS: LIDOCAINE 5% TOPICAL PATCH TP SCH (10:30)
[2019-08-12] MEDS: PRENATAL VITAMINS W/ FOLIC ACID TABLET (FP) PO SCH (10:30)
[2019-08-12] MEDS: NICOTINE 7 MG/24 HOURS TOPICAL PATCH TD SCH (10:31)
[2019-08-12 10:36] LABS: ALBUMIN 2.7 g/dl (3.4-5.0); BILIRUBIN,TOTAL 0.4 mg/dL (0.2-1); BLOOD UREA NITROGEN 18.2 mg/dL (7-18); CALCIUM 8.9 mg/dL (8.5-10.1); CREATININE 0.7 mg/dL (0.55-1.3); POTASSIUM 4.1 mmol/L (3.5-5.1); TOT PROT 8.3 g/dl (6.4-8.2)
[2019-08-12] MEDS: MELATONIN 5 MG TABLETS PO SCH (21:23)
[2019-08-12] MEDS: LIDOCAINE PATCH REMOVAL MC SCH (21:23)
[2019-08-12] MEDS: THIAMINE HCL 100 MG TABLET (FP) PO SCH (21:23)
[2019-08-12] MEDS: QUEtiapine FUMARATE 50 MG TABLET PO SCH (21:23)
[2019-08-13] MEDS ORDERED: METHADONE HCL 10 MG TABLET ONE (05:08)
[2019-08-13] MEDS ORDERED: METHADONE HCL 40 MG DISPERSABLE TABLET ONE (05:08)
[2019-08-13] MEDS: METHADONE 80 MG, METHADONE 30 MG PO SCH (08:23)
[2019-08-13] MEDS ORDERED: PT OWN MED DRAWER 7, Y5N ONE (09:06)
[2019-08-13] MEDS: LIDOCAINE 5% TOPICAL PATCH TP SCH (09:54)
[2019-08-13] MEDS: PRENATAL VITAMINS W/ FOLIC ACID TABLET (FP) PO SCH (09:54)
[2019-08-13] MEDS: NICOTINE 7 MG/24 HOURS TOPICAL PATCH TD SCH (09:54)
[2019-08-13] MEDS: BICTEGRAV/EMTRICIT/TENOFOV (BIKTARVY) 50-200-25 MG TABLET PO SCH (09:55)
[2019-08-13] MEDS: FLUCONAZOLE 100 MG TABLET (UD) PO SCH (09:55)
[2019-08-13] MEDS: MELATONIN 5 MG TABLETS PO SCH (21:20)
[2019-08-13] MEDS: THIAMINE HCL 100 MG TABLET (FP) PO SCH (21:20)
[2019-08-13] MEDS: QUEtiapine FUMARATE 50 MG TABLET PO SCH (21:21)
[2019-08-13] MEDS: LIDOCAINE PATCH REMOVAL MC SCH (21:21)
[2019-08-14] MEDS ORDERED: METHADONE HCL 40 MG DISPERSABLE TABLET ONE (08:03)
[2019-08-14] MEDS ORDERED: METHADONE HCL 10 MG TABLET ONE (08:03)
[2019-08-14] MEDS: METHADONE 80 MG, METHADONE 30 MG PO SCH (08:03)
[2019-08-14] MEDS ORDERED: PT OWN MED DRAWER 7, Y5N ONE (09:10)
[2019-08-14] MEDS: PRENATAL VITAMINS W/ FOLIC ACID TABLET (FP) PO SCH (10:38)
[2019-08-14] MEDS: BICTEGRAV/EMTRICIT/TENOFOV (BIKTARVY) 50-200-25 MG TABLET PO SCH (10:38)
[2019-08-14] MEDS: LIDOCAINE 5% TOPICAL PATCH TP SCH (10:38)
[2019-08-14] MEDS: NICOTINE 7 MG/24 HOURS TOPICAL PATCH TD SCH (10:39)
[2019-08-14] MEDS: QUEtiapine FUMARATE 50 MG TABLET PO SCH (21:29)
[2019-08-14] MEDS: THIAMINE HCL 100 MG TABLET (FP) PO SCH (21:29)
[2019-08-14] MEDS: MELATONIN 5 MG TABLETS PO SCH (21:30)
[2019-08-14] MEDS: LIDOCAINE PATCH REMOVAL MC SCH (22:22)
[2019-08-15] MEDS ORDERED: METHADONE HCL 10 MG TABLET ONE (06:32)
[2019-08-15] MEDS ORDERED: METHADONE HCL 40 MG DISPERSABLE TABLET ONE (06:32)
[2019-08-15] MEDS: METHADONE 80 MG, METHADONE 30 MG PO SCH (06:32)
[2019-08-15] MEDS: PRENATAL VITAMINS W/ FOLIC ACID TABLET (FP) PO SCH (10:20)
[2019-08-15] MEDS: BICTEGRAV/EMTRICIT/TENOFOV (BIKTARVY) 50-200-25 MG TABLET PO SCH (10:20)
[2019-08-15] MEDS: NICOTINE 7 MG/24 HOURS TOPICAL PATCH TD SCH (10:21)
[2019-08-15] MEDS: LIDOCAINE 5% TOPICAL PATCH TP SCH (10:21)
[2019-08-15] MEDS: MELATONIN 5 MG TABLETS PO SCH (21:23)
[2019-08-15] MEDS: THIAMINE HCL 100 MG TABLET (FP) PO SCH (21:23)
[2019-08-15] MEDS: QUEtiapine FUMARATE 50 MG TABLET PO SCH (21:23)
[2019-08-15] MEDS: LIDOCAINE PATCH REMOVAL MC SCH (21:23)
[2019-08-16] MEDS ORDERED: METHADONE HCL 40 MG DISPERSABLE TABLET ONE (03:42)
[2019-08-16] MEDS ORDERED: METHADONE HCL 10 MG TABLET ONE (03:42)
[2019-08-16] MEDS: METHADONE 80 MG, METHADONE 30 MG PO SCH (06:36)
[2019-08-16] MEDS: LIDOCAINE 5% TOPICAL PATCH TP SCH (09:37)
[2019-08-16] MEDS: PRENATAL VITAMINS W/ FOLIC ACID TABLET (FP) PO SCH (09:37)
[2019-08-16] MEDS: NICOTINE 7 MG/24 HOURS TOPICAL PATCH TD SCH (09:37)
[2019-08-16] MEDS: BICTEGRAV/EMTRICIT/TENOFOV (BIKTARVY) 50-200-25 MG TABLET PO SCH (09:38)
[2019-08-16] MEDS: MELATONIN 5 MG TABLETS PO SCH (21:13)
[2019-08-16] MEDS: QUEtiapine FUMARATE 50 MG TABLET PO SCH (21:13)
[2019-08-16] MEDS: THIAMINE HCL 100 MG TABLET (FP) PO SCH (21:13)
[2019-08-16] MEDS: LIDOCAINE PATCH REMOVAL MC SCH (21:43)
[2019-08-17] MEDS ORDERED: METHADONE HCL 10 MG TABLET ONE (03:34)
[2019-08-17] MEDS ORDERED: METHADONE HCL 40 MG DISPERSABLE TABLET ONE (03:34)
[2019-08-17] MEDS: METHADONE 80 MG, METHADONE 30 MG PO SCH (06:14)
[2019-08-17] MEDS: PRENATAL VITAMINS W/ FOLIC ACID TABLET (FP) PO SCH (10:29)
[2019-08-17] MEDS: BICTEGRAV/EMTRICIT/TENOFOV (BIKTARVY) 50-200-25 MG TABLET PO SCH (10:29)
[2019-08-17] MEDS: LIDOCAINE 5% TOPICAL PATCH TP SCH (10:29)
[2019-08-17] MEDS: NICOTINE 7 MG/24 HOURS TOPICAL PATCH TD SCH (10:30)
[2019-08-17] MEDS: QUEtiapine FUMARATE 50 MG TABLET PO SCH (21:26)
[2019-08-17] MEDS: THIAMINE HCL 100 MG TABLET (FP) PO SCH (21:26)
[2019-08-17] MEDS: MELATONIN 5 MG TABLETS PO SCH (21:26)
[2019-08-17] MEDS: LIDOCAINE PATCH REMOVAL MC SCH (21:27)
[2019-08-18] MEDS: METHADONE 80 MG, METHADONE 30 MG PO SCH (08:57)
[2019-08-18] MEDS: NICOTINE 7 MG/24 HOURS TOPICAL PATCH TD SCH (10:02)
[2019-08-18] MEDS: BICTEGRAV/EMTRICIT/TENOFOV (BIKTARVY) 50-200-25 MG TABLET PO SCH (10:41)
[2019-08-18] MEDS: PRENATAL VITAMINS W/ FOLIC ACID TABLET (FP) PO SCH (10:41)
[2019-08-18] MEDS: LIDOCAINE 5% TOPICAL PATCH TP SCH (10:41)
[2019-08-18] MEDS ORDERED: METHADONE HCL 40 MG DISPERSABLE TABLET ONE (11:57)
[2019-08-18] MEDS ORDERED: METHADONE HCL 10 MG TABLET ONE (11:57)
[2019-08-18] MEDS: MELATONIN 5 MG TABLETS PO SCH (21:21)
[2019-08-18] MEDS: LIDOCAINE PATCH REMOVAL MC SCH (21:21)
[2019-08-18] MEDS: THIAMINE HCL 100 MG TABLET (FP) PO SCH (21:22)
[2019-08-18] MEDS: QUEtiapine FUMARATE 50 MG TABLET PO SCH (21:22)
[2019-08-19] MEDS ORDERED: METHADONE HCL 10 MG TABLET ONE (06:31)
[2019-08-19] MEDS: METHADONE 80 MG, METHADONE 30 MG PO SCH (06:32)
[2019-08-19] MEDS ORDERED: METHADONE HCL 40 MG DISPERSABLE TABLET ONE (06:32)
[2019-08-19] MEDS ORDERED: PT OWN MED DRAWER 7, Y5N ONE (09:06)
[2019-08-19] MEDS: NICOTINE 7 MG/24 HOURS TOPICAL PATCH TD SCH (10:20)
[2019-08-19] MEDS: BICTEGRAV/EMTRICIT/TENOFOV (BIKTARVY) 50-200-25 MG TABLET PO SCH (10:21)
[2019-08-19] MEDS: LIDOCAINE 5% TOPICAL PATCH TP SCH (10:21)
[2019-08-19] MEDS: PRENATAL VITAMINS W/ FOLIC ACID TABLET (FP) PO SCH (10:21)
[2019-08-19] MEDS: THIAMINE HCL 100 MG TABLET (FP) PO SCH (21:45)
[2019-08-19] MEDS: MELATONIN 5 MG TABLETS PO SCH (21:45)
[2019-08-19] MEDS: LIDOCAINE PATCH REMOVAL MC SCH (21:46)
[2019-08-19] MEDS: QUEtiapine FUMARATE 50 MG TABLET PO SCH (21:46)
[2019-08-20] MEDS ORDERED: METHADONE HCL 10 MG TABLET ONE (06:25)
[2019-08-20] MEDS: METHADONE 80 MG, METHADONE 30 MG PO SCH (06:26)
[2019-08-20] MEDS ORDERED: METHADONE HCL 40 MG DISPERSABLE TABLET ONE (06:26)
[2019-08-20] MEDS ORDERED: PT OWN MED DRAWER 7, Y5N ONE (09:07)
[2019-08-20] MEDS: LIDOCAINE 5% TOPICAL PATCH TP SCH (10:48)
[2019-08-20] MEDS: BICTEGRAV/EMTRICIT/TENOFOV (BIKTARVY) 50-200-25 MG TABLET PO SCH (10:48)
[2019-08-20] MEDS: PRENATAL VITAMINS W/ FOLIC ACID TABLET (FP) PO SCH (10:48)
[2019-08-20] MEDS: NICOTINE 7 MG/24 HOURS TOPICAL PATCH TD SCH (10:48)
[2019-08-20] MEDS: QUEtiapine FUMARATE 50 MG TABLET PO SCH (21:15)
[2019-08-20] MEDS: MELATONIN 5 MG TABLETS PO SCH (21:15)
[2019-08-20] MEDS: THIAMINE HCL 100 MG TABLET (FP) PO SCH (21:15)
[2019-08-20] MEDS: LIDOCAINE PATCH REMOVAL MC SCH (21:15)
[2019-08-21] MEDS ORDERED: METHADONE HCL 10 MG TABLET ONE (03:43)
[2019-08-21] MEDS ORDERED: METHADONE HCL 40 MG DISPERSABLE TABLET ONE (03:43)
[2019-08-21] MEDS: METHADONE 80 MG, METHADONE 30 MG PO SCH (06:16)
[2019-08-21] MEDS: BICTEGRAV/EMTRICIT/TENOFOV (BIKTARVY) 50-200-25 MG TABLET PO SCH (10:17)
[2019-08-21] MEDS: PRENATAL VITAMINS W/ FOLIC ACID TABLET (FP) PO SCH (10:17)
[2019-08-21] MEDS: LIDOCAINE 5% TOPICAL PATCH TP SCH (10:18)
[2019-08-21] MEDS: NICOTINE 7 MG/24 HOURS TOPICAL PATCH TD SCH (10:19)
[2019-08-21] MEDS: IBUPROFEN 400 MG TABLET (FP) PO PRN (15:34)
[2019-08-21] MEDS: QUEtiapine FUMARATE 50 MG TABLET PO SCH (21:39)
[2019-08-21] MEDS: THIAMINE HCL 100 MG TABLET (FP) PO SCH (21:39)
[2019-08-21] MEDS: MELATONIN 5 MG TABLETS PO SCH (21:39)
[2019-08-21] MEDS: LIDOCAINE PATCH REMOVAL MC SCH (21:40)
[2019-08-22] MEDS ORDERED: METHADONE HCL 10 MG TABLET ONE (06:26)
[2019-08-22] MEDS ORDERED: METHADONE HCL 40 MG DISPERSABLE TABLET ONE (06:26)
[2019-08-22] MEDS: METHADONE 80 MG, METHADONE 30 MG PO SCH (06:26)
[2019-08-22] MEDS ORDERED: PT OWN MED DRAWER 7, Y5N ONE (09:06)
[2019-08-22] MEDS: LIDOCAINE 5% TOPICAL PATCH TP SCH (09:52)
[2019-08-22] MEDS: BICTEGRAV/EMTRICIT/TENOFOV (BIKTARVY) 50-200-25 MG TABLET PO SCH (09:52)
[2019-08-22] MEDS: PRENATAL VITAMINS W/ FOLIC ACID TABLET (FP) PO SCH (09:53)
[2019-08-22] MEDS: NICOTINE 7 MG/24 HOURS TOPICAL PATCH TD SCH (09:53)
[2019-08-22] MEDS: QUEtiapine FUMARATE 50 MG TABLET PO SCH (21:11)
[2019-08-22] MEDS: MELATONIN 5 MG TABLETS PO SCH (21:11)
[2019-08-22] MEDS: LIDOCAINE PATCH REMOVAL MC SCH (21:11)
[2019-08-22] MEDS: THIAMINE HCL 100 MG TABLET (FP) PO SCH (21:11)
[2019-08-23] MEDS ORDERED: METHADONE HCL 40 MG DISPERSABLE TABLET ONE (06:27)
[2019-08-23] MEDS ORDERED: METHADONE HCL 10 MG TABLET ONE (06:27)
[2019-08-23] MEDS: METHADONE 80 MG, METHADONE 30 MG PO SCH (06:28)
[2019-08-23] MEDS: LIDOCAINE 5% TOPICAL PATCH TP SCH (09:53)
[2019-08-23] MEDS: PRENATAL VITAMINS W/ FOLIC ACID TABLET (FP) PO SCH (09:53)
[2019-08-23] MEDS: NICOTINE 7 MG/24 HOURS TOPICAL PATCH TD SCH (09:54)
[2019-08-23] MEDS: BICTEGRAV/EMTRICIT/TENOFOV (BIKTARVY) 50-200-25 MG TABLET PO SCH (09:54)
[2019-08-23] MEDS: THIAMINE HCL 100 MG TABLET (FP) PO SCH (21:44)
[2019-08-23] MEDS: MELATONIN 5 MG TABLETS PO SCH (21:44)
[2019-08-23] MEDS: QUEtiapine FUMARATE 50 MG TABLET PO SCH (21:44)
[2019-08-23] MEDS: LIDOCAINE PATCH REMOVAL MC SCH (21:44)
[2019-08-24] MEDS ORDERED: METHADONE HCL 10 MG TABLET ONE (06:15)
[2019-08-24] MEDS ORDERED: METHADONE HCL 40 MG DISPERSABLE TABLET ONE (06:16)
[2019-08-24] MEDS: METHADONE 80 MG, METHADONE 30 MG PO SCH (06:16)
[2019-08-24] MEDS ORDERED: PT OWN MED DRAWER 7, Y5N ONE (08:57)
[2019-08-24] MEDS: BICTEGRAV/EMTRICIT/TENOFOV (BIKTARVY) 50-200-25 MG TABLET PO SCH (09:51)
[2019-08-24] MEDS: LIDOCAINE 5% TOPICAL PATCH TP SCH (09:52)
[2019-08-24] MEDS: PRENATAL VITAMINS W/ FOLIC ACID TABLET (FP) PO SCH (09:52)
[2019-08-24] MEDS: NICOTINE 7 MG/24 HOURS TOPICAL PATCH TD SCH (09:52)
[2019-08-24] MEDS: THIAMINE HCL 100 MG TABLET (FP) PO SCH (21:25)
[2019-08-24] MEDS: QUEtiapine FUMARATE 50 MG TABLET PO SCH (21:25)
[2019-08-24] MEDS: MELATONIN 5 MG TABLETS PO SCH (21:25)
[2019-08-24] MEDS: LIDOCAINE PATCH REMOVAL MC SCH (21:26)
[2019-08-25] MEDS ORDERED: METHADONE HCL 40 MG DISPERSABLE TABLET ONE (05:16)
[2019-08-25] MEDS ORDERED: METHADONE HCL 10 MG TABLET ONE (05:16)
[2019-08-25] MEDS: METHADONE 80 MG, METHADONE 30 MG PO SCH (07:02)
[2019-08-25] MEDS: PRENATAL VITAMINS W/ FOLIC ACID TABLET (FP) PO SCH (09:53)
[2019-08-25] MEDS: NICOTINE 7 MG/24 HOURS TOPICAL PATCH TD SCH (09:53)
[2019-08-25] MEDS: BICTEGRAV/EMTRICIT/TENOFOV (BIKTARVY) 50-200-25 MG TABLET PO SCH (09:53)
[2019-08-25] MEDS: LIDOCAINE 5% TOPICAL PATCH TP SCH (09:53)
[2019-08-25] MEDS: LIDOCAINE PATCH REMOVAL MC SCH (21:06)
[2019-08-25] MEDS: THIAMINE HCL 100 MG TABLET (FP) PO SCH (21:06)
[2019-08-25] MEDS: MELATONIN 5 MG TABLETS PO SCH (21:06)
[2019-08-25] MEDS: QUEtiapine FUMARATE 50 MG TABLET PO SCH (21:06)
[2019-08-26] MEDS ORDERED: METHADONE HCL 10 MG TABLET ONE (06:24)
[2019-08-26] MEDS ORDERED: METHADONE HCL 40 MG DISPERSABLE TABLET ONE (06:24)
[2019-08-26] MEDS: METHADONE 80 MG, METHADONE 30 MG PO SCH (06:25)
[2019-08-26] MEDS ORDERED: PT OWN MED DRAWER 7, Y5N ONE (09:09)
[2019-08-26] MEDS: PRENATAL VITAMINS W/ FOLIC ACID TABLET (FP) PO SCH (10:13)
[2019-08-26] MEDS: BICTEGRAV/EMTRICIT/TENOFOV (BIKTARVY) 50-200-25 MG TABLET PO SCH (10:14)
[2019-08-26] MEDS: NICOTINE 7 MG/24 HOURS TOPICAL PATCH TD SCH (10:14)
[2019-08-26] MEDS: LIDOCAINE 5% TOPICAL PATCH TP SCH (10:14)
[2019-08-26] MEDS: QUEtiapine FUMARATE 50 MG TABLET PO SCH (21:09)
[2019-08-26] MEDS: MELATONIN 5 MG TABLETS PO SCH (21:09)
[2019-08-26] MEDS: THIAMINE HCL 100 MG TABLET (FP) PO SCH (21:09)
[2019-08-26] MEDS: LIDOCAINE PATCH REMOVAL MC SCH (21:09)
[2019-08-27] MEDS ORDERED: METHADONE HCL 10 MG TABLET ONE (05:40)
[2019-08-27] MEDS ORDERED: METHADONE HCL 40 MG DISPERSABLE TABLET ONE (05:40)
[2019-08-27] MEDS: METHADONE 80 MG, METHADONE 30 MG PO SCH (06:08)
[2019-08-27] MEDS: PRENATAL VITAMINS W/ FOLIC ACID TABLET (FP) PO SCH (09:38)
[2019-08-27] MEDS: LIDOCAINE 5% TOPICAL PATCH TP SCH (09:39)
[2019-08-27] MEDS: NICOTINE 7 MG/24 HOURS TOPICAL PATCH TD SCH (09:39)
[2019-08-27] MEDS: BICTEGRAV/EMTRICIT/TENOFOV (BIKTARVY) 50-200-25 MG TABLET PO SCH (09:39)
--- NOTE | 2019-08-27 10:28 | DS ---
[facility] Rehab Discharge Summary - [facility] Rehab Discharge Summary Admission Date: 08/01/19 Discharge Date: 08/27/19 - History Present History: Alcohol dependence, Cocaine dependence, MMTP Pertinent Past History: 53 year old female with history of alcohol dependence with withdrawal, cocaine use disorder, nicotine dependence. She was last at [facility] 07/01-07/06/19 completed detox and was referred to [facility] because there was no rehab bed available here. She did not follow up and immediately relapsed. Patient is a methadone maintenance patient in [facility]. Alcohol: 3 pints vodka daily, started at age 13 and last used 07/28/19 at 7AM. Admits to multiple blackout and last one 3 year ago, does endorse the need for an eye wafer cleaner daily to stave off withdrawals. Cocaine: $20 IV, started at 17 and last used 07/26/19; crack $10 smoking since age 17 and last used 07/26/19 Nicotine: 10 ciggs daily, started smoking at age 13 PMH: HIV HCV Psurg: C/S X1 Psych: Bipolar, Depression, PTSD - no meds - no follow up with psych for over 1 year. Lives in [facility] [place] housing. No legal issues pending. . - Discharge Physical Exam Vital Signs: Vital Signs Temperature 98.4 F 08/27/19 07:15 Pulse Rate 83 08/27/19 07:15 Respiratory Rate 18 08/27/19 07:15 Blood Pressure 107/63 08/27/19 07:15 O2 Sat by Pulse Oximetry (%) 96 08/27/19 07:15 Pertinent Admission Physical Exam Findings: Physical General Appearance: No apparent distress HEENTM: EOMI, Normocephalic,RENETTA, Respiratory: No Respiratory Distress, No Accessory Muscle Use Neck: Supple, Cardiology:S1, S2 Abdominal: +Bowel Sounds, Musculoskeletal: full range of Motion, Gait Steady, 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: Fully Oriented, Alert, Motor Strength 5/5, - Treatment Discharge Condition: Outpatient referral accepted (Patient will return to [facility] for discharge.) - Medication Discharge Medications: Ambulatory Orders Methadone [Dolophine -] 110 mg PO DAILY 10/07/17 Quetiapine Fumarate [Seroquel -] 100 mg PO HS 07/02/19 Quetiapine Fumarate [Seroquel -] 50 mg PO HS tablet 08/01/19 Bictegrav/Emtricit/Tenofov Ala [Biktarvy 50-200-25 mg Tablet] 1 each PO DAILY #30 tablet 08/27/19 - Medication-Assisted Treatment (MAT) Medication-Assisted Treatment (MAT): Yes MAT Follow-up Referral: MMTP at [facility] - Discharge Instructions Diet, activity, other medical instructions: Diet: as tolerated Activity: as tolerated Other medical instructions: Please follow up with [facility] - Diagnosis (1) Alcohol dependence Current Visit: Yes Status: Chronic (2) Cocaine dependence Current Visit: Yes Status: Chronic (3) Opioid dependence on agonist therapy Current Visit: No Status: Chronic - AMA Did Patient Leave Against Medical Advice: No
--- NOTE | 2019-08-27 15:09 | PN ---
S Progress Note Note: Patient is scheduled for discharge tomorrow. Script for 30 days supply of Seroquel 50 mg/hs will be electronically transmitted to [address] [place] [address] Pharmacy, [address], [place] [address]
[2019-08-27] MEDS: LIDOCAINE PATCH REMOVAL MC SCH (21:36)
[2019-08-27] MEDS: THIAMINE HCL 100 MG TABLET (FP) PO SCH (21:36)
[2019-08-27] MEDS: MELATONIN 5 MG TABLETS PO SCH (21:36)
[2019-08-27] MEDS: QUEtiapine FUMARATE 50 MG TABLET PO SCH (21:36)
[2019-08-28] MEDS ORDERED: METHADONE HCL 10 MG TABLET ONE (05:40)
[2019-08-28] MEDS ORDERED: METHADONE HCL 40 MG DISPERSABLE TABLET ONE (05:40)
[2019-08-28] MEDS: METHADONE 80 MG, METHADONE 30 MG PO SCH (06:31)
[2019-08-28 07:13] VITALS: BP 102/69; PULSE 79; TEMP 98.2
[2019-08-28] MEDS: LIDOCAINE 5% TOPICAL PATCH TP SCH (09:55)
[2019-08-28] MEDS: PRENATAL VITAMINS W/ FOLIC ACID TABLET (FP) PO SCH (09:55)
[2019-08-28] MEDS: BICTEGRAV/EMTRICIT/TENOFOV (BIKTARVY) 50-200-25 MG TABLET PO SCH (09:56)
[2019-08-28] MEDS: NICOTINE 7 MG/24 HOURS TOPICAL PATCH TD SCH (09:56)
== END 2019-08-28 10:05 | disposition home or self-care (01) | DRG 772 ==
LOC: YASAS 11:23 → Y3W 11:24
PROVIDERS: ADMIT Allergy & Immunology; ATTEND Allergy & Immunology
PROC: HZ42ZZZ Group Counseling for Substance Abuse Treatment, Cognitive-Behavioral (ICD-10-PCS; principal; 2019-08-01)
DX: F10.20 Alcohol dependence, uncomplicated (principal); F14.20 Cocaine dependence, uncomplicated; F11.20 Opioid dependence, uncomplicated; F17.210 Nicotine dependence, cigarettes, uncomplicated; F19.282 Other psychoactive substance dependence with psychoactive substance-induced sleep disorder; F19.24 Other psychoactive substance dependence with psychoactive substance-induced mood disorder; F31.9 Bipolar disorder, unspecified; F43.10 Post-traumatic stress disorder, unspecified; Z21 Asymptomatic human immunodeficiency virus [HIV] infection status; B37.0 Candidal stomatitis; K21.9 Gastro-esophageal reflux disease without esophagitis; M25.562 Pain in left knee; B18.2 Chronic viral hepatitis C; R74.0 Nonspecific elevation of levels of transaminase and lactic acid dehydrogenase [LDH]; Z20.2 Contact with and (suspected) exposure to infections with a predominantly sexual mode of transmission; Z86.19 Personal history of other infectious and parasitic diseases; Z86.69 Personal history of other diseases of the nervous system and sense organs; Z88.1 Allergy status to other antibiotic agents
CPT/HCPCS: 36415; 80053

== ENCOUNTER 2019-10-14 09:59 | Inpatient (IN) | payer OTHER ==
--- NOTE | 2019-10-14 10:39 | B[facility].RME ---
Substance Use & Tx History - Substance Use History Alcohol Substance amount: 3 pints vodka Frequency of use: Daily Substance route: Oral Date of Last Use: 10/14/19 Cocaine-Crack Substance amount: $20 Frequency of use: Daily Substance route: Smoking Date of Last Use: 10/14/19 Nicotine Substance amount: 7-8 ciggs Frequency of use: Daily Substance route: Smoking Date of Last Use: 10/14/19 Physical/Psych/Mental Status - Behavior General Behavior: Increased activity (restlessness, agitation) Eye Contact: Normal - Cooperativeness Cooperativeness: Cooperative - Thinking Thought Processes: Tight, Logical, Goal Directed - Physical Health Problems Is patient presently having any pain?: No Does patient presently have any injuries (include location): No Does patient currently have a fever: No Is patient : No CIWA Nausea/Vomitin-No Nausea/No Vomiting Muscle Tremors: 2 Anxiety: 4-Mod. Anxious/Guarded Agitation: 4-Moderately Restless Paroxysmal Sweats: 1-Minimal Palms Moist Orientation: 1-Uncertain about Date Tacttile Disturbances: 1-Very Mild Itch/Numbness Auditory Disturbances: 1-Very Mild Visual Disturbances: 1-Very Mild Sensitivity Headache: 1-Very Mild CIWA-Ar Total Score: 16
--- NOTE | 2019-10-14 14:17 | HP ---
CIWA Score Nausea/Vomitin-No Nausea/No Vomiting Muscle Tremors: 2 Anxiety: 4-Mod. Anxious/Guarded Agitation: 4-Moderately Restless Paroxysmal Sweats: 1-Minimal Palms Moist Orientation: 1-Uncertain about Date Tacttile Disturbances: 1-Very Mild Itch/Numbness Auditory Disturbances: 1-Very Mild Visual Disturbances: 1-Very Mild Sensitivity Headache: 1-Very Mild CIWA-Ar Total Score: 16 - Admission Criteria OASAS Guidelines: Admission for Medically Managed Detox: Requires at least one of the followin. CIWA greater than 12 2. Seizures within the past 24 hours 3. Delirium tremens within the past 24 hours 4. Hallucinations within the past 24 hours 5. Acute intervention needed for co occurring medical disorder 6. Acute intervention needed for co occurring psychiatric disorder 7. Severe withdrawal that cannot be handled at a lower level of care (continued vomiting, continued diarrhea, abnormal vital signs) requiring intravenous medication and/or fluids 8. Admitting History and Physical - Admission History of Present Illness: Patient is a 54 y.o. F PMHx epilepsy, HCV, HIV Presenting to [facility], [place] for substance abuse. Patient is somnolent upon exam but in no acute distress. Pt. 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 Crack 20$ a day, 8 cigarettes a day. 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 Cardiovascular: No: HTN, Hyperlipdemia Gastrointestinal: Yes: GERD Hepatobiliary: Yes: Hepatitis C ...LMP: 09/28/17 Infectious Disease: Yes: HIV Psych: Yes: Depression, Other (PTSD) - Past Surgical History Past Surgical History: Yes: - Smoking History Smoking history: Current every day smoker Have you smoked in the past 12 months: Yes Aproximately how many cigarettes per day: 10 - Alcohol/Substance Use Hx Alcohol Use: Yes Number of Drinks Daily: 30 History of Substance Use: reports: Cocaine - Social History Usual Living Arrangement: Yes: Other ADL: Independent Occupation: Unemployed SSI History of Recent Travel: No Admission [facility] Allergies/Adverse Reactions: Allergies Allergy/AdvReac Type Severity Reaction Status Date / Time cephalexin monohydrate Allergy Hives Verified 10/14/19 11:17 [From Keflex] History of Present Illness: Patient is a 54 y.o. F PMHx epilepsy, HCV, HIV Presenting to [facility], [place] for garcia bstance abuse. Patient is somnolent upon exam but in no acute distress. Pt. 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 Crack 20$ a day, 8 cigarettes a day. - Substance Use History Alcohol Substance amount: 3 pints vodka Frequency of use: Daily Substance route: Oral Date of Last Use: 10/14/19 Cocaine-Crack Substance amount: $20 Frequency of use: Daily Substance route: Smoking Date of Last Use: 10/14/19 Nicotine Substance amount: 7-8 ciggs Frequency of use: Daily Substance route: Smoking Date of Last Use: 10/14/19 Exam Limitations: No Limitations - Ebola screening Have you traveled outside of the country in the last 21 days: No Have you had contact with anyone from an Ebola affected area: No Have you been sick,other than usual withdrawal symptoms: No Do you have a fever: No - Review of Systems Constitutional: No Symptoms Reported EENT: denies: Blurred Vision, Double Vision Respiratory: denies: Cough, Shortness of Breath Cardiac: denies: Chest Pain, Lightheadedness GI: denies: Constipated, Diarrhea, Nausea, Vomiting : denies: Burning, Dysuria Musculoskeletal: denies: Muscle Pain, Muscle Weakness Neuro: denies: Headache, Numbness, Tingling Hematology: reports: No Symptoms Reported. denies: Easy Bleeding Psychiatric: reports: No Sypmtoms Reported, Judgement Intact, Mood/Affect Appropiate, Orientated x3 Patient History - Patient Medical History Hx Anemia: No Hx Asthma: No Hx Chronic Obstructive Pulmonary Disease (COPD): No Hx Cancer: No Hx Cardiac Disorders: No Hx Congestive Heart Failure: No Hx Hypertension: No Hx Hypercholesterolemia: No Hx Pacemaker: No HX Cerebrovascular Accident: No Hx Seizures: Yes (alcohol related) Hx Dementia: No Hx Diabetes: No Hx Gastrointestinal Disorders: No Hx Liver Disease: No Hx Genitourinary Disorders: No Hx Sexually Transmitted Disorders: Yes Hx Renal Disease (ESRD): No Hx Thyroid Disease: No Hx Human Immunodeficiency Virus (HIV): Yes (HIV 1993. Trimeq) Hx Hepatitis C: Yes (TREATED) Hx Depression: Yes Hx Suicide Attempt: No Hx Bipolar Disorder: Yes Hx Schizophrenia: No - Patient Surgical History Past Surgical History: Yes Hx Neurologic Surgery: No Hx Cataract Extraction: No Hx Cardiac Surgery: No Hx Lung Surgery: No Hx Breast Surgery: No Hx Breast Biopsy: No Hx Abdominal Surgery: No Hx Appendectomy: No Hx Cholecystectomy: No Hx Genitourinary Surgery: No Hx Section: No Hx Orthopedic Surgery: Yes (Sx for cellulitis R foot 2 weesk ago) Hx Hysterectomy: No Anesthesia Reaction: No - PPD History Date: 01/18/19 Results: 0 mm - Reproductive History Last Menstrual Period: 09/28/17 - Smoking Cessation Smoking history: Current every day smoker Have you smoked in the past 12 months: Yes Aproximately how many cigarettes per day: 10 Cigars Per Day: 0 Hx Chewing Tobacco Use: No Initiated information on smoking cessation: Yes 'Breaking Loose' booklet given: 10/14/19 Admission Physical Exam [facility] - Physical General Appearance: Yes: Within Normal Limits, No Apparent Distress, Nourished, Appropriately Dressed, Alcohol on Breath Respiratory: Yes: Within Normal Limits, Lungs Clear, Normal Breath Sounds, No Respiratory Distress, No Accessory Muscle Use Cardiology: Yes: Within Normal Limits, Regular Rhythm, Regular Rate Abdominal: Yes: Within Normal Limits, Normal Bowel Sounds, Non Tender, Flat, Soft Back: Yes: Within Normal Limits Musculoskeletal: Yes: Within Normal Limits Extremities: Yes: Normal Inspection, Normal Range of Motion, Non-Tender 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: Yes: Within Normal Limits, Fully Oriented, Normal Mood/Affect, Normal Response Integumentary: Yes: Within Normal Limits, Dry, Warm - Diagnostic (1) Alcohol dependence with uncomplicated withdrawal Current Visit: No Status: Acute (2) Cocaine dependence, uncomplicated Current Visit: No Status: Acute (3) Nicotine dependence Current Visit: No Status: Acute (4) Substance induced mood disorder Current Visit: No Status: Acute (5) Alcohol dependence Current Visit: No Status: Chronic Qualifiers: Substance use status: uncomplicated Qualified Code(s): F10.20 - Alcohol dependence, uncomplicated (6) Chronic viral hepatitis C Current Visit: No Status: Chronic Qualifiers: Hepatic coma status: without hepatic coma Qualified Code(s): B18.2 - Chronic viral hepatitis C (7) HIV (human immunodeficiency virus infection) Current Visit: No Status: Chronic Qualifiers: HIV symptom status: asymptomatic Qualified Code(s): Z21 - Asymptomatic human immunodeficiency virus [HIV] infection status (8) MDD (major depressive disorder) Current Visit: No Status: Chronic Comment: Self reports. (9) Non-compliance Current Visit: No Status: Chronic (10) Post traumatic stress disorder (PTSD) Current Visit: No Status: Chronic Comment: As per self-report. (11) Bipolar II disorder Current Visit: No Status: Suspected (12) Seizure disorder, secondary Current Visit: No Status: Suspected Comment: no treatment (13) Alcohol related seizure Current Visit: No Status: Resolved Cleared for Admission S - Detox or Rehab S Level of Care: Medically Managed Detox Regimen/Protocol: Librium Breathalyzer - Breathalyzer Breathalyzer: 0.242 Vital Signs - Vital Signs Vital signs refused: No Temperature: 97.6 F Pulse Rate: 93 Respiratory Rate: 18 Blood Pressure: 107/77 - Height Height: 1.47 m - Weight Weight: 49.895 kg - BMI Body Mass Index (BMI): 22.9 Urine Drug Screen - Test Device Lot number: [id number] Expiration date: 05/13/21 - Control Is test valid?: Yes - Results Drug screen NEGATIVE: No Urine drug screen results: MTD-Methadone Inpatient Rehab Admission - Rehab Decision to Admit Inpatient rehab admission?: No
[2019-10-14 14:20] VITALS: BMI 22.9
[2019-10-14] MEDS ORDERED: NICOTINE POLACRILEX 2 MG GUM BUC PRN (14:20)
[2019-10-14] MEDS ORDERED: MAGNESIUM HYDROX 2400MG/30ML ORAL SUSPENSION 30 ML CUP PO PRN (14:20)
[2019-10-14] MEDS ORDERED: MAG HYDROX/AL HYDROX/SIMETH 30 ML UNIT-DOSE CUP PO PRN (14:20)
[2019-10-14] MEDS ORDERED: BISMUTH SUBSALICYLATE 524 MG/30 ML UD PO PRN (14:20)
[2019-10-14] MEDS ORDERED: IBUPROFEN 400 MG TABLET (FP) PO PRN (14:20)
[2019-10-14] MEDS ORDERED: METHOCARBAMOL 500 MG TABLET PO PRN (14:20)
[2019-10-14] MEDS ORDERED: ACETAMINOPHEN 325 MG TABLET (FP) PO PRN ×2 (14:20)
[2019-10-14] MEDS ORDERED: MENTHOL/PHENOL 1 EACH UD MM PRN (14:20)
[2019-10-14] MEDS ORDERED: ONDANSETRON *ODT* 4 MG TABLET SL PRN (14:20)
[2019-10-14] MEDS ORDERED: MAGNESIUM CITRATE 300 ML BOTTLE PO PRN (14:20)
[2019-10-14] MEDS ORDERED: chlordiazePOXIDE HCL 25 MG CAPSULE PO PRN (14:20)
[2019-10-14] MEDS: hydrOXYzine PAMOATE 25 MG CAPSULE (FP) PO SCH ×2 (17:20→22:24)
[2019-10-14] MEDS: chlordiazePOXIDE HCL 25 MG CAPSULE PO SCH ×2 (17:20→22:25)
[2019-10-14 17:24] LABS: HEMATOCRIT 40.7 % (32.4-45.2); HEMOGLOBIN 13.7 GM/dL (10.7-15.3); MCH 31.6 pg (25.7-33.7); MCHC 33.6 g/dl (32.0-36.0); MEAN CELL VOLUME 93.9 fl (80-96); MEAN PLT VOLUME 9.6 fl (7.5-11.1); PLATELET COUNT 145 K/MM3 (134-434); RBC 4.34 M/mm3 (3.60-5.2); RDW 15.1 % (11.6-15.6); WHITE BLOOD COUNT 2.4 K/mm3 (4.0-10.0)
[2019-10-14 17:31] LABS: ALBUMIN 3.4 g/dl (3.4-5.0); BILIRUBIN,TOTAL 0.8 mg/dL (0.2-1); BLOOD UREA NITROGEN 10.2 mg/dL (7-18); CREATININE 0.6 mg/dL (0.55-1.3); POTASSIUM 3.4 mmol/L (3.5-5.1); TOT PROT 9.2 g/dl (6.4-8.2)
[2019-10-14] MEDS ORDERED: THIAMINE HCL 100 MG TABLET (FP) PO SCH (22:00)
[2019-10-14] MEDS ORDERED: MELATONIN 5 MG TABLETS PO SCH (22:00)
[2019-10-15] MEDS: hydrOXYzine PAMOATE 25 MG CAPSULE (FP) PO SCH (05:52)
[2019-10-15] MEDS: chlordiazePOXIDE HCL 25 MG CAPSULE PO SCH (05:52)
[2019-10-15 06:38] VITALS: BP 135/86; PULSE 65; TEMP 97.2
[2019-10-15] MEDS ORDERED: PRENATAL VITAMINS W/ FOLIC ACID TABLET (FP) PO SCH (10:00)
[2019-10-15] MEDS ORDERED: NICOTINE 7 MG/24 HOURS TOPICAL PATCH TD SCH (10:00)
[2019-10-16] MEDS ORDERED: chlordiazePOXIDE HCL 25 MG CAPSULE PO SCH (05:00)
[2019-10-17] MEDS ORDERED: chlordiazePOXIDE HCL 10 MG CAPSULE PO PRN
[2019-10-17] MEDS ORDERED: chlordiazePOXIDE HCL 10 MG CAPSULE PO SCH (05:00)
[2019-10-18] MEDS ORDERED: chlordiazePOXIDE HCL 10 MG CAPSULE PO SCH (05:00)
[2019-10-19] MEDS ORDERED: chlordiazePOXIDE HCL 10 MG CAPSULE PO ONE (05:00)
== END 2019-10-15 07:58 | disposition left against medical advice (07) | DRG 770 ==
LOC: YASAS 09:59 → Y3N 14:53
PROVIDERS: ADMIT Allergy & Immunology; ATTEND Allergy & Immunology
PROC: HZ2ZZZZ Detoxification Services for Substance Abuse Treatment (ICD-10-PCS; principal; 2019-10-14)
DX: F10.230 Alcohol dependence with withdrawal, uncomplicated (principal); F14.20 Cocaine dependence, uncomplicated; F17.210 Nicotine dependence, cigarettes, uncomplicated; F19.24 Other psychoactive substance dependence with psychoactive substance-induced mood disorder; F32.9 Major depressive disorder, single episode, unspecified; F43.10 Post-traumatic stress disorder, unspecified; Z21 Asymptomatic human immunodeficiency virus [HIV] infection status; B18.2 Chronic viral hepatitis C; Z86.19 Personal history of other infectious and parasitic diseases; Z98.890 Other specified postprocedural states; Z88.8 Allergy status to other drugs, medicaments and biological substances; Z59.0 Homelessness; Z91.19 Patient's noncompliance with other medical treatment and regimen
CPT/HCPCS: 36415; 80053; 81025; 85027; 86593; 86780; U0003

== ENCOUNTER 2020-07-26 11:00 | Inpatient (IN) | payer OTHER ==
[2020-07-26] MEDS ORDERED: PERMETHRIN 5% TOPICAL CREAM 60 GM TUBE ONE (12:09)
[2020-07-26 12:17] VITALS: BMI 22.9
[2020-07-26] MEDS ORDERED: PERMETHRIN 5% TOPICAL CREAM 60 GM TUBE TP ONE (12:45)
[2020-07-26] MEDS ORDERED: IBUPROFEN 400 MG TABLET (FP) PO PRN (13:11)
[2020-07-26] MEDS ORDERED: NICOTINE POLACRILEX 2 MG GUM BUC PRN (13:11)
[2020-07-26] MEDS ORDERED: ONDANSETRON *ODT* 4 MG TABLET SL PRN (13:11)
[2020-07-26] MEDS ORDERED: MAGNESIUM CITRATE 300 ML BOTTLE PO PRN (13:11)
[2020-07-26] MEDS ORDERED: BISMUTH SUBSALICYLATE 524 MG/30 ML PO PRN (13:11)
[2020-07-26] MEDS ORDERED: ACETAMINOPHEN 325 MG TABLET (FP) PO PRN ×2 (13:11)
[2020-07-26] MEDS ORDERED: METHOCARBAMOL 500 MG TABLET PO PRN (13:11)
[2020-07-26] MEDS ORDERED: MENTHOL/PHENOL 1 EACH UD MM PRN (13:11)
[2020-07-26] MEDS ORDERED: LORazepam 1 MG TABLET PO PRN (13:11)
[2020-07-26] MEDS ORDERED: MAG HYDROX/AL HYDROX/SIMETH 30 ML UNIT-DOSE CUP PO PRN (13:11)
[2020-07-26] MEDS ORDERED: MAGNESIUM HYDROX 2400MG/30ML ORAL SUSPENSION 30 ML CUP PO PRN (13:11)
[2020-07-26] MEDS: hydrOXYzine PAMOATE 25 MG CAPSULE (FP) PO SCH ×3 (14:23→22:40)
[2020-07-26] MEDS: LORazepam 2 MG TABLET PO SCH ×2 (18:04→22:40)
[2020-07-26] MEDS: THIAMINE HCL 100 MG TABLET (FP) PO SCH (22:40)
[2020-07-26] MEDS: MELATONIN 5 MG TABLETS PO SCH (22:40)
[2020-07-26] MEDS: QUEtiapine FUMARATE 100 MG TABLET (FP) PO SCH (22:40)
[2020-07-27] MEDS ORDERED: METHADONE HCL 10 MG TABLET ONE (04:37)
[2020-07-27] MEDS ORDERED: METHADONE HCL 40 MG DISPERSABLE TABLET ONE (04:38)
[2020-07-27] MEDS ORDERED: METHADONE HCL 10 MG TABLET PO SCH (06:00)
[2020-07-27] MEDS: METHADONE 40 MG, METHADONE 20 MG PO SCH (06:34)
[2020-07-27] MEDS: hydrOXYzine PAMOATE 25 MG CAPSULE (FP) PO SCH ×2 (06:34→10:32)
[2020-07-27] MEDS: LORazepam 2 MG TABLET PO SCH ×2 (06:35→10:32)
[2020-07-27] MEDS ORDERED: hydrOXYzine PAMOATE 25 MG CAPSULE (FP) PO PRN (10:32)
[2020-07-27] MEDS: PRENATAL VITAMINS W/ FOLIC ACID TABLET (FP) PO SCH (10:32)
[2020-07-27] MEDS ORDERED: LORazepam 2 MG TABLET PO SCH (17:00)
[2020-07-27] MEDS: LORazepam 1 MG TABLET PO SCH ×2 (18:18→22:53)
[2020-07-27] MEDS: THIAMINE HCL 100 MG TABLET (FP) PO SCH (22:51)
[2020-07-27] MEDS: QUEtiapine FUMARATE 100 MG TABLET (FP) PO SCH (22:52)
[2020-07-27] MEDS: MELATONIN 5 MG TABLETS PO SCH (22:53)
[2020-07-28] MEDS ORDERED: METHADONE HCL 10 MG TABLET ONE (05:02)
[2020-07-28] MEDS ORDERED: METHADONE HCL 40 MG DISPERSABLE TABLET ONE (05:03)
[2020-07-28] MEDS: METHADONE 40 MG, METHADONE 20 MG PO SCH (05:58)
[2020-07-28] MEDS: LORazepam 1 MG TABLET PO SCH ×2 (06:01→11:46)
[2020-07-28] MEDS: PRENATAL VITAMINS W/ FOLIC ACID TABLET (FP) PO SCH (10:45)
[2020-07-28 13:33] LABS: HEMATOCRIT 37.1 % (32.4-45.2); HEMOGLOBIN 12.3 GM/dL (10.7-15.3); MCH 30.9 pg (25.7-33.7); MCHC 33.1 g/dl (32.0-36.0); MEAN CELL VOLUME 93.3 fl (80-96); MEAN PLT VOLUME 9.6 fl (7.5-11.1); PLATELET COUNT 91 10^3/uL (134-434); RBC 3.98 M/mm3 (3.60-5.2); RDW 14.9 % (11.6-15.6); WHITE BLOOD COUNT 2.2 K/mm3 (4.0-10.0)
[2020-07-28] MEDS ORDERED: LORazepam 0.5 MG TABLET PO PRN (13:43)
[2020-07-28 14:02] LABS: ALBUMIN 2.8 g/dl (3.4-5.0); BLOOD UREA NITROGEN 12.2 mg/dL (7-18); CALCIUM 8.6 mg/dL (8.5-10.1)
[2020-07-28 14:05] LABS: CREATININE 0.5 mg/dL (0.55-1.3)
[2020-07-28 14:06] LABS: TOT PROT 9.1 g/dl (6.4-8.2)
[2020-07-28 14:08] LABS: BILIRUBIN,TOTAL 1.2 mg/dL (0.2-1)
[2020-07-28] MEDS: LORazepam 0.5 MG TABLET PO SCH ×2 (18:07→23:44)
[2020-07-28] MEDS: MELATONIN 5 MG TABLETS PO SCH (22:46)
[2020-07-28] MEDS: QUEtiapine FUMARATE 100 MG TABLET (FP) PO SCH (23:54)
[2020-07-28] MEDS: THIAMINE HCL 100 MG TABLET (FP) PO SCH (23:55)
[2020-07-29] MEDS ORDERED: LORazepam 0.5 MG TABLET PO PRN ×2
[2020-07-29] MEDS ORDERED: METHADONE HCL 40 MG DISPERSABLE TABLET ONE (04:02)
[2020-07-29] MEDS ORDERED: METHADONE HCL 10 MG TABLET ONE (04:02)
[2020-07-29] MEDS: LORazepam 0.5 MG TABLET PO SCH ×4 (06:22→22:25)
[2020-07-29] MEDS: METHADONE 40 MG, METHADONE 20 MG PO SCH (06:22)
[2020-07-29] MEDS: PRENATAL VITAMINS W/ FOLIC ACID TABLET (FP) PO SCH (10:28)
[2020-07-29] MEDS ORDERED: QUEtiapine FUMARATE 50 MG TABLET PO SCH (22:00)
[2020-07-29] MEDS: MELATONIN 5 MG TABLETS PO SCH (22:25)
[2020-07-29] MEDS: THIAMINE HCL 100 MG TABLET (FP) PO SCH (22:25)
[2020-07-30] MEDS ORDERED: METHADONE HCL 10 MG TABLET ONE (03:56)
[2020-07-30] MEDS ORDERED: METHADONE HCL 40 MG DISPERSABLE TABLET ONE (03:57)
[2020-07-30] MEDS ORDERED: LORazepam 0.5 MG TABLET PO ONE (05:00)
[2020-07-30] MEDS: METHADONE 40 MG, METHADONE 20 MG PO SCH (05:57)
[2020-07-30 10:08] LABS: SARS-CoV-2 NAA Not Detected (Not Detected)
[2020-07-30] MEDS: PRENATAL VITAMINS W/ FOLIC ACID TABLET (FP) PO SCH (10:37)
[2020-07-30 13:13] VITALS: BP 106/68; PULSE 92; TEMP 97.4
== END 2020-07-30 13:23 | disposition other institution (70) | DRG 772 ==
LOC: YASAS 11:00 → Y6N 13:53
PROVIDERS: ADMIT Allergy & Immunology; ATTEND Allergy & Immunology
PROC: HZ42ZZZ Group Counseling for Substance Abuse Treatment, Cognitive-Behavioral (ICD-10-PCS; principal; 2020-07-26)
DX: F10.20 Alcohol dependence, uncomplicated (principal); F11.20 Opioid dependence, uncomplicated; F14.20 Cocaine dependence, uncomplicated; F17.210 Nicotine dependence, cigarettes, uncomplicated; F31.9 Bipolar disorder, unspecified; F43.10 Post-traumatic stress disorder, unspecified; F19.282 Other psychoactive substance dependence with psychoactive substance-induced sleep disorder; Z21 Asymptomatic human immunodeficiency virus [HIV] infection status; K21.9 Gastro-esophageal reflux disease without esophagitis; B18.2 Chronic viral hepatitis C; R21 Rash and other nonspecific skin eruption; W19.XXXA Unspecified fall, initial encounter; Y93.9 Activity, unspecified; Y92.239 Unspecified place in hospital as the place of occurrence of the external cause; Y99.9 Unspecified external cause status; Z86.69 Personal history of other diseases of the nervous system and sense organs; Z91.410 Personal history of adult physical and sexual abuse; Z62.810 Personal history of physical and sexual abuse in childhood; Z87.42 Personal history of other diseases of the female genital tract; Z59.0 Homelessness
CPT/HCPCS: 36415; 80053; 85027; 86593; 86780; C9803; Q0162; U0003; U0005

== ENCOUNTER 2020-07-30 13:58 | Inpatient (IN) | payer OTHER ==
[2020-07-30] MEDS ORDERED: MENTHOL/PHENOL 1 EACH UD MM PRN (14:55)
[2020-07-30] MEDS ORDERED: P-EPHED 60MG/TRIPROLIDI 2.5MG TABLET PO PRN (14:55)
[2020-07-30] MEDS ORDERED: ACETAMINOPHEN 325 MG TABLET (FP) PO PRN (14:55)
[2020-07-30] MEDS ORDERED: MAG HYDROX/AL HYDROX/SIMETH 30 ML UNIT-DOSE CUP PO PRN (14:55)
[2020-07-30] MEDS ORDERED: hydrOXYzine PAMOATE 25 MG CAPSULE (FP) PO PRN (14:55)
[2020-07-30] MEDS ORDERED: IBUPROFEN 400 MG TABLET (FP) PO PRN (14:55)
[2020-07-30] MEDS ORDERED: MAGNESIUM CITRATE 300 ML BOTTLE PO PRN (14:55)
[2020-07-30] MEDS ORDERED: guaiFENesin 200 MG/10 ML 10 ML UNIT-DOSE CUPS PO PRN (14:55)
[2020-07-30] MEDS ORDERED: NICOTINE POLACRILEX 2 MG GUM BUC PRN (14:55)
[2020-07-30] MEDS ORDERED: LOPERAMIDE HCL 2 MG CAPSULE PO PRN (14:55)
[2020-07-30] MEDS: QUEtiapine FUMARATE 50 MG TABLET PO SCH (21:25)
[2020-07-30] MEDS: THIAMINE HCL 100 MG TABLET (FP) PO SCH (21:25)
[2020-07-30] MEDS: MELATONIN 5 MG TABLETS PO SCH (21:25)
[2020-07-31] MEDS ORDERED: methaDONE HCL 40 MG DISPERSABLE TABLET ONE (04:02)
[2020-07-31] MEDS ORDERED: methaDONE HCL 10 MG TABLET ONE (04:03)
[2020-07-31] MEDS ORDERED: methaDONE HCL 40 MG DISPERSABLE TABLET PO SCH (06:00)
[2020-07-31] MEDS: methaDONE 40 MG, methaDONE 20 MG PO SCH (06:19)
[2020-07-31] MEDS: PRENATAL VITAMINS W/ FOLIC ACID TABLET (FP) PO SCH (09:55)
[2020-07-31] MEDS ORDERED: NICOTINE 7 MG/24 HOURS TOPICAL PATCH TD SCH (10:00)
[2020-07-31 14:25] LABS: EPI CELLS 13 /uL (0-25.1); HYALINE CASTS 1 /uL (0-3.1); URINE APPEARANCE CLEAR; URINE BACTERIA 1007 /uL (0-1359); URINE BILIRUBIN 1+ (NEGATIVE); URINE COLOR DK YELLOW; URINE GLUCOSE (UA) NEGATIVE (NEGATIVE); URINE KETONE NEGATIVE (NEGATIVE); URINE LEUK ESTERASE 3+ (NEGATIVE); URINE NITRITE NEGATIVE (NEGATIVE); URINE PROTEIN NEGATIVE (NEGATIVE); URINE RBC 6 /uL (0-23.9); URINE WBC 190 /uL (0-25.8)
[2020-07-31] MEDS: QUEtiapine FUMARATE 50 MG TABLET PO SCH (21:26)
[2020-07-31] MEDS: THIAMINE HCL 100 MG TABLET (FP) PO SCH (21:26)
[2020-07-31] MEDS: MELATONIN 5 MG TABLETS PO SCH (21:26)
[2020-08-01] MEDS ORDERED: methaDONE HCL 40 MG DISPERSABLE TABLET ONE (03:20)
[2020-08-01] MEDS ORDERED: methaDONE HCL 10 MG TABLET ONE (03:20)
[2020-08-01] MEDS: methaDONE 40 MG, methaDONE 20 MG PO SCH (06:26)
[2020-08-01] MEDS: PRENATAL VITAMINS W/ FOLIC ACID TABLET (FP) PO SCH (10:10)
[2020-08-01] MEDS: MELATONIN 5 MG TABLETS PO SCH (21:27)
[2020-08-01] MEDS: THIAMINE HCL 100 MG TABLET (FP) PO SCH (21:27)
[2020-08-01] MEDS: QUEtiapine FUMARATE 50 MG TABLET PO SCH (21:27)
[2020-08-02] MEDS ORDERED: methaDONE HCL 40 MG DISPERSABLE TABLET ONE (03:24)
[2020-08-02] MEDS ORDERED: methaDONE HCL 10 MG TABLET ONE (03:25)
[2020-08-02] MEDS: methaDONE 40 MG, methaDONE 20 MG PO SCH (06:18)
[2020-08-02] MEDS: PRENATAL VITAMINS W/ FOLIC ACID TABLET (FP) PO SCH (09:54)
[2020-08-02] MEDS: QUEtiapine FUMARATE 50 MG TABLET PO SCH (21:42)
[2020-08-02] MEDS: THIAMINE HCL 100 MG TABLET (FP) PO SCH (21:42)
[2020-08-02] MEDS: MELATONIN 5 MG TABLETS PO SCH (21:42)
[2020-08-03] MEDS ORDERED: methaDONE HCL 10 MG TABLET ONE (03:49)
[2020-08-03] MEDS ORDERED: methaDONE HCL 40 MG DISPERSABLE TABLET ONE (03:49)
[2020-08-03] MEDS: methaDONE 40 MG, methaDONE 20 MG PO SCH (06:14)
[2020-08-03] MEDS: PRENATAL VITAMINS W/ FOLIC ACID TABLET (FP) PO SCH (10:00)
[2020-08-03] MEDS: MELATONIN 5 MG TABLETS PO SCH (21:18)
[2020-08-03] MEDS: QUEtiapine FUMARATE 50 MG TABLET PO SCH (21:18)
[2020-08-03] MEDS: THIAMINE HCL 100 MG TABLET (FP) PO SCH (21:18)
[2020-08-04] MEDS ORDERED: methaDONE HCL 40 MG DISPERSABLE TABLET ONE (03:19)
[2020-08-04] MEDS ORDERED: methaDONE HCL 10 MG TABLET ONE (03:20)
[2020-08-04] MEDS: methaDONE 40 MG, methaDONE 20 MG PO SCH (06:18)
[2020-08-04] MEDS: PRENATAL VITAMINS W/ FOLIC ACID TABLET (FP) PO SCH (10:00)
[2020-08-04 10:49] LABS: CALCIUM 8.4 mg/dL (8.5-10.1)
[2020-08-04 10:50] LABS: ALBUMIN 2.6 g/dl (3.4-5.0); BLOOD UREA NITROGEN 13.4 mg/dL (7-18)
[2020-08-04 10:53] LABS: CREATININE 0.5 mg/dL (0.55-1.3)
[2020-08-04 10:54] LABS: BILIRUBIN,TOTAL 0.6 mg/dL (0.2-1)
[2020-08-04 10:55] LABS: TOT PROT 9.1 g/dl (6.4-8.2)
[2020-08-04] MEDS: THIAMINE HCL 100 MG TABLET (FP) PO SCH (21:33)
[2020-08-04] MEDS: MELATONIN 5 MG TABLETS PO SCH (21:33)
[2020-08-04] MEDS: QUEtiapine FUMARATE 50 MG TABLET PO SCH (21:33)
[2020-08-05] MEDS ORDERED: methaDONE HCL 10 MG TABLET ONE (03:22)
[2020-08-05] MEDS ORDERED: methaDONE HCL 40 MG DISPERSABLE TABLET ONE (03:22)
[2020-08-05] MEDS: methaDONE 40 MG, methaDONE 20 MG PO SCH (06:30)
[2020-08-05] MEDS: PRENATAL VITAMINS W/ FOLIC ACID TABLET (FP) PO SCH (09:45)
[2020-08-05] MEDS: MELATONIN 5 MG TABLETS PO SCH (21:20)
[2020-08-05] MEDS: THIAMINE HCL 100 MG TABLET (FP) PO SCH (21:20)
[2020-08-05] MEDS: QUEtiapine FUMARATE 50 MG TABLET PO SCH (21:20)
[2020-08-06] MEDS ORDERED: methaDONE HCL 40 MG DISPERSABLE TABLET ONE (03:04)
[2020-08-06] MEDS ORDERED: methaDONE HCL 10 MG TABLET ONE (03:04)
[2020-08-06] MEDS: methaDONE 40 MG, methaDONE 20 MG PO SCH (06:11)
[2020-08-06] MEDS: PRENATAL VITAMINS W/ FOLIC ACID TABLET (FP) PO SCH (09:42)
[2020-08-06] MEDS: THIAMINE HCL 100 MG TABLET (FP) PO SCH (21:21)
[2020-08-06] MEDS: MELATONIN 5 MG TABLETS PO SCH (21:21)
[2020-08-06] MEDS: QUEtiapine FUMARATE 50 MG TABLET PO SCH (21:21)
[2020-08-07] MEDS ORDERED: methaDONE HCL 10 MG TABLET ONE (03:48)
[2020-08-07] MEDS ORDERED: methaDONE HCL 40 MG DISPERSABLE TABLET ONE (03:48)
[2020-08-07] MEDS: methaDONE 40 MG, methaDONE 20 MG PO SCH (06:28)
[2020-08-07] MEDS: MAGNESIUM HYDROX 2400MG/30ML ORAL SUSPENSION 30 ML CUP PO PRN (07:16)
[2020-08-07] MEDS: PRENATAL VITAMINS W/ FOLIC ACID TABLET (FP) PO SCH (09:49)
[2020-08-07] MEDS: QUEtiapine FUMARATE 50 MG TABLET PO SCH (21:31)
[2020-08-07] MEDS: THIAMINE HCL 100 MG TABLET (FP) PO SCH (21:31)
[2020-08-07] MEDS: MELATONIN 5 MG TABLETS PO SCH (21:31)
[2020-08-08] MEDS ORDERED: methaDONE HCL 40 MG DISPERSABLE TABLET ONE (03:08)
[2020-08-08] MEDS ORDERED: methaDONE HCL 10 MG TABLET ONE (03:09)
[2020-08-08] MEDS: methaDONE 40 MG, methaDONE 20 MG PO SCH (06:33)
[2020-08-08] MEDS: PRENATAL VITAMINS W/ FOLIC ACID TABLET (FP) PO SCH (09:37)
[2020-08-08] MEDS: THIAMINE HCL 100 MG TABLET (FP) PO SCH (21:20)
[2020-08-08] MEDS: QUEtiapine FUMARATE 50 MG TABLET PO SCH (21:20)
[2020-08-08] MEDS: MELATONIN 5 MG TABLETS PO SCH (21:20)
[2020-08-09] MEDS ORDERED: methaDONE HCL 40 MG DISPERSABLE TABLET ONE (03:11)
[2020-08-09] MEDS ORDERED: methaDONE HCL 10 MG TABLET ONE (03:12)
[2020-08-09] MEDS: methaDONE 40 MG, methaDONE 20 MG PO SCH (06:23)
[2020-08-09] MEDS: PRENATAL VITAMINS W/ FOLIC ACID TABLET (FP) PO SCH (10:15)
[2020-08-09] MEDS: QUEtiapine FUMARATE 50 MG TABLET PO SCH (21:20)
[2020-08-09] MEDS: MELATONIN 5 MG TABLETS PO SCH (21:20)
[2020-08-09] MEDS: THIAMINE HCL 100 MG TABLET (FP) PO SCH (21:20)
[2020-08-10] MEDS ORDERED: methaDONE HCL 40 MG DISPERSABLE TABLET ONE (03:27)
[2020-08-10] MEDS ORDERED: methaDONE HCL 10 MG TABLET ONE (03:27)
[2020-08-10] MEDS: methaDONE 40 MG, methaDONE 20 MG PO SCH (06:17)
[2020-08-10] MEDS: PRENATAL VITAMINS W/ FOLIC ACID TABLET (FP) PO SCH (09:48)
[2020-08-10] MEDS: THIAMINE HCL 100 MG TABLET (FP) PO SCH (21:18)
[2020-08-10] MEDS: MELATONIN 5 MG TABLETS PO SCH (21:18)
[2020-08-10] MEDS: QUEtiapine FUMARATE 50 MG TABLET PO SCH (21:18)
[2020-08-11] MEDS ORDERED: methaDONE HCL 40 MG DISPERSABLE TABLET ONE (04:28)
[2020-08-11] MEDS ORDERED: methaDONE HCL 10 MG TABLET ONE (04:28)
[2020-08-11] MEDS: methaDONE 40 MG, methaDONE 20 MG PO SCH (07:27)
[2020-08-11] MEDS: PRENATAL VITAMINS W/ FOLIC ACID TABLET (FP) PO SCH (10:05)
[2020-08-11] MEDS: THIAMINE HCL 100 MG TABLET (FP) PO SCH (21:19)
[2020-08-11] MEDS: QUEtiapine FUMARATE 50 MG TABLET PO SCH (21:19)
[2020-08-11] MEDS: MELATONIN 5 MG TABLETS PO SCH (21:19)
[2020-08-12] MEDS ORDERED: methaDONE HCL 10 MG TABLET ONE (03:48)
[2020-08-12] MEDS ORDERED: methaDONE HCL 40 MG DISPERSABLE TABLET ONE (03:48)
[2020-08-12] MEDS: methaDONE 40 MG, methaDONE 20 MG PO SCH (06:42)
[2020-08-12] MEDS: PRENATAL VITAMINS W/ FOLIC ACID TABLET (FP) PO SCH (09:45)
[2020-08-12] MEDS: THIAMINE HCL 100 MG TABLET (FP) PO SCH (21:28)
[2020-08-12] MEDS: QUEtiapine FUMARATE 50 MG TABLET PO SCH (21:28)
[2020-08-12] MEDS: MELATONIN 5 MG TABLETS PO SCH (21:28)
[2020-08-13] MEDS: MAGNESIUM HYDROX 2400MG/30ML ORAL SUSPENSION 30 ML CUP PO PRN (02:54)
[2020-08-13] MEDS ORDERED: methaDONE HCL 10 MG TABLET ONE (04:09)
[2020-08-13] MEDS ORDERED: methaDONE HCL 40 MG DISPERSABLE TABLET ONE (04:09)
[2020-08-13] MEDS: methaDONE 40 MG, methaDONE 20 MG PO SCH (06:40)
[2020-08-13] MEDS: PRENATAL VITAMINS W/ FOLIC ACID TABLET (FP) PO SCH (09:48)
[2020-08-13] MEDS: QUEtiapine FUMARATE 50 MG TABLET PO SCH (21:14)
[2020-08-13] MEDS: THIAMINE HCL 100 MG TABLET (FP) PO SCH (21:14)
[2020-08-13] MEDS: MELATONIN 5 MG TABLETS PO SCH (21:14)
[2020-08-14] MEDS ORDERED: methaDONE HCL 10 MG TABLET ONE (05:24)
[2020-08-14] MEDS ORDERED: methaDONE HCL 40 MG DISPERSABLE TABLET ONE (05:24)
[2020-08-14] MEDS ORDERED: methaDONE HCL 10 MG TABLET PO SCH (06:00)
[2020-08-14] MEDS: methaDONE 40 MG, methaDONE 20 MG PO SCH (06:50)
[2020-08-14] MEDS: PRENATAL VITAMINS W/ FOLIC ACID TABLET (FP) PO SCH (09:58)
[2020-08-14] MEDS: MELATONIN 5 MG TABLETS PO SCH (21:30)
[2020-08-14] MEDS: THIAMINE HCL 100 MG TABLET (FP) PO SCH (21:30)
[2020-08-14] MEDS: QUEtiapine FUMARATE 50 MG TABLET PO SCH (21:30)
[2020-08-15] MEDS ORDERED: methaDONE HCL 10 MG TABLET ONE (03:42)
[2020-08-15] MEDS ORDERED: methaDONE HCL 40 MG DISPERSABLE TABLET ONE (03:42)
[2020-08-15] MEDS: methaDONE 40 MG, methaDONE 20 MG PO SCH (05:50)
[2020-08-15] MEDS: PRENATAL VITAMINS W/ FOLIC ACID TABLET (FP) PO SCH (09:40)
[2020-08-15] MEDS: THIAMINE HCL 100 MG TABLET (FP) PO SCH (21:48)
[2020-08-15] MEDS: QUEtiapine FUMARATE 50 MG TABLET PO SCH (21:48)
[2020-08-15] MEDS: MELATONIN 5 MG TABLETS PO SCH (21:48)
[2020-08-16] MEDS ORDERED: methaDONE HCL 10 MG TABLET ONE (03:10)
[2020-08-16] MEDS ORDERED: methaDONE HCL 40 MG DISPERSABLE TABLET ONE (03:10)
[2020-08-16] MEDS: methaDONE 40 MG, methaDONE 20 MG PO SCH (06:41)
[2020-08-16] MEDS: PRENATAL VITAMINS W/ FOLIC ACID TABLET (FP) PO SCH (09:37)
[2020-08-16] MEDS: MAGNESIUM HYDROX 2400MG/30ML ORAL SUSPENSION 30 ML CUP PO PRN (15:03)
[2020-08-16] MEDS: QUEtiapine FUMARATE 50 MG TABLET PO SCH (21:30)
[2020-08-16] MEDS: THIAMINE HCL 100 MG TABLET (FP) PO SCH (21:30)
[2020-08-16] MEDS: MELATONIN 5 MG TABLETS PO SCH (21:30)
[2020-08-17] MEDS ORDERED: methaDONE HCL 40 MG DISPERSABLE TABLET ONE (03:08)
[2020-08-17] MEDS ORDERED: methaDONE HCL 10 MG TABLET ONE (03:08)
[2020-08-17] MEDS: methaDONE 40 MG, methaDONE 20 MG PO SCH (06:55)
[2020-08-17] MEDS: PRENATAL VITAMINS W/ FOLIC ACID TABLET (FP) PO SCH (10:27)
[2020-08-17] MEDS: MELATONIN 5 MG TABLETS PO SCH (21:28)
[2020-08-17] MEDS: QUEtiapine FUMARATE 50 MG TABLET PO SCH (21:28)
[2020-08-17] MEDS: THIAMINE HCL 100 MG TABLET (FP) PO SCH (21:28)
[2020-08-18] MEDS ORDERED: methaDONE HCL 40 MG DISPERSABLE TABLET ONE (03:27)
[2020-08-18] MEDS ORDERED: methaDONE HCL 10 MG TABLET ONE (03:28)
[2020-08-18] MEDS: methaDONE 40 MG, methaDONE 20 MG PO SCH (06:15)
[2020-08-18] MEDS: PRENATAL VITAMINS W/ FOLIC ACID TABLET (FP) PO SCH (10:09)
[2020-08-18] MEDS: QUEtiapine FUMARATE 50 MG TABLET PO SCH (21:31)
[2020-08-18] MEDS: MELATONIN 5 MG TABLETS PO SCH (21:32)
[2020-08-18] MEDS: THIAMINE HCL 100 MG TABLET (FP) PO SCH (21:32)
[2020-08-19] MEDS ORDERED: methaDONE HCL 40 MG DISPERSABLE TABLET ONE (03:01)
[2020-08-19] MEDS ORDERED: methaDONE HCL 10 MG TABLET ONE (03:02)
[2020-08-19] MEDS: methaDONE 40 MG, methaDONE 20 MG PO SCH (06:11)
[2020-08-19] MEDS: PRENATAL VITAMINS W/ FOLIC ACID TABLET (FP) PO SCH (09:42)
[2020-08-19] MEDS: LIDOCAINE 5% TOPICAL PATCH TP SCH (14:00)
[2020-08-19] MEDS: QUEtiapine FUMARATE 50 MG TABLET PO SCH (21:17)
[2020-08-19] MEDS: THIAMINE HCL 100 MG TABLET (FP) PO SCH (21:18)
[2020-08-19] MEDS: MELATONIN 5 MG TABLETS PO SCH (21:18)
[2020-08-19] MEDS: LIDOCAINE PATCH REMOVAL MC SCH (21:18)
[2020-08-20] MEDS ORDERED: methaDONE HCL 10 MG TABLET ONE (03:21)
[2020-08-20] MEDS ORDERED: methaDONE HCL 40 MG DISPERSABLE TABLET ONE (03:21)
[2020-08-20] MEDS: methaDONE 40 MG, methaDONE 20 MG PO SCH (06:13)
[2020-08-20] MEDS: LIDOCAINE 5% TOPICAL PATCH TP SCH (09:52)
[2020-08-20] MEDS: PRENATAL VITAMINS W/ FOLIC ACID TABLET (FP) PO SCH (10:19)
[2020-08-20] MEDS: THIAMINE HCL 100 MG TABLET (FP) PO SCH (21:40)
[2020-08-20] MEDS: LIDOCAINE PATCH REMOVAL MC SCH (21:40)
[2020-08-20] MEDS: QUEtiapine FUMARATE 50 MG TABLET PO SCH (21:40)
[2020-08-20] MEDS: MELATONIN 5 MG TABLETS PO SCH (21:40)
[2020-08-21] MEDS ORDERED: methaDONE HCL 10 MG TABLET ONE (03:23)
[2020-08-21] MEDS ORDERED: methaDONE HCL 40 MG DISPERSABLE TABLET ONE (03:23)
[2020-08-21] MEDS: methaDONE 40 MG, methaDONE 20 MG PO SCH (06:19)
[2020-08-21] MEDS: PRENATAL VITAMINS W/ FOLIC ACID TABLET (FP) PO SCH (09:47)
[2020-08-21] MEDS: LIDOCAINE 5% TOPICAL PATCH TP SCH (09:48)
[2020-08-21] MEDS: QUEtiapine FUMARATE 50 MG TABLET PO SCH (21:15)
[2020-08-21] MEDS: MELATONIN 5 MG TABLETS PO SCH (21:15)
[2020-08-21] MEDS: THIAMINE HCL 100 MG TABLET (FP) PO SCH (21:15)
[2020-08-21] MEDS: LIDOCAINE PATCH REMOVAL MC SCH (21:40)
[2020-08-22] MEDS ORDERED: methaDONE HCL 40 MG DISPERSABLE TABLET ONE (03:02)
[2020-08-22] MEDS ORDERED: methaDONE HCL 10 MG TABLET ONE (03:02)
[2020-08-22] MEDS: methaDONE 40 MG, methaDONE 20 MG PO SCH (06:36)
[2020-08-22] MEDS: PRENATAL VITAMINS W/ FOLIC ACID TABLET (FP) PO SCH (09:32)
[2020-08-22] MEDS: LIDOCAINE 5% TOPICAL PATCH TP SCH (09:32)
[2020-08-22] MEDS: QUEtiapine FUMARATE 50 MG TABLET PO SCH (21:20)
[2020-08-22] MEDS: MELATONIN 5 MG TABLETS PO SCH (21:20)
[2020-08-22] MEDS: LIDOCAINE PATCH REMOVAL MC SCH (21:20)
[2020-08-22] MEDS: THIAMINE HCL 100 MG TABLET (FP) PO SCH (21:20)
[2020-08-23] MEDS ORDERED: methaDONE HCL 10 MG TABLET ONE (03:16)
[2020-08-23] MEDS ORDERED: methaDONE HCL 40 MG DISPERSABLE TABLET ONE (03:16)
[2020-08-23] MEDS: methaDONE 40 MG, methaDONE 20 MG PO SCH (06:15)
[2020-08-23] MEDS: LIDOCAINE 5% TOPICAL PATCH TP SCH (09:50)
[2020-08-23] MEDS: PRENATAL VITAMINS W/ FOLIC ACID TABLET (FP) PO SCH (09:51)
[2020-08-23] MEDS: THIAMINE HCL 100 MG TABLET (FP) PO SCH (21:23)
[2020-08-23] MEDS: QUEtiapine FUMARATE 50 MG TABLET PO SCH (21:23)
[2020-08-23] MEDS: MELATONIN 5 MG TABLETS PO SCH (21:23)
[2020-08-23] MEDS: LIDOCAINE PATCH REMOVAL MC SCH (21:24)
[2020-08-24] MEDS ORDERED: methaDONE HCL 40 MG DISPERSABLE TABLET ONE (03:15)
[2020-08-24] MEDS ORDERED: methaDONE HCL 10 MG TABLET ONE (03:15)
[2020-08-24] MEDS: methaDONE 40 MG, methaDONE 20 MG PO SCH (06:24)
[2020-08-24] MEDS: LIDOCAINE 5% TOPICAL PATCH TP SCH (09:45)
[2020-08-24] MEDS: PRENATAL VITAMINS W/ FOLIC ACID TABLET (FP) PO SCH (09:45)
[2020-08-24] MEDS: THIAMINE HCL 100 MG TABLET (FP) PO SCH (21:27)
[2020-08-24] MEDS: MELATONIN 5 MG TABLETS PO SCH (21:27)
[2020-08-24] MEDS: QUEtiapine FUMARATE 50 MG TABLET PO SCH (21:27)
[2020-08-24] MEDS: LIDOCAINE PATCH REMOVAL MC SCH (21:27)
[2020-08-25] MEDS ORDERED: methaDONE HCL 10 MG TABLET ONE (03:11)
[2020-08-25] MEDS ORDERED: methaDONE HCL 40 MG DISPERSABLE TABLET ONE (03:11)
[2020-08-25] MEDS: methaDONE 40 MG, methaDONE 20 MG PO SCH (06:39)
[2020-08-25] MEDS: LIDOCAINE 5% TOPICAL PATCH TP SCH (09:47)
[2020-08-25] MEDS: PRENATAL VITAMINS W/ FOLIC ACID TABLET (FP) PO SCH (09:47)
[2020-08-25] MEDS: QUEtiapine FUMARATE 50 MG TABLET PO SCH (21:13)
[2020-08-25] MEDS: THIAMINE HCL 100 MG TABLET (FP) PO SCH (21:13)
[2020-08-25] MEDS: MELATONIN 5 MG TABLETS PO SCH (21:13)
[2020-08-25] MEDS: LIDOCAINE PATCH REMOVAL MC SCH (21:48)
[2020-08-26] MEDS ORDERED: methaDONE HCL 10 MG TABLET ONE (03:07)
[2020-08-26] MEDS ORDERED: methaDONE HCL 40 MG DISPERSABLE TABLET ONE (03:07)
[2020-08-26] MEDS: methaDONE 40 MG, methaDONE 20 MG PO SCH (06:18)
[2020-08-26] MEDS: PRENATAL VITAMINS W/ FOLIC ACID TABLET (FP) PO SCH (10:26)
[2020-08-26] MEDS: LIDOCAINE 5% TOPICAL PATCH TP SCH (10:27)
[2020-08-26] MEDS: THIAMINE HCL 100 MG TABLET (FP) PO SCH (21:29)
[2020-08-26] MEDS: QUEtiapine FUMARATE 50 MG TABLET PO SCH (21:29)
[2020-08-26] MEDS: MELATONIN 5 MG TABLETS PO SCH (21:29)
[2020-08-26] MEDS: LIDOCAINE PATCH REMOVAL MC SCH (21:30)
[2020-08-27] MEDS ORDERED: methaDONE HCL 40 MG DISPERSABLE TABLET ONE (04:06)
[2020-08-27] MEDS ORDERED: methaDONE HCL 10 MG TABLET ONE (04:06)
[2020-08-27] MEDS ORDERED: methaDONE 40 MG, methaDONE 20 MG PO SCH (06:00)
[2020-08-27 07:10] VITALS: TEMP 99.1
[2020-08-27 07:33] VITALS: BP 90/60; PULSE 87
== END 2020-08-27 09:48 | disposition home or self-care (01) | DRG 772 ==
LOC: YASAS 13:58 → Y3W 13:59
PROVIDERS: ADMIT Allergy & Immunology; ATTEND Allergy & Immunology
PROC: HZ42ZZZ Group Counseling for Substance Abuse Treatment, Cognitive-Behavioral (ICD-10-PCS; principal; 2020-07-30)
DX: F11.20 Opioid dependence, uncomplicated (principal); F10.20 Alcohol dependence, uncomplicated; F14.20 Cocaine dependence, uncomplicated; F17.210 Nicotine dependence, cigarettes, uncomplicated; Z21 Asymptomatic human immunodeficiency virus [HIV] infection status; B18.2 Chronic viral hepatitis C; M25.511 Pain in right shoulder; R82.90 Unspecified abnormal findings in urine; Z86.19 Personal history of other infectious and parasitic diseases; Z88.8 Allergy status to other drugs, medicaments and biological substances
CPT/HCPCS: 36415; 80053; 81003; 87086

== ENCOUNTER 2020-10-18 11:32 | Inpatient (IN) | payer OTHER ==
[2020-10-18 12:01] VITALS: BMI 23.3
[2020-10-18] MEDS ORDERED: ONDANSETRON *ODT* 4 MG TABLET SL PRN (13:22)
[2020-10-18] MEDS ORDERED: ACETAMINOPHEN 325 MG TABLET (FP) PO PRN ×2 (13:22)
[2020-10-18] MEDS ORDERED: MAG HYDROX/AL HYDROX/SIMETH 30 ML UNIT-DOSE CUP PO PRN (13:22)
[2020-10-18] MEDS ORDERED: LORazepam 1 MG TABLET PO PRN (13:22)
[2020-10-18] MEDS ORDERED: MAGNESIUM CITRATE 300 ML BOTTLE PO PRN (13:22)
[2020-10-18] MEDS ORDERED: IBUPROFEN 400 MG TABLET (FP) PO PRN (13:22)
[2020-10-18] MEDS ORDERED: MENTHOL/PHENOL 1 EACH UD MM PRN (13:22)
[2020-10-18] MEDS ORDERED: NICOTINE 10 MG CARTRIDGE (INHALER) IH PRN (13:22)
[2020-10-18] MEDS ORDERED: BISMUTH SUBSALICYLATE 524 MG/30 ML PO PRN (13:22)
[2020-10-18] MEDS ORDERED: METHOCARBAMOL 500 MG TABLET PO PRN (13:22)
[2020-10-18] MEDS ORDERED: MAGNESIUM HYDROX 2400MG/30ML ORAL SUSPENSION 30 ML CUP PO PRN (13:22)
[2020-10-18] MEDS ORDERED: LORazepam 2 MG TABLET ONE (14:04)
[2020-10-18] MEDS ORDERED: hydrOXYzine PAMOATE 25 MG CAPSULE (FP) PO ONE (14:05)
[2020-10-18] MEDS: LORazepam 2 MG TABLET PO SCH ×3 (14:08→22:19)
[2020-10-18] MEDS: PRENATAL VITAMINS W/ FOLIC ACID TABLET (FP) PO SCH (14:10)
[2020-10-18] MEDS: hydrOXYzine PAMOATE 25 MG CAPSULE (FP) PO SCH ×3 (14:10→22:21)
[2020-10-18] MEDS: THIAMINE HCL 100 MG TABLET (FP) PO SCH (22:18)
[2020-10-18] MEDS: QUEtiapine FUMARATE 25 MG TABLET PO SCH (22:18)
[2020-10-18] MEDS: MELATONIN 5 MG TABLETS PO SCH (22:21)
[2020-10-19] MEDS ORDERED: methaDONE HCL 10 MG TABLET PO SCH (06:00)
[2020-10-19] MEDS ORDERED: methaDONE HCL 10 MG TABLET (FOR DETOX USE ONLY) ONE (06:05)
[2020-10-19] MEDS ORDERED: methaDONE HCL 40 MG DISPERSABLE TABLET ONE (06:05)
[2020-10-19] MEDS: LORazepam 2 MG TABLET PO SCH ×4 (06:28→22:06)
[2020-10-19] MEDS: hydrOXYzine PAMOATE 25 MG CAPSULE (FP) PO SCH (06:29)
[2020-10-19] MEDS ORDERED: hydrOXYzine PAMOATE 25 MG CAPSULE (FP) PO PRN (08:19)
[2020-10-19] MEDS: PRENATAL VITAMINS W/ FOLIC ACID TABLET (FP) PO SCH (10:35)
[2020-10-19] MEDS: THIAMINE HCL 100 MG TABLET (FP) PO SCH (21:51)
[2020-10-19] MEDS: QUEtiapine FUMARATE 25 MG TABLET PO SCH (21:52)
[2020-10-19] MEDS: MELATONIN 5 MG TABLETS PO SCH (21:52)
[2020-10-20] MEDS: LORazepam 1 MG TABLET PO SCH ×4 (06:26→22:04)
[2020-10-20] MEDS ORDERED: methaDONE HCL 10 MG TABLET (FOR DETOX USE ONLY) ONE (07:19)
[2020-10-20] MEDS ORDERED: methaDONE HCL 40 MG DISPERSABLE TABLET ONE (07:20)
[2020-10-20] MEDS: PRENATAL VITAMINS W/ FOLIC ACID TABLET (FP) PO SCH (10:32)
[2020-10-20] MEDS ORDERED: LIDOCAINE 5% TOPICAL PATCH TP ONE (12:00)
[2020-10-20 14:57] LABS: HEMOGLOBIN 11.4 GM/dL (10.7-15.3); MCH 30.3 pg (25.7-33.7); MCHC 33.6 g/dl (32.0-36.0); MEAN CELL VOLUME 90.3 fl (80-96); MEAN PLT VOLUME 9.7 fl (7.5-11.1); PLATELET COUNT 64 10^3/uL (134-434); RBC 3.77 M/mm3 (3.60-5.2); RDW 15.9 % (11.6-15.6); WHITE BLOOD COUNT 2.4 K/mm3 (4.0-10.0)
[2020-10-20 15:03] LABS: ALBUMIN 2.2 g/dl (3.4-5.0); BLOOD UREA NITROGEN 13.1 mg/dL (7-18); CALCIUM 8.5 mg/dL (8.5-10.1)
[2020-10-20 15:05] LABS: CREATININE 0.5 mg/dL (0.55-1.3)
[2020-10-20 15:08] LABS: BILIRUBIN,TOTAL 1.2 mg/dL (0.2-1); TOT PROT 8.9 g/dl (6.4-8.2)
[2020-10-20] MEDS: THIAMINE HCL 100 MG TABLET (FP) PO SCH (22:04)
[2020-10-20] MEDS: QUEtiapine FUMARATE 25 MG TABLET PO SCH (22:04)
[2020-10-20] MEDS: MELATONIN 5 MG TABLETS PO SCH (22:05)
[2020-10-20] MEDS: LIDOCAINE PATCH REMOVAL MC SCH (22:05)
[2020-10-21] MEDS ORDERED: LORazepam 0.5 MG TABLET PO PRN
[2020-10-21] MEDS ORDERED: methaDONE HCL 10 MG TABLET (FOR DETOX USE ONLY) ONE (04:43)
[2020-10-21] MEDS ORDERED: methaDONE HCL 40 MG DISPERSABLE TABLET ONE (04:44)
[2020-10-21] MEDS: LORazepam 0.5 MG TABLET PO SCH ×2 (05:30→10:15)
[2020-10-21] MEDS ORDERED: LIDOCAINE 5% TOPICAL PATCH TP SCH (10:00)
[2020-10-21] MEDS: PRENATAL VITAMINS W/ FOLIC ACID TABLET (FP) PO SCH (10:15)
[2020-10-21] MEDS ORDERED: LORazepam 0.5 MG TABLET PO ONE (22:00)
[2020-10-21] MEDS: QUEtiapine FUMARATE 25 MG TABLET PO SCH (23:04)
[2020-10-21] MEDS: MELATONIN 5 MG TABLETS PO SCH (23:04)
[2020-10-21] MEDS: THIAMINE HCL 100 MG TABLET (FP) PO SCH (23:05)
[2020-10-21] MEDS: LIDOCAINE PATCH REMOVAL MC SCH (23:06)
[2020-10-22] MEDS ORDERED: methaDONE HCL 40 MG DISPERSABLE TABLET ONE (04:31)
[2020-10-22] MEDS ORDERED: methaDONE HCL 10 MG TABLET (FOR DETOX USE ONLY) ONE (04:31)
[2020-10-22] MEDS ORDERED: LORazepam 0.5 MG TABLET PO ONE (05:00)
[2020-10-22 06:43] VITALS: BP 100/60; PULSE 79; TEMP 97.7
== END 2020-10-22 06:57 | disposition home or self-care (01) | DRG 773 ==
LOC: YASAS 11:32 → Y3N 13:58
PROVIDERS: ADMIT Allergy & Immunology; ATTEND Allergy & Immunology
PROC: HZ2ZZZZ Detoxification Services for Substance Abuse Treatment (ICD-10-PCS; principal; 2020-10-18)
DX: F10.230 Alcohol dependence with withdrawal, uncomplicated (principal); F11.20 Opioid dependence, uncomplicated; F14.20 Cocaine dependence, uncomplicated; F17.210 Nicotine dependence, cigarettes, uncomplicated; F31.9 Bipolar disorder, unspecified; F19.24 Other psychoactive substance dependence with psychoactive substance-induced mood disorder; F43.10 Post-traumatic stress disorder, unspecified; Z21 Asymptomatic human immunodeficiency virus [HIV] infection status; K21.9 Gastro-esophageal reflux disease without esophagitis; G47.00 Insomnia, unspecified; R74.8 Abnormal levels of other serum enzymes; Z62.810 Personal history of physical and sexual abuse in childhood; Z86.19 Personal history of other infectious and parasitic diseases; Z99.89 Dependence on other enabling machines and devices; Z56.0 Unemployment, unspecified; Z59.0 Homelessness; Z88.8 Allergy status to other drugs, medicaments and biological substances
CPT/HCPCS: 36415; 80053; 81025; 85027; 86593; 86780; C9803; U0003; U0005

== ENCOUNTER 2020-11-22 13:35 | Inpatient (IN) | payer OTHER ==
[2020-11-22 16:54] VITALS: BMI 247.3
[2020-11-22] MEDS ORDERED: MAGNESIUM CITRATE 300 ML BOTTLE PO PRN (17:35)
[2020-11-22] MEDS ORDERED: MENTHOL/PHENOL 1 EACH UD MM PRN (17:35)
[2020-11-22] MEDS ORDERED: ONDANSETRON *ODT* 4 MG TABLET SL PRN (17:35)
[2020-11-22] MEDS ORDERED: MAG HYDROX/AL HYDROX/SIMETH 30 ML UNIT-DOSE CUP PO PRN (17:35)
[2020-11-22] MEDS ORDERED: MAGNESIUM HYDROX 2400MG/30ML ORAL SUSPENSION 30 ML CUP PO PRN (17:35)
[2020-11-22] MEDS ORDERED: BISMUTH SUBSALICYLATE 524 MG/30 ML PO PRN (17:35)
[2020-11-22] MEDS ORDERED: LORazepam 1 MG TABLET PO PRN (17:38)
[2020-11-22] MEDS: LORazepam 2 MG TABLET PO SCH ×2 (19:44→22:24)
[2020-11-22] MEDS ORDERED: MELATONIN 5 MG TABLETS PO SCH (22:00)
[2020-11-22] MEDS: THIAMINE HCL 100 MG TABLET (FP) PO SCH (22:24)
[2020-11-23] MEDS: LORazepam 2 MG TABLET PO SCH ×4 (05:51→23:06)
[2020-11-23] MEDS: IBUPROFEN 400 MG TABLET (FP) PO PRN ×2 (05:56→18:26)
[2020-11-23] MEDS ORDERED: methaDONE HCL 10 MG TABLET ONE ×2 (09:45→10:26)
[2020-11-23] MEDS ORDERED: methaDONE HCL 40 MG DISPERSABLE TABLET ONE ×2 (09:46→10:27)
[2020-11-23] MEDS ORDERED: methaDONE 40 MG, methaDONE 30 MG PO ONE (10:00)
[2020-11-23] MEDS ORDERED: methaDONE HCL 10 MG TABLET PO ONE (10:00)
[2020-11-23] MEDS: PRENATAL VITAMINS W/ FOLIC ACID TABLET (FP) PO SCH (10:17)
[2020-11-23 12:40] LABS: HEMATOCRIT 32.2 % (32.4-45.2); HEMOGLOBIN 11.2 GM/dL (10.7-15.3); MCH 32.6 pg (25.7-33.7); MCHC 34.9 g/dl (32.0-36.0); MEAN CELL VOLUME 93.5 fl (80-96); MEAN PLT VOLUME 9.7 fl (7.5-11.1); PLATELET COUNT 50 10^3/uL (134-434); RBC 3.44 M/mm3 (3.60-5.2); RDW 16.2 % (11.6-15.6)
[2020-11-23 12:48] LABS: ALBUMIN 2.2 g/dl (3.4-5.0); BLOOD UREA NITROGEN 12.2 mg/dL (7-18); CALCIUM 8.2 mg/dL (8.5-10.1)
[2020-11-23 12:51] LABS: CREATININE 0.7 mg/dL (0.55-1.3)
[2020-11-23 12:52] LABS: BILIRUBIN,TOTAL 1.3 mg/dL (0.2-1); TOT PROT 9.2 g/dl (6.4-8.2)
[2020-11-23] MEDS: THIAMINE HCL 100 MG TABLET (FP) PO SCH (22:07)
[2020-11-23] MEDS: QUEtiapine FUMARATE 25 MG TABLET PO SCH (22:07)
[2020-11-24] MEDS ORDERED: methaDONE HCL 10 MG TABLET ONE ×2 (04:20→09:02)
[2020-11-24] MEDS ORDERED: methaDONE HCL 40 MG DISPERSABLE TABLET ONE ×2 (04:20→09:02)
[2020-11-24] MEDS ORDERED: methaDONE HCL 10 MG TABLET PO SCH (06:00)
[2020-11-24] MEDS: LORazepam 1 MG TABLET PO SCH ×4 (07:35→22:29)
[2020-11-24] MEDS: PRENATAL VITAMINS W/ FOLIC ACID TABLET (FP) PO SCH (09:16)
[2020-11-24] MEDS: methaDONE 40 MG, methaDONE 30 MG PO SCH (09:17)
[2020-11-24] MEDS: LACTULOSE 20 GM/30 ML UDC (FOR ORAL USE ONLY) PO SCH ×2 (18:21→22:28)
[2020-11-24] MEDS: THIAMINE HCL 100 MG TABLET (FP) PO SCH (22:28)
[2020-11-24] MEDS: QUEtiapine FUMARATE 25 MG TABLET PO SCH (22:28)
[2020-11-25] MEDS ORDERED: LORazepam 0.5 MG TABLET PO PRN
[2020-11-25] MEDS ORDERED: methaDONE HCL 10 MG TABLET ONE (04:14)
[2020-11-25] MEDS ORDERED: methaDONE HCL 40 MG DISPERSABLE TABLET ONE (04:15)
[2020-11-25] MEDS: methaDONE 40 MG, methaDONE 30 MG PO SCH (06:18)
[2020-11-25] MEDS: LORazepam 0.5 MG TABLET PO SCH ×4 (06:18→22:08)
[2020-11-25] MEDS: PRENATAL VITAMINS W/ FOLIC ACID TABLET (FP) PO SCH (10:16)
[2020-11-25] MEDS: LACTULOSE 20 GM/30 ML UDC (FOR ORAL USE ONLY) PO SCH ×4 (10:16→22:07)
[2020-11-25] MEDS: THIAMINE HCL 100 MG TABLET (FP) PO SCH (22:07)
[2020-11-25] MEDS: QUEtiapine FUMARATE 25 MG TABLET PO SCH (22:07)
[2020-11-26] MEDS ORDERED: methaDONE HCL 10 MG TABLET ONE (04:00)
[2020-11-26] MEDS ORDERED: methaDONE HCL 40 MG DISPERSABLE TABLET ONE (04:00)
[2020-11-26] MEDS ORDERED: LORazepam 0.5 MG TABLET PO ONE (05:00)
[2020-11-26] MEDS: methaDONE 40 MG, methaDONE 30 MG PO SCH (05:48)
[2020-11-26 09:54] VITALS: BP 100/68; PULSE 103; TEMP 97.1
[2020-11-26] MEDS: PRENATAL VITAMINS W/ FOLIC ACID TABLET (FP) PO SCH (09:59)
[2020-11-26] MEDS: LACTULOSE 20 GM/30 ML UDC (FOR ORAL USE ONLY) PO SCH (09:59)
== END 2020-11-26 11:38 | disposition other institution (70) | DRG 774 ==
LOC: YASAS 13:35 → Y6N 18:11
PROVIDERS: ADMIT Allergy & Immunology; ATTEND Allergy & Immunology
PROC: HZ2ZZZZ Detoxification Services for Substance Abuse Treatment (ICD-10-PCS; principal; 2020-11-22)
DX: F10.230 Alcohol dependence with withdrawal, uncomplicated (principal); F10.220 Alcohol dependence with intoxication, uncomplicated; F14.20 Cocaine dependence, uncomplicated; F12.20 Cannabis dependence, uncomplicated; F17.210 Nicotine dependence, cigarettes, uncomplicated; F31.9 Bipolar disorder, unspecified; F19.24 Other psychoactive substance dependence with psychoactive substance-induced mood disorder; F19.282 Other psychoactive substance dependence with psychoactive substance-induced sleep disorder; K70.30 Alcoholic cirrhosis of liver without ascites; Z21 Asymptomatic human immunodeficiency virus [HIV] infection status; B18.2 Chronic viral hepatitis C; R26.2 Difficulty in walking, not elsewhere classified; Z99.89 Dependence on other enabling machines and devices; Z88.0 Allergy status to penicillin; Z86.69 Personal history of other diseases of the nervous system and sense organs; Z91.14 Patient's other noncompliance with medication regimen; Z62.810 Personal history of physical and sexual abuse in childhood; Z86.19 Personal history of other infectious and parasitic diseases; Z56.0 Unemployment, unspecified; Z59.00 Homelessness unspecified
CPT/HCPCS: 36415; 80053; 82140; 85027; 86593; 86780; C9803; U0003; U0005

== ENCOUNTER 2020-11-26 11:54 | Inpatient (IN) | payer OTHER ==
[~2020-11-26 11:54] MED LIST: IBUPROFEN 400 MG TABLET (FP) PO PRN; LOPERAMIDE HCL 2 MG CAPSULE PO PRN; MAG HYDROX/AL HYDROX/SIMETH 30 ML UNIT-DOSE CUP PO PRN; MAGNESIUM CITRATE 300 ML BOTTLE PO PRN; MAGNESIUM HYDROX 2400MG/30ML ORAL SUSPENSION 30 ML CUP PO PRN; NICOTINE 10 MG CARTRIDGE (INHALER) IH PRN; NICOTINE POLACRILEX 2 MG GUM BC PRN; P-EPHED 60MG/TRIPROLIDI 2.5MG TABLET PO PRN; guaiFENesin 200 MG/10 ML 10 ML UNIT-DOSE CUPS PO PRN; methaDONE HCL 40 MG DISPERSABLE TABLET PO SCH
[2020-11-26] MEDS: LACTULOSE 20 GM/30 ML UDC (FOR ORAL USE ONLY) PO SCH ×5 (13:46→21:40)
[2020-11-26] MEDS: THIAMINE HCL 100 MG TABLET (FP) PO SCH ×2 (13:46→21:42)
[2020-11-26] MEDS: QUEtiapine FUMARATE 25 MG TABLET PO SCH ×2 (13:46→21:41)
[2020-11-26] MEDS: PRENATAL VITAMINS W/ FOLIC ACID TABLET (FP) PO SCH (13:46)
[2020-11-26] MEDS: MELATONIN 5 MG TABLETS PO SCH ×2 (13:46→21:40)
[2020-11-27] MEDS ORDERED: methaDONE HCL 40 MG DISPERSABLE TABLET PO SCH (06:00)
[2020-11-27] MEDS ORDERED: methaDONE HCL 10 MG TABLET ONE (06:23)
[2020-11-27] MEDS ORDERED: methaDONE HCL 40 MG DISPERSABLE TABLET ONE (06:23)
[2020-11-27] MEDS: methaDONE 40 MG, methaDONE 30 MG PO SCH (06:48)
[2020-11-27] MEDS: PRENATAL VITAMINS W/ FOLIC ACID TABLET (FP) PO SCH (10:18)
[2020-11-27] MEDS: LACTULOSE 20 GM/30 ML UDC (FOR ORAL USE ONLY) PO SCH ×4 (10:18→21:36)
[2020-11-27] MEDS: QUEtiapine FUMARATE 25 MG TABLET PO SCH (21:35)
[2020-11-27] MEDS: THIAMINE HCL 100 MG TABLET (FP) PO SCH (21:35)
[2020-11-27] MEDS: MELATONIN 5 MG TABLETS PO SCH (21:35)
[2020-11-28] MEDS ORDERED: methaDONE HCL 40 MG DISPERSABLE TABLET ONE (03:18)
[2020-11-28] MEDS ORDERED: methaDONE HCL 10 MG TABLET ONE (03:18)
[2020-11-28] MEDS: methaDONE 40 MG, methaDONE 30 MG PO SCH (06:32)
[2020-11-28] MEDS: LACTULOSE 20 GM/30 ML UDC (FOR ORAL USE ONLY) PO SCH ×4 (09:54→21:36)
[2020-11-28] MEDS: PRENATAL VITAMINS W/ FOLIC ACID TABLET (FP) PO SCH (09:54)
[2020-11-28] MEDS: MELATONIN 5 MG TABLETS PO SCH (21:36)
[2020-11-28] MEDS: QUEtiapine FUMARATE 25 MG TABLET PO SCH (21:36)
[2020-11-28] MEDS: THIAMINE HCL 100 MG TABLET (FP) PO SCH (21:36)
[2020-11-29] MEDS ORDERED: methaDONE HCL 10 MG TABLET ONE (03:19)
[2020-11-29] MEDS ORDERED: methaDONE HCL 40 MG DISPERSABLE TABLET ONE (03:19)
[2020-11-29] MEDS: methaDONE 40 MG, methaDONE 30 MG PO SCH (06:47)
[2020-11-29] MEDS: PRENATAL VITAMINS W/ FOLIC ACID TABLET (FP) PO SCH (09:53)
[2020-11-29] MEDS: LACTULOSE 20 GM/30 ML UDC (FOR ORAL USE ONLY) PO SCH ×4 (09:53→21:53)
[2020-11-29] MEDS: THIAMINE HCL 100 MG TABLET (FP) PO SCH (21:53)
[2020-11-29] MEDS: MELATONIN 5 MG TABLETS PO SCH (21:53)
[2020-11-29] MEDS: QUEtiapine FUMARATE 25 MG TABLET PO SCH (21:53)
[2020-11-30] MEDS ORDERED: methaDONE HCL 40 MG DISPERSABLE TABLET ONE (03:26)
[2020-11-30] MEDS ORDERED: methaDONE HCL 10 MG TABLET ONE (03:26)
[2020-11-30] MEDS: methaDONE 40 MG, methaDONE 30 MG PO SCH (06:42)
[2020-11-30] MEDS: PRENATAL VITAMINS W/ FOLIC ACID TABLET (FP) PO SCH (11:44)
[2020-11-30] MEDS: LACTULOSE 20 GM/30 ML UDC (FOR ORAL USE ONLY) PO SCH ×4 (11:44→21:43)
[2020-11-30] MEDS: QUEtiapine FUMARATE 25 MG TABLET PO SCH (21:43)
[2020-11-30] MEDS: THIAMINE HCL 100 MG TABLET (FP) PO SCH (21:43)
[2020-11-30] MEDS: MELATONIN 5 MG TABLETS PO SCH (21:43)
[2020-11-30] MEDS: hydrOXYzine PAMOATE 25 MG CAPSULE (FP) PO PRN (21:43)
[2020-12-01] MEDS ORDERED: methaDONE HCL 40 MG DISPERSABLE TABLET ONE (03:14)
[2020-12-01] MEDS ORDERED: methaDONE HCL 10 MG TABLET ONE (03:14)
[2020-12-01] MEDS: methaDONE 40 MG, methaDONE 30 MG PO SCH (06:28)
[2020-12-01] MEDS: PRENATAL VITAMINS W/ FOLIC ACID TABLET (FP) PO SCH (09:52)
[2020-12-01] MEDS: LACTULOSE 20 GM/30 ML UDC (FOR ORAL USE ONLY) PO SCH ×4 (09:53→21:31)
[2020-12-01] MEDS: MELATONIN 5 MG TABLETS PO SCH (21:31)
[2020-12-01] MEDS: THIAMINE HCL 100 MG TABLET (FP) PO SCH (21:31)
[2020-12-01] MEDS: QUEtiapine FUMARATE 25 MG TABLET PO SCH (21:31)
[2020-12-02] MEDS ORDERED: methaDONE HCL 10 MG TABLET ONE (02:50)
[2020-12-02] MEDS ORDERED: methaDONE HCL 40 MG DISPERSABLE TABLET ONE (02:50)
[2020-12-02] MEDS: methaDONE 40 MG, methaDONE 30 MG PO SCH (06:16)
[2020-12-02] MEDS: LACTULOSE 20 GM/30 ML UDC (FOR ORAL USE ONLY) PO SCH ×4 (10:24→21:36)
[2020-12-02] MEDS: PRENATAL VITAMINS W/ FOLIC ACID TABLET (FP) PO SCH (10:25)
[2020-12-02] MEDS: MELATONIN 5 MG TABLETS PO SCH (21:34)
[2020-12-02] MEDS: THIAMINE HCL 100 MG TABLET (FP) PO SCH (21:34)
[2020-12-02] MEDS: QUEtiapine FUMARATE 25 MG TABLET PO SCH (21:35)
[2020-12-02] MEDS: hydrOXYzine PAMOATE 25 MG CAPSULE (FP) PO PRN (21:35)
[2020-12-03] MEDS ORDERED: methaDONE HCL 10 MG TABLET ONE (03:25)
[2020-12-03] MEDS ORDERED: methaDONE HCL 40 MG DISPERSABLE TABLET ONE (03:25)
[2020-12-03] MEDS: methaDONE 40 MG, methaDONE 30 MG PO SCH (06:13)
[2020-12-03] MEDS: PRENATAL VITAMINS W/ FOLIC ACID TABLET (FP) PO SCH (10:14)
[2020-12-03] MEDS: LACTULOSE 20 GM/30 ML UDC (FOR ORAL USE ONLY) PO SCH ×4 (10:14→21:23)
[2020-12-03] MEDS: THIAMINE HCL 100 MG TABLET (FP) PO SCH (21:23)
[2020-12-03] MEDS: MELATONIN 5 MG TABLETS PO SCH (21:23)
[2020-12-03] MEDS: QUEtiapine FUMARATE 25 MG TABLET PO SCH (21:23)
[2020-12-04] MEDS ORDERED: methaDONE HCL 10 MG TABLET ONE (06:31)
[2020-12-04] MEDS ORDERED: methaDONE HCL 40 MG DISPERSABLE TABLET ONE (06:31)
[2020-12-04] MEDS: methaDONE 40 MG, methaDONE 30 MG PO SCH (06:32)
[2020-12-04] MEDS: PRENATAL VITAMINS W/ FOLIC ACID TABLET (FP) PO SCH (10:13)
[2020-12-04] MEDS: LACTULOSE 20 GM/30 ML UDC (FOR ORAL USE ONLY) PO SCH ×4 (10:13→21:56)
[2020-12-04] MEDS: hydrOXYzine PAMOATE 25 MG CAPSULE (FP) PO PRN (21:56)
[2020-12-04] MEDS: THIAMINE HCL 100 MG TABLET (FP) PO SCH (21:56)
[2020-12-04] MEDS: QUEtiapine FUMARATE 25 MG TABLET PO SCH (21:56)
[2020-12-04] MEDS: MELATONIN 5 MG TABLETS PO SCH (21:56)
[2020-12-05] MEDS ORDERED: methaDONE HCL 40 MG DISPERSABLE TABLET ONE (03:06)
[2020-12-05] MEDS ORDERED: methaDONE HCL 10 MG TABLET ONE (03:06)
[2020-12-05] MEDS: methaDONE 40 MG, methaDONE 30 MG PO SCH (06:26)
[2020-12-05] MEDS: PRENATAL VITAMINS W/ FOLIC ACID TABLET (FP) PO SCH (09:56)
[2020-12-05] MEDS: LACTULOSE 20 GM/30 ML UDC (FOR ORAL USE ONLY) PO SCH ×4 (09:56→21:30)
[2020-12-05] MEDS: hydrOXYzine PAMOATE 25 MG CAPSULE (FP) PO PRN ×2 (09:56→21:30)
[2020-12-05] MEDS: THIAMINE HCL 100 MG TABLET (FP) PO SCH (21:30)
[2020-12-05] MEDS: MELATONIN 5 MG TABLETS PO SCH (21:30)
[2020-12-05] MEDS: QUEtiapine FUMARATE 25 MG TABLET PO SCH (21:30)
[2020-12-06] MEDS ORDERED: methaDONE HCL 10 MG TABLET ONE (03:04)
[2020-12-06] MEDS ORDERED: methaDONE HCL 40 MG DISPERSABLE TABLET ONE (03:05)
[2020-12-06] MEDS: methaDONE 40 MG, methaDONE 30 MG PO SCH (06:24)
[2020-12-06] MEDS: PRENATAL VITAMINS W/ FOLIC ACID TABLET (FP) PO SCH (10:11)
[2020-12-06] MEDS: LACTULOSE 20 GM/30 ML UDC (FOR ORAL USE ONLY) PO SCH ×4 (10:11→21:29)
[2020-12-06] MEDS: QUEtiapine FUMARATE 25 MG TABLET PO SCH (21:29)
[2020-12-06] MEDS: THIAMINE HCL 100 MG TABLET (FP) PO SCH (21:29)
[2020-12-06] MEDS: MELATONIN 5 MG TABLETS PO SCH (21:29)
[2020-12-07] MEDS ORDERED: methaDONE HCL 10 MG TABLET ONE (04:15)
[2020-12-07] MEDS ORDERED: methaDONE HCL 40 MG DISPERSABLE TABLET ONE (04:16)
[2020-12-07] MEDS: methaDONE 40 MG, methaDONE 30 MG PO SCH (06:13)
[2020-12-07] MEDS: LACTULOSE 20 GM/30 ML UDC (FOR ORAL USE ONLY) PO SCH ×4 (09:56→21:32)
[2020-12-07] MEDS: PRENATAL VITAMINS W/ FOLIC ACID TABLET (FP) PO SCH (09:56)
[2020-12-07] MEDS: QUEtiapine FUMARATE 25 MG TABLET PO SCH (21:32)
[2020-12-07] MEDS: THIAMINE HCL 100 MG TABLET (FP) PO SCH (21:32)
[2020-12-07] MEDS: MELATONIN 5 MG TABLETS PO SCH (21:32)
[2020-12-08] MEDS ORDERED: methaDONE HCL 10 MG TABLET ONE (03:02)
[2020-12-08] MEDS ORDERED: methaDONE HCL 40 MG DISPERSABLE TABLET ONE (03:02)
[2020-12-08] MEDS: methaDONE 40 MG, methaDONE 30 MG PO SCH (06:13)
[2020-12-08] MEDS: PRENATAL VITAMINS W/ FOLIC ACID TABLET (FP) PO SCH (10:07)
[2020-12-08] MEDS: LACTULOSE 20 GM/30 ML UDC (FOR ORAL USE ONLY) PO SCH ×4 (10:07→21:34)
[2020-12-08] MEDS: THIAMINE HCL 100 MG TABLET (FP) PO SCH (21:34)
[2020-12-08] MEDS: hydrOXYzine PAMOATE 25 MG CAPSULE (FP) PO PRN (21:34)
[2020-12-08] MEDS: MELATONIN 5 MG TABLETS PO SCH (21:34)
[2020-12-08] MEDS: QUEtiapine FUMARATE 25 MG TABLET PO SCH (21:34)
[2020-12-09] MEDS ORDERED: methaDONE HCL 40 MG DISPERSABLE TABLET ONE (03:27)
[2020-12-09] MEDS ORDERED: methaDONE HCL 10 MG TABLET ONE (03:27)
[2020-12-09] MEDS: methaDONE 40 MG, methaDONE 30 MG PO SCH (06:09)
[2020-12-09] MEDS: PRENATAL VITAMINS W/ FOLIC ACID TABLET (FP) PO SCH (10:14)
[2020-12-09] MEDS: LACTULOSE 20 GM/30 ML UDC (FOR ORAL USE ONLY) PO SCH ×4 (10:14→21:37)
[2020-12-09] MEDS: QUEtiapine FUMARATE 25 MG TABLET PO SCH (21:37)
[2020-12-09] MEDS: hydrOXYzine PAMOATE 25 MG CAPSULE (FP) PO PRN (21:37)
[2020-12-09] MEDS: MELATONIN 5 MG TABLETS PO SCH (21:38)
[2020-12-09] MEDS: THIAMINE HCL 100 MG TABLET (FP) PO SCH (21:38)
[2020-12-10] MEDS ORDERED: methaDONE HCL 40 MG DISPERSABLE TABLET ONE (03:08)
[2020-12-10] MEDS ORDERED: methaDONE HCL 10 MG TABLET ONE (03:08)
[2020-12-10] MEDS: methaDONE 40 MG, methaDONE 30 MG PO SCH (06:23)
[2020-12-10 07:21] VITALS: BP 102/58; PULSE 65; TEMP 97.8
[2020-12-10] MEDS: LACTULOSE 20 GM/30 ML UDC (FOR ORAL USE ONLY) PO SCH (09:52)
[2020-12-10] MEDS: PRENATAL VITAMINS W/ FOLIC ACID TABLET (FP) PO SCH (09:52)
[2020-12-10] MEDS: hydrOXYzine PAMOATE 25 MG CAPSULE (FP) PO PRN (09:52)
== END 2020-12-10 13:00 | disposition home or self-care (01) | DRG 772 ==
LOC: YASAS 11:54 → Y5N 11:58
PROVIDERS: ADMIT Allergy & Immunology; ATTEND Allergy & Immunology
PROC: HZ42ZZZ Group Counseling for Substance Abuse Treatment, Cognitive-Behavioral (ICD-10-PCS; principal; 2020-11-26)
DX: F10.20 Alcohol dependence, uncomplicated (principal); F11.20 Opioid dependence, uncomplicated; F14.20 Cocaine dependence, uncomplicated; F12.20 Cannabis dependence, uncomplicated; F17.210 Nicotine dependence, cigarettes, uncomplicated; F32.A Depression, unspecified; Z21 Asymptomatic human immunodeficiency virus [HIV] infection status; K70.30 Alcoholic cirrhosis of liver without ascites; B18.2 Chronic viral hepatitis C; K21.9 Gastro-esophageal reflux disease without esophagitis; Z86.69 Personal history of other diseases of the nervous system and sense organs; Z86.19 Personal history of other infectious and parasitic diseases; Z99.89 Dependence on other enabling machines and devices; Z59.00 Homelessness unspecified; Z88.8 Allergy status to other drugs, medicaments and biological substances
CPT/HCPCS: 36415; 82140; 84450

== ENCOUNTER 2020-12-27 14:24 | Inpatient (IN) | payer OTHER ==
[2020-12-27] MEDS ORDERED: METHOCARBAMOL 500 MG TABLET PO PRN (16:42)
[2020-12-27] MEDS ORDERED: BISMUTH SUBSALICYLATE 524 MG/30 ML PO PRN (16:42)
[2020-12-27] MEDS ORDERED: MAGNESIUM HYDROX 2400MG/30ML ORAL SUSPENSION 30 ML CUP PO PRN (16:42)
[2020-12-27] MEDS ORDERED: MAG HYDROX/AL HYDROX/SIMETH 30 ML UNIT-DOSE CUP PO PRN (16:42)
[2020-12-27] MEDS ORDERED: MENTHOL/PHENOL 1 EACH UD MM PRN (16:42)
[2020-12-27] MEDS ORDERED: ONDANSETRON *ODT* 4 MG TABLET SL PRN (16:42)
[2020-12-27] MEDS ORDERED: MAGNESIUM CITRATE 300 ML BOTTLE PO PRN (16:42)
[2020-12-27] MEDS ORDERED: ACETAMINOPHEN 325 MG TABLET (FP) PO PRN ×2 (16:42)
[2020-12-27 17:51] VITALS: BMI 24.6
[2020-12-27] MEDS: PRENATAL VITAMINS W/ FOLIC ACID TABLET (FP) PO SCH (19:21)
[2020-12-27] MEDS: hydrOXYzine PAMOATE 25 MG CAPSULE (FP) PO SCH ×3 (19:22→22:24)
[2020-12-27] MEDS: MELATONIN 5 MG TABLETS PO SCH (22:24)
[2020-12-27] MEDS: THIAMINE HCL 100 MG TABLET (FP) PO SCH (22:24)
[2020-12-27] MEDS: IBUPROFEN 400 MG TABLET (FP) PO PRN (22:25)
[2020-12-28] MEDS: hydrOXYzine PAMOATE 25 MG CAPSULE (FP) PO SCH ×2 (07:28→10:17)
[2020-12-28] MEDS: PRENATAL VITAMINS W/ FOLIC ACID TABLET (FP) PO SCH (10:17)
[2020-12-28] MEDS: NICOTINE 14 MG/24 HOURS TOPICAL PATCH TD SCH (10:18)
[2020-12-28] MEDS ORDERED: hydrOXYzine PAMOATE 25 MG CAPSULE (FP) PO PRN (11:33)
[2020-12-28] MEDS ORDERED: methaDONE HCL 10 MG TABLET PO ONE (11:34)
[2020-12-28] MEDS ORDERED: methaDONE 40 MG, methaDONE 30 MG PO ONE (12:15)
[2020-12-28] MEDS ORDERED: methaDONE HCL 40 MG DISPERSABLE TABLET ONE (12:55)
[2020-12-28] MEDS ORDERED: methaDONE HCL 10 MG TABLET ONE (12:55)
[2020-12-28] MEDS ORDERED: diazePAM 5 MG TABLET PO PRN (13:43)
[2020-12-28] MEDS ORDERED: diazePAM 5 MG TABLET PO ONE (14:00)
[2020-12-28 14:38] LABS: HEMATOCRIT 36.3 % (32.4-45.2); HEMOGLOBIN 12.3 GM/dL (10.7-15.3); MCH 31.9 pg (25.7-33.7); MCHC 33.8 g/dl (32.0-36.0); MEAN CELL VOLUME 94.5 fl (80-96); MEAN PLT VOLUME 9.5 fl (7.5-11.1); PLATELET COUNT 91 10^3/uL (134-434); RBC 3.84 M/mm3 (3.60-5.2); WHITE BLOOD COUNT 2.1 K/mm3 (4.0-10.0)
[2020-12-28 16:49] LABS: ALBUMIN 2.1 g/dl (3.4-5.0); CALCIUM 8.5 mg/dL (8.5-10.1); CREATININE 0.6 mg/dL (0.55-1.3); TOT PROT 9.7 g/dl (6.4-8.2)
[2020-12-28] MEDS: diazePAM 5 MG TABLET PO SCH ×2 (18:33→22:41)
[2020-12-28] MEDS: QUEtiapine FUMARATE 25 MG TABLET PO SCH (22:40)
[2020-12-28] MEDS: THIAMINE HCL 100 MG TABLET (FP) PO SCH (22:41)
[2020-12-28] MEDS: MELATONIN 5 MG TABLETS PO SCH (22:41)
[2020-12-29] MEDS ORDERED: methaDONE HCL 10 MG TABLET ONE (04:34)
[2020-12-29] MEDS ORDERED: methaDONE HCL 40 MG DISPERSABLE TABLET ONE (04:34)
[2020-12-29] MEDS ORDERED: methaDONE HCL 40 MG DISPERSABLE TABLET PO SCH (06:00)
[2020-12-29] MEDS: methaDONE 40 MG, methaDONE 30 MG PO SCH (06:09)
[2020-12-29] MEDS: diazePAM 5 MG TABLET PO SCH ×4 (06:09→22:22)
[2020-12-29] MEDS: PRENATAL VITAMINS W/ FOLIC ACID TABLET (FP) PO SCH (10:24)
[2020-12-29] MEDS: NICOTINE 14 MG/24 HOURS TOPICAL PATCH TD SCH (10:25)
[2020-12-29] MEDS: THIAMINE HCL 100 MG TABLET (FP) PO SCH (22:21)
[2020-12-29] MEDS: QUEtiapine FUMARATE 25 MG TABLET PO SCH (22:21)
[2020-12-29] MEDS: MELATONIN 5 MG TABLETS PO SCH (22:22)
[2020-12-30] MEDS ORDERED: methaDONE HCL 10 MG TABLET ONE (04:32)
[2020-12-30] MEDS ORDERED: methaDONE HCL 40 MG DISPERSABLE TABLET ONE (04:33)
[2020-12-30] MEDS: methaDONE 40 MG, methaDONE 30 MG PO SCH (05:40)
[2020-12-30] MEDS: diazePAM 5 MG TABLET PO SCH ×3 (05:40→22:42)
[2020-12-30] MEDS: IBUPROFEN 400 MG TABLET (FP) PO PRN (05:42)
[2020-12-30] MEDS: NICOTINE 14 MG/24 HOURS TOPICAL PATCH TD SCH (10:53)
[2020-12-30] MEDS: PRENATAL VITAMINS W/ FOLIC ACID TABLET (FP) PO SCH (10:53)
[2020-12-30] MEDS: THIAMINE HCL 100 MG TABLET (FP) PO SCH (22:42)
[2020-12-30] MEDS: MELATONIN 5 MG TABLETS PO SCH (22:42)
[2020-12-30] MEDS: QUEtiapine FUMARATE 25 MG TABLET PO SCH (22:42)
[2020-12-31] MEDS ORDERED: methaDONE HCL 40 MG DISPERSABLE TABLET ONE (04:26)
[2020-12-31] MEDS ORDERED: methaDONE HCL 10 MG TABLET ONE (04:26)
[2020-12-31] MEDS: methaDONE 40 MG, methaDONE 30 MG PO SCH (05:37)
[2020-12-31] MEDS: diazePAM 5 MG TABLET PO SCH ×2 (05:37→17:47)
[2020-12-31] MEDS: PRENATAL VITAMINS W/ FOLIC ACID TABLET (FP) PO SCH (10:35)
[2020-12-31] MEDS: NICOTINE 14 MG/24 HOURS TOPICAL PATCH TD SCH (10:36)
[2020-12-31] MEDS: THIAMINE HCL 100 MG TABLET (FP) PO SCH (22:09)
[2020-12-31] MEDS: MELATONIN 5 MG TABLETS PO SCH (22:09)
[2020-12-31] MEDS: QUEtiapine FUMARATE 25 MG TABLET PO SCH (22:09)
[2021-01-01] MEDS ORDERED: methaDONE HCL 40 MG DISPERSABLE TABLET ONE (04:21)
[2021-01-01] MEDS ORDERED: methaDONE HCL 10 MG TABLET ONE (04:21)
[2021-01-01] MEDS: methaDONE 40 MG, methaDONE 30 MG PO SCH (05:39)
[2021-01-01] MEDS ORDERED: diazePAM 5 MG TABLET PO ONE (06:00)
[2021-01-01 07:29] VITALS: PULSE 93
[2021-01-01 08:54] VITALS: BP 114/68; TEMP 97.2
[2021-01-01] MEDS: NICOTINE 14 MG/24 HOURS TOPICAL PATCH TD SCH (10:36)
[2021-01-01] MEDS: PRENATAL VITAMINS W/ FOLIC ACID TABLET (FP) PO SCH (10:36)
[2021-01-02 14:09] LABS: HIV INTERPRETATION PRESUMPTIVE POSITIVE (NEGATIVE)
== END 2021-01-01 10:41 | disposition home or self-care (01) | DRG 773 ==
LOC: YASAS 14:24 → Y3N 18:31
PROVIDERS: ADMIT Allergy & Immunology; ATTEND Allergy & Immunology
PROC: HZ2ZZZZ Detoxification Services for Substance Abuse Treatment (ICD-10-PCS; principal; 2020-12-27)
DX: F11.23 Opioid dependence with withdrawal (principal); F10.230 Alcohol dependence with withdrawal, uncomplicated; F14.20 Cocaine dependence, uncomplicated; F17.210 Nicotine dependence, cigarettes, uncomplicated; F19.282 Other psychoactive substance dependence with psychoactive substance-induced sleep disorder; Z21 Asymptomatic human immunodeficiency virus [HIV] infection status; K21.9 Gastro-esophageal reflux disease without esophagitis; K74.60 Unspecified cirrhosis of liver; B18.2 Chronic viral hepatitis C; R74.8 Abnormal levels of other serum enzymes; Z86.19 Personal history of other infectious and parasitic diseases; Z99.89 Dependence on other enabling machines and devices; Z88.8 Allergy status to other drugs, medicaments and biological substances; Z59.00 Homelessness unspecified
CPT/HCPCS: 36415; 80053; 81025; 85027; 86593; 86780; 87389; C9803; Q0162; U0003; U0005

== ENCOUNTER 2021-04-21 14:04 | Inpatient (IN) | payer OTHER ==
[2021-04-21] MEDS ORDERED: MAGNESIUM HYDROX 2400MG/30ML ORAL SUSPENSION 30 ML CUP PO PRN (15:32)
[2021-04-21] MEDS ORDERED: METHOCARBAMOL 500 MG TABLET PO PRN (15:32)
[2021-04-21] MEDS ORDERED: MAGNESIUM CITRATE 300 ML BOTTLE PO PRN (15:32)
[2021-04-21] MEDS ORDERED: MAG HYDROX/AL HYDROX/SIMETH 30 ML UNIT-DOSE CUP PO PRN (15:32)
[2021-04-21] MEDS ORDERED: LORazepam 1 MG TABLET PO PRN (15:32)
[2021-04-21] MEDS ORDERED: IBUPROFEN 400 MG TABLET (FP) PO PRN (15:32)
[2021-04-21] MEDS ORDERED: ONDANSETRON *ODT* 4 MG TABLET SL PRN (15:32)
[2021-04-21] MEDS ORDERED: MENTHOL/PHENOL 1 EACH UD MM PRN (15:32)
[2021-04-21] MEDS ORDERED: NICOTINE 10 MG CARTRIDGE (INHALER) IH PRN (15:32)
[2021-04-21] MEDS ORDERED: BISMUTH SUBSALICYLATE 524 MG/30 ML PO PRN (15:32)
[2021-04-21] MEDS ORDERED: ACETAMINOPHEN 325 MG TABLET (FP) PO PRN ×2 (15:32)
[2021-04-21] MEDS ORDERED: LOPERAMIDE HCL 2 MG CAPSULE PO PRN (15:32)
[2021-04-21 15:55] VITALS: BMI 22.0
[2021-04-21] MEDS: PRENATAL VITAMINS W/ FOLIC ACID TABLET (FP) PO SCH (20:30)
[2021-04-21] MEDS: LORazepam 2 MG TABLET PO SCH ×2 (20:42→23:01)
[2021-04-21] MEDS: hydrOXYzine PAMOATE 25 MG CAPSULE (FP) PO SCH ×2 (20:43→23:01)
[2021-04-21] MEDS: NICOTINE 14 MG/24 HOURS TOPICAL PATCH TD SCH (20:47)
[2021-04-21] MEDS: THIAMINE HCL 100 MG TABLET (FP) PO SCH (23:01)
[2021-04-21] MEDS: MELATONIN 5 MG TABLETS PO SCH (23:01)
[2021-04-22] MEDS: LORazepam 2 MG TABLET PO SCH ×4 (05:48→22:50)
[2021-04-22] MEDS: hydrOXYzine PAMOATE 25 MG CAPSULE (FP) PO SCH ×5 (05:49→22:47)
[2021-04-22] MEDS ORDERED: methaDONE HCL 10 MG TABLET PO SCH (10:30)
[2021-04-22] MEDS: NICOTINE 14 MG/24 HOURS TOPICAL PATCH TD SCH (10:35)
[2021-04-22] MEDS: PRENATAL VITAMINS W/ FOLIC ACID TABLET (FP) PO SCH (10:35)
[2021-04-22] MEDS ORDERED: methaDONE HCL 10 MG TABLET ONE (11:12)
[2021-04-22] MEDS ORDERED: methaDONE HCL 40 MG DISPERSABLE TABLET ONE (11:12)
[2021-04-22] MEDS: methaDONE 40 MG, methaDONE 30 MG PO SCH (11:21)
[2021-04-22 14:39] LABS: HEMATOCRIT 28.3 % (32.4-45.2); HEMOGLOBIN 9.7 GM/dL (10.7-15.3); MCH 32.5 pg (25.7-33.7); MCHC 34.2 g/dl (32.0-36.0); MEAN CELL VOLUME 95.1 fl (80-96); PLATELET COUNT 60 10^3/uL (134-434); RBC 2.97 M/mm3 (3.60-5.2); RDW 16.4 % (11.6-15.6)
[2021-04-22 14:45] LABS: WHITE BLOOD COUNT 1.8 K/mm3 (4.0-10.0)
[2021-04-22 14:55] LABS: ALBUMIN 1.9 g/dl (3.4-5.0); BLOOD UREA NITROGEN 8.7 mg/dL (7-18); CALCIUM 8.1 mg/dL (8.5-10.1)
[2021-04-22 14:58] LABS: CREATININE 0.6 mg/dL (0.55-1.3)
[2021-04-22 15:00] LABS: BILIRUBIN,TOTAL 1.6 mg/dL (0.2-1); TOT PROT 8.6 g/dl (6.4-8.2)
[2021-04-22] MEDS: MELATONIN 5 MG TABLETS PO SCH (22:48)
[2021-04-22] MEDS: THIAMINE HCL 100 MG TABLET (FP) PO SCH (22:50)
[2021-04-23] MEDS ORDERED: methaDONE HCL 10 MG TABLET ONE (04:49)
[2021-04-23] MEDS ORDERED: methaDONE HCL 40 MG DISPERSABLE TABLET ONE (04:50)
[2021-04-23] MEDS: methaDONE 40 MG, methaDONE 30 MG PO SCH (05:59)
[2021-04-23] MEDS: LORazepam 1 MG TABLET PO SCH ×4 (05:59→21:59)
[2021-04-23] MEDS: hydrOXYzine PAMOATE 25 MG CAPSULE (FP) PO SCH ×5 (05:59→21:58)
[2021-04-23] MEDS: NICOTINE 14 MG/24 HOURS TOPICAL PATCH TD SCH (11:00)
[2021-04-23] MEDS: PRENATAL VITAMINS W/ FOLIC ACID TABLET (FP) PO SCH (11:00)
[2021-04-23 11:33] LABS: HEMATOCRIT 27.9 % (32.4-45.2); MCH 35.1 pg (25.7-33.7); MEAN CELL VOLUME 97.5 fl (80-96); MEAN PLT VOLUME 9.7 fl (7.5-11.1); PLATELET COUNT 53 10^3/uL (134-434); RBC 2.86 M/mm3 (3.60-5.2); RDW 16.4 % (11.6-15.6)
[2021-04-23 11:40] LABS: WHITE BLOOD COUNT 1.8 K/mm3 (4.0-10.0)
[2021-04-23 13:50] LABS: ANISOCYTOSIS 0; HELMET CELLS 0; HOWELL-JOLLY BODIES 0; MACROCYTOSIS 0; OVALOCYTE 0; ROULEAU 0; SICKELED CELLS 0; TARGET CELLS 0; TEAR DROP CELLS 0; TOXIC GRANULATION 0
[2021-04-23 16:08] LABS: SARS-CoV-2 NAA Not Detected (Not Detected)
[2021-04-23] MEDS: MELATONIN 5 MG TABLETS PO SCH (21:58)
[2021-04-23] MEDS: THIAMINE HCL 100 MG TABLET (FP) PO SCH (21:58)
[2021-04-24] MEDS ORDERED: LORazepam 0.5 MG TABLET PO PRN
[2021-04-24] MEDS ORDERED: methaDONE HCL 40 MG DISPERSABLE TABLET ONE (04:22)
[2021-04-24] MEDS ORDERED: methaDONE HCL 10 MG TABLET ONE (04:22)
[2021-04-24] MEDS: hydrOXYzine PAMOATE 25 MG CAPSULE (FP) PO SCH ×5 (06:12→23:08)
[2021-04-24] MEDS: LORazepam 0.5 MG TABLET PO SCH ×4 (06:13→23:09)
[2021-04-24] MEDS: methaDONE 40 MG, methaDONE 30 MG PO SCH (06:13)
[2021-04-24] MEDS: PRENATAL VITAMINS W/ FOLIC ACID TABLET (FP) PO SCH (10:23)
[2021-04-24] MEDS: NICOTINE 14 MG/24 HOURS TOPICAL PATCH TD SCH (10:26)
[2021-04-24] MEDS: MELATONIN 5 MG TABLETS PO SCH (23:08)
[2021-04-24] MEDS: THIAMINE HCL 100 MG TABLET (FP) PO SCH (23:09)
[2021-04-25] MEDS ORDERED: methaDONE HCL 40 MG DISPERSABLE TABLET ONE (04:42)
[2021-04-25] MEDS ORDERED: methaDONE HCL 10 MG TABLET ONE (04:42)
[2021-04-25] MEDS ORDERED: LORazepam 0.5 MG TABLET PO ONE (05:00)
[2021-04-25] MEDS: methaDONE 40 MG, methaDONE 30 MG PO SCH (06:12)
[2021-04-25] MEDS: hydrOXYzine PAMOATE 25 MG CAPSULE (FP) PO SCH ×5 (06:15→22:07)
[2021-04-25] MEDS: PRENATAL VITAMINS W/ FOLIC ACID TABLET (FP) PO SCH (10:20)
[2021-04-25] MEDS: NICOTINE 14 MG/24 HOURS TOPICAL PATCH TD SCH (10:20)
[2021-04-25] MEDS: MELATONIN 5 MG TABLETS PO SCH (22:05)
[2021-04-25] MEDS: THIAMINE HCL 100 MG TABLET (FP) PO SCH (22:05)
[2021-04-26] MEDS ORDERED: methaDONE HCL 40 MG DISPERSABLE TABLET ONE (04:34)
[2021-04-26] MEDS ORDERED: methaDONE HCL 10 MG TABLET ONE (04:34)
[2021-04-26] MEDS: methaDONE 40 MG, methaDONE 30 MG PO SCH (07:49)
[2021-04-26] MEDS: hydrOXYzine PAMOATE 25 MG CAPSULE (FP) PO SCH (07:49)
[2021-04-26 08:45] VITALS: BP 103/64; PULSE 66; TEMP 97.1
[2021-04-26 09:51] LABS: HEMATOCRIT 31.3 % (32.4-45.2); HEMOGLOBIN 10.7 GM/dL (10.7-15.3); MCHC 34.2 g/dl (32.0-36.0); MEAN CELL VOLUME 96.5 fl (80-96); MEAN PLT VOLUME 9.2 fl (7.5-11.1); PLATELET COUNT 75 10^3/uL (134-434); RBC 3.25 M/mm3 (3.60-5.2); RDW 16.7 % (11.6-15.6); WHITE BLOOD COUNT 2.2 K/mm3 (4.0-10.0)
== END 2021-04-26 09:14 | disposition other institution (70) | DRG 773 ==
LOC: YASAS 14:04 → Y3N 19:05
PROVIDERS: ADMIT Allergy & Immunology; ATTEND Allergy & Immunology
PROC: HZ2ZZZZ Detoxification Services for Substance Abuse Treatment (ICD-10-PCS; principal; 2021-04-21)
DX: F10.230 Alcohol dependence with withdrawal, uncomplicated (principal); F11.20 Opioid dependence, uncomplicated; F14.20 Cocaine dependence, uncomplicated; F12.20 Cannabis dependence, uncomplicated; F17.210 Nicotine dependence, cigarettes, uncomplicated; F31.9 Bipolar disorder, unspecified; F19.282 Other psychoactive substance dependence with psychoactive substance-induced sleep disorder; F19.24 Other psychoactive substance dependence with psychoactive substance-induced mood disorder; F43.10 Post-traumatic stress disorder, unspecified; Z21 Asymptomatic human immunodeficiency virus [HIV] infection status; D61.818 Other pancytopenia; K74.60 Unspecified cirrhosis of liver; K21.9 Gastro-esophageal reflux disease without esophagitis; G40.909 Epilepsy, unspecified, not intractable, without status epilepticus; M19.90 Unspecified osteoarthritis, unspecified site; Z62.810 Personal history of physical and sexual abuse in childhood; Z91.410 Personal history of adult physical and sexual abuse
CPT/HCPCS: 36415; 80053; 81025; 85025; 85027; 86593; 86780; C9803-CS; U0003; U0005

== ENCOUNTER 2021-10-06 12:46 | Inpatient (IN) | payer OTHER ==
[2021-10-06 13:48] VITALS: BMI 24.6
[2021-10-06] MEDS ORDERED: MAG HYDROX/AL HYDROX/SIMETH 30 ML UNIT-DOSE CUP PO PRN (14:07)
[2021-10-06] MEDS ORDERED: ACETAMINOPHEN 325 MG TABLET (FP) PO PRN ×2 (14:07)
[2021-10-06] MEDS ORDERED: NICOTINE 10 MG CARTRIDGE (INHALER) IH PRN (14:07)
[2021-10-06] MEDS ORDERED: BISMUTH SUBSALICYLATE 524 MG/30 ML PO PRN (14:07)
[2021-10-06] MEDS ORDERED: BENZOCAINE/MENTHOL (CHLORASEPTIC ) LOZENGE MM PRN (14:07)
[2021-10-06] MEDS ORDERED: IBUPROFEN 400 MG TABLET (FP) PO PRN (14:07)
[2021-10-06] MEDS ORDERED: MAGNESIUM CITRATE 300 ML BOTTLE PO PRN (14:07)
[2021-10-06] MEDS ORDERED: DICYCLOMINE HCL 10 MG CAPSULE PO PRN (14:07)
[2021-10-06] MEDS ORDERED: MAGNESIUM HYDROX 2400MG/30ML ORAL SUSPENSION 30 ML CUP PO PRN (14:07)
[2021-10-06] MEDS ORDERED: LORazepam 1 MG TABLET PO PRN (14:07)
[2021-10-06] MEDS ORDERED: ONDANSETRON *ODT* 4 MG TABLET SL PRN (14:07)
[2021-10-06] MEDS ORDERED: LOPERAMIDE HCL 2 MG CAPSULE PO PRN (14:07)
[2021-10-06] MEDS: LORazepam 2 MG TABLET PO SCH ×2 (18:09→23:10)
[2021-10-06] MEDS: hydrOXYzine PAMOATE 25 MG CAPSULE (FP) PO SCH ×2 (18:09→23:10)
[2021-10-06] MEDS: PRENATAL VITAMINS W/ FOLIC ACID TABLET (FP) PO SCH (18:10)
[2021-10-06] MEDS: THIAMINE HCL 100 MG TABLET (FP) PO SCH (23:10)
[2021-10-06] MEDS: MELATONIN 5 MG TABLETS PO SCH (23:10)
[2021-10-07] MEDS: LORazepam 2 MG TABLET PO SCH ×4 (07:18→22:50)
[2021-10-07] MEDS: hydrOXYzine PAMOATE 25 MG CAPSULE (FP) PO SCH (07:19)
[2021-10-07] MEDS ORDERED: hydrOXYzine PAMOATE 25 MG CAPSULE (FP) PO PRN (09:40)
[2021-10-07] MEDS ORDERED: methaDONE HCL 40 MG DISPERSABLE TABLET PO SCH (09:45)
[2021-10-07 11:01] LABS: ALBUMIN 2.4 g/dl (3.4-5.0); CALCIUM 8.8 mg/dL (8.5-10.1)
[2021-10-07 11:04] LABS: CREATININE 0.5 mg/dL (0.55-1.3); HEMATOCRIT 32.9 % (32.4-45.2); MCH 32.9 pg (25.7-33.7); MCHC 33.5 g/dl (32.0-36.0); MEAN CELL VOLUME 98.1 fl (80-96); MEAN PLT VOLUME 9.3 fl (7.5-11.1); PLATELET COUNT 76 10^3/uL (134-434); RBC 3.35 M/mm3 (3.60-5.2); RDW 16.5 % (11.6-15.6); WHITE BLOOD COUNT 3.8 K/mm3 (4.0-10.0)
[2021-10-07 11:06] LABS: BILIRUBIN,TOTAL 1.6 mg/dL (0.2-1); TOT PROT 9.2 g/dl (6.4-8.2)
[2021-10-07 11:15] LABS: INR 1.82 (0.83-1.09)
[2021-10-07] MEDS ORDERED: methaDONE 40 MG, methaDONE 30 MG PO ONE (11:30)
[2021-10-07] MEDS: PRENATAL VITAMINS W/ FOLIC ACID TABLET (FP) PO SCH (11:52)
[2021-10-07] MEDS: LACTULOSE 20 GM/30 ML UDC (FOR ORAL USE ONLY) PO SCH ×2 (15:07→22:37)
[2021-10-07] MEDS: IBUPROFEN 600 MG TABLET (FP) PO PRN (15:53)
[2021-10-07] MEDS: MELATONIN 5 MG TABLETS PO SCH (22:37)
[2021-10-07] MEDS: THIAMINE HCL 100 MG TABLET (FP) PO SCH (22:37)
[2021-10-08] MEDS: LACTULOSE 20 GM/30 ML UDC (FOR ORAL USE ONLY) PO SCH ×3 (08:23→22:42)
[2021-10-08] MEDS: LORazepam 1 MG TABLET PO SCH ×4 (08:23→22:43)
[2021-10-08] MEDS: methaDONE 40 MG, methaDONE 30 MG PO SCH (09:42)
[2021-10-08] MEDS: PRENATAL VITAMINS W/ FOLIC ACID TABLET (FP) PO SCH (11:00)
[2021-10-08] MEDS: THIAMINE HCL 100 MG TABLET (FP) PO SCH (22:42)
[2021-10-08] MEDS: MELATONIN 5 MG TABLETS PO SCH (22:42)
[2021-10-09] MEDS ORDERED: LORazepam 0.5 MG TABLET PO PRN
[2021-10-09] MEDS: LORazepam 0.5 MG TABLET PO SCH ×4 (07:42→22:45)
[2021-10-09] MEDS: LACTULOSE 20 GM/30 ML UDC (FOR ORAL USE ONLY) PO SCH ×3 (08:26→22:46)
[2021-10-09] MEDS: methaDONE 40 MG, methaDONE 30 MG PO SCH (09:03)
[2021-10-09] MEDS: METHOCARBAMOL 500 MG TABLET PO PRN (09:09)
[2021-10-09] MEDS: PRENATAL VITAMINS W/ FOLIC ACID TABLET (FP) PO SCH (10:59)
[2021-10-09] MEDS: MELATONIN 5 MG TABLETS PO SCH (22:45)
[2021-10-09] MEDS: THIAMINE HCL 100 MG TABLET (FP) PO SCH (22:45)
[2021-10-10] MEDS ORDERED: LORazepam 0.5 MG TABLET PO ONE (05:00)
[2021-10-10] MEDS: methaDONE 40 MG, methaDONE 30 MG PO SCH (06:29)
[2021-10-10] MEDS: LACTULOSE 20 GM/30 ML UDC (FOR ORAL USE ONLY) PO SCH ×4 (06:30→22:53)
[2021-10-10] MEDS: PRENATAL VITAMINS W/ FOLIC ACID TABLET (FP) PO SCH (10:42)
[2021-10-10] MEDS: THIAMINE HCL 100 MG TABLET (FP) PO SCH (22:53)
[2021-10-10] MEDS: MELATONIN 5 MG TABLETS PO SCH (22:53)
[2021-10-11] MEDS: IBUPROFEN 600 MG TABLET (FP) PO PRN (01:09)
[2021-10-11] MEDS: METHOCARBAMOL 500 MG TABLET PO PRN (01:09)
[2021-10-11] MEDS: methaDONE 40 MG, methaDONE 30 MG PO SCH (07:27)
[2021-10-11] MEDS: LACTULOSE 20 GM/30 ML UDC (FOR ORAL USE ONLY) PO SCH ×4 (10:32→23:18)
[2021-10-11] MEDS: PRENATAL VITAMINS W/ FOLIC ACID TABLET (FP) PO SCH (10:32)
[2021-10-11] MEDS: MELATONIN 5 MG TABLETS PO SCH (23:18)
[2021-10-11] MEDS: THIAMINE HCL 100 MG TABLET (FP) PO SCH (23:19)
[2021-10-12] MEDS: methaDONE 40 MG, methaDONE 30 MG PO SCH (05:57)
[2021-10-12 10:00] VITALS: BP 107/64; PULSE 90; RESP 17; TEMP 96.9
[2021-10-12] MEDS: PRENATAL VITAMINS W/ FOLIC ACID TABLET (FP) PO SCH (10:45)
[2021-10-12] MEDS: LACTULOSE 20 GM/30 ML UDC (FOR ORAL USE ONLY) PO SCH (10:45)
[2021-10-12] MEDS: METHOCARBAMOL 500 MG TABLET PO PRN (10:47)
== END 2021-10-12 12:36 | disposition home or self-care (01) | DRG 773 ==
LOC: YASAS 12:46 → Y3N 15:11
PROVIDERS: ADMIT Allergy & Immunology; ATTEND Surgery
PROC: HZ2ZZZZ Detoxification Services for Substance Abuse Treatment (ICD-10-PCS; principal; 2021-10-06)
DX: F10.230 Alcohol dependence with withdrawal, uncomplicated (principal); F11.20 Opioid dependence, uncomplicated; F14.20 Cocaine dependence, uncomplicated; F12.20 Cannabis dependence, uncomplicated; F17.210 Nicotine dependence, cigarettes, uncomplicated; F31.9 Bipolar disorder, unspecified; Z21 Asymptomatic human immunodeficiency virus [HIV] infection status; E72.20 Disorder of urea cycle metabolism, unspecified; J44.9 Chronic obstructive pulmonary disease, unspecified; K21.9 Gastro-esophageal reflux disease without esophagitis; K74.60 Unspecified cirrhosis of liver; R06.02 Shortness of breath; Z99.81 Dependence on supplemental oxygen; Z86.19 Personal history of other infectious and parasitic diseases; Z99.89 Dependence on other enabling machines and devices; Z88.8 Allergy status to other drugs, medicaments and biological substances; Z59.02 Unsheltered homelessness
CPT/HCPCS: 36415; 80053; 81025; 82140; 82962; 85027; 85610; 86593; 86780; 93005; 93010; C9803-CS; U0003; U0005

== ENCOUNTER 2021-10-11 13:21 | Emergency (ER) | payer OTHER ==
[2021-10-11 13:42] VITALS: RESP 18; TEMP 97.5; BMI 24.6
[2021-10-11 16:20] LABS: BASO % 1.1 % (0-2.0); EOS % 3.6 % (0-4.5); HEMOGLOBIN 9.4 GM/dL (10.7-15.3); LYMPH % 32.4 % (8-40); MCH 31.6 pg (25.7-33.7); MCHC 32.6 g/dl (32.0-36.0); MEAN CELL VOLUME 97.1 fl (80-96); MEAN PLT VOLUME 8.5 fl (7.5-11.1); MONO % 16.1 % (3.8-10.2); NEUT % 46.8 % (42.8-82.8); PLATELET COUNT 115 10^3/uL (134-434); RBC 2.98 M/mm3 (3.60-5.2); RDW 16.4 % (11.6-15.6); WHITE BLOOD COUNT 2.4 K/mm3 (4.0-10.0)
[2021-10-11 16:25] LABS: INR 1.79 (0.83-1.09); PROTHROMBIN TIME (PATIENT) 20.7 SEC (9.7-13.0)
[2021-10-11 17:03] LABS: BLOOD UREA NITROGEN 10.9 mg/dL (7-18); CALCIUM 8.3 mg/dL (8.5-10.1)
[2021-10-11 17:06] LABS: CREATININE 0.4 mg/dL (0.55-1.3)
[2021-10-11 17:08] LABS: TOT PROT 7.3 g/dl (6.4-8.2)
[2021-10-11 17:11] LABS: N-TERMINAL BNP 121.4 pg/ml (5-125)
[2021-10-11 17:23] LABS: ALBUMIN 1.9 g/dl (3.4-5.0)
[2021-10-11 22:25] VITALS: BP 100/56; PULSE 87
== END 2021-10-11 22:52 | disposition short-term general hospital (02) ==
LOC: JER 13:21
DX: R06.02 Shortness of breath (principal)
CPT/HCPCS: 0241U-QW; 36415; 71045-TC-FY; 74177-TC; 80053; 83690; 83880; 84484; 85025; 85610; 85730; 93005; 93010; 99285-25; Q9967